=== PATIENT | male | born 1945 | race Caucasian/White ===

== ENCOUNTER 2016-12-16 05:25 | Emergency (ER) | payer MEDICARE, BC ==
[~2016-12-16] VITALS: Ht 170.2 cm; Wt 76.8 kg
[~2016-12-16 05:25] MED LIST: AMIO200T2 PO; BUPR300T33 PO; CARV6.252 PO; FISH1CAP59 PO; FLUO20TA PO; INSU100I14 SQ; INSU100V28 SQ; LEVO100T12 PO; LOVA20TA71 PO; MAGN400T25 PO; MULT1TAB69 PO; NITR0.4T28 SL; OLME40TA13 PO; OMEP20CA10 PO
--- OUTSIDE RECORDS SUMMARY | 2016-12-16 05:30 | XMS REPORT | Continuity of Care Document ---
Author Author [facility] [facility] Organization [facility] Address Unknown Phone Unavailable Support Name Relationship Address Phone MONALISA HARTMAN MD Caregiver [address] [facility] [place] [address] Unavailable JE HAYS MD Caregiver [address] [facility] [place] [place] [phone] Unavailable KEARA CHENG Next Of Kin [address] [place] [address] Insurance Providers Guarantor Zachary Cheng Address [address] [place] [address] Email Payer [facility] Policy Number [id number] Subscriber's Name Zachary Cheng Relationship 18 Self Group Number [id number] Effective Date 11 Payer Medicare Policy Number [id number] Subscriber's Name Zachary Cheng Relationship 18 Self Effective Date 10 Advance Directives Directive Response Recorded Date/Time Advanced Directives Type None 01/01/14 11:13pm Ordered Resuscitation Status Full Code 01/01/14 11:11pm Chief Complaint and Reason for Visit Chief Complaint Chest Pain Reason for Visit Acute kidney injury superimposed on chronic kidney disease Hypotension Problems Active Problems Medical Problem Onset Date Status Anticoagulated on Coumadin Unknown Chronic Chronic kidney disease Unknown Chronic Coronary artery disease Unknown Chronic Dyslipidemia Unknown Chronic Elevated INR Unknown Acute Episodic atrial fibrillation Unknown Resolved Foreign body in esophagus Unknown Acute GERD (gastroesophageal reflux disease) Unknown Chronic HTN (hypertension) Unknown Chronic Headache Unknown Acute Hypothyroidism Unknown Chronic Ischemic cardiomyopathy Unknown Chronic Laceration of lip Unknown Acute Obesity (BMI 30.0-34.9) Unknown Chronic Peripheral vascular disease Unknown Chronic Protein-calorie malnutrition, mild Unknown Chronic Sepsis Unknown Acute Type 2 diabetes mellitus Unknown Chronic UTI (lower urinary tract infection) Unknown Acute UTI (lower urinary tract infection) Unknown Acute Vomiting Unknown Acute Past Problems Medical Problem Onset Date Acute kidney injury superimposed on chronic kidney disease Unknown Closed head injury without loss of consciousness Unknown Contusion of arm, right Unknown Hypotension Unknown Laceration of scalp Unknown Medications Current Home Medications Medication Dose Units Route Directions Days Qty Instructions Start Date Amiodarone Hcl 200 Mg Tablet 200 Mg Oral Daily 10/12/12 Bupropion Hcl (Wellbutrin Xl) 300 Mg Tab.sr.24h 300 Mg Oral Daily 07/14/09 Carvedilol 6.25 Mg Tablet 6.25 Mg Oral Twice A Day 12/09/15 Fish Oil/Dha/Epa (Fish Oil 1,200 Mg Fish Oil) 1 Each Capsule 1 Cap Oral Twice A Day 10/12/12 Fluoxetine Hcl (Prozac) 20 Mg Tablet 40 Mg Oral Daily 10/12/12 Insulin Glargine (Lantus) 100 U/Ml Vial 26 Unit Sub-Q Bedtime 09/30 Insulin Lispro (Humalog) 100 Unit/1 Ml Insuln.pen 4 Unit Sub-Q Three Times A Day 05/28/14 Levothyroxine Sodium 100 Mcg Tablet 1 Tab Oral Before Breakfast Once daily before breakfast 10/01/16 Lovastatin 20 Mg Tablet 20 Mg Oral Bedtime 07/14/09 Magnesium Oxide (Mag-Oxide) 400 Mg Tablet 400 Mg Oral Daily 10/12 Multivitamin (Multivitamins) 1 Each Tablet 1 Tab Oral Daily 12/08 Nitroglycerin (Nitrostat) 0.4 Mg Tab.subl 0.4 Mg Sublingual Every 5 Minutes X 3 05/11/12 Olmesartan Medoxomil (Benicar) 40 Mg Tablet 20 Mg Oral Daily 08/04 Omeprazole 20 Mg Capsule.dr 20 Mg Oral Daily 12/09/15 Past Home Medications Medication Directions Ordered Status Amiodarone Hcl (Pacerone) 100 Mg Tablet, 100 Mg Oral Daily 01/18/12 Discontinued Aspirin 325 Mg Tablet, 650 Mg Oral Daily 07/14/09 Discontinued Carvedilol (Coreg) 6.25 Mg Tablet, 18.5 Mg Oral Twice A Day 01/18/12 Discontinued Cefixime (Suprax) 400 Mg Tablet, 400 Mg [place]hoff Daily 05/18/12 Discontinued Cipro , Twice A Day 05/16/12 Discontinued Ciprofloxacin Hcl (Cipro) 500 Mg Tablet, Twice A Day 05/31/14 Discontinued Ciprofloxacin Hcl (Cipro) 500 Mg Tablet, 500 Mg Oral Twice A Day 05/19/12 Discontinued Esomeprazole Mag Trihydrate (Nexium) 40 Mg Capsule.dr, 40 Mg Oral Daily 07/14 Discontinued Esomeprazole Mag Trihydrate (Nexium) 40 Mg Capsule.dr, 40 Mg Oral Daily 03/28 Discontinued Exenatide (Byetta) 5 Mcg Pen, 5 Mcg Sub-Q Twice A Day 07/14/09 Discontinued Fish Oil/[place]-3 Fatty Acids (Fish Oil 1,000 Mg Capsule) 1 Cap Capsule, 1 Cap Oral Daily 01/18/12 Discontinued Fluoxetine Hcl (Prozac) 40 Mg Capsule, 40 Mg Oral Daily 07/14/09 Discontinued Fluticasone Propionate (Flonase) 16 Gm [place].susp, 16 Gm Nasal Daily Discontinued Glyburide 5 Mg Tablet, 5 Mg Oral Twice A Day 07/14/09 Discontinued Lortab , As Needed 05/16/12 Discontinued Magnesium 200 Mg Tablet, 400 Mg Oral Twice A Day 07/14/09 Discontinued Metformin Hcl 500 Mg Tablet, 500 Mg Oral Twice A Day 07/14/09 Discontinued Nifedipine (Nifediac Cc) 30 Mg Tablet.sa, 30 Mg Oral Daily 07/14/09 Discontinued Phenazopyridine Hcl (Pyridium) 200 Mg Tablet, 200 Mg Oral Three Times A Day 05/16/12 Discontinued Spironolactone (Aldactone) 25 Mg Tablet, 25 Mg Oral Daily 05/11/12 Discontinued Spironolactone 25 Mg Tablet, 25 Mg Oral Daily 01/18/12 Discontinued Warfarin Sodium 2 Mg Tablet, 2 Mg Oral 6 Times A Week 12/09/15 Discontinued Warfarin Sodium 2 Mg Tablet, 2 Tab Oral 1 Week 10/01/16 Discontinued Social History Social History Problem Response Recorded Date/Time Onset Date Status Chewing Tobacco Status No 01/01/2014 9:45pm Not Applicable Not Applicable Hx Substance Use N ALCOHOLIC REHAB 199311/20/2016 4:40am Not Applicable Not Applicable Hx Alcohol Use Y "I STOPPED IN '94" 11/20/2016 4:40am Not Applicable Not Applicable Has the pt used tobacco in the last 12 months No 10/01/2016 2:09pm Not Applicable Not Applicable Tobacco Usage none 12/09/2015 8:40pm Not Applicable Not Applicable Query Response Start Date Stop Date Smoking Status Former smoker Hospital Discharge Instructions No hospital discharge instructions. Plan of Care Discharge Date 11/20/16 8:05am Disposition 02 TO [facility] Condition at Discharge Stable Prescriptions See Medication Section Referrals MONALISA HARTMAN MD Address: [address] [place], [place] [phone] Functional Status No functional status results. Allergies, Adverse Reactions, Alerts Allergen Type Severity Reaction Status Last Updated [place] tar Allergy Mild rash Active 10/01/16 oxypur Allergy Mild rash Active 05/28/14 Immunizations Immunization Event Date Type Not Given Reason Dose Number Lot Number Optometrist Assistant VIS Given Tdap 08/29/16 Administered 1 [id number] GlaxVenmoine 10/29/14 Query Response on File Recorded Date/Time Hx Influenza Vaccination Y fall 201510/01/16 2:09pm Hx Pneumococcal Vaccination No 10/01/16 2:09pm Hx Tetanus, Diptheria, Pertussis Yes 05/30/14 11:30pm Hx Influenza Vaccination Y fall 201510/01/16 2:09pm Hx Tetanus, Diptheria, Pertussis Yes 05/30/14 11:30pm Influenza Vaccine Hx fall 201511/20/16 4:40am Tdap Vaccine Hx 08/29/2016 08/29/16 5:04am Vital Signs Acute Vital Signs Vital Response Date/Time Temperature (Fahrenheit) 97.6 deg F (96.8 - 99.1) 11/20/2016 8:05am Temperature (Calculated Celsius) 36.68611 degrees C (36.0 - 37.3) 11/20/2016 8:05am Pulse Rate (adult) 56 bpm (60 - 100) 11/20/2016 8:05am Respiratory Rate 16 breaths/min (10 - 20) 11/20/2016 8:05am O2 Sat by Pulse Oximetry 98 % (90 - 100) 11/20/2016 8:05am Oxygen Delivery Method Room Air 10/01/2016 4:15pm Oxygen Flow Rate 2.00 L/min 11/20/2016 7:00am Blood Pressure 92/53 mm Hg 11/20/2016 8:05am Blood Pressure Source Automatic Cuff 10/01/2016 2:29pm Height (Feet) 5 feet 11/20/2016 4:00am Height (Inches) 7.00 inches 11/20/2016 4:00am Weight (Kilograms) 98.600 kg 11/20/2016 4:00am Body Mass Index (BMI) 34.0 11/20/2016 4:00am Results Laboratory Results Test Name Result Units Flags Reference Collection Date/Time Result Date/ Time Comments Activated Partial Thromboplast Time 54.4 SEC H 24-36 08/29/2016 3:55am 08/29/2016 4:54am White Blood Count 10.7 T/MM3 4.5-11.0 11/20/2016 4:39am 11/20/2016 4: 53am Red Blood Count 3.96 M/MM3 L 4.50-5.90 11/20/2016 4:39am 11/20/2016 4: 53am Hemoglobin 11.6 GM/DL L 13.5-17.5 11/20/2016 4:39am 11/20/2016 4:53am Hematocrit 34.6 % L 41-53 11/20/2016 4:39am 11/20/2016 4:53am Mean Corpuscular Volume 87.4 UM3 80-100 11/20/2016 4:39am 11/20/2016 4: 53am Mean Corpuscular Hemoglobin 29.3 UUG 26-34 11/20/2016 4:39am 2016 4:53am Mean Corpuscular Hemoglobin Concent 33.5 GM/DL 31-37 11/20/2016 4:39am 11/20/2016 4:53am RDW Standard Deviation 51.2 FL H 36.9-50.2 11/20/2016 4:39am 11/20/2016 4:53am Platelet Count 170 T/MM3 130-400 11/20/2016 4:39am 11/20/2016 4:53am Mean Platelet Volume 10.2 UM3 9.4-12.4 11/20/2016 4:39am 11/20/2016 4: 53am Neutrophils (%) (Auto) 70.7 % H 33-66 11/20/2016 4:39am 11/20/2016 4: 53am Lymphocytes (%) (Auto) 19.7 % L 23-45 11/20/2016 4:39am 11/20/2016 4: 53am Monocytes (%) (Auto) 5.4 % 0-9.0 11/20/2016 4:39am 11/20/2016 4:53am Eosinophils (%) (Auto) 3.5 % 0-4 11/20/2016 4:39am 11/20/2016 4:53am Basophils (%) (Auto) 0.4 % 0-2 11/20/2016 4:39am 11/20/2016 4:53am Immature Granulocyte % (Auto) 0.3 % 0.0-0.5 11/20/2016 4:39am 2016 4:53am Absolute Neutrophils (auto) 7.6 T/MM3 1.8-7.7 11/20/2016 4:39am 2016 4:53am Absolute Lymphocytes (auto) 2.1 T/MM3 1-4.8 11/20/2016 4:39am 2016 4:53am Absolute Monocytes (auto) 0.6 T/MM3 0-0.8 11/20/2016 4:39am 11/20/2016 4:53am Absolute Eosinophils (auto) 0.4 T/MM3 0-0.5 11/20/2016 4:39am 2016 4:53am Absolute Basophils (auto) 0.0 T/MM3 0-0.2 11/20/2016 4:39am 11/20/2016 4:53am Absolute Immature Granulocyte (auto 0.03 T/MM3 0.00-0.03 11/20/2016 4: 39am 11/20/2016 4:53am Prothromb Time International Ratio 2.14 H 0.76-1.04 11/20/2016 4:39am 11/20/2016 4:52am THERAPUTIC RANGE=2.00-3.00 FOR ANTI-THROMBOSIS THERAPUTIC RANGE=2.50-3.50 FOR IMPLANTED VALVE Icterus Index < 2 0-7 11/20/2016 4:39am 11/20/2016 5:02am Chemistry Specimen Hemolysis 28 H 0-25 11/20/2016 4:39am 11/20/2016 5: 02am 26-70: Specimen Exhibited Slight Hemolysis - can falsely elevate K (Potassium) and Urine Protein. Turbidity < 20 0-20 11/20/2016 4:39am 11/20/2016 5:02am Sodium Level 142 MEQ/L 134-144 11/20/2016 4:39am 11/20/2016 5:02am Potassium Level 4.4 MEQ/L 3.6-5 11/20/2016 4:39am 11/20/2016 5:02am Chloride Level 114 MEQ/L H 98-107 11/20/2016 4:39am 11/20/2016 5:02am Carbon Dioxide Level 17 MEQ/L L 22-30 11/20/2016 4:39am 11/20/2016 5: 02am Anion Gap 11 MEQ/L 5-15 11/20/2016 4:39am 11/20/2016 5:02am Blood Urea Nitrogen 52.0 MG/DL *H 9-20 11/20/2016 4:39am 11/20/2016 5: 24am Creatinine 5.2 MG/DL H 0.8-1.5 11/20/2016 4:39am 11/20/2016 5:02am BUN/Creatinine Ratio 10 RATIO 6-26 11/20/2016 4:39am 11/20/2016 5:02am Glomerular Filtration Rate Calc 11 11/20/2016 4:39am 11/20/2016 5: 02am Glucose Level 38 MG/DL *L 75-110 11/20/2016 4:39am 11/20/2016 5:25am Calculated Osmolality 284 MOSM/KG H 261-280 11/20/2016 4:39am 2016 5:02am Calcium Level 8.3 MG/DL L 8.4-10.2 11/20/2016 4:39am 11/20/2016 5:02am Total Bilirubin 1.00 MG/DL 0.20-1.30 11/20/2016 4:39am 11/20/2016 5: 02am Alkaline Phosphatase 177 U/L H 38-126 11/20/2016 4:39am 11/20/2016 5: 02am Total Protein 5.2 G/DL L 6.3-8.2 11/20/2016 4:39am 11/20/2016 5:02am Albumin 2.4 G/DL L 3.5-5.0 11/20/2016 4:39am 11/20/2016 5:02am Globulin 2.8 G/DL 2.4-3.6 11/20/2016 4:39am 11/20/2016 5:02am Albumin/Globulin Ratio 0.9 RATIO L 1.1-2.2 11/20/2016 4:39am 11/20/2016 5:02am Aspartate Amino Transf (AST/SGOT) 125 U/L H 17-59 11/20/2016 4:39am 12/2016 5:02am Alanine Aminotransferase (ALT/SGPT) 93 U/L H 21-72 11/20/2016 4:39am 12/2016 5:02am Troponin I < 0.012 ng/ml 0-0.12 11/20/2016 4:39am 11/20/2016 5:14am Troponin values with a difference of 55% increase from orginal troponin value represent a true biological DELTA value. (%increase Calc=Orginal Troponin value, divided by subsequent Troponin value, multiplied by 100) LY-Jaq-I-Type Natriuretic Peptide 3920 PG/ML H 0-175 11/20/2016 4:39am 11/20/2016 5:14am Rule in cut points: <50 years old=450; 50-75 years old=900; >75 years old=1800; When utilizing ProBNP rule-in cut points, adjustment for impaired renal function is typically not required. Magnesium Level 1.8 MG/DL 1.6-2.3 11/20/2016 4:39am 11/20/2016 5:02am Plasma Lactate 1.8 MMOL/L 0.6-2.2 11/20/2016 7:00am 11/20/2016 7:13am Glucometer 39 mg/dL *L 75-110 11/20/2016 7:17am 11/20/2016 7:19am Procedures Procedure Status Date Provider(s) Routine venipuncture Completed 04/19/16 Prothrombin time Completed 04/19/16 Routine venipuncture Completed 04/19/16 Prothrombin time Completed 04/19/16 Routine venipuncture Completed 04/19/16 Prothrombin time Completed 04/19/16 Routine venipuncture Completed 04/19/16 Prothrombin time Completed 04/19/16 Routine venipuncture Completed 04/19/16 Prothrombin time Completed 04/19/16 Capillary blood draw Completed 04/19/16 Prothrombin time Completed 04/19/16 Routine venipuncture Completed 04/19/16 Prothrombin time Completed 04/19/16 Routine venipuncture Completed 04/19/16 Prothrombin time Completed 04/19/16 Prothrombin time Completed 04/19/16 Capillary blood draw Completed 04/19/16 Prothrombin time Completed 04/19/16 Capillary blood draw Completed 04/19/16 Prothrombin time Completed 04/19/16 Capillary blood draw Completed 04/19/16 Prothrombin time Completed 04/19/16 Rpr s/n/ax/gen/trk7.6-12.5cm Completed 08/29/[address] head/brain w/o dye Completed 08/29/16 Metabolic panel total ca Completed 08/29/16 Complete cbc w/auto diff wbc Completed 08/29/16 Prothrombin time Completed 08/29/16 Thromboplastin time partial Completed 08/29/16 Immunization admin Completed 08/29/16 Tdap vaccine 7 yrs/> im Completed 08/29/16 Emergency dept visit Completed 08/29/16 [id number] ITEM OR SERVICE Completed 08/29/16 Routine venipuncture Completed 10/01/16 Ct head/brain w/o dye Completed 10/01/16 Comprehen metabolic panel Completed 10/01/16 Reagent strip/blood glucose Completed 10/01/16 Complete cbc w/auto diff wbc Completed 10/01/16 Prothrombin time Completed 10/01/16 Electrocardiogram tracing Completed 10/01/16 [id number] ITEM OR SERVICE Completed 10/01/16 [id number]"HOSPITAL OBSERVATION SERVICE, PER HOUR" Completed 10/01/16 [id number]"HOSPITAL OBSERVATION SERVICE, PER HOUR" Completed 10/01/16 Encounters Encounter Location Arrival/Admit Date Discharge/Depart Date Attending Provider Departed Emergency Room [facility] 11/20/16 3:57am 11/20/16 8: 05am JE HAYS MD Registered Recurring [facility] 11/09/16 11:33am FLOR FLORES MD Discharged Inpatient (obs) [facility] 10/01/16 1:40pm 10/01/16 4: 30pm FLOR FLORES MD Departed Emergency Room [facility] 08/29/16 3:26am 08/29/16 5: 25am MEGHAN VERNON MD Discharged Recurring [facility] 04/19/16 11:40am 09/18/16 11: 42pm FLOR FLORES MD Recent Diagnosis
--- OUTSIDE RECORDS SUMMARY | 2016-12-16 05:31 | XMS REPORT | Referral Summary ---
Author Author [facility] Organization [facility] Address Unknown Phone Unavailable Care Team Providers Care Riveter Portable Machine Name Role Phone Holly Singh Primary Care Physician [phone] Encounter VC Date(s): 11/10/16 - 11/10/16 [facility] [address] [place] [id number] Discharge Disposition: 01-Home or Self Care Attending Physician: Feliz Singh MD Admitting Physician: Feliz Singh MD Vital Signs Most recent to 1 oldest [Reference Range]: Blood Pressure 100/50 mmHg [90-140/60-90 mmHg] (11/10/16 10:18 AM) Problem List Condition Effective Dates Status Health Status Informant Left Adrenal adenoma Active - Benign(Confirmed) Recovering Active alcoholic(Confirmed) Allergic Active rhinitis(Confirmed) Arthritis of both Active knees(Confirmed) Atherosclerosis of Active coronary artery(Confirmed) Benign essential Active hypertension (disorder)(Confirmed ) Benign < 06/03/14 Resolved hypertension(Confirm ed) Bladder neck Active contracture(Confirme d) Gross Bladder Resolved trabeculation(Confir med) BPH with Active Prostatism(Confirmed ) Congestive heart Active failure (disorder)(Confirmed ) CKD (chronic kidney Active disease), stage III(Confirmed) Chronic Diffuse Active trigonitis(Confirmed ) Coronary Active arteriosclerosis (disorder)(Confirmed ) Coronary artery 2012 - 06/03/14 Resolved disease(Confirmed) Generalized Active osteoarthritis (disorder)(Confirmed ) Depression(Confirmed Active ) Diabetes(Confirmed) Active Arthritis of Active shoulder Lt(Confirmed) Dysphagia - 01/03/14 Active Progressive(Confirme d)1 Gastroesophageal Active reflux disease (disorder)(Confirmed ) Hyperlipidemia(Confi Active rmed) Hypertension(Confirm < 06/03/14 Resolved ed) Hypothyroidism Active (disorder)(Confirmed ) Intermittent 11/15/12 Active claudication(Confirm ed) Intermittent 11/29/12 Active claudication(Confirm ed) Intermittent 10/16/12 Active claudication(Confirm ed) Mixed Active hyperlipidemia(Confi rmed) Obesity Active (disorder)(Confirmed ) Osteoarthritis, Active generalized(Confirme d) PAD(Confirmed) Active Peripheral vascular Active disease (disorder)(Confirmed ) Persistent Painless Active microscopic hematuria(Confirmed) Polio(Confirmed) Active Psoriasis(Confirmed) Active Pure Active hypercholesterolemia (disorder)(Confirmed ) Arthritis of Active back(Confirmed) 1EGD with Dilation, Ulcer at distal esophagus, stay on ppl Allergies, Adverse Reactions, Alerts Substance Reaction Severity Status BLUE inhibitors1 Active 1ACE inhibitors and ARB's are contraindicated due to history of acute kidney injury (prerenal) per Dr. Ashok Moe. Medications amiodarone 200 mg oral tablet 1 tabs, Oral, Daily, # 30 tabs, 0 Refill(s) Start Date: 05/13/14 Status: Ordered BD INSULIN SYR 1 ML [id number] See Instructions, USE TO INJECT INSULIN FOUR TIMES A DAY, # 100 syringes, eRx: [facility] #[id number], USE TO INJECT INSULIN FOUR TIMES A DAY Start Date: 05/26/16 Status: Ordered BD INSULIN SYR 1 ML [id number] See Instructions, USE TO INJECT INSULIN FOUR TIMES A DAY, # 100 syringes, 1 Refill(s), eRx: [facility] #[id number], USE TO INJECT INSULIN FOUR TIMES A DAY Start Date: 11/27/15 Status: Ordered BD INSULIN SYR 1 ML [id number] See Instructions, USE TO INJECT INSULIN FOUR TIMES A DAY, # 100 syringes, eRx: [facility] #[id number], USE TO INJECT INSULIN FOUR TIMES A DAY Start Date: 08/31/16 Status: Ordered BD INSULIN SYR 1 ML [id number] See Instructions, USE TO INJECT INSULIN FOUR TIMES A DAY, # 100 syringes, eRx: [facility] #[id number], USE TO INJECT INSULIN FOUR TIMES A DAY Start Date: 08/18/15 Status: Ordered BD INSULIN SYR 1 ML [id number] See Instructions, USE TO INJECT INSULIN FOUR TIMES A DAY, # 100 syringes, eRx: [facility] #[id number], USE TO INJECT INSULIN FOUR TIMES A DAY Start Date: 01/28/15 Status: Ordered BD INSULIN SYR 1 ML [id number] See Instructions, USE TO INJECT INSULIN FOUR TIMES A DAY, # 100 syringes, eRx: [facility] #[id number], USE TO INJECT INSULIN FOUR TIMES A DAY Start Date: 05/13/15 Status: Ordered BD INSULIN SYR 1 ML [id number] See Instructions, USE TO INJECT INSULIN FOUR TIMES A DAY, # 100 syringes, 1 Refill(s), eRx: [facility] #[id number], USE TO INJECT INSULIN FOUR TIMES A DAY Start Date: 07/15/14 Status: Ordered BD ULTRA-FINE PEN NDL [id number] See Instructions, USE TO INJECT THREE TIMES A DAY FOR DIABETES, # 100 unknown unit, 2 Refill(s), eRx: [facility] #[id number], USE TO INJECT THREE TIMES A DAY FOR DIABETES Start Date: 01/20/16 Status: Ordered BD ULTRA-FINE PEN NDL [id number] See Instructions, USE WITH INSULIN TO INJECT MEDICATION DIRECTED, # 100 unknown unit, 1 Refill(s), eRx: [facility] #[id number], USE WITH INSULIN TO INJECT MEDICATION DIRECTED Start Date: 02/20/14 Status: Ordered BD ULTRA-FINE PEN NDL [id number] See Instructions, USE WITH INSULIN TO INJECT MEDICATION DIRECTED, # 100 unknown unit, eRx: [facility] #[id number], USE WITH INSULIN TO INJECT MEDICATION DIRECTED Start Date: 07/09/14 Status: Ordered BD ULTRA-FINE PEN NDL [id number] See Instructions, USE WITH INSULIN TO INJECT MEDICATION DIRECTED, # 100 unknown unit, eRx: [facility] #[id number], USE WITH INSULIN TO INJECT MEDICATION DIRECTED Start Date: 11/04/14 Status: Ordered Benicar 20 mg oral tablet mg tabs, Oral, Daily, 0 Refill(s) Start Date: 09/15/16 Status: Ordered buPROPion 300 mg/24 hours (XL) oral tablet, extended release See Instructions, TAKE ONE TABLET BY MOUTH EVERY DAY, # 30 tabs, 4 Refill(s), eRx: [facility] #[id number] Start Date: 09/08/16 Status: Ordered Coreg 6.25 mg oral tablet 1 tabs, Oral, BID, # 60 tabs, 0 Refill(s) Start Date: 05/13/14 Status: Ordered Fish Oil 1200 mg oral capsule 1 caps, Oral, BID, 0 Refill(s) Start Date: 05/13/14 Status: Ordered FLUoxetine 20 mg oral capsule See Instructions, TAKE TWO CAPSULES BY MOUTH DAILY, # 60 caps, eRx: [facility] #[id number] Start Date: 10/14/16 Status: Ordered HumaLOG KwikPen 100 units/mL subcutaneous solution See Instructions, INJECT 12 UNITS WITH MEALS, # 15 unknown unit, eRx: [facility] #[id number], INJECT 12 UNITS WITH MEALS Start Date: 07/20/16 Status: Ordered Insulin Pin [place] (DME) DME Item USE TO INJECT INSULIN 3 TIMES DAILY FOR DIABETES TYPE 2 250.00, See Instructions, # 1 boxes, 3 Refill(s), Pharmacy: [facility] #[id number], USE TO INJECT INSULIN 3 TIMES DAILY FOR DIABETES TYPE 2 250.00, Supply Start Date: 01/07/15 Status: Ordered Lantus 100 units/mL subcutaneous solution See Instructions, INJECT 30 UNITS UNDER THE SKIN EVERY EVENING, # 10 unknown unit, 2 Refill(s), eRx: [facility] #[id number] Start Date: 11/10/16 Status: Ordered levothyroxine 100 mcg (0.1 mg) oral tablet See Instructions, TAKE ONE TABLET BY MOUTH DAILY, # 45 tabs, eRx: [facility] #[id number] Start Date: 09/24/16 Status: Ordered lovastatin 20 mg oral tablet See Instructions, TAKE ONE TABLET BY MOUTH DAILY, # 30 tabs, 2 Refill(s), eRx: [facility] #[id number] Start Date: 09/16/16 Status: Ordered magnesium oxide 400 mg (241.3 mg elemental magnesium) oral tablet 400 mg, Oral, Daily, # 60 tabs, 6 Refill(s), Pharmacy: [facility] #[id number] , 400 mg Oral Daily Start Date: 08/19/16 Status: Ordered Nitrostat 0.4 mg sublingual tablet See Instructions, TAKE ONE TABLET UNDER THE TONGUE EVERY 5 MINUTES NEEDED FOR CHEST PAIN, # 100 tabs, eRx: [facility] #[id number] Start Date: 10/06/16 Status: Ordered omeprazole 20 mg oral delayed release capsule See Instructions, TAKE ONE CAPSULE BY MOUTH DAILY BEFORE A MEAL, # 30 caps, eRx : [facility] #[id number] Start Date: 10/14/16 Status: Ordered OMEPRAZOLE DR 20MG CAPSULE, UU See Instructions, TAKE ONE CAPSULE BY MOUTH ONCE A DAY BEFORE A MEAL, # 30 caps , 4 Refill(s), eRx: [facility] #[id number], TAKE ONE CAPSULE BY MOUTH ONCE A DAY BEFORE A MEAL Start Date: 11/08/14 Status: Ordered One-A-Day Men 50 Plus tabs, Oral, Daily, 0 Refill(s) Start Date: 08/19/16 Status: Ordered warfarin 2 mg oral tablet mg tabs, Oral, Daily, 0 Refill(s) Start Date: 05/09/15 Status: Ordered warfarin 5 mg oral tablet mg tabs, Oral, Daily, 2.5 MWF AND 2 OTHER DAYS, 0 Refill(s) Start Date: 10/08/14 Status: Ordered Results No data available for this section Immunizations Given and Recorded Vaccine Date Status Refusal Reason tetanus/diphth/pertuss (Tdap) adult/adol 06/08/13 Recorded influenza virus vaccine, inactivated 08/19/16 Given influenza virus vaccine, inactivated 08/12/15 Given influenza virus vaccine, inactivated1 06/17/14 Recorded influenza virus vaccine, live 08/14/13 Given influenza virus vaccine, live 08/07/12 Given influenza virus vaccine, live 06/15/11 Given pneumococcal 13-valent conjugate vaccine 08/12/15 Given pneumococcal 23-polyvalent vaccine 03/02/11 Recorded pneumococcal 23-polyvalent vaccine 08/02/02 Recorded tetanus-diphth toxoids (Td) adult/adol 08/16/07 Recorded 1Result Comment: [06/17/2014] SEE SCANNED NOTE Procedures Procedure Date Related Diagnosis Body Site Esophagogastroduodenoscopy, flexible, 12/09/15 transoral; with removal of foreign body(s)1 Colon cancer screening 01/03/14 Colonoscopy, Normal2 01/03/14 Esophagogastroduodenoscopy with Dilatation, 01/03/14 ulcer at distal esophagus3 Left Successful LABORATORY PHLEBOTOMIST/ Stent SFA 11/29/12 Right Leg Bare Metal Stent distal SFA and 11/15/12 Proximal Popliteal Angiogram4 10/16/12 Cardiac catheterization2012 Procedure - CT was Stable 01/13/12 Cardiac catheterization 2010 Esophagogastroduodenoscopy 2010 Cystoscopy, urethral calibration, laser 07/14/09 vaporization Cystoscopy Urethral Calibration and 03/31/09 dilatation Cystoscopy Filiform and AMP Follower 11/25/08 Esophagogastroduodenoscopy 02/2001 Detached retina 09/2000 Cataract - Left 1996 Cardiac catheterization 1993 Chronic prostatitis Dilatation and AMP Hydrodistention Pacemaker Defibrillator Tonsillectomy 1Food removed from esophagus. No evidence of stricture or Schatzki's ring. 2Repeat in 10 years 3stay on PPl 4Left SFA 70 percent, LABORATORY PHLEBOTOMIST and peroneal 100 percent; right SFA 100 Percent distally, Peroneal 100 Percent 5With Stents Social History Social History Type Response Smoking Status Former smoker; Type: Cigarettes; Tobacco use per day: 1 pack or more; Number of years: 31; Date Last Use: 1993 Assessment and Plan Extracted from: Title: Ambulatory Patient Education Author: Richard Amaya RN Date: 11/10/16 Geriatrics Fall Prevention in the Home Falls can cause injuries. They can happen to people of all ages. There are many things you can do to make your home safe and to help prevent falls. WHAT CAN I DO ON THE OUTSIDE OF MY HOME? Regularly fix the edges of walkways and driveways and fix any cracks. Remove anything that might make you trip as you walk through a door, such as a raised step or threshold. Trim any bushes or trees on the path to your home. Use bright outdoor lighting. Clear any walking paths of anything that might make someone trip, such as rocks or tools. Regularly check to see if handrails are loose or broken. Make sure that both sides of any steps have handrails. Any raised decks and porches should have guardrails on the edges. Have any leaves, snow, or ice cleared regularly. Use sand or salt on walking paths during winter. Clean up any spills in your garage right away. This includes oil or grease spills. WHAT CAN I DO IN THE BATHROOM? Use night lights. Install grab bars by the toilet and in the tub and shower. Do not use towel bars as grab bars. Use non-skid mats or decals in the tub or shower. If you need to sit down in the shower, use a plastic, non-slip stool. Keep the floor dry. Clean up any water that spills on the floor as soon as it happens. Remove soap buildup in the tub or shower regularly. Attach bath mats securely with double-sided non-slip rug tape. Do not have throw rugs and other things on the floor that can make you trip. WHAT CAN I DO IN THE BEDROOM? Use night lights. Make sure that you have a light by your bed that is easy to reach. Do not use any sheets or blankets that are too big for your bed. They should not hang down onto the floor. Have a firm chair that has side arms. You can use this for support while you get dressed. Do not have throw rugs and other things on the floor that can make you trip. WHAT CAN I DO IN THE KITCHEN? Clean up any spills right away. Avoid walking on wet floors. Keep items that you use a lot in [id number] places. If you need to reach something above you, use a strong step stool that has a grab bar. Keep electrical cords out of the way. Do not use floor romanian or wax that makes floors slippery. If you must use wax, use non-skid floor wax. Do not have throw rugs and other things on the floor that can make you trip. WHAT CAN I DO WITH MY STAIRS? Do not leave any items on the stairs. Make sure that there are handrails on both sides of the stairs and use them. Fix handrails that are broken or loose. Make sure that handrails are as long as the stairways. Check any carpeting to make sure that it is firmly attached to the stairs. Fix any carpet that is loose or worn. Avoid having throw rugs at the top or bottom of the stairs. If you do have throw rugs, attach them to the floor with carpet tape. Make sure that you have a light switch at the top of the stairs and the bottom of the stairs. If you do not have them, ask someone to add them for you. WHAT ELSE CAN I DO TO HELP PREVENT FALLS? Wear shoes that: Do not have high heels. Have rubber bottoms. Are comfortable and fit you well. Are closed at the toe. Do not wear sandals. If you use a stepladder: Make sure that it is fully opened. Do not climb a closed stepladder. Make sure that both sides of the stepladder are locked into place. Ask someone to hold it for you, if possible. Clearly earnest and make sure that you can see: Any grab bars or handrails. First and last steps. Where the edge of each step is. Use tools that help you move around (mobility aids) if they are needed. These include: Canes. Walkers. Scooters. Crutches. Turn on the lights when you go into a dark area. Replace any light bulbs as soon as they burn out. Set up your furniture so you have a clear path. Avoid moving your furniture around. If any of your floors are uneven, fix them. If there are any pets around you, be aware of where they are. Review your medicines with your doctor. Some medicines can make you feel dizzy. This can increase your chance of falling. Ask your doctor what other things that you can do to help prevent falls. This information is not intended to replace advice given to you by your health care provider. Make sure you discuss any questions you have with your health care provider. Document Released: 07/02/2010 Document Revised: 01/20/2016 Document Reviewed: [employer] Interactive Patient Education 2016 [employer] Health and Wellness Exercising to Stay Healthy Exercising regularly is important. It has many health benefits, such as: Improving your overall fitness, flexibility, and endurance. Increasing your bone density. Helping with weight control. Decreasing your body fat. Increasing your muscle strength. Reducing stress and tension. Improving your overall health. In order to become healthy and stay healthy, it is recommended that you do moderate-intensity and vigorous-intensity exercise. You can tell that you are exercising at a moderate intensity if you have a higher heart rate and faster breathing, but you are still able to hold a conversation. You can tell that you are exercising at a vigorous intensity if you are breathing much harder and faster and cannot hold a conversation while exercising. HOW OFTEN SHOULD I EXERCISE? Choose an activity that you enjoy and set realistic goals. Your health care provider can help you to make an activity plan that works for you. Exercise regularly as directed by your health care provider. This may include: Doing resistance training twice each week, such as: Push-ups. Sit-ups. Lifting weights. Using resistance bands. Doing a given intensity of exercise for a given amount of time. Choose from these options: 150 minutes of moderate-intensity exercise every week. 75 minutes of vigorous-intensity exercise every week. A mix of moderate-intensity and vigorous-intensity exercise every week. Children, women, people who are out of shape, people who are overweight , and older adults may need to consult a health care provider for individual recommendations. If you have any sort of medical condition, be sure to consult your health care provider before starting a new exercise program. WHAT ARE SOME EXERCISE IDEAS? Some moderate-intensity exercise ideas include: Walking at a rate of 1 mile in 15 minutes. Biking. Hiking. Golfing. Dancing. Some vigorous-intensity exercise ideas include: Walking at a rate of at least 4.5 miles per hour. Jogging or running at a rate of 5 miles per hour. Biking at a rate of at least 10 miles per hour. Lap swimming. Roller-skating or in-line skating. Cross-country skiing. Vigorous competitive sports, such as football, basketball, and soccer. Jumping rope. Aerobic dancing. WHAT ARE SOME EVERYDAY ACTIVITIES THAT CAN HELP ME TO GET EXERCISE? Yard work, such as: Pushing a bleach boiler packer. Raking and bagging leaves. Washing and waxing your car. Pushing a stroller. Shoveling snow. Gardening. Washing windows or floors. HOW CAN I BE MORE ACTIVE IN MY DAY-TO-DAY ACTIVITIES? Use the stairs instead of the elevator. Take a walk during your lunch break. If you drive, park your car farther away from work or school. If you take public transportation, get off one stop early and walk the rest of the way. Make all of your phone calls while standing up and walking around. Get up, stretch, and walk around every 30 minutes throughout the day. WHAT GUIDELINES SHOULD I FOLLOW WHILE EXERCISING? Do not exercise so much that you hurt yourself, feel dizzy, or get very short of breath. Consult your health care provider before starting a new exercise program. Wear comfortable clothes and shoes with good support. Drink plenty of water while you exercise to prevent dehydration or heat stroke. Body water is lost during exercise and must be replaced. Work out until you breathe faster and your heart beats faster. This information is not intended to replace advice given to you by your health care provider. Make sure you discuss any questions you have with your health care provider. Document Released: 10/08/2011 Document Revised: 09/26/2015 Document Reviewed: [employer] Interactive Patient Education 2016 [employer] No follow up information was provided.
--- OUTSIDE RECORDS SUMMARY | 2016-12-16 05:33 | XMS REPORT | Continuity of Care Document ---
Author Author [facility] Organization [facility] Address Unknown Phone Unavailable Support Name Relationship Address Phone FLOR FLORES MD Caregiver [facility] [address], [address] [place] [address] MONALISA HARTMAN MD Caregiver [address] [place] [address] KEARA CHENG Next Of Kin [address] [place], [place] [address] Insurance Providers Payer Name Policy Number Subscriber Name Relationship Medicare [id number] Zachary Cheng 18 Self [facility] [id number] Zachary Cheng 18 Self Advance Directives Directive Response Recorded Date/Time Advanced Directives Type None 01/01/14 11:13pm Ordered Resuscitation Status Full Code 01/01/14 11:11pm Problems Medical Problems Problem Onset Date Status Laceration of lip Unknown Active Vomiting Unknown Active UTI (lower urinary tract infection) Unknown Active Sepsis Unknown Active Type 2 diabetes mellitus Unknown Active HTN (hypertension) Unknown Active Hypothyroidism Unknown Active Coronary artery disease Unknown Active Peripheral vascular disease Unknown Active GERD (gastroesophageal reflux disease) Unknown Active Obesity (BMI 30.0-34.9) Unknown Active Anticoagulated on Coumadin Unknown Active Dyslipidemia Unknown Active Chronic kidney disease Unknown Active Episodic atrial fibrillation Unknown Resolved UTI (lower urinary tract infection) Unknown Active Protein-calorie malnutrition, mild Unknown Active Medications Medication Dose Route Sig Days/Qty Instructions Order Date Discontinued Date Status Lovastatin 20 Mg PO BEDTIME 07/14/09 Active Fluoxetine HCl 40 Mg PO DAILY 07/14/09 10/12/12 Discontinued Esomeprazole Mag Trihydrate 40 Mg PO DAILY 07/14/09 01/18/12 Discontinued Lisinopril 2.5 Mg PO DAILY 07/14/09 Active Bupropion Hcl 300 Mg PO DAILY 07/14/09 Active Exenatide 5 Mcg SQ TWICE A DAY 07/14/09 01/18/12 Discontinued Glyburide 5 Mg PO TWICE A DAY 07/14/09 01/18/12 Discontinued Metformin Hcl 500 Mg PO TWICE A DAY 07/14/09 01/18/12 Discontinued Magnesium 400 Mg PO TWICE A DAY 07/14/09 10/12/12 Discontinued Aspirin 650 Mg PO DAILY 07/14/09 05/11/12 Discontinued Nifedipine 30 Mg PO DAILY 07/14/09 01/18/12 Discontinued Esomeprazole Mag Trihydrate 40 Mg PO DAILY 03/28/09 03/28/09 Discontinued Tamsulosin Hcl 0.4 Mg PO BEDTIME 07/14/09 Active Fluticasone Propionate 16 Gm NS DAILY 07/11/09 07/14/09 Discontinued Amiodarone Hcl 100 Mg PO DAILY 01/18/12 10/12/12 Discontinued Carvedilol 18.5 Mg PO TWICE A DAY 01/18/12 10/12/12 Discontinued Insulin Glargine 30 U SQ BEDTIME 01/18/12 Active Spironolactone 25 Mg PO DAILY 01/18/12 05/11/12 Discontinued Fish Oil/[place]-3 Fatty Acids 1 Cap PO DAILY 01/18/12 10/12/12 Discontinued Nitroglycerin 0.4 Mg SL NEEDED 05/11/12 Active Spironolactone 25 Mg PO DAILY 05/11/12 10/12/12 Discontinued [Lortab] NEEDED 05/16/12 10/12/12 Discontinued Phenazopyridine Hcl 200 Mg PO THREE TIMES A DAY 05/16/12 10/12/12 Discontinued [cipro] TWICE A DAY 05/16/12 05/18/12 Discontinued Cefixime 400 Mg DAILY 10 Days 05/18/12 10/12/12 Discontinued Ciprofloxacin Hcl 500 Mg PO TWICE A DAY 05/19/12 10/12/12 Discontinued Amiodarone Hcl 200 Mg PO DAILY 10/12/12 Active Carvedilol 6.5 Tab PO TWICE A DAY 10/12/12 Active Fish Oil/Dha/Epa 1 Each PO TWICE A DAY 10/12/12 Active Fluoxetine HCl 40 Mg PO DAILY 10/12/12 Active Magnesium Oxide 400 Mg PO DAILY 10/12/12 Active Furosemide 40 Mg PO DAILY 10/12/12 Active Levothyroxine Sodium 50 Mcg PO DAILY 11/13/12 Active Warfarin Sodium 5 Mg PO TUE/Tue01/01/14 Active Warfarin Sodium 2.5 Mg PO T/W/T/S/S Take 1 tablet, by mouth, 1 time a day (at 5 pm). 05/28/14 Active Finasteride 1 Tab PO DAILY 05/28/14 Active Insulin Lispro 8 Unit SQ THREE TIMES A DAY 05/28/14 Active Ondansetron 4 Mg PO Q6H/0300,0900,1500,2100 For NAUSEA &/OR VOMITING 10 Qty 05/29/14 Active Ciprofloxacin HCl TWICE A DAY 05/31/14 06/02/14 Discontinued Amoxicillin/Potassium Clav 1 Tab PO EVERY 12 HOURS 14 Qty TAKE WITH MEALS 06/02/14 Active Social History Social History Problem Response Recorded Date/Time Chewing Tobacco Status No 01/01/2014 9:45pm Hx Substance Use N ALCOHOLIC REHAB 1994 05/30/2014 11:30pm Hx Alcohol Use Y "I STOPPED IN '" 05/30/2014 11:30pm Has the pt used tobacco in the last 12 months No 05/31/2014 3:15am Tobacco Usage none 05/31/2014 7:39am Query Response Start Date Stop Date Smoking Status Former smoker Hospital Discharge Instructions No hospital discharge instructions. Plan of Care No plan of care. Functional Status Query Response Date Recorded Physical Hygiene Self June 02, 2014 11:44am Physical Hygiene Self June 02, 2014 11:44am Allergies, Adverse Reactions, Alerts Allergen Type Severity Reaction Status Last Updated [place] tar Allergy Mild rash Active 05/29/14 oxypur Allergy Mild rash Active 05/28/14 Immunizations Name Given Type Hx Influenza Vaccination Y jun 2013 Historical Hx Pneumococcal Vaccination Y 05/20/12 Historical Hx Tetanus, Diptheria, Pertussis Yes Historical Hx Influenza Vaccination Y jun 2013 Historical Hx Tetanus, Diptheria, Pertussis Yes Historical Vital Signs Acute Vital Signs Vital Response Date/Time Height (Feet) 5 feet Height (Inches) 6.00 inches Weight (Kilograms) 91.810 kg Results Test Source Date Result Interp. Ref. Range Comments Activated Partial Thromboplast Time June 14, 2011 4:15pm 25.6 SEC N 24-36 Alanine Aminotransferase (ALT/SGPT) June 01, 2014 4:39am 87 U/L H 21-72 Albumin June 01, 2014 4:39am 3.0 G/DL L 3.5-5.0 Albumin/Globulin Ratio June 01, 2014 4:39am 1.2 RATIO N 1.1-2.2 Alkaline Phosphatase June 01, 2014 4:39am 81 U/L N 38-126 Amylase Level May 19, 2012 3:10pm 81 U/L N 30-110 Anion Gap June 02, 2014 4:30am 11 MEQ/L N 5-15 Aspartate Amino Transf (AST/SGOT) June 01, 2014 4:39am 58 U/L N 17- 59 B-Type Natriuretic Peptide June 14, 2011 4:15pm 286 PG/ML H 15-100 BUN/Creatinine Ratio June 02, 2014 4:30am 15 RATIO N 6-26 Band Neutrophils # May 31, 2014 6:39am 1.4 T/MM3 - Band Neutrophils % May 31, 2014 6:39am 14.0 % H 0-6 Basophils # (Auto) June 02, 2014 4:30am 0.0 T/MM3 N 0-0.2 Basophils # (Manual) May 17, 2012 6:15am 0.1 T/MM3 N 0-0.2 Basophils % (Manual) May 17, 2012 6:15am 1.0 % N 0-2 Basophils (%) (Auto) June 02, 2014 4:30am 0.1 % N 0-2 Blood Urea Nitrogen June 02, 2014 4:30am 15.0 MG/DL N 9-20 Calcium Level June 02, 2014 4:30am 8.4 MG/DL N 8.4-10.2 Calculated Osmolality June 02, 2014 4:30am 268 MOSM/KG N 261-280 Carbon Dioxide Level June 02, 2014 4:30am 29 MEQ/L N 22-30 Chloride Level June 02, 2014 4:30am 99 MEQ/L N 98-107 Conjugated Bilirubin April 04, 2014 10:20am 0.00 MG/DL N 0.00-0.30 Creatinine June 02, 2014 4:30am 1.0 MG/DL N 0.8-1.5 Eosinophils # (Auto) June 02, 2014 4:30am 0.4 T/MM3 N 0-0.5 Eosinophils # (Manual) May 24, 2012 4:45am 0.1 T/MM3 N 0-0.5 Eosinophils % (Manual) May 24, 2012 4:45am 1.0 % N 0-4 Eosinophils (%) (Auto) June 02, 2014 4:30am 5.3 % H 0-4 Free Thyroxine April 04, 2014 10:20am 1.44 NG/DL N 0.78-2.19 Globulin June 01, 2014 4:39am 2.5 G/DL N 2.4-3.6 Glucose Level June 02, 2014 4:30am 86 MG/DL N 75-110 Hematocrit June 02, 2014 4:30am 37.1 % L 41-53 Hemoglobin June 02, 2014 4:30am 11.8 GM/DL L 13.5-17.5 Hemoglobin A1c May 22, 2012 5:10am 6.0 % N 6-7 <6.0 NON-DIABETIC RANGE6.0-7.0 ADA THERAPEUTIC RANGE >7.0 ACTION SUGGESTED Lipase May 29, 2014 9:15pm 47 U/L N 23-300 Lymphocytes # (Auto) June 02, 2014 4:30am 0.7 T/MM3 L 1-4.8 Lymphocytes # (Manual) May 31, 2014 6:39am 0.1 T/MM3 L 1-4.8 Lymphocytes % (Manual) May 31, 2014 6:39am 1.0 % L 23-45 Lymphocytes (%) (Auto) June 02, 2014 4:30am 10.8 % L 23-45 Magnesium Level May 25, 2012 5:15am 1.6 MG/DL N 1.6-2.3 Mean Corpuscular Hemoglobin June 02, 2014 4:30am 28.4 UUG N 26-34 Mean Corpuscular Hemoglobin Concent June 02, 2014 4:30am 31.8 GM/DL N 31-37 Mean Corpuscular Volume June 02, 2014 4:30am 89.4 UM3 N 80-100 Mean Platelet Volume June 02, 2014 4:30am 9.5 UM3 N 9.4-12.4 Monocytes # (Auto) June 02, 2014 4:30am 0.5 T/MM3 N 0-0.8 Monocytes # (Manual) May 31, 2014 6:39am 0.7 T/MM3 N 0-0.8 Monocytes % (Manual) May 31, 2014 6:39am 7.0 % N 0-9.0 Monocytes (%) (Auto) June 02, 2014 4:30am 7.2 % N 0-9.0 Myelocytes # May 19, 2012 3:10pm 0.1 T/MM3 - Myelocytes % May 19, 2012 3:10pm 1.0 % H 0-0 Neutrophils # (Auto) June 02, 2014 4:30am 5.2 T/MM3 N 1.8-7.7 Neutrophils # (Manual) May 31, 2014 6:39am 7.9 T/MM3 H 1.8-7.7 Neutrophils % (Manual) May 31, 2014 6:39am 78.0 % H 33-66 Neutrophils (%) (Auto) June 02, 2014 4:30am 76.0 % H 33-66 Platelet Count June 02, 2014 4:30am 141 T/MM3 N 130-400 Potassium Level June 02, 2014 4:30am 3.7 MEQ/L N 3.6-5 Prealbumin May 31, 2014 8:12am 10.2 MG/DL L 17.6-36.0 COMMENT mele Prothromb Time International Ratio September 09, 2014 3:56pm 3.07 H 0.81- 1.09 THERAPUTIC RANGE=2.00-3.00 FOR ANTI-THROMBOSIS THERAPUTIC RANGE=2.50- 3.50 FOR IMPLANTED VALVE RDW Standard Deviation June 02, 2014 4:30am 48.2 FL N 36.9-50.2 Red Blood Count June 02, 2014 4:30am 4.15 M/MM3 L 4.50-5.90 Sodium Level June 02, 2014 4:30am 139 MEQ/L N 134-144 Thyroid Stimulating Hormone (TSH) May 31, 2014 8:12am 3.37 MIU/L N 0.47-4.68 COMMENT mele Total Bilirubin June 01, 2014 4:39am 0.80 MG/DL N 0.20-1.30 Total Protein June 01, 2014 4:39am 5.5 G/DL L 6.3-8.2 Troponin I May 19, 2012 3:10pm < 0.012 ng/ml 0-0.12 Unconjugated Bilirubin April 04, 2014 10:20am 0.10 MG/DL N 0.00-1.10 Urine Bacteria May 31, 2014 1:37am Trace H - Has specimen been collected/obtained? Y Urine Bilirubin May 31, 2014 1:37am Negative - Has specimen been collected/obtained? Y Urine Blood May 31, 2014 1:37am 3+ H - Has specimen been collected/obtained? Y Urine Collection Type May 31, 2014 1:37am Cleancatch-midstream - Has specimen been collected/obtained? Y Urine Color May 31, 2014 1:37am [place] - Has specimen been collected/obtained? Y Urine Culture Indicated May 19, 2012 4:35pm Cult not indicated - Has specimen been collected/obtained? Y Urine Glucose (UA) May 31, 2014 1:37am Negative - Has specimen been collected/obtained? Y Urine Ketones May 31, 2014 1:37am Negative - Has specimen been collected/obtained? Y Urine Leukocyte Esterase May 31, 2014 1:37am Negative - Has specimen been collected/obtained? Y Urine Mucus May 29, 2014 10:20pm Present - Has specimen been collected/obtained? Y Urine Nitrite May 31, 2014 1:37am Inconcl due to color - Has specimen been collected/obtained? Y Urine Protein May 31, 2014 1:37am Negative - Has specimen been collected/obtained? Y Urine RBC May 31, 2014 1:37am Tntc /HPF - Has specimen been collected/obtained? Y Urine Specific [place] May 31, 2014 1:37am >=1.030 H - Has specimen been collected/obtained? Y Urine Squamous Epithelial Cells May 31, 2014 1:37am 5-10 - Has specimen been collected/obtained? Y Urine Transitional Epithelial Cells May 16, 2012 5:35pm 3-5 /HPF - Has specimen been collected/obtained? Y Urine Turbidity May 31, 2014 1:37am Clear - Has specimen been collected/obtained? Y Urine Urobilinogen May 31, 2014 1:37am 4.0 EU/DL H - Has specimen been collected/obtained? Y Urine WBC May 31, 2014 1:37am None seen /HPF - Has specimen been collected/obtained? Y Urine pH May 31, 2014 1:37am 5.0 - Has specimen been collected/ obtained? Y Vancomycin Level Trough May 25, 2012 9:19am 19.31 UG/ML N 15-20 Vitamin B12 Level May 31, 2014 8:12am 304 PG/ML N 239-931 COMMENT mele White Blood Count June 02, 2014 4:30am 6.8 T/MM3 N 4.5-11.0 Chemistry Specimen Hemolysis June 02, 2014 4:30am < 15 0-25 0-25 : No Hemolysis.26-70: Slight Hemolysis - can falsely elevate K and Urine Protein. 71-285: Moderate Hemolysis - can falsely elevate K, Troponin I, CA 19-9, PTH, CSF GLucose, and Urine Protein, and can falsely decrease Phenytoin. 286-999: Gross Hemolysis - can falsely elevate K, Troponin I, CA 19-9, PTH, CSF Glucose, and Urine Protine, and can falsely decrease Phenytoin. Recommend specimen recollection. Glucometer June 02, 2014 11:08am 144 mg/dL H 75-110 Lab Scanned Report September 09, 2014 9:08pm LAB TEST FORM REQUEST [id number] - Activated Clotting Time November 29, 2012 2:15pm 164 SEC H 84-139 Turbidity June 02, 2014 4:30am < 20 0-20 Glomerular Filtration Rate Calc June 02, 2014 4:30am 74 - Immature Granulocyte # (Auto) June 02, 2014 4:30am 0.04 T/MM3 H 0.00-0.03 Immature Granulocyte % (Auto) June 02, 2014 4:30am 0.6 % H 0.0-0.5 Venous Blood Lactate May 31, 2014 6:39am 1.2 MMOL/L N 0.6-2.2 Procalcitonin May 31, 2014 6:39am 4.21 NG/ML PH - PCT </=0.5 ng/ mL - sepsis not likely;PCT >0.5 and </=2 ng/mL - sepsis possible; PCT >2 ng/mL - sepsis likely; PCT >/=10 ng/mL - systemic inflammatory response - sepsis or septic shock highly indicated. Icterus Index June 02, 2014 4:30am < 2 0-7 TJ-Cpf-N-Type Natriuretic Peptide May 19, 2012 3:10pm 48238 PG/ML H 0 -175 Rule in cut points: <50 years old=450; 50-75 years old=900; >75 years old=1800; When utilizing ProBNP rule-in cut points, adjustment for impaired renal function is typically not required. Blood Culture Blood May 31, 2014 12:53am NO GROWTH AFTER 5 DAYS Urine Culture Urine, [place] Indwelling May 31, 2014 1:37am Procedures Procedure Status Date Provider(s) BREATHING CAPACITY TEST completed 08/19/14 PULM FUNCT TST PLETHYSMOGRAP completed 08/19/14 CO/MEMBANE DIFFUSE CAPACITY completed 08/19/14 Encounters Encounter Location Date/Time Discharged [facility] 09/09/14 3:41pm Registered Clinic [facility] 08/19/14 1:24pm
--- OUTSIDE RECORDS SUMMARY | 2016-12-16 05:33 | XMS REPORT | Continuity of Care Document ---
Author Author [facility] Organization [facility] Address Unknown Phone Unavailable Support Name Relationship Address Phone MONALISA HARTMAN MD Caregiver [address] [place] [address] [address] [place], [place] [phone] PILO ADKINS MD Caregiver [address] [place] [address] [place] [address] [phone] KEARA CHENG Next Of Kin [address] [place], [place] [address] CP Insurance Providers Payer Name Policy Number Subscriber Name Relationship Medicare [id number] Zachary Cheng 18 Self [facility] [id number] Zachary Cheng 18 Self Advance Directives Directive Response Recorded Date/Time Advanced Directives Type None 01/01/14 11:13pm Ordered Resuscitation Status Full Code 01/01/14 11:11pm Problems Medical Problems Problem Onset Date Status Laceration of lip Unknown Active Medications Medication Dose Route Sig [...] Mg PO DAILY 01/18/12 05/11/12 Discontinued Fish Oil/[place]-3 Fatty Acids 1 Cap PO DAILY 01/18/12 [...] 11/13/12 Active Warfarin Sodium 5 Mg PO MON/Tue01/01/14 Active Warfarin Sodium 2.5 Mg PO T/W/T/S/S Take 1 tablet, by mouth, 1 time a day (at 5 pm). 05/28/14 Active Finasteride 1 Tab PO DAILY 05/28/14 Active Insulin Lispro 8 Unit SQ THREE TIMES A DAY 05/28/14 Active Omeprazole 20 Mg PO BEFORE BREAKFAST breakfast). 05/28/14 Active Social History Social History Problem Response Recorded Date/Time Smoking Status Former smoker 01/01/2014 11:16pm When did patient START smoking? AGE 15 05/28/2014 2:56pm When did patient STOP smoking? 199305/28/2014 2:56pm Chewing Tobacco Status No 01/01/2014 9:45pm Hx Substance Use N ALCOHOLIC REHAB 199305/28/2014 2:56pm Hx Alcohol Use Y "I STOPPED IN '94" 05/28/2014 2:56pm Has the pt used tobacco in the last 12 months No 05/28/2014 2:56pm Query Response Start Date Stop Date Smoking Status Former smoker Hospital Discharge Instructions No hospital discharge instructions. Plan of Care No plan of care. Functional Status No functional status results. Allergies, Adverse Reactions, Alerts Allergen Type Severity Reaction Status Last Updated [place] tar Allergy Mild rash Active 06/08/13 oxypur Allergy Mild rash Active 05/28/14 Immunizations Name Given Type Hx Influenza Vaccination Y jun 2013 Historical Hx Pneumococcal Vaccination Y 05/20/12 Historical Hx Tetanus, Diptheria, Pertussis Yes Historical Hx Influenza Vaccination Y jun 2013 Historical Hx Tetanus, Diptheria, Pertussis Yes Historical Vital Signs Acute Vital Signs Vital Response Date/Time Temperature (Fahrenheit) 98.0 deg F (96.8 - 99.1) Temperature (Calculated Celsius) 36.29030 degrees C (36.0 - 37.3) Temperature Source Temporal Pulse Rate (adult) 62 bpm (60 - 100) Respiratory Rate 18 breaths/min (10 - 20) O2 Sat by Pulse Oximetry 97 % (90 - 100) Oxygen Delivery Method Room Air Blood Pressure 118/58 mm Hg Blood Pressure Source Automatic Cuff Height 5 ft 7.5 in Weight 212 lb Body Mass Index 32.0 kg/m^2 Results Test Source Date Result Interp. Ref. Range Comments Activated Clotting Time November 29, 2012 2:15pm 164 SEC H 84-139 Activated Partial Thromboplast Time June 14, 2011 4:15pm 25.6 SEC N 24-36 Alanine Aminotransferase (ALT/SGPT) April 04, 2014 10:20am 63 U/L N 21- 72 Albumin April 04, 2014 10:20am 3.6 G/DL N 3.5-5.0 Albumin/Globulin Ratio April 04, 2014 10:20am 1.3 RATIO N 1.1-2.2 Alkaline Phosphatase April 04, 2014 10:20am 82 U/L N 38-126 Amylase Level May 19, 2012 3:10pm 81 U/L N 30-110 Anion Gap May 29, 2014 8:25am 12 MEQ/L N 5-15 Aspartate Amino Transf (AST/SGOT) April 04, 2014 10:20am 55 U/L N 17-59 B-Type Natriuretic Peptide June 14, 2011 4:15pm 286 PG/ML H 15-100 BUN/Creatinine Ratio May 29, 2014 8:25am 17 RATIO N 6-26 Band Neutrophils # May 24, 2012 4:45am 0.4 T/MM3 - Band Neutrophils % May 24, 2012 4:45am 3.0 % N 0-6 Basophils # (Auto) May 29, 2014 8:25am 0.0 T/MM3 N 0-0.2 COMMENT SCU WILL CALL Basophils # (Manual) May 17, 2012 6:15am 0.1 T/MM3 N 0-0.2 Basophils % (Manual) May 17, 2012 6:15am 1.0 % N 0-2 Basophils (%) (Auto) May 29, 2014 8:25am 0.5 % N 0-2 COMMENT SCU WILL CALL Blood Urea Nitrogen May 29, 2014 8:25am 17.0 MG/DL N 9-20 Calcium Level May 29, 2014 8:25am 8.9 MG/DL N 8.4-10.2 Calculated Osmolality May 29, 2014 8:25am 282 MOSM/KG H 261-280 Carbon Dioxide Level May 29, 2014 8:25am 29 MEQ/L N 22-30 Chemistry Specimen Hemolysis May 29, 2014 8:25am < 15 0-25 0-25 : No Hemolysis.26-70: [...] can falsely decrease Phenytoin. Recommend specimen recollection. Chloride Level May 29, 2014 8:25am 104 MEQ/L N 98-107 Conjugated Bilirubin April 04, 2014 10:20am 0.00 MG/DL N 0.00-0.30 Creatinine May 29, 2014 8:25am 1.0 MG/DL N 0.8-1.5 Eosinophils # (Auto) May 29, 2014 8:25am 0.3 T/MM3 N 0-0.5 COMMENT SCU WILL CALL Eosinophils # (Manual) May 24, 2012 4:45am 0.1 T/MM3 N 0-0.5 Eosinophils % (Manual) May 24, 2012 4:45am 1.0 % N 0-4 Eosinophils (%) (Auto) May 29, 2014 8:25am 4.4 % H 0-4 COMMENT SCU WILL CALL Free Thyroxine April 04, 2014 10:20am 1.44 NG/DL N 0.78-2.19 Globulin April 04, 2014 10:20am 2.7 G/DL N 2.4-3.6 Glomerular Filtration Rate Calc May 29, 2014 8:25am 74 - Glucometer January 03, 2014 3:05pm 94 mg/dL N 75-110 Glucose Level May 29, 2014 8:25am 117 MG/DL H 75-110 Hematocrit May 29, 2014 8:25am 40.2 % L 41-53 COMMENT SCU WILL CALL Hemoglobin May 29, 2014 8:25am 13.0 GM/DL L 13.5-17.5 COMMENT SCU WILL CALL Hemoglobin A1c May 22, 2012 5:10am 6.0 % N 6-7 <6.0 NON-DIABETIC RANGE6.0-7.0 ADA THERAPEUTIC RANGE >7.0 ACTION SUGGESTED Icterus Index May 29, 2014 8:25am < 2 0-7 Immature Granulocyte # (Auto) May 29, 2014 8:25am 0.02 T/MM3 N 0.00-0.03 COMMENT SCU WILL CALL Immature Granulocyte % (Auto) May 29, 2014 8:25am 0.3 % N 0.0-0.5 COMMENT SCU WILL CALL Lab Scanned Report May 06, 2014 10:39am LAB TEST FORM REQUEST [id number] - Lipase May 19, 2012 3:10pm 168 U/L DN 23-300 Lymphocytes # (Auto) May 29, 2014 8:25am 0.9 T/MM3 L 1-4.8 COMMENT SCU WILL CALL Lymphocytes # (Manual) May 24, 2012 4:45am 1.5 T/MM3 N 1-4.8 Lymphocytes % (Manual) May 24, 2012 4:45am 10.0 % L 23-45 Lymphocytes (%) (Auto) May 29, 2014 8:25am 15.7 % L 23-45 COMMENT SCU WILL CALL Magnesium Level May 25, 2012 5:15am 1.6 MG/DL N 1.6-2.3 Mean Corpuscular Hemoglobin May 29, 2014 8:25am 28.4 UUG N 26-34 COMMENT SCU WILL CALL Mean Corpuscular Hemoglobin Concent May 29, 2014 8:25am 32.3 GM/DL N 31-37 COMMENT SCU WILL CALL Mean Corpuscular Volume May 29, 2014 8:25am 87.8 UM3 N 80-100 COMMENT SCU WILL CALL Mean Platelet Volume May 29, 2014 8:25am 9.1 UM3 L 9.4-12.4 COMMENT SCU WILL CALL Monocytes # (Auto) May 29, 2014 8:25am 0.5 T/MM3 N 0-0.8 COMMENT SCU WILL CALL Monocytes # (Manual) May 24, 2012 4:45am 0.3 T/MM3 N 0-0.8 Monocytes % (Manual) May 24, 2012 4:45am 2.0 % N 0-9.0 Monocytes (%) (Auto) May 29, 2014 8:25am 7.8 % N 0-9.0 COMMENT SCU WILL CALL Myelocytes # May 19, 2012 3:10pm 0.1 T/MM3 - Myelocytes % May 19, 2012 3:10pm 1.0 % H 0-0 WO-Qbf-V-Type Natriuretic Peptide May 19, 2012 3:10pm 15466 PG/ML H 0 -175 Rule in cut points: <50 years old=450; 50-75 years old=900; >75 years old=1800; When utilizing ProBNP rule-in cut points, adjustment for impaired renal function is typically not required. Neutrophils # (Auto) May 29, 2014 8:25am 4.1 T/MM3 N 1.8-7.7 COMMENT SCU WILL CALL Neutrophils # (Manual) May 24, 2012 4:45am 12.3 T/MM3 H 1.8-7.7 Neutrophils % (Manual) May 24, 2012 4:45am 84.0 % H 33-66 Neutrophils (%) (Auto) May 29, 2014 8:25am 71.3 % H 33-66 COMMENT SCU WILL CALL Platelet Count May 29, 2014 8:25am 167 T/MM3 N 130-400 COMMENT SCU WILL CALL Potassium Level May 29, 2014 8:25am 3.7 MEQ/L N 3.6-5 Prothromb Time International Ratio May 29, 2014 8:25am 1.17 H 0.81 -1.09 THERAPUTIC RANGE=2.00-3.00 FOR ANTI-THROMBOSIS THERAPUTIC RANGE=2.50- 3.50 FOR IMPLANTED VALVE RDW Standard Deviation May 29, 2014 8:25am 46.1 FL N 36.9-50.2 COMMENT SCU WILL CALL Red Blood Count May 29, 2014 8:25am 4.58 M/MM3 N 4.50-5.90 COMMENT SCU WILL CALL Sodium Level May 29, 2014 8:25am 145 MEQ/L H 134-144 Thyroid Stimulating Hormone (TSH) April 04, 2014 10:20am 2.71 MIU/L N 0.47-4.68 Total Bilirubin April 04, 2014 10:20am 0.30 MG/DL N 0.20-1.30 Total Protein April 04, 2014 10:20am 6.3 G/DL N 6.3-8.2 Troponin I May 19, 2012 3:10pm < 0.012 ng/ml 0-0.12 Turbidity May 29, 2014 8:25am < 20 0-20 Unconjugated Bilirubin April 04, 2014 10:20am 0.10 MG/DL N 0.00-1.10 Urine Bacteria May 19, 2012 4:35pm 2+ H - Has specimen been collected/obtained? Y Urine Bilirubin May 19, 2012 4:35pm 1+ H - Has specimen been collected/obtained? Y Urine Blood May 19, 2012 4:35pm Negative - Has specimen been collected/obtained? Y Urine Collection Type May 19, 2012 4:35pm Voided - Has specimen been collected/obtained? Y Urine Color May 19, 2012 4:35pm Yellow - Has specimen been collected/obtained? Y Urine Culture Indicated May 19, 2012 4:35pm Cult not indicated - Has specimen been collected/obtained? Y Urine Glucose (UA) May 19, 2012 4:35pm Negative - Has specimen been collected/obtained? Y Urine Ketones May 19, 2012 4:35pm Negative - Has specimen been collected/obtained? Y Urine Leukocyte Esterase May 19, 2012 4:35pm Trace H - Has specimen been collected/obtained? Y Urine Mucus May 19, 2012 4:35pm Present - Has specimen been collected/obtained? Y Urine Nitrite May 19, 2012 4:35pm Positive H - Has specimen been collected/obtained? Y Urine Protein May 19, 2012 4:35pm 1+ H - Has specimen been collected /obtained? Y Urine RBC May 19, 2012 4:35pm 1-3 /HPF - Has specimen been collected/obtained? Y Urine Specific [place] May 19, 2012 4:35pm 1.010 L - Has specimen been collected/obtained? Y Urine Squamous Epithelial Cells May 19, 2012 4:35pm Moderate - Has specimen been collected/obtained? Y Urine Transitional Epithelial Cells May 16, 2012 5:35pm 3-5 /HPF - Has specimen been collected/obtained? Y Urine Turbidity May 19, 2012 4:35pm Clear - Has specimen been collected/obtained? Y Urine Urobilinogen May 19, 2012 4:35pm 4 EU/DL H - Has specimen been collected/obtained? Y Urine WBC May 19, 2012 4:35pm 1-3 /HPF - Has specimen been collected/obtained? Y Urine pH May 19, 2012 4:35pm 5.0 - Has specimen been collected/ obtained? Y Vancomycin Level Trough May 25, 2012 9:19am 19.31 UG/ML N 15-20 White Blood Count May 29, 2014 8:25am 5.7 T/MM3 N 4.5-11.0 COMMENT SCU WILL CALL Blood Culture Blood May 16, 2012 4:43pm NO GROWTH AFTER 5 DAYS Urine Culture Urine, [place] May 16, 2012 7:06pm Procedures Procedure Status Date Provider(s) Cystoscopy with urethral dilation completed 05/29/14 PILO ADKINS MD Encounters Encounter Location Date/Time Registered Recurring [facility] 05/06/14 8:41am
--- OUTSIDE RECORDS SUMMARY | 2016-12-16 05:33 | XMS REPORT | Continuity of Care Document ---
Author Author [facility] Organization [facility] Address Unknown Phone Unavailable Support Name Relationship Address Phone KERRI DAVILA MD Caregiver [facility] [address] [place] [address] Unavailable MONALISA HARTMAN MD Caregiver [address] [place] [address] KEARA CHENG Next Of Kin [address] [place] [address] CP Insurance Providers Payer Name Policy Number Subscriber Name Relationship Medicare [id number] Zachary Cheng 18 Self [facility] [[email or web address]] [id number] Zachary Cheng 18 Self Advance Directives Directive Response Recorded Date/Time Advanced Directives Type None 01/01/14 11:13pm Ordered Resuscitation Status Full Code 01/01/14 11:11pm Problems Medical Problems Problem Onset Date Status Laceration of lip Unknown Active Vomiting Unknown Active Medications Medication Dose Route Sig [...] Mg PO DAILY 01/18/12 05/11/12 Discontinued Fish Oil/[place]-3 Fatty Acids 1 Cap PO DAILY 01/18/12 [...] 11/13/12 Active Warfarin Sodium 5 Mg PO MON/FRI 01/01/14 Active Warfarin Sodium 2.5 Mg PO T/W/T/S/S Take 1 tablet, by mouth, 1 time a day (at 5 pm). 05/28/14 Active Finasteride 1 Tab PO DAILY 05/28/14 Active Insulin Lispro 8 Unit SQ THREE TIMES A DAY 05/28/14 Active Omeprazole 20 Mg PO BEFORE BREAKFAST breakfast). 05/28/14 Active Ondansetron 4 Mg PO Q6H/0300,0900,1500,2100 For NAUSEA &/OR VOMITING 10 Qty 05/29/14 Active Social History Social History Problem Response Recorded Date/Time Smoking Status Former smoker 01/01/2014 11:16pm When did patient STOP smoking? APPROX 94 05/29/2014 9:46pm Chewing Tobacco Status No 01/01/2014 9:45pm Hx Substance Use N ALCOHOLIC REHAB 1994 05/29/2014 9:46pm Hx Alcohol Use Y "I STOPPED IN '94" 05/29/2014 9:46pm Has the pt used tobacco in the last 12 months No 05/28/2014 2:56pm Query Response Start Date Stop Date Smoking Status Former smoker Hospital Discharge Instructions No hospital discharge instructions. Plan of Care No plan of care. Functional Status Query Response Date Recorded Physical Hygiene Self May 29, 2014 9:46pm Disabilities None May 29, 2014 9:46pm Devices Used Dentures Glasses May 29, 2014 9:46pm Dressing Self May 29, 2014 9:46pm Ambulation Self May 29, 2014 9:46pm Diet Self May 29, 2014 9:46pm Mental Status Alert May 29, 2014 10:37pm Disabilities None May 29, 2014 9:46pm Devices Used Dentures Glasses May 29, 2014 9:46pm Physical Hygiene Self May 29, 2014 9:46pm Dressing Self May 29, 2014 9:46pm Ambulation Self May 29, 2014 9:46pm Diet Self May 29, 2014 9:46pm Allergies, Adverse Reactions, Alerts Allergen Type Severity Reaction Status Last Updated [place] tar Allergy Mild rash Active 05/29/14 oxypur Allergy Mild rash Active 05/28/14 Immunizations Name Given Type Hx Influenza Vaccination Y jun 2013 Historical Hx Pneumococcal Vaccination Y 05/20/12 Historical Hx Tetanus, Diptheria, Pertussis Yes Historical Hx Influenza Vaccination Y jun 2013 Historical Hx Tetanus, Diptheria, Pertussis Yes Historical Vital Signs Acute Vital Signs Vital Response Date/Time Temperature (Fahrenheit) 98.4 deg F (96.8 - 99.1) Temperature (Calculated Celsius) 36.06524 degrees C (36.0 - 37.3) Pulse Rate (adult) 91 bpm (60 - 100) Respiratory Rate 16 breaths/min (10 - 20) O2 Sat by Pulse Oximetry 91 % (90 - 100) Blood Pressure 99/54 mm Hg Height 5 ft 7.5 in Weight 212 lb Body Mass Index 32.0 kg/m^2 Results Test Source Date Result Interp. Ref. Range Comments Activated Partial Thromboplast Time June 14, 2011 4:15pm 25.6 SEC N 24-36 Alanine Aminotransferase (ALT/SGPT) May 29, 2014 9:15pm 98 U/L H 21-72 Albumin May 29, 2014 9:15pm 3.9 G/DL N 3.5-5.0 Albumin/Globulin Ratio May 29, 2014 9:15pm 1.4 RATIO N 1.1-2.2 Alkaline Phosphatase May 29, 2014 9:15pm 92 U/L N 38-126 Amylase Level May 19, 2012 3:10pm 81 U/L N 30-110 Anion Gap May 29, 2014 9:15pm 15 MEQ/L N 5-15 Aspartate Amino Transf (AST/SGOT) May 29, 2014 9:15pm 111 U/L H 17 -59 B-Type Natriuretic Peptide June 14, 2011 4:15pm 286 PG/ML H 15-100 BUN/Creatinine Ratio May 29, 2014 9:15pm 18 RATIO N 6-26 Band Neutrophils # May 24, 2012 4:45am 0.4 T/MM3 - Band Neutrophils % May 24, 2012 4:45am 3.0 % N 0-6 Basophils # (Auto) May 29, 2014 9:15pm 0.0 T/MM3 N 0-0.2 Basophils # (Manual) May 17, 2012 6:15am 0.1 T/MM3 N 0-0.2 Basophils % (Manual) May 17, 2012 6:15am 1.0 % N 0-2 Basophils (%) (Auto) May 29, 2014 9:15pm 0.1 % N 0-2 Blood Urea Nitrogen May 29, 2014 9:15pm 18.0 MG/DL N 9-20 Calcium Level May 29, 2014 9:15pm 9.3 MG/DL N 8.4-10.2 Calculated Osmolality May 29, 2014 9:15pm 279 MOSM/KG N 261-280 Carbon Dioxide Level May 29, 2014 9:15pm 26 MEQ/L N 22-30 Chloride Level May 29, 2014 9:15pm 102 MEQ/L N 98-107 Conjugated Bilirubin April 04, 2014 10:20am 0.00 MG/DL N 0.00-0.30 Creatinine May 29, 2014 9:15pm 1.0 MG/DL N 0.8-1.5 Eosinophils # (Auto) May 29, 2014 9:15pm 0.1 T/MM3 N 0-0.5 Eosinophils # (Manual) May 24, 2012 4:45am 0.1 T/MM3 N 0-0.5 Eosinophils % (Manual) May 24, 2012 4:45am 1.0 % N 0-4 Eosinophils (%) (Auto) May 29, 2014 9:15pm 0.7 % N 0-4 Free Thyroxine April 04, 2014 10:20am 1.44 NG/DL N 0.78-2.19 Globulin May 29, 2014 9:15pm 2.8 G/DL N 2.4-3.6 Glucose Level May 29, 2014 9:15pm 141 MG/DL H 75-110 Hematocrit May 29, 2014 9:15pm 43.6 % N 41-53 Hemoglobin May 29, 2014 9:15pm 14.4 GM/DL N 13.5-17.5 Hemoglobin A1c May 22, 2012 5:10am 6.0 % N 6-7 <6.0 NON-DIABETIC RANGE6.0-7.0 ADA THERAPEUTIC RANGE >7.0 ACTION SUGGESTED Lipase May 29, 2014 9:15pm 47 U/L N 23-300 Lymphocytes # (Auto) May 29, 2014 9:15pm 0.4 T/MM3 L 1-4.8 Lymphocytes # (Manual) May 24, 2012 4:45am 1.5 T/MM3 N 1-4.8 Lymphocytes % (Manual) May 24, 2012 4:45am 10.0 % L 23-45 Lymphocytes (%) (Auto) May 29, 2014 9:15pm 3.7 % L 23-45 Magnesium Level May 25, 2012 5:15am 1.6 MG/DL N 1.6-2.3 Mean Corpuscular Hemoglobin May 29, 2014 9:15pm 29.1 UUG N 26-34 Mean Corpuscular Hemoglobin Concent May 29, 2014 9:15pm 33.0 GM/DL N 31-37 Mean Corpuscular Volume May 29, 2014 9:15pm 88.1 UM3 N 80-100 Mean Platelet Volume May 29, 2014 9:15pm 9.2 UM3 L 9.4-12.4 Monocytes # (Auto) May 29, 2014 9:15pm 0.2 T/MM3 N 0-0.8 Monocytes # (Manual) May 24, 2012 4:45am 0.3 T/MM3 N 0-0.8 Monocytes % (Manual) May 24, 2012 4:45am 2.0 % N 0-9.0 Monocytes (%) (Auto) May 29, 2014 9:15pm 2.0 % N 0-9.0 Myelocytes # May 19, 2012 3:10pm 0.1 T/MM3 - Myelocytes % May 19, 2012 3:10pm 1.0 % H 0-0 Neutrophils # (Auto) May 29, 2014 9:15pm 9.1 T/MM3 H 1.8-7.7 Neutrophils # (Manual) May 24, 2012 4:45am 12.3 T/MM3 H 1.8-7.7 Neutrophils % (Manual) May 24, 2012 4:45am 84.0 % H 33-66 Neutrophils (%) (Auto) May 29, 2014 9:15pm 93.2 % H 33-66 Platelet Count May 29, 2014 9:15pm 149 T/MM3 N 130-400 Potassium Level May 29, 2014 9:15pm 4.5 MEQ/L DN 3.6-5 Prothromb Time International Ratio May 29, 2014 8:25am 1.17 H 0.81 -1.09 THERAPUTIC RANGE=2.00-3.00 FOR ANTI-THROMBOSIS THERAPUTIC RANGE=2.50- 3.50 FOR IMPLANTED VALVE RDW Standard Deviation May 29, 2014 9:15pm 47.2 FL N 36.9-50.2 Red Blood Count May 29, 2014 9:15pm 4.95 M/MM3 N 4.50-5.90 Sodium Level May 29, 2014 9:15pm 143 MEQ/L N 134-144 Thyroid Stimulating Hormone (TSH) April 04, 2014 10:20am 2.71 MIU/L N 0.47-4.68 Total Bilirubin May 29, 2014 9:15pm 1.10 MG/DL N 0.20-1.30 Total Protein May 29, 2014 9:15pm 6.7 G/DL N 6.3-8.2 Troponin I May 19, 2012 3:10pm < 0.012 ng/ml 0-0.12 Unconjugated Bilirubin April 04, 2014 10:20am 0.10 MG/DL N 0.00-1.10 Urine Bacteria May 29, 2014 10:20pm 1+ H - Has specimen been collected/obtained? Y Urine Bilirubin May 29, 2014 10:20pm Negative - Has specimen been collected/obtained? Y Urine Blood May 29, 2014 10:20pm 3+ H - Has specimen been collected/obtained? Y Urine Collection Type May 29, 2014 10:20pm [place]-midstream - Has specimen been collected/obtained? Y Urine Color May 29, 2014 10:20pm [place] - Has specimen been collected/obtained? Y Urine Culture Indicated May 19, 2012 4:35pm Cult not indicated - Has specimen been collected/obtained? Y Urine Glucose (UA) May 29, 2014 10:20pm Negative - Has specimen been collected/obtained? Y Urine Ketones May 29, 2014 10:20pm Negative - Has specimen been collected/obtained? Y Urine Leukocyte Esterase May 29, 2014 10:20pm Trace H - Has specimen been collected/obtained? Y Urine Mucus May 29, 2014 10:20pm Present - Has specimen been collected/obtained? Y Urine Nitrite May 29, 2014 10:20pm Inconcl due to color - Has specimen been collected/obtained? Y Urine Protein May 29, 2014 10:20pm Negative - Has specimen been collected/obtained? Y Urine RBC May 29, 2014 10:20pm 30-50 /HPF H - Has specimen been collected/obtained? Y Urine Specific [place] May 29, 2014 10:20pm 1.021 - Has specimen been collected/obtained? Y Urine Squamous Epithelial Cells May 29, 2014 10:20pm 0-5 - Has specimen been collected/obtained? Y Urine Transitional Epithelial Cells May 16, 2012 5:35pm 3-5 /HPF - Has specimen been collected/obtained? Y Urine Turbidity May 29, 2014 10:20pm Sl cloudy - Has specimen been collected/obtained? Y Urine Urobilinogen May 29, 2014 10:20pm Inconcl due to color EU/DL - Has specimen been collected/obtained? Y Urine WBC May 29, 2014 10:20pm 3-5 /HPF - Has specimen been collected/obtained? Y Urine pH May 29, 2014 10:20pm 5.0 - Has specimen been collected /obtained? Y Vancomycin Level Trough May 25, 2012 9:19am 19.31 UG/ML N 15-20 White Blood Count May 29, 2014 9:15pm 9.8 T/MM3 DN 4.5-11.0 Chemistry Specimen Hemolysis May 29, 2014 9:15pm 38 H 0-25 0-25: No Hemolysis.26-70: Slight Hemolysis - can falsely elevate K and Urine Protein. 71-285: Moderate Hemolysis - can falsely elevate K, Troponin I, CA 19-9, PTH, CSF GLucose, and Urine Protein, and can falsely decrease Phenytoin. 286-999: Gross Hemolysis - can falsely elevate K, Troponin I, CA 19-9, PTH, CSF Glucose, and Urine Protine, and can falsely decrease Phenytoin. Recommend specimen recollection. Glucometer May 29, 2014 8:50pm 142 mg/dL H 75-110 Lab Scanned Report May 06, 2014 10:39am LAB TEST FORM REQUEST [id number] - Activated Clotting Time November 29, 2012 2:15pm 164 SEC H 84-139 Turbidity May 29, 2014 9:15pm < 20 0-20 Glomerular Filtration Rate Calc May 29, 2014 9:15pm 74 - Immature Granulocyte # (Auto) May 29, 2014 9:15pm 0.03 T/MM3 N 0.00-0.03 Immature Granulocyte % (Auto) May 29, 2014 9:15pm 0.3 % N 0.0-0.5 Icterus Index May 29, 2014 9:15pm < 2 0-7 CC-Gbs-M-Type Natriuretic Peptide May 19, 2012 3:10pm 20981 PG/ML H 0 -175 Rule in cut points: <50 years old=450; 50-75 years old=900; >75 years old=1800; When utilizing ProBNP rule-in cut points, adjustment for impaired renal function is typically not required. Blood Culture Blood May 16, 2012 4:43pm NO GROWTH AFTER 5 DAYS Urine Culture Urine, [place] May 16, 2012 7:06pm Procedures Procedure Status Date Provider(s) Cystoscopy with urethral dilation completed 05/29/14 PILO ADKINS MD Encounters Encounter Location Date/Time Departed Emergency Room [facility] 05/29/14 8:42pm Registered Recurring [facility] 05/06/14 8:41am Recent Diagnosis
--- OUTSIDE RECORDS SUMMARY | 2016-12-16 05:34 | XMS REPORT | Continuity of Care Document ---
Author Author [facility] Organization [facility] Address Unknown Phone Unavailable Support Name Relationship Address Phone TESSY JOHNSON DO Caregiver [address] [place] [address] [address] [place] [address] KERRI DAVILA MD Caregiver [facility] [address] [place] [address] Unavailable MONALISA HARTMAN MD Caregiver [address] [place], [place] [id number] KEARA CHENG Next Of Kin [address] [place], [place] [address] CP Insurance Providers Payer Name Policy Number Subscriber Name Relationship Medicare [id number] Zachary Cheng [address] [facility] [id number] Zachary Cheng 18 Self Advance Directives Directive Response Recorded Date/Time Advanced Directives Type None 01/01/14 11:13pm Ordered Resuscitation Status Full Code 01/01/14 11:11pm Chief Complaint and Reason for Visit Chief Complaint SEPSIS AND UTI Reason for Visit UTI (lower urinary tract infection) Sepsis Type 2 diabetes mellitus HTN (hypertension) Hypothyroidism Coronary artery disease Peripheral vascular disease GERD (gastroesophageal reflux disease) Obesity (BMI 30.0-34.9) Anticoagulated on Coumadin Dyslipidemia Chronic kidney disease Episodic atrial fibrillation UTI (lower urinary tract infection) Protein-calorie malnutrition, mild Problems Medical Problems Problem Onset Date Status [...] Mg PO DAILY 01/18/12 05/11/12 Discontinued Fish Oil/[place]-3 Fatty Acids 1 Cap PO DAILY 01/18/12 [...] 01/01/2014 11:16pm When did patient START smoking? 196105/31/2014 3:15am Chewing Tobacco Status No 01/01/2014 9:45pm Hx Substance Use N ALCOHOLIC REHAB 199305/30/2014 11:30pm Hx Alcohol Use Y "I STOPPED IN '94" 05/30/2014 11:30pm Has the pt used tobacco in the last 12 months No 05/31/2014 3:15am Query Response Start Date Stop Date Smoking Status Former smoker Hospital Discharge Instructions Instructions: Care Instructions: Reason for Hospitalization: UTI, sepsis, urinary retention I was in the hospital because (patient own words): bladder infection, nausea Discharge Diet: as tolerated diabetic Discharge Activity: as tolerated Follow Up Appointments: f/u within 7 days with pcp/ Follow up with in 7 days, patient to make appointment Condition at time of discharge: Good No straining with Bowel movements Drink 8-10 glasses of water daily Notify Physician If: Contact Dr. Roberson if your urine is bloody, you have chills or fever. Condition at time of discharge: Good Plan of Care Discharge Date 06/02/14 1:45pm Disposition 01 DISCHARGED HOME, SELF-CARE Instructions/Education Provided DI for Urinary Tract Infection (UTI) Prescriptions See Medications Section Functional Status Query Response Date Recorded Physical Hygiene Self June 02, 2014 11:44am Disabilities Visual June 02, 2014 11:44am Devices Used Glasses June 02, 2014 11:44am Dressing Self June 02, 2014 11:44am Ambulation Self June 02, 2014 11:44am Diet Self June 02, 2014 11:44am Mental Status Alert Oriented June 02, 2014 11:44am Disabilities Visual June 02, 2014 11:44am Devices Used Glasses June 02, 2014 11:44am Physical Hygiene Self June 02, 2014 11:44am Dressing Self June 02, 2014 11:44am Ambulation Self June 02, 2014 11:44am Diet Self June 02, 2014 11:44am Allergies, Adverse Reactions, Alerts Allergen Type Severity Reaction Status Last Updated Nolan tar Allergy Mild rash Active 05/29/14 oxypur Allergy Mild rash Active 05/28/14 Immunizations Name Given Type Hx Influenza Vaccination Y jun 2013 Historical Hx Pneumococcal Vaccination Y 05/20/12 Historical Hx Tetanus, Diptheria, Pertussis Yes Historical Hx Influenza Vaccination Y jun 2013 Historical Hx Tetanus, Diptheria, Pertussis Yes Historical Vital Signs Acute Vital Signs Vital Response Date/Time Temperature (Fahrenheit) 96.9 deg F (96.8 - 99.1) Temperature (Calculated Celsius) 36.12133 degrees C (36.0 - 37.3) Temperature Source Oral Pulse Rate (adult) 66 bpm (60 - 100) Respiratory Rate 16 breaths/min (10 - 20) O2 Sat by Pulse Oximetry 95 % (90 - 100) Oxygen Delivery Method Room Air Blood Pressure 121/67 mm Hg Blood Pressure Source Automatic Cuff Height 5 ft 7.5 in Weight 222 lb Body Mass Index 34.0 kg/m^2 Results Test Source Date Result Interp. [...] 02, 2014 4:30am 29 MEQ/L N 22-30 Chemistry Specimen Hemolysis June 02, 2014 4:30am [...] decrease Phenytoin. Recommend specimen recollection. Chloride Level June 02, 2014 4:30am 99 [...] 01, 2014 4:39am 2.5 G/DL N 2.4-3.6 Glomerular Filtration Rate Calc June 02, 2014 4:30am 74 - Glucometer June 02, 2014 11:08am 144 mg/dL H 75-110 Glucose Level June 02, 2014 4:30am 86 MG/DL N 75-110 Hematocrit June 02, 2014 4:30am 37.1 % L 41-53 Hemoglobin June 02, 2014 4:30am 11.8 GM/DL L 13.5-17.5 Hemoglobin A1c May 22, 2012 5:10am 6.0 % N 6-7 <6.0 NON-DIABETIC RANGE6.0-7.0 ADA THERAPEUTIC RANGE >7.0 ACTION SUGGESTED Icterus Index June 02, 2014 4:30am < 2 0-7 Immature Granulocyte # (Auto) June 02, 2014 4:30am 0.04 T/MM3 H 0.00-0.03 Immature Granulocyte % (Auto) June 02, 2014 4:30am 0.6 % H 0.0-0.5 Lab Scanned Report May 06, 2014 10:39am LAB TEST FORM REQUEST [id number] - Lipase May 29, 2014 9:15pm 47 U/L [...] 19, 2012 3:10pm 1.0 % H 0-0 IU-Oct-U-Type Natriuretic Peptide May 19, 2012 3:10pm 79371 PG/ML H 0 -175 Rule in cut points: <50 years old=450; 50-75 years old=900; >75 years old=1800; When utilizing ProBNP rule-in cut points, adjustment for impaired renal function is typically not required. Neutrophils # (Auto) June 02, 2014 4:30am [...] 8:12am 10.2 MG/DL L 17.6-36.0 COMMENT mele Procalcitonin May 31, 2014 6:39am 4.21 NG/ML PH - PCT </=0.5 ng/ mL - sepsis not likely;PCT >0.5 and </=2 ng/mL - sepsis possible; PCT >2 ng/mL - sepsis likely; PCT >/=10 ng/mL - systemic inflammatory response - sepsis or septic shock highly indicated. Prothromb Time International Ratio June 02, 2014 4:30am 1.78 H 0.81 -1.09 THERAPUTIC RANGE=2.00-3.00 FOR ANTI-THROMBOSIS [...] 2012 3:10pm < 0.012 ng/ml 0-0.12 Turbidity June 02, 2014 4:30am < 20 0-20 Unconjugated Bilirubin April 04, [...] Has specimen been collected/obtained? Y Urine Specific [place] May 31, 2014 1:37am >=1.030 H - [...] 25, 2012 9:19am 19.31 UG/ML N 15-20 Venous Blood Lactate May 31, 2014 6:39am 1.2 MMOL/L N 0.6-2.2 Vitamin B12 Level May 31, 2014 8:12am 304 PG/ML N [id number] COMMENT mele White Blood Count June 02, 2014 4:30am 6.8 T/MM3 N 4.5-11.0 Blood Culture Blood May 31, 2014 12:53am NO GROWTH AFTER 48 HOURS Urine Culture Urine, Medeiros Indwelling May 31, 2014 1:37am Name: ZACHARY CHENG Unit #: [id number] : 1945 Sex: M DISCHARGE SUMMARY Admit Date: 05/31/14 Report #: [id number] JADEN BUSH 06/02/14 1117: General Date Date DATE: 06/02/14 TIME: 11:17 Attending Physician Tessy Johnson DO Admitting Physician Tessy Johnson DO Consulting Physician Andrey Roberson MD Admitting Diagnosis (1) Sepsis (2) UTI (lower urinary tract infection) (3) Vomiting (4) Coronary artery disease (5) Hypothyroidism (6) Peripheral vascular disease (7) GERD (gastroesophageal reflux disease) (8) HTN (hypertension) (9) Type 2 diabetes mellitus (10) Anticoagulated on Coumadin (11) Dyslipidemia (12) Chronic kidney disease (13) Obesity (BMI 30.0-34.9) (14) Episodic atrial fibrillation (15) Protein-calorie malnutrition, mild Discharge Diagnosis (1) Sepsis-resolved (2) UTI (lower urinary tract infection) (3) Vomiting (4) Coronary artery disease (5) Hypothyroidism (6) Peripheral vascular disease (7) GERD (gastroesophageal reflux disease) (8) HTN (hypertension) (9) Type 2 diabetes mellitus (10) Anticoagulated on Coumadin (11) Dyslipidemia (12) Chronic kidney disease (13) Obesity (BMI 30.0-34.9) (14) Episodic atrial fibrillation (15) Protein-calorie malnutrition, mild Laboratory Laboratory Laboratory Tests Test 06/01/14 06/01/14 06/02/14 06/02/14 17:17 21:06 04:30 06:07 Glucometer 89 mg/dL 108 mg/dL 88 mg/dL White Blood Count 6.8 T/MM3 Red Blood Count 4.15 M/MM3 Hemoglobin 11.8 GM/DL Hematocrit 37.1 % Mean Corpuscular Volume 89.4 UM3 Mean Corpuscular Hemoglobin 28.4 UUG Mean Corpuscular Hemoglobin 31.8 GM/DL Concent RDW Standard Deviation 48.2 FL Platelet Count 141 T/MM3 Mean Platelet Volume 9.5 UM3 Immature Granulocyte % (Auto) 0.6 % Neutrophils (%) (Auto) 76.0 % Lymphocytes (%) (Auto) 10.8 % Monocytes (%) (Auto) 7.2 % Eosinophils (%) (Auto) 5.3 % Basophils (%) (Auto) 0.1 % Immature Granulocyte # (Auto) 0.04 T/MM3 Neutrophils # (Auto) 5.2 T/MM3 Lymphocytes # (Auto) 0.7 T/MM3 Monocytes # (Auto) 0.5 T/MM3 Eosinophils # (Auto) 0.4 T/MM3 Basophils # (Auto) 0.0 T/MM3 Prothromb Time International 1.78 Ratio Turbidity < 20 Sodium Level 139 MEQ/L Potassium Level 3.7 MEQ/L Chloride Level 99 MEQ/L Carbon Dioxide Level 29 MEQ/L Anion Gap 11 MEQ/L Blood Urea Nitrogen 15.0 MG/DL Creatinine 1.0 MG/DL Glomerular Filtration Rate 74 Calc BUN/Creatinine Ratio 15 RATIO Glucose Level 86 MG/DL Calculated Osmolality 268 MOSM/KG Calcium Level 8.4 MG/DL Icterus Index < 2 Chemistry Specimen Hemolysis < 15 Microbiology Microbiology Date/Time Procedure Status Source Growth 05/31/14 00:53 Blood Culture - Preliminary Resulted Blood NO GROWTH AFTER 48 HOURS 05/31/14 00:53 Blood Culture - Preliminary Resulted Blood NO GROWTH AFTER 48 HOURS 05/31/14 01:37 Urine Culture - Preliminary Resulted Urine, Medeiros Indwelling Radiology CXR 05/31/14 negative for acute findings History of Present Illness Mr. Cheng is a 69 year old gentleman who underwent a bladder expansion procedure on Tue. by Dr. Roberson. He developed post op nausea/vomiting and later that evening went to [place] [facility] [place] and saw Dr. Davila with cc: blood sugar felt low. He was seen and treated and sent home that night. After going home from ER that evening, patient reports falling without injuring anything but his pride. He had felt dizzy before falling. Denies any chest pain or soa. This same day patient had two liquid stools and did take a dose of antidiarrheal medicine. No BM on 05/30. Continuing onto 05/30 , he continued to feel nauseated and could only keep down jello. Denies any vomiting yesterday, just horribly nauseated and felt catheter pain which was unusual compared to having same procedure in the past. He states is taking an antibiotic post procedure (doesn't know name ) and also a pill that turns his urine orange. Patient admits that he was given a RX for Zofran post operatively however he DID NOT fill the prescription nor did he take ANY antiemetics at home because he "has too many medications to take anyways." Denies any documented fevers, thermometer didn't have any batteries. Did feel chills. Ultimately returned to the ER on 05/30 late evening for a reevaluation because he was not able to keep anything down and was concerned especially related to his diabetes. In the Er patient had initial vitals of 109/58, HR 104, RR 22, Temp 97.7. Sats 91% on room air. He underwent comprehensive lab testing which showed an elevated WBC of 11.4, platelets 125, hgb 13.1/ hct 40. Procalcitonin elevated at 5.32, AST 98, ALT 106, BUN 21, Creat 1.3, Lactate 1.2. UA showed TNTC RBC and 0 WBC, trace bacteria. He was given IVF, IV Zofran, started on Vancomycin and Invanz and admitted inpatient to the hospitalist service under the care of dr. johnson for acute sepsis. Expected LOS > 2 midnights. Hospital Course Please review completed problem list below for comprehensive plan of care. Patient was admitted for UTI with sepsis. Medeiros catheter was removed the day following admission and patient was able to void without difficulties. Patient was started on Ertapenem from the ER and this was administered daily for urinary coverage. He is being discharged with a 7 day course of Augmentin. Prelim urine culture showing no growth BC at 48 hours showing no growth. Problems: (1) Sepsis Status: Acute Assessment & Plan: Continue ertapenem for urinary antibiotic coverage. Blood cultures negative at 24 hours, 48 hour interpretation should be available after midnight tonight. If blood cultures are negative at 48 hours the patient can likely go home tomorrow. White count 7.6 this am (2) UTI (lower urinary tract infection) Status: Acute Assessment & Plan: As per #1 Urine cx prelim no growth 06/[address] Roberson consultation and taking care of this patient (3) Vomiting Status: Acute Assessment & Plan: No further vomiting When necessary antiemetics are available (4) Coronary artery disease Status: Chronic Assessment & Plan: Continue home meds, Coreg (5) Hypothyroidism Status: Chronic Assessment & Plan: Continuing Synthroid TSH 3.37 on admission (6) Peripheral vascular disease Status: Chronic Assessment & Plan: Patient has a history of 2 stents in his lower legs He is anticoagulated on Coumadin INR 1.78 on 06/02/14, being managed per pharmacy will go home for outpatient f/u on Coumadin (7) GERD (gastroesophageal reflux disease) Status: Chronic Assessment & Plan: Protonix for GI protection (8) HTN (hypertension) Status: Chronic Assessment & Plan: BP much better last two days. running 120s systolic Will resume low dose Lisinopril after discharge (9) Type 2 diabetes mellitus Status: Chronic Assessment & Plan: Blood sugars are much improved. Patient reports blood sugars have improved because he is on a much more manageable diet during hospitalization. At home he eats what he wants. Blood sugars ranging 87-121. Continue Lantus and home dosage of Humalog. (10) Anticoagulated on Coumadin Status: Chronic Assessment & Plan: INR 1.78 on 06/02/14 Resume home Coumadin and f/u pcp (11) Dyslipidemia Status: Chronic Assessment & Plan: Continue home Mevacor (12) Chronic kidney disease Status: Chronic Assessment & Plan: Creat stable at 1.0 (13) Obesity (BMI 30.0-34.9) Status: Chronic Assessment & Plan: ADA diet with 2000 calories daily (14) Episodic atrial fibrillation Status: Resolved Assessment & Plan: Patient does have a history of episodic atrial fibrillation which he had converted He does routinely take amiodarone (15) Protein-calorie malnutrition, mild Status: Chronic Assessment & Plan: Offer Ensure DVT Prophylaxis: SCD'S, Coumadin GI Prophylaxis: Protonix Code Status Full Code Home Meds Active Scripts Amoxicillin/Potassium Clav (Amox Tr-K Clv 500-125 mg Tab)1 Each Tablet1 Tab PO Q12HR #14 TAB Ref 0 TAKE WITH MEALS Prov:JADEN BUSH 06/02/14 Ondansetron (Zofran Odt)4 Mg Tab.rapdis4 Mg PO Q6HR #10 TAB Oral disintegrating tablet Prov:KERRI DAVILA MD 05/29/14 Reported Medications Insulin Lispro (Humalog)100 Unit/1 Ml Insuln.pen8 Unit SQ TID 05/28/14 Finasteride 5 Mg Tablet1 Tab PO DAILY 05/28/14 Warfarin Sodium 5 Mg Tablet2.5 Mg PO T/W/T/S/S Take 1 tablet, by mouth, 1 time a day (at 5 pm). 05/28/14 Warfarin Sodium (Coumadin)5 Mg Tablet5 Mg PO MON/FRI 01/01/14 Levothyroxine Sodium 25 Mcg Tllbki60 Mcg PO DAILY 11/13/12 Furosemide 40 Mg Zgykdw76 Mg PO DAILY 10/12/12 Magnesium Oxide (Mag-Oxide)400 Mg Rkoxso658 Mg PO DAILY 10/12/12 Fluoxetine (Prozac)20 Mg Bbmxkn47 Mg PO DAILY 10/12/12 Fish Oil/Dha/Epa (Fish Oil 1,200 Mg Fish Oil)1 Each Capsule1 Each PO BID 10/12/12 Carvedilol (Coreg)12.5 Mg Tablet6.5 Tab PO BID 10/12/12 Amiodarone Hcl 200 Mg [place]069 Mg PO DAILY 10/12/12 Nitroglycerin (Nitrostat)0.4 Mg Tab.subl0.4 Mg SL PRN 05/11/12 Insulin Glargine (Lantus)100 U/Ml Vial30 U Sq Hs 01/18/12 Tamsulosin Hcl (Flomax)0.4 Mg Cap.sr.24h0.4 Mg PO HS 07/14/09 Bupropion Hcl (Wellbutrin Xl)300 Mg Tab.sr.28b654 Mg PO DAILY 07/14/09 Lisinopril 10 Mg Tablet2.5 Mg PO DAILY 07/14/09 Lovastatin 20 Mg Qqbelu70 Mg PO HS 07/14/09 Discontinued Reported Medications Ciprofloxacin HCl (Cipro)500 Mg Tablet Bid 05/31/14 Discharge Disposition stable Copies To 1: MONALISA HARTMAN MD; ANDREY ROBERSON MD, CARRIE DO 06/02/14 1423: Hospital Course Pt seen and examined, OK for discharge at this time--f/u with Dr Roberson as previously scheduled Problems: Home Meds Active Scripts Amoxicillin/Potassium Clav (Amox Tr-K Clv 500-125 mg Tab)1 Each Tablet1 Tab PO Q12HR #14 TAB Ref 0 TAKE WITH MEALS Prov:JADEN BUSH 06/02/14 Ondansetron (Zofran Odt)4 Mg Tab.rapdis4 Mg PO Q6HR #10 TAB Oral disintegrating tablet Prov:KERRI DAVILA MD 05/29/14 Reported Medications Insulin Lispro (Humalog)100 Unit/1 Ml Insuln.pen8 Unit SQ TID 05/28/14 Finasteride 5 Mg Tablet1 Tab PO DAILY 05/28/14 Warfarin Sodium 5 Mg Tablet2.5 Mg PO T/W/T/S/S Take 1 tablet, by mouth, 1 time a day (at 5 pm). 05/28/14 Warfarin Sodium (Coumadin)5 Mg Tablet5 Mg PO MON/FRI 01/01/14 Levothyroxine Sodium 25 Mcg Eesevq25 Mcg PO DAILY 11/13/12 Furosemide 40 Mg Faxqho63 Mg PO DAILY 10/12/12 Magnesium Oxide (Mag-Oxide)400 Mg Hbsdgz547 Mg PO DAILY 10/12/12 Fluoxetine (Prozac)20 Mg Rqmrrp51 Mg PO DAILY 10/12/12 Fish Oil/Dha/Epa (Fish Oil 1,200 Mg Fish Oil)1 Each Capsule1 Each PO BID 10/12/12 Carvedilol (Coreg)12.5 Mg Tablet6.5 Tab PO BID 10/12/12 Amiodarone Hcl 200 Mg Cutzfk464 Mg PO DAILY 10/12/12 Nitroglycerin (Nitrostat)0.4 Mg Tab.subl0.4 Mg SL PRN 05/11/12 Insulin Glargine (Lantus)100 U/Ml Vial30 U Sq Hs 01/18/12 Tamsulosin Hcl (Flomax)0.4 Mg Cap.sr.24h0.4 Mg PO HS 07/14/09 Bupropion Hcl (Wellbutrin Xl)300 Mg Tab.sr.88t319 Mg PO DAILY 07/14/09 Lisinopril 10 Mg Tablet2.5 Mg PO DAILY 07/14/09 Lovastatin 20 Mg Denqww17 Mg PO HS 07/14/09 Discontinued Reported Medications Ciprofloxacin HCl (Cipro)500 Mg Tablet Bid 05/31/14 Copies To 1: MONALISA HARTMAN MD; ANDREY ROBERSON MD, TAMARA ARNP Jun 02, 2014 11:17 TESSY JOHNSON DO Jun 02, 2014 14:23 Procedures Procedure Status Date Provider(s) CYSTOSCOPY AND TREATMENT completed 05/29/14 ANDREY ROBERSON MD THER/PROPH/DIAG INJ IV PUSH completed 05/29/14 HYDRATE IV INFUSION ADD-ON completed 05/29/14 Encounters Encounter Location Date/Time Discharged Inpatient [facility] 05/31/14 2:15am Departed Emergency Room [facility] 05/29/14 8:42pm Registered Recurring [facility] 05/06/14 8:41am Recent Diagnosis UTI (lower urinary tract infection) Sepsis Type 2 diabetes mellitus HTN (hypertension) Hypothyroidism Coronary artery disease Peripheral vascular disease GERD (gastroesophageal reflux disease) Obesity (BMI 30.0-34.9) Anticoagulated on Coumadin Dyslipidemia Chronic kidney disease Episodic atrial fibrillation UTI (lower urinary tract infection) Protein-calorie malnutrition, mild
--- NOTE | 2016-12-16 05:39 | ERPDOC ---
Departure Disposition Decision Date: Dec 16, 2016 Disposition Decision Time: 06:55 (SHIMON CLARK DO) Disposition: 01 DISCHARGED HOME, SELF-CARE Impression Impression (KERRI DAVILA MD) Impression: Primary Impression: Closed head injury Qualified Codes: S09.90XA - Unspecified injury of head, initial encounter Severity: Mild (SHIMON CLARK DO) Condition: Improved Seen By: Physician only (SHIMON CLARK DO) Referrals: MONALISA HARTMAN MD (Family) 1 Day Patient Instructions: Head Injury (ED) Problems/Meds/Labs Reviewed?: Yes Medications reviewed and manag: Yes (SHIMON CLARK DO) Follow up care ordered?: Yes Mental Status: Alert, Oriented (SHIMON CLARK DO) HPI - Head Injury General Stated Complaint: FALL Time Seen by Provider: 05:25 Source: patient, RN/MD, [facility] records Exam Limitations: no limitations (KERRI DAVILA MD) Time Seen by Provider: 06:05 (SHIMON CLARK DO) HPI - Head Injury Initial Comments Patient had an unwitnessed fall at the [facility], the nurses did hear him fall. They immediately came to his aid, found him unconscious on the floor, with a large hematoma and abrasion to the right occiput. Patient had no loss of consciousness, and states he only has a slight posterior headache, and declines medication. Patient is on Coumadin for atrial fibrillation Occurred At: home Onset: Rapid Duration: 1 hr Severity: mild Location: occipital Method of Injury: fell Loss of Consciousness: no loss of consciousness Hx of Similar Symptoms: Yes (KERRI DAVILA MD) Allergies: Coded Allergies: coal tar (Verified Allergy, Mild, rash, 12/16/16) He used oxypor to which he developed a rash. Oxypor is a coal tar product. BLUE Inhibitors (Verified Allergy, Unknown, 12/16/16) Uncoded Allergies: oxypur (Allergy, Mild, rash, 05/28/14) Past History Past Medical History Metabolic: diabetes, hypercholesterolemia, hypertension, hypothyroidism ENMT: allergies, cataracts, sleep apnea Cardiac: A-fib, CAD, [place] Hx Echocardiogram: No GI: GERD Male: BPH, UTI, prostatitis Musculoskeletal: osteoarthritis Psychological: depression (KERRI DAVILA MD) Surgical History General: EGD, colonoscopy, tonsils Cardiac: cardiac cath, cardiac stent, implantable defib, pacemaker (KERRI DAVILA MD) Family History Family PMH: FOUND: [place] (KERRI DAVILA MD) Vaccines Hx Influenza Vaccination: Yes (FALL 2015) Hx Pneumococcal Vaccination: No Hx Tetanus, Diptheria, Pertuss: Yes (KERRI DAVILA MD) Social History Does patient use chewing tobac: No Substance Use Type: does not use Alcohol Intake: none, former alcohol drinker Household Members: none (KERRI DAVILA MD) Review of Systems Constitutional Constitutional: DENIES: appetite decrease, appetite increase, chills, dizziness , fever, weakness (KERRI DAVILA MD) ENMT Ears: DENIES: pain Hearing: DENIES: hearing loss, tinnitus Balance: DENIES: vertigo Mouth/Throat: DENIES: change in swallowing, change in voice, hoarsness, painful swallowing, sore throat (KERRI DAVILA MD) Cardiovascular Cardiac: DENIES: chest pain, dyspnea on exertion Rhythm/Rate: DENIES: irregular beat, palpitations, tachycardia Vascular: DENIES: pedal edema (KERRI DAVILA MD) Pulmonary Respiratory: DENIES: cough, dyspnea, pleuritic chest pain (KERRI DAVILA MD) GI Upper Abdomen: DENIES: dysphagia, heartburn/indigestion, nausea, pain, vomiting Lower Abdomen: DENIES: blood in stool, constipation, diarrhea, pain (KERRI DAVILA MD) General: DENIES: burning, dysuria, frequency, pain, urgency (KERRI DAVILA MD) Musculoskeletal General: DENIES: cramps, joint pain, joint swelling, pain, weakness (KERRI DAVILA MD) Integumentary Skin: DENIES: rash, sores (KERRI DAVILA MD) Neurological General: DENIES: headache, numbness, tingling, vertigo, weakness (KERRI DAVILA MD) Psychiatric Psychiatric: DENIES: anxiety, depression, nervousness (KERRI DAVILA MD) Physical Exam General General Nourishment: well nourished, well developed, appears stated age, no acute distress General Body Habitus: well groomed (KERRI DAVILA MD) Vitals and Pain First Documented Vital Signs Date Time Temp Pulse Resp B/P Pulse Ox O2 Delivery O2 Flow Rate FiO2 12/16/16 05:25 98.1 83 16 113/59 95 Room Air (SHIMON CLARK DO) Vitals and Pain Weight: Kilograms: Height (feet): 5 Height (inches): 7.00 Triage Pain Scale: (KERRI DAVILA MD) RN VS reviewed by Provider: Yes (KERRI DAVILA MD) Normal Exams: Neck: Full range of motion, without adenopathy, JVD, bruits or thyromegaly Chest/Resp: Clear all wallace, with good airflow, and symmetry bilaterally CV: Regular rate and rhythm, without murmur or gallop, Pulses 2+ all extremities, capillary refill, <2 seconds all ext., no pedal edema noted Abdomen: Bowel sounds positive, soft, non-tender, non-distended, no hepatosplenomegaly, masses or bruits noted Lymphatic: No lymphadenopathy, or lymphedema noted Musculoskeletal: No tenderness, or deformity noted, good range of motion, all extremities Integumentary: No rashes, hives, or bruising noted, hair and nails, without abnormality Neurologic: Patient is alert, and oriented, cranial nerves, motor/sensory/ cerebellar, exams w/o gross deficits, to observation Psychiatric: Patient exhibits, appropriate attention, emotion and affect (KERRI DAVILA MD) Eyes (brief) Eyes Brief: found: EOMI, PERRL, not found: scleral icterus (KERRI DAVILA MD) ENMT (brief) ENMT Brief: FOUND: TM clear, TM good light reflex, ear canals clear, mucosa moist, normal dentition, NOT FOUND: nasal erythema, nasal exudate, nasal swelling, pharnyx erythema, tonsillar deviation Comments 2-3 cm right occipital hematoma with abrasion, mild tenderness, no bony abnormality. Patient has no neck pain or tenderness (KERRI DAVILA MD) Progress Results/Orders Orders Procedure Category Date Status Time Ct Head W/O Contrast CT 12/16/[address] Cervical Spine W/O CT 12/16/16 Logged Contrast 06:05 (SHIMON CLARK DO) Progress Progress CT head - (KERRI DAVILA MD) Progress Imaging is unremarkable. Patient declines offered analgesic pain medication stating he has no pain or discomfort at this time. Patient declines recommended INR check stating his INR was just recently checked and normal. CT scan of the head was unremarkable. CT scan of the cervical spine shows no acute fracture or dislocation but does show old fracture at T2/T3. Patient has no pain with palpation or deformity in the midline of the cervical/thoracic/ lumbar spine. He was offered admission to the hospital in observation status due to anticoagulation with closed head injury which he declines. Patient is alert and oriented 4. He is capable of medical decision making at this time. Patient is given strict return precautions. Patient verbalizes agreement and understanding. Patient is to follow up as instructed. He is to return to the emergency Department if his condition worsens or changes in any manner. Tetanus status is current. (SHIMON CLARK DO) CT CT : CT: Head no contrast Interpretation: Normal (no acute intracranial process. Mild scalp swelling. ET cervical spine: No fracture. The findings at T2 and T3 are old as the patient is without pain with palpation to the midline or deformity.), Faxed Report (SHIMON CLARK DO) KERRI DAVILA MD Dec 16, 2016 05:39 SHIMON CLARK DO Dec 16, 2016 06:55 SHIMON CLARK DO Dec 16, 2016 06:55
--- NOTE | 2016-12-16 06:20 | NUR ---
RETURNED FROM CT
[2016-12-16] MEDS ORDERED: WARF1TAB6 PO (06:21)
[2016-12-16] MEDS ORDERED: BUPR300T59 PO (06:21)
[2016-12-16] MEDS ORDERED: MIDO5TAB PO (06:21)
[2016-12-16] MEDS ORDERED: INSU100V12 SQ (06:21)
[2016-12-16] MEDS ORDERED: FOLI1TAB15 PO (06:21)
[2016-12-16] MEDS ORDERED: BUME1TAB17 PO (06:21)
--- OUTSIDE RECORDS SUMMARY | 2016-12-16 06:29 | XMS REPORT | Continuity of Care Document ---
Author Author [facility] Organization [facility] Address Unknown Phone Unavailable Support Name Relationship Address Phone KERRI DAVILA MD Caregiver [facility] [address] [place] [address] Unavailable MONALISA HARTMAN MD Caregiver [address] [place] [address] KEARA CHENG Next Of Kin [address] [place] [address] CP Insurance Providers Payer Name Policy Number Subscriber Name Relationship Medicare [id number] Zachary Cheng 18 Self [facility] [id number] Zachary Cheng 18 Self Advance Directives Directive [...] Mg PO DAILY 01/18/12 05/11/12 Discontinued Fish Oil/Ernul-3 Fatty Acids 1 Cap PO DAILY 01/18/12 [...] Allergen Type Severity Reaction Status Last Updated [place] tar Allergy Mild rash Active 05/29/14 oxypur [...] F (96.8 - 99.1) Temperature (Calculated Celsius) 36.03471 degrees C (36.0 - 37.3) Pulse Rate [...] Y Urine Color May 29, 2014 10:20pm [place] - Has specimen been collected/obtained? Y Urine [...] Has specimen been collected/obtained? Y Urine Specific [place] May 29, 2014 10:20pm 1.021 - Has [...] 06, 2014 10:39am LAB TEST FORM REQUEST [id number] - Activated Clotting Time November 29, 2012 2:15pm 164 SEC H 84-139 Turbidity May 29, 2014 9:15pm < 20 0-20 Glomerular Filtration Rate Calc May 29, 2014 9:15pm 74 - Immature Granulocyte # (Auto) May 29, 2014 9:15pm 0.03 T/MM3 N 0.00-0.03 Immature Granulocyte % (Auto) May 29, 2014 9:15pm 0.3 % N 0.0-0.5 Icterus Index May 29, 2014 9:15pm < 2 0-7 RM-Lcm-X-Type Natriuretic Peptide May 19, 2012 3:10pm 90615 PG/ML H 0 -175 Rule in cut [...] Encounters Encounter Location Date/Time Departed Emergency Room [facility] 05/29/14 8:42pm Registered Recurring [facility] 05/06/14 8:41am Recent Diagnosis
--- OUTSIDE RECORDS SUMMARY | 2016-12-16 06:30 | XMS REPORT | Continuity of Care Document ---
Author Author [facility] Organization [facility] Address Unknown Phone Unavailable Support Name Relationship Address Phone MONALISA HARTMAN MD Caregiver [address] [place] [address] [address] [place] [phone] PILO ADKINS MD Caregiver [address] [place] [address] [place] [phone] KEARA CHENG Next Of Kin [address] [place], [place] [phone] CP Insurance Providers Payer Name Policy Number Subscriber Name Relationship Medicare [id number] Zachary Cheng 18 Self [facility] [id number] Zachary Cheng 18 Self Advance Directives Directive [...] PO DAILY 01/18/12 05/11/12 Discontinued Fish Oil/[place]-3 Fatty Acids 1 Cap PO DAILY 01/18/12 [...] Allergen Type Severity Reaction Status Last Updated [place] tar Allergy Mild rash Active 06/08/13 oxypur [...] F (96.8 - 99.1) Temperature (Calculated Celsius) 36.82444 degrees C (36.0 - 37.3) Temperature Source [...] 06, 2014 10:39am LAB TEST FORM REQUEST [id number] - Lipase May 19, 2012 3:10pm 168 [...] 19, 2012 3:10pm 1.0 % H 0-0 FN-Qwi-K-Type Natriuretic Peptide May 19, 2012 3:10pm 59768 PG/ML H 0 -175 Rule in cut [...] Has specimen been collected/obtained? Y Urine Specific [place] May 19, 2012 4:35pm 1.010 L - [...] MD Encounters Encounter Location Date/Time Registered Recurring [facility] 05/06/14 8:41am
--- OUTSIDE RECORDS SUMMARY | 2016-12-16 06:30 | XMS REPORT | Continuity of Care Document ---
Author Author [facility] Organization [facility] Address Unknown Phone Unavailable Support Name Relationship Address Phone FLOR FLORES MD Caregiver [facility] [address] [place] [address] MONALISA HARTMAN MD Caregiver [address] [place] [address] KEARA CHENG Next Of Kin [address] [place], [place] [phone] Insurance Providers Payer Name Policy Number Subscriber Name Relationship Medicare [id number] Zachary Cheng 18 Self [facility] [id number] Zachary Cheng 18 Self Advance Directives Directive [...] Mg PO DAILY 01/18/12 05/11/12 Discontinued Fish Oil/[place]-3 Fatty Acids 1 Cap PO DAILY 01/18/12 [...] Allergen Type Severity Reaction Status Last Updated [place] tar Allergy Mild rash Active 05/29/14 oxypur [...] Has specimen been collected/obtained? Y Urine Specific [place] May 31, 2014 1:37am >=1.030 H - [...] 09, 2014 9:08pm LAB TEST FORM REQUEST [id number] - Activated Clotting Time November 29, 2012 [...] June 02, 2014 4:30am < 2 0-7 LC-Qhh-S-Type Natriuretic Peptide May 19, 2012 3:10pm 97425 PG/ML H 0 -175 Rule in cut [...] 08/19/14 Encounters Encounter Location Date/Time Discharged [facility] 09/09/14 3:41pm Registered Clinic [facility] 08/19/14 1:24pm
--- OUTSIDE RECORDS SUMMARY | 2016-12-16 06:30 | XMS REPORT | Continuity of Care Document ---
Author Author [facility] Organization [facility] Address Unknown Phone Unavailable Support Name Relationship Address Phone TESSY JOHNSON DO Caregiver [address] [place] [address] [address] [place] [address] KERRI DAVILA MD Caregiver [facility] [address] [place] [address] Unavailable MONALISA HARTMAN MD Caregiver [address] [place], [place] [phone] KEARA CHENG Next Of Kin [address] [place], [place] [address] CP Insurance Providers Payer Name Policy Number Subscriber Name Relationship Medicare [id number] Zachary Cheng 18 Self [facility] [id number] Zachary Cheng 18 Self Advance Directives Directive [...] Mg PO DAILY 01/18/12 05/11/12 Discontinued Fish Oil/[place]-3 Fatty Acids 1 Cap PO DAILY 01/18/12 [...] Allergen Type Severity Reaction Status Last Updated [place] tar Allergy Mild rash Active 05/29/14 oxypur [...] F (96.8 - 99.1) Temperature (Calculated Celsius) 36.79194 degrees C (36.0 - 37.3) Temperature Source [...] 06, 2014 10:39am LAB TEST FORM REQUEST [id number] - Lipase May 29, 2014 9:15pm 47 [...] 19, 2012 3:10pm 1.0 % H 0-0 BB-Ryd-Y-Type Natriuretic Peptide May 19, 2012 3:10pm 19935 PG/ML H 0 -175 Rule in cut [...] Has specimen been collected/obtained? Y Urine Specific [place] May 31, 2014 1:37am >=1.030 H - [...] 2014 1:37am Name: ZACHARY CHENG Unit #: [id number] : 1945 Sex: M DISCHARGE SUMMARY Admit Date: 05/31/14 Report #: [id number] JADEN BUSH 06/02/14 1117: General Date Date DATE: 06/02/14 TIME: 11:17 Attending Physician Tessy Johnson DO Admitting Physician Tessy Johnson DO Consulting Physician Andrey Roebrson MD Admitting Diagnosis (1) Sepsis (2) UTI [...] and later that evening went [place] [facility] and saw Dr. Davila with cc: [...] PO MON/FRI 01/01/14 Levothyroxine Sodium 25 Mcg Mquixg73 Mcg PO DAILY 11/13/12 Furosemide 40 Mg Vpcbhy14 Mg PO DAILY 10/12/12 Magnesium Oxide (Mag-Oxide)400 Mg Fiikqe755 Mg PO DAILY 10/12/12 Fluoxetine (Prozac)20 Mg Zlpzvr54 Mg PO DAILY 10/12/12 Fish Oil/Dha/Epa (Fish Oil 1,200 Mg Fish Oil)1 Each Capsule1 Each PO BID 10/12/12 Carvedilol (Coreg)12.5 Mg Tablet6.5 Tab PO BID 10/12/12 Amiodarone Hcl 200 Mg Lusfpt287 Mg PO DAILY 10/12/12 Nitroglycerin (Nitrostat)0.4 Mg Tab.subl0.4 Mg SL PRN 05/11/12 Insulin Glargine (Lantus)100 U/Ml Vial30 U Sq Hs 01/18/12 Tamsulosin Hcl (Flomax)0.4 Mg Cap.sr.24h0.4 Mg PO HS 07/14/09 Bupropion Hcl (Wellbutrin Xl)300 Mg Tab.sr.85y566 Mg PO DAILY 07/14/09 Lisinopril 10 Mg Tablet2.5 Mg PO DAILY 07/14/09 Lovastatin 20 Mg Umbisd51 Mg PO HS 07/14/09 Discontinued Reported Medications [...] PO MON/FRI 01/01/14 Levothyroxine Sodium 25 Mcg Tvubdr66 Mcg PO DAILY 11/13/12 Furosemide 40 Mg Frzfpy78 Mg PO DAILY 10/12/12 Magnesium Oxide (Mag-Oxide)400 Mg Dzxuzq892 Mg PO DAILY 10/12/12 Fluoxetine (Prozac)20 Mg Iemnro72 Mg PO DAILY 10/12/12 Fish Oil/Dha/Epa (Fish Oil 1,200 Mg Fish Oil)1 Each Capsule1 Each PO BID 10/12/12 Carvedilol (Coreg)12.5 Mg Tablet6.5 Tab PO BID 10/12/12 Amiodarone Hcl 200 Mg Emeeal418 Mg PO DAILY 10/12/12 Nitroglycerin (Nitrostat)0.4 Mg Tab.subl0.4 Mg SL PRN 05/11/12 Insulin Glargine (Lantus)100 U/Ml Vial30 U Sq Hs 01/18/12 Tamsulosin Hcl (Flomax)0.4 Mg Cap.sr.24h0.4 Mg PO HS 07/14/09 Bupropion Hcl (Wellbutrin Xl)300 Mg Tab.sr.61x713 Mg PO DAILY 07/14/09 Lisinopril 10 Mg Tablet2.5 Mg PO DAILY 07/14/09 Lovastatin 20 Mg Wssasq51 Mg PO HS 07/14/09 Discontinued Reported Medications Ciprofloxacin HCl (Cipro)500 Mg Tablet Bid 05/31/14 Copies To 1: MONALISA HARTMAN MD; ANDREY ROBERSON MD, TAMARA ARNP Jun 02, 2014 11:17 TESSY JOHNSON DO Jun 02, 2014 14:23 Procedures Procedure Status Date Provider(s) CYSTOSCOPY AND TREATMENT completed 05/29/14 ANDREY ROBERSNO MD THER/PROPH/DIAG INJ IV PUSH completed 05/29/14 HYDRATE IV INFUSION ADD-ON completed 05/29/14 Encounters Encounter Location Date/Time Discharged Inpatient [facility] 05/31/14 2:15am Departed Emergency Room [facility] 05/29/14 8:42pm Registered Recurring [facility] 05/06/14 8:41am Recent Diagnosis UTI (lower urinary tract infection) Sepsis Type 2 diabetes mellitus HTN (hypertension) Hypothyroidism Coronary artery disease Peripheral vascular disease GERD (gastroesophageal reflux disease) Obesity (BMI 30.0-34.9) Anticoagulated on Coumadin Dyslipidemia Chronic kidney disease Episodic atrial fibrillation UTI (lower urinary tract infection) Protein-calorie malnutrition, mild
--- NOTE | 2016-12-16 07:00 | NUR ---
COMMUNICATION CONTACTED NURSING STAFF AT [facility] AND NOTIFIED THEM OF DISCHARGE REPORT GIVEN REGARDING PATIENT STATUS. THEY WILL SEND SOMEONE TO COME GET HIM.
[2016-12-16 07:30] VITALS: BP 121/56; PULSE 88; RESP 16; TEMP 98.1; O2SAT 94
--- NOTE | 2016-12-16 07:30 | NUR ---
DISMISS INSTRUCTIONS REVIEWED AND GIVEN PATIENT ASSISTED INTO WHEELCHAIR AND TAKEN TO EXIT BY ALF STAFF
--- NOTE | 2016-12-16 07:54 | DI ---
Indication: ITS.REASON: fall, neck pain PROCEDURE: CT CERVICAL SPINE W/O CONTRAST: Encounter: Initial Comparison: None Technique: Axial CT images through the cervical spine were performed without contrast. Coronal and sagittal reformatted images were also obtained. Automated Exposure Control and Iterative Reconstruction dose reducing techniques were utilized. FINDINGS: The alignment of the cervical spine is normal. Multilevel degenerative changes are present. There is no evidence of acute fracture or subluxation of the cervical spine. Mild superior plate deformity seen at T2 and T3 of uncertain age. The atlantoaxial articulation, dens, and upper cervical spine demonstrate no subluxation. Sinus disease. 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 IMPRESSION: No acute traumatic abnormality of the cervical spine. Age-indeterminate T2 and T3 compression deformities. There is a preliminary report by [facility]. .
--- NOTE | 2016-12-16 07:56 | DI ---
Indication: ITS.REASON: FALL, HEAD INJURY, ON COUMADIN PROCEDURE: CT HEAD W/O CONTRAST: Encounter: Initial Comparison: October 01, 2016 Technique: Axial CT images through the head were performed without contrast. Iterative Reconstruction dose reducing technique was utilized. 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 Mild generalized atrophy. The ventricles are of normal size, shape, and configuration for the patient's age. There is no evidence of acute intracranial hemorrhage, midline displacement, or mass effect. There are scattered areas of low attenuation in the white matter which most likely represent changes of chronic microvascular ischemia. The CT attenuation of the brain parenchyma is otherwise normal within the cerebellum, brain stem, and cerebral hemispheres. The tympanic cavities and mastoid air cells are free of appreciable disease. There are no definite fractures of the skull base, calvarium, or visualized portion of the midface. Right parietal scalp hematoma. IMPRESSION: No CT evidence of acute traumatic intracranial injury. There is a preliminary report by [facility]. .
== END 2016-12-16 07:30 | disposition home or self-care (01) ==
LOC: ED 05:25
DX: S00.03XA Contusion of scalp, initial encounter (principal); Z79.01 Long term (current) use of anticoagulants; W19.XXXA Unspecified fall, initial encounter; Y93.9 Activity, unspecified; Y92.122 Bedroom in nursing home as the place of occurrence of the external cause; Y99.8 Other external cause status

== ENCOUNTER 2016-12-21 11:32 | Inpatient (IN) | payer MEDICARE, BC ==
[~2016-12-21] VITALS: Ht 170.2 cm; Wt 80.9 kg
[~2016-12-21 11:32] MED LIST changes: -AMIO200T2 PO; +BUME1TAB17 PO; -BUPR300T33 PO; +BUPR300T59 PO; -CARV6.252 PO; -FISH1CAP59 PO; +FOLI1TAB15 PO; +INSU100V12 SQ; -INSU100V28 SQ; +MIDO5TAB PO; -MULT1TAB69 PO; -OLME40TA13 PO; -OMEP20CA10 PO; +WARF1TAB6 PO
--- OUTSIDE RECORDS SUMMARY | 2016-12-21 11:41 | XMS REPORT | Continuity of Care Document ---
Author Author [facility] Organization [facility] Address Unknown Phone Unavailable Support Name Relationship Address Phone KERRI DAVILA MD Caregiver [address] [place] [address] Unavailable MONALISA HARTMAN MD Caregiver [address] [place] [address] Unavailable KEARA CHENG Next Of Kin [address] [place] [address] Insurance Providers Guarantor Zachary Cheng Address [address] [place] [address] Email [facility] Policy Number [id number] Subscriber's Name Zachary Cheng Relationship 18 Self Group Number [id number] Effective Date 11 Payer Medicare Policy Number [id number] Subscriber's Name Zachary Cheng Relationship 18 Self Effective Date 10 Advance Directives Directive Response Recorded Date/Time Advanced Directives Type None 01/01/14 11:13pm Ordered Resuscitation Status Full Code 01/01/14 11:11pm Chief Complaint and Reason for Visit Chief Complaint Fall Reason for Visit Closed head injury Problems Active Problems Medical Problem Onset Date [...] chronic kidney disease Unknown Closed head injury Unknown Closed head injury without loss of consciousness Unknown Contusion of arm, right Unknown Hypotension Unknown Laceration of scalp Unknown Medications Current Home Medications Medication Dose Units Route Directions Days Qty Instructions Start Date Bumetanide 1 Mg Tablet 1 Tab Oral Twice A Day 12/16/16 Bupropion Hcl (Bupropion Xl) 300 Mg Tab.er.24h 1 Tab Oral Daily 12/16/16 Fluoxetine Hcl (Prozac) 20 Mg Tablet 40 Mg Oral Daily 10/12/12 Folic Acid 1 Mg Tablet 1 Tab Oral Daily 12/16/16 Insulin Detemir (Levemir) 100 Unit/Ml Inj 10 Unit Sub-Q Bedtime 12/16/16 Insulin Lispro (Humalog) 100 Unit/1 Ml Insuln.pen 3 Unit Sub-Q Three Times A Day 05/28/14 Levothyroxine Sodium 100 Mcg Tablet 1 Tab Oral Before Breakfast Once daily before breakfast 10/01/16 Lovastatin 20 Mg Tablet 20 Mg Oral Bedtime 07/14/09 Magnesium Oxide (Mag-Oxide) 400 Mg Tablet 400 Mg Oral Daily 10/12 Midodrine Hcl 5 Mg Tablet 1.5 Tab Oral Three Times A Day 12/16/16 Nitroglycerin (Nitrostat) 0.4 Mg Tab.subl 0.4 Mg Sublingual Every 5 Minutes X 3 05/11/12 Warfarin Sodium 1 Mg Tablet 1 Tab Oral Daily 90 Tablet 12/16/16 Past Home Medications Medication Directions Ordered Status Amiodarone Hcl 200 Mg Tablet, 200 Mg Oral Daily 10/12/12 Discontinued Amiodarone Hcl (Pacerone) 100 Mg Tablet, 100 Mg Oral Daily 01/18/12 Discontinued Aspirin 325 Mg Tablet, 650 Mg Oral Daily 07/14/09 Discontinued Bupropion Hcl (Wellbutrin Xl) 300 Mg Tab.sr.24h, 300 Mg Oral Daily 07/14/09 Discontinued Carvedilol 6.25 Mg Tablet, 6.25 Mg Oral Twice A Day 12/09/15 Discontinued Carvedilol (Coreg) 6.25 Mg Tablet, 18.5 [...] Sub-Q Twice A Day 07/14/09 Discontinued Fish Oil/Dha/Epa (Fish Oil 1,200 Mg Fish Oil) 1 Each Capsule, 1 Cap Oral Twice A Day 10/12/12 Discontinued Fish Oil/[place]-3 Fatty Acids (Fish Oil 1,000 Mg Capsule) 1 Cap Capsule, 1 Cap Oral Daily 01/18/12 Discontinued Fluoxetine Hcl (Prozac) 40 Mg Capsule, 40 Mg Oral Daily 07/14/09 Discontinued Fluticasone Propionate (Flonase) 16 Gm [place].susp, 16 Gm Nasal Daily Discontinued Glyburide 5 Mg Tablet, 5 Mg Oral Twice A Day 07/14/09 Discontinued Insulin Glargine (Lantus) 100 U/Ml Vial, 26 Unit Sub-Q Bedtime 01/18/12 Discontinued Lortab , As Needed 05/16/12 Discontinued Magnesium 200 Mg Tablet, 400 Mg Oral Twice A Day 07/14/09 Discontinued Metformin Hcl 500 Mg Tablet, 500 Mg Oral Twice A Day 07/14/09 Discontinued Multivitamin (Multivitamins) 1 Each Tablet, 1 Tab Oral Daily 12/09/15 Discontinued Nifedipine (Nifediac Cc) 30 Mg Tablet.sa, 30 Mg Oral Daily 07/14/09 Discontinued Olmesartan Medoxomil (Benicar) 40 Mg Tablet, 20 Mg Oral Daily 08/29/16 Discontinued Omeprazole 20 Mg Capsule.dr, 20 Mg Oral Daily 12/09/15 Discontinued Phenazopyridine Hcl (Pyridium) 200 Mg Tablet, [...] Applicable Hx Substance Use N ALCOHOLIC REHAB 1994 12/16/2016 5:44am Not Applicable Not Applicable Hx Alcohol Use Y "I STOPPED IN '94" 12/16/2016 5:44am Not Applicable Not Applicable Has the pt used tobacco in the last 12 months No 10/01/2016 2:09pm Not Applicable Not Applicable Tobacco Usage none 12/09/2015 8:40pm Not Applicable Not Applicable Query Response Start Date Stop Date Smoking Status Former smoker Hospital Discharge Instructions No hospital discharge instructions. Plan of Care Discharge Date 12/16/16 7:30am Disposition 01 DISCHARGED HOME, SELF-CARE Condition at Discharge Improved Instructions/Education Provided Head Injury (ED) Prescriptions See Medication Section Referrals MONALISA HARTMAN MD Order Date: 1 Day Address: [address] [place] [address] [phone] Note: Care Plan and Goals Physician Care Plan Problem: CHI Goal: Follow up with primary care provider Instructions: Take medications and follow care plan as discussed/written Functional Status No functional status results. Allergies, Adverse Reactions, Alerts Allergen Type Severity Reaction Status Last Updated Angiotensin-converting enzyme inhibitor Allergy Unknown Active 12/16/16 [place] tar Allergy Mild rash Active 12/16/16 oxypur Allergy Mild rash Active 05/28/14 Immunizations Query Response on File Recorded Date/Time Hx Influenza Vaccination Y fall 201510/01/16 2:09pm Hx Pneumococcal Vaccination No 10/01/16 2:09pm Hx Tetanus, Diptheria, Pertussis Yes 05/30/14 11:30pm Hx Influenza Vaccination Y fall 201510/01/16 2:09pm Hx Tetanus, Diptheria, Pertussis Yes 05/30/14 11:30pm Influenza Vaccine Hx fall 201512/16/16 5:44am Tdap Vaccine Hx 08/29/2016 08/29/16 5:04am Vital Signs Acute Vital Signs Vital Response Date/Time Temperature (Fahrenheit) 98.1 deg F (96.8 - 99.1) 12/16/2016 7:30am Temperature (Calculated Celsius) 36.07999 degrees C (36.0 - 37.3) 12/16/2016 7:30am Pulse Rate (adult) 88 bpm (60 - 100) 12/16/2016 7:30am Respiratory Rate 16 breaths/min (10 - 20) 12/16/2016 7:30am O2 Sat by Pulse Oximetry 94 % (90 - 100) 12/16/2016 7:30am Oxygen Delivery Method Room Air 10/01/2016 4:15pm Oxygen Flow Rate 2.00 L/min 11/20/2016 7:00am Blood Pressure 121/56 mm Hg 12/16/2016 7:30am Blood Pressure Source Automatic Cuff 10/01/2016 2:29pm Height (Feet) 5 feet 12/16/2016 5:25am Height (Inches) 7.00 inches 12/16/2016 5:25am Weight (Kilograms) 76.800 kg 12/16/2016 5:25am Body Mass Index (BMI) 34.0 11/20/2016 4:00am Results Laboratory Results Test Name Result Units Flags Reference Collection Date/Time Result Date/ Time Comments Troponin I < 0.012 ng/ml 0-0.12 11/20/2016 4:39am 11/20/2016 5:14am Troponin values with a difference of 55% increase from orginal troponin value represent a true biological DELTA value. (%increase Calc=Orginal Troponin value, divided by subsequent Troponin value, multiplied by 100) TA-Tbw-T-Type Natriuretic Peptide 3920 PG/ML H 0-175 11/20/2016 [...] mg/dL *L 75-110 11/20/2016 7:17am 11/20/2016 7:19am White Blood Count 10.7 T/MM3 4.5-11.0 12/01/2016 6:28am 12/01/2016 7: 10am Red Blood Count 4.04 M/MM3 L 4.50-5.90 12/01/2016 6:28am 12/01/2016 7: 10am Hemoglobin 11.7 GM/DL L 13.5-17.5 12/01/2016 6:28am 12/01/2016 7:10am Hematocrit 36.3 % L 41-53 12/01/2016 6:12/01/2016 7:10am Mean Corpuscular Volume 89.9 UM3 80-100 12/01/2016 6:12/01/2016 7: 10am Mean Corpuscular Hemoglobin 29.0 UUG 26-34 12/01/2016 6:2016 7:10am Mean Corpuscular Hemoglobin Concent 32.2 GM/DL 31-37 12/01/2016 6:12/01/2016 7:10am RDW Standard Deviation 52.1 FL H 36.9-50.2 12/01/2016 6:12/01/2016 7:10am Platelet Count 122 T/MM3 L 130-400 12/01/2016 6:12/01/2016 7:10am Mean Platelet Volume 10.7 UM3 9.4-12.4 12/01/2016 6:12/01/2016 7: 10am Neutrophils (%) (Auto) 72.5 % H 33-66 12/01/2016 6:12/01/2016 7: 10am Lymphocytes (%) (Auto) 17.1 % L 23-45 12/01/2016 6:12/01/2016 7: 10am Monocytes (%) (Auto) 6.7 % 0-9.0 12/01/2016 6:12/01/2016 7:10am Eosinophils (%) (Auto) 3.1 % 0-4 12/01/2016 6:12/01/2016 7:10am Basophils (%) (Auto) 0.2 % 0-2 12/01/2016 6:12/01/2016 7:10am Immature Granulocyte % (Auto) 0.4 % 0.0-0.5 12/01/2016 6:2016 7:10am Absolute Neutrophils (auto) 7.7 T/MM3 1.8-7.7 12/01/2016 6:2016 7:10am Absolute Lymphocytes (auto) 1.8 T/MM3 1-4.8 12/01/2016 6:2016 7:10am Absolute Monocytes (auto) 0.7 T/MM3 0-0.8 12/01/2016 6:28am 12/01/2016 7:10am Absolute Eosinophils (auto) 0.3 T/MM3 0-0.5 12/01/2016 6:2016 7:10am Absolute Basophils (auto) 0.0 T/MM3 0-0.2 12/01/2016 6:12/01/2016 7:10am Absolute Immature Granulocyte (auto 0.04 T/MM3 H 0.00-0.03 12/01/2016 6: 12/01/2016 7:10am Prothromb Time International Ratio 2.09 H 0.76-1.04 12/01/2016 6:12/01/2016 7:22am THERAPUTIC RANGE=2.00-3.00 FOR ANTI-THROMBOSIS THERAPUTIC RANGE=2.50-3.50 FOR IMPLANTED VALVE Thyroid Stimulating Hormone (TSH) 7.70 MIU/L H 0.47-4.68 12/01/2016 6: am 12/01/2016 7:49am Hemoglobin A1c 5.7 % L 6.1-7.9 12/01/2016 6:am 12/01/2016 7:23am < 6.0 NON-DIABETIC RANGE 6.1-7.9 [facility] TARGET RANGE >8.0 ACTION SUGGESTED Icterus Index < 2 0-7 12/15/2016 6:0512/15/2016 8:36am Chemistry Specimen Hemolysis < 15 0-25 12/15/2016 6:0512/15/2016 8 :36am 0-25: Specimen Exhibited No Hemolysis. Turbidity < 20 0-20 12/15/2016 6:05am 12/15/2016 8:36am Sodium Level 141 MEQ/L 134-144 12/15/2016 6:05am 12/15/2016 8:36am Potassium Level 3.6 MEQ/L 3.6-5 12/15/2016 6:05am 12/15/2016 8:36am Chloride Level 97 MEQ/L L 98-107 12/15/2016 6:05am 12/15/2016 8:36am Carbon Dioxide Level 32 MEQ/L H 22-30 12/15/2016 6:05am 12/15/2016 8: 36am Anion Gap 12 MEQ/L 5-15 12/15/2016 6:0512/15/2016 8:36am Blood Urea Nitrogen 33.0 MG/DL H 9-20 12/15/2016 6:0512/15/2016 8: 36am Creatinine 1.7 MG/DL H 0.8-1.5 12/15/2016 6:0512/15/2016 8:36am BUN/Creatinine Ratio 19 RATIO 6-26 12/15/2016 6:0512/15/2016 8:36am Glomerular Filtration Rate Calc 40 12/15/2016 6:0512/15/2016 8: 36am Glucose Level 64 MG/DL L 75-110 12/15/2016 6:0512/15/2016 8:36am Calculated Osmolality 276 MOSM/KG 261-280 12/15/2016 6:0512/15/2016 8:36am Calcium Level 8.8 MG/DL 8.4-10.2 12/15/2016 6:0512/15/2016 8:36am Total Bilirubin 2.40 MG/DL H 0.20-1.30 12/15/2016 6:0512/15/2016 8: 36am Alkaline Phosphatase 156 U/L H 38-126 12/15/2016 6:0512/15/2016 8: 36am Total Protein 5.9 G/DL L 6.3-8.2 12/15/2016 6:0512/15/2016 8:36am Albumin 2.9 G/DL L 3.5-5.0 12/15/2016 6:0512/15/2016 8:36am Globulin 3.0 G/DL 2.4-3.6 12/15/2016 6:0512/15/2016 8:36am Albumin/Globulin Ratio 1.0 RATIO L 1.1-2.2 12/15/2016 6:0512/15/2016 8:36am Aspartate Amino Transf (AST/SGOT) 144 U/L H 17-59 12/15/2016 6:05 8:36am Alanine Aminotransferase (ALT/SGPT) 73 U/L H 21-72 12/15/2016 6:05 8:36am Procedures Procedure Status Date Provider(s) Routine venipuncture [...] Prothrombin time Completed 04/19/16 Routine venipuncture Completed 10/01/16 Ct head/brain w/o dye Completed 10/01/16 Comprehen metabolic panel Completed 10/01/16 Reagent strip/blood glucose Completed 10/01/16 Complete cbc w/auto diff wbc Completed 10/01/16 Prothrombin time Completed 10/01/16 Electrocardiogram tracing Completed 10/01/16 [id number] ITEM OR SERVICE Completed 10/01/16 [id number]"HOSPITAL OBSERVATION SERVICE, PER HOUR" Completed 10/01/16 [id number]"HOSPITAL OBSERVATION SERVICE, PER HOUR" Completed 10/01/16 Routine venipuncture Completed 11/20/16 Routine venipuncture Completed 11/20/16 Chest x-ray 1 view frontal Completed 11/20/16 Ct abd & pelvis w/o contrast Completed 11/20/16 Comprehen metabolic panel Completed 11/20/16 Reagent strip/blood glucose Completed 11/20/16 Reagent strip/blood glucose Completed 11/20/16 Assay of lactic acid Completed 11/20/16 Assay of magnesium Completed 11/20/16 Assay of natriuretic peptide Completed 11/20/16 Assay of troponin quant Completed 11/20/16 Complete cbc w/auto diff wbc Completed 11/20/16 Prothrombin time Completed 11/20/16 Rbc antibody screen Completed 11/20/16 Blood typing serologic abo Completed 11/20/16 Blood typing serologic rh(d) Completed 11/20/16 Electrocardiogram tracing Completed 11/20/16 Hydration iv infusion init Completed 11/20/16 Hydrate iv infusion add-on Completed 11/20/16 Hydrate iv infusion add-on Completed 11/20/16 Ther/proph/diag inj iv push Completed 11/20/16 Tx/pro/dx inj same drug pharmacy consultant Completed 11/20/16 Emergency dept visit Completed 11/20/16 [id number]"INFUSION, NORMAL SALINE SOLUTION , 1000 CC" Completed 11/20/16 460255"INFUSION, NORMAL SALINE SOLUTION , 1000 CC" Completed 11/20/16 [id number]"INFUSION, NORMAL SALINE SOLUTION , 1000 CC" Completed 11/20/16 Encounters Encounter Location Arrival/Admit Date Discharge/Depart Date Attending Provider Departed Emergency Room [facility] 12/16/16 5:25am 12/16/16 7: 30am KERRI DAVILA MD Registered Referred [facility] 12/15/16 12:55am MONALISA HARTMAN MD Registered Referred [facility] 12/08/16 12:36am MONALISA HARTMAN MD Registered Referred [facility] 12/01/16 2:31am MONALISA HARTMAN MD Departed Emergency Room [facility] 11/20/16 3:57am 11/20/16 8: 05am JE HAYS MD Registered Recurring [facility] 11/09/16 11:33am FLOR FLORES MD Discharged Inpatient (obs) [facility] 10/01/16 1:40pm 10/01/16 4: 30pm FLOR FLORES MD Discharged Recurring [facility] 04/19/16 11:40am 09/18/16 11: 42pm FLOR FLORES MD Recent Diagnosis
--- OUTSIDE RECORDS SUMMARY | 2016-12-21 11:44 | XMS REPORT | Continuity of Care Document ---
Author Author [facility] Organization [facility] Address Unknown Phone Unavailable Support Name Relationship Address Phone FLOR FLORES MD Caregiver [facility] [address] [place] [address] MONALISA HARTMAN MD Caregiver [address] [place] [address] KEARA CHENG Next Of Kin [address] [place], [place] [address] Insurance Providers Payer Name Policy Number Subscriber Name Relationship Medicare [id number] Zachary Cheng 18 Self [facility] [id number] Zachary Cheng 18 Self Advance Directives Directive [...] Mg PO DAILY 01/18/12 05/11/12 Discontinued Fish Oil/[place]-3 Fatty Acids 1 Cap PO DAILY 01/18/12 [...] Allergen Type Severity Reaction Status Last Updated [place] tar Allergy Mild rash Active 05/29/14 oxypur [...] Has specimen been collected/obtained? Y Urine Specific [place] May 31, 2014 1:37am >=1.030 H - [...] 09, 2014 9:08pm LAB TEST FORM REQUEST [id number] - Activated Clotting Time November 29, 2012 [...] June 02, 2014 4:30am < 2 0-7 GQ-Qbu-K-Type Natriuretic Peptide May 19, 2012 3:10pm 34748 PG/ML H 0 -175 Rule in cut [...] completed 08/19/14 Encounters Encounter Location Date/Time Discharged [facility] 09/09/14 3:41pm Registered Clinic [facility] 08/19/14 1:24pm
--- OUTSIDE RECORDS SUMMARY | 2016-12-21 11:44 | XMS REPORT | Continuity of Care Document ---
Author Author [facility] Organization [facility] Address Unknown Phone Unavailable Support Name Relationship Address Phone MONALISA HARTMAN MD Caregiver [address] [place] [address] [address] [place], [place] [phone] PILO ADKINS MD Caregiver [address] [place] [address] [place] [address] [phone] KEARA CHENG Next Of Kin [address] [place], [place] [address] CP Insurance Providers Payer Name Policy Number Subscriber Name Relationship Medicare [id number] Zachary Cheng 18 Self [facility] [id number] Zachary Cheng 18 Self Advance Directives Directive [...] Mg PO DAILY 01/18/12 05/11/12 Discontinued Fish Oil/[place]-3 Fatty Acids 1 Cap PO DAILY 01/18/12 [...] Allergen Type Severity Reaction Status Last Updated [place] tar Allergy Mild rash Active 06/08/13 oxypur [...] F (96.8 - 99.1) Temperature (Calculated Celsius) 36.37716 degrees C (36.0 - 37.3) Temperature Source [...] 06, 2014 10:39am LAB TEST FORM REQUEST [id number] - Lipase May 19, 2012 3:10pm 168 [...] 19, 2012 3:10pm 1.0 % H 0-0 PJ-Vbw-I-Type Natriuretic Peptide May 19, 2012 3:10pm 57405 PG/ML H 0 -175 Rule in cut [...] Has specimen been collected/obtained? Y Urine Specific [place] May 19, 2012 4:35pm 1.010 L - [...] MD Encounters Encounter Location Date/Time Registered Recurring [facility] 05/06/14 8:41am
--- OUTSIDE RECORDS SUMMARY | 2016-12-21 11:44 | XMS REPORT | Continuity of Care Document ---
Author Author [facility] Organization [facility] Address Unknown Phone Unavailable Support Name Relationship Address Phone KERRI DAVILA MD Caregiver [facility] [address] [place] [address] Unavailable MONALISA HARTMAN MD Caregiver [address] [place] [address] KEARA CHENG Next Of Kin [address] [place] [address] CP Insurance Providers Payer Name Policy Number Subscriber Name Relationship Medicare [id number] Zachary Cheng 18 Self [facility] [id number] Zachary Cheng 18 Self Advance Directives Directive [...] Mg PO DAILY 01/18/12 05/11/12 Discontinued Fish Oil/[place]-3 Fatty Acids 1 Cap PO DAILY 01/18/12 [...] Allergen Type Severity Reaction Status Last Updated [place] tar Allergy Mild rash Active 05/29/14 oxypur [...] F (96.8 - 99.1) Temperature (Calculated Celsius) 36.34294 degrees C (36.0 - 37.3) Pulse Rate [...] Y Urine Color May 29, 2014 10:20pm [place] - Has specimen been collected/obtained? Y Urine [...] Has specimen been collected/obtained? Y Urine Specific [place] May 29, 2014 10:20pm 1.021 - Has [...] 06, 2014 10:39am LAB TEST FORM REQUEST [id number] - Activated Clotting Time November 29, 2012 2:15pm 164 SEC H 84-139 Turbidity May 29, 2014 9:15pm < 20 0-20 Glomerular Filtration Rate Calc May 29, 2014 9:15pm 74 - Immature Granulocyte # (Auto) May 29, 2014 9:15pm 0.03 T/MM3 N 0.00-0.03 Immature Granulocyte % (Auto) May 29, 2014 9:15pm 0.3 % N 0.0-0.5 Icterus Index May 29, 2014 9:15pm < 2 0-7 EZ-Zsn-T-Type Natriuretic Peptide May 19, 2012 3:10pm 58569 PG/ML H 0 -175 Rule in cut [...] Encounters Encounter Location Date/Time Departed Emergency Room [facility] 05/29/14 8:42pm Registered Recurring [facility] 05/06/14 8:41am Recent Diagnosis
--- NOTE | 2016-12-21 11:45 | NUR ---
ADMISSION Pt is a 71 year old male direct admit that arrived on unit at 11:45 today for Leukocytosis and Altered mental status. Pt is alert but only oriented to person. Pt cooperative with assessment and has no complaints of pain or discomfort. Pt is currently in bed sleeping sith side rails up x2 and bed alarm activated.
--- OUTSIDE RECORDS SUMMARY | 2016-12-21 11:45 | XMS REPORT | Continuity of Care Document ---
Author Author [facility] Organization [facility] Address Unknown Phone Unavailable Support Name Relationship Address Phone TESSY JOHNSON DO Caregiver [address] [place] [address] [address] [place] [address] KERRI DAVILA MD Caregiver [facility] [address] [place] [address] Unavailable MONALISA HARTMAN MD Caregiver [address] [place], [place] [phone] KEAAR CHENG Next Of Kin [address] [place], [place] [address] CP Insurance Providers Payer Name Policy Number Subscriber Name Relationship Medicare [id number] Zachary Cheng 18 Self [facility] [id number] Zachary Cheng 18 Self Advance Directives Directive [...] Mg PO DAILY 01/18/12 05/11/12 Discontinued Fish Oil/[place]-3 Fatty Acids 1 Cap PO DAILY 01/18/12 [...] Allergen Type Severity Reaction Status Last Updated [place] tar Allergy Mild rash Active 05/29/14 oxypur [...] F (96.8 - 99.1) Temperature (Calculated Celsius) 36.07584 degrees C (36.0 - 37.3) Temperature Source [...] 06, 2014 10:39am LAB TEST FORM REQUEST [id number] - Lipase May 29, 2014 9:15pm 47 [...] 19, 2012 3:10pm 1.0 % H 0-0 MP-Rlo-B-Type Natriuretic Peptide May 19, 2012 3:10pm 59705 PG/ML H 0 -175 Rule in cut [...] Has specimen been collected/obtained? Y Urine Specific [place] May 31, 2014 1:37am >=1.030 H - [...] 2014 1:37am Name: ZACHARY CHENG Unit #: [id number] : 1945 Sex: M DISCHARGE SUMMARY Admit Date: 05/31/14 Report #: [id number] JADEN BUSH 06/02/14 1117: General Date Date [...] and later that evening went to the [facility] and saw Dr. Davila with cc: [...] PO MON/FRI 01/01/14 Levothyroxine Sodium 25 Mcg Rbmhbf25 Mcg PO DAILY 11/13/12 Furosemide 40 Mg Nusorw87 Mg PO DAILY 10/12/12 Magnesium Oxide (Mag-Oxide)400 Mg Cltoqt414 Mg PO DAILY 10/12/12 Fluoxetine (Prozac)20 Mg Rtashz90 Mg PO DAILY 10/12/12 Fish Oil/Dha/Epa (Fish Oil 1,200 Mg Fish Oil)1 Each Capsule1 Each PO BID 10/12/12 Carvedilol (Coreg)12.5 Mg Tablet6.5 Tab PO BID 10/12/12 Amiodarone Hcl 200 Mg Vhzahj610 Mg PO DAILY 10/12/12 Nitroglycerin (Nitrostat)0.4 Mg Tab.subl0.4 Mg SL PRN 05/11/12 Insulin Glargine (Lantus)100 U/Ml Vial30 U Sq Hs 01/18/12 Tamsulosin Hcl (Flomax)0.4 Mg Cap.sr.24h0.4 Mg PO HS 07/14/09 Bupropion Hcl (Wellbutrin Xl)300 Mg Tab.sr.05u442 Mg PO DAILY 07/14/09 Lisinopril 10 Mg Tablet2.5 Mg PO DAILY 07/14/09 Lovastatin 20 Mg Jgmawl51 Mg PO HS 07/14/09 Discontinued Reported Medications [...] PO MON/FRI 01/01/14 Levothyroxine Sodium 25 Mcg Vflmxx72 Mcg PO DAILY 11/13/12 Furosemide 40 Mg Tfsgkp65 Mg PO DAILY 10/12/12 Magnesium Oxide (Mag-Oxide)400 Mg Zbcomy071 Mg PO DAILY 10/12/12 Fluoxetine (Prozac)20 Mg Gqdjyu11 Mg PO DAILY 10/12/12 Fish Oil/Dha/Epa (Fish Oil 1,200 Mg Fish Oil)1 Each Capsule1 Each PO BID 10/12/12 Carvedilol (Coreg)12.5 Mg Tablet6.5 Tab PO BID 10/12/12 Amiodarone Hcl 200 Mg Lvzalu134 Mg PO DAILY 10/12/12 Nitroglycerin (Nitrostat)0.4 Mg Tab.subl0.4 Mg SL PRN 05/11/12 Insulin Glargine (Lantus)100 U/Ml Vial30 U Sq Hs 01/18/12 Tamsulosin Hcl (Flomax)0.4 Mg Cap.sr.24h0.4 Mg PO HS 07/14/09 Bupropion Hcl (Wellbutrin Xl)300 Mg Tab.sr.81m918 Mg PO DAILY 07/14/09 Lisinopril 10 Mg Tablet2.5 Mg PO DAILY 07/14/09 Lovastatin 20 Mg Djoglo07 Mg PO HS 07/14/09 Discontinued Reported Medications [...] 05/29/14 Encounters Encounter Location Date/Time Discharged Inpatient [facility] 05/31/14 2:15am Departed Emergency Room [facility] 05/29/14 8:42pm Registered Recurring [facility] 05/06/14 8:41am Recent Diagnosis UTI (lower urinary tract infection) Sepsis Type 2 diabetes mellitus HTN (hypertension) Hypothyroidism Coronary artery disease Peripheral vascular disease GERD (gastroesophageal reflux disease) Obesity (BMI 30.0-34.9) Anticoagulated on Coumadin Dyslipidemia Chronic kidney disease Episodic atrial fibrillation UTI (lower urinary tract infection) Protein-calorie malnutrition, mild
[2016-12-21 11:48] VITALS: Ht 170.2 cm; Wt 80.9 kg
[2016-12-21 11:52] VITALS: BP 126/70; PULSE 91; RESP 16; TEMP 96.4; O2SAT 98
[2016-12-21 12:30] VITALS: RESP 16
[2016-12-21 12:41] LABS: HCT - HEMATOCRIT 45.4 % (41-53); HGB - HEMOGLOBIN 15.4 GM/DL (13.5-17.5); MEAN CORPUSCULAR HGB 29.5 UUG (26-34); MEAN CORPUSCULAR HGB CONC(MCHC 33.9 GM/DL (31-37); MEAN PLATELET VOLUME 10.3 UM3 (9.4-12.4); RED BLOOD COUNT 5.22 M/MM3 (4.50-5.90); WBC - WHITE BLOOD COUNT 19.6 T/MM3 (4.5-11.0)
[2016-12-21 12:41] LABS: INR 3.55 (0.76-1.04); PROTHROMBIN TIME 38.7 SEC (9.31-12.49)
[2016-12-21 12:51] LABS: ALBUMIN 3.2 G/DL (3.5-5.0); ALKALINE PHOSPHATASE 209 U/L (38-126); ALT (SGPT) 96 U/L (21-72); AMMONIA 33 UMOL/L (9-33); ANION GAP 14 MEQ/L (5-15); AST (SGOT) 180 U/L (17-59); BUN/CREATININE RATIO 21 RATIO (6-26); CALCIUM 9.1 MG/DL (8.4-10.2); CHLORIDE 96 MEQ/L (98-107); CO2 - CARBON DIOXIDE 30 MEQ/L (22-30); CREATININE 1.9 MG/DL (0.8-1.5); GLOMERULAR FILTRATION RATE 35; GLUCOSE 73 MG/DL (75-110); POTASSIUM 3.6 MEQ/L (3.6-5); SODIUM 140 MEQ/L (134-144); TOTAL PROTEIN 6.5 G/DL (6.3-8.2)
[2016-12-21 12:51] LABS: ANISOCYTOSIS 1+; EOSINOPHILS # (MANUAL) 0.4 T/MM3 (0-0.5); LYMPHOCYTES # (MANUAL) 2.5 T/MM3 (1-4.8); MONOCYTES # (MANUAL) 0.4 T/MM3 (0-0.8); NEUTROPHILS #(MANUAL)-ABSOLUTE 15.3 T/MM3 (1.8-7.7); POIKILOCYTOSIS 1+; TOTAL CELLS COUNTED 100 %
[2016-12-21 12:58] LABS: PREALBUMIN 8.3 MG/DL (17.6-36.0)
[2016-12-21] MEDS ORDERED: LACT10SO PO (13:29)
[2016-12-21] MEDS ORDERED: OMEP20CA10 PO (13:29)
[2016-12-21] MEDS ORDERED: SPIR25TA PO (13:29)
[2016-12-21] MEDS ORDERED: ACET-2321 PO (13:29)
[2016-12-21 13:30] LABS: LACTATE - LACTIC ACID 4.1 MMOL/L (0.6-2.2)
[2016-12-21] MEDS ORDERED: NORMAL SALINE 1,000 ML IV ONE (13:30)
[2016-12-21] MEDS ORDERED: BISACODYL 10 MG SUPPOSITORY RECTALLY PRN (13:30)
[2016-12-21] MEDS ORDERED: ONDANSETRON 4mg/2ml INJECTION IV PRN (13:30)
--- NOTE | 2016-12-21 13:30 | NUR ---
Medication Reconciliation Medication list reconciled against list provided from physicians office from visit today. Patient reports he did not take any medications today. halfway contacted twice to provide med list with last dose administered and it has not been received.
--- NOTE | 2016-12-21 13:33 | NUR ---
Critical lab Plasma Lactate 4.1. Yolette ALONZO Notified
[2016-12-21] MEDS: 1/2 NS 1,000 ML IV SCH (13:45)
--- NOTE | 2016-12-21 14:02 | HPPDOC ---
CHUCK STANLEY APRN 12/21/16 1232: HPI - Adult Date DATE: 12/21/16 TIME: 12:23 General Chief Complaint: Abdominal pain History of Present Illness Abran Ch is 71 y/o male who was seen by Dr. Singh on 12/21/16 for routine follow up after a 6-day hospitalization at [facility] for DAKOTA and poss hepatorenal syndrome. He was discharged to SNF on 11/26/16. Labs were abnormal - WBC was 20.9 (21.8 on 12/20), platelets 122, BUN 33, Cr1.79, K 3.4, ALT 74, AST 128, AP 176, bili 2.5, ammonia 78. TSH 3.91. Arrangements were made with Dr. Forrester for direct admission. The patient was sleeping on the medical floor. He awakened fairly easily, and stated that he went to the ED today b/c of abdominal pain. He had difficulty staying awake during conversation, and frequently stopped talking mid-sentence. He denies any SOA, chest pain, fever/chills, URI, dizziness. He states he's having regular bowel movements. I asked about his recent stay at [facility], and the patient informed me that they fixed everything up but wasn't able to provide any details. Much of his history was obtained from medical records since he was not a reliable historian. Past Medical History Past Medical History Patient's Medical History: (1) Ischemic cardiomyopathy (2) Systolic CHF (3) HTN (hypertension) (4) Atrial fibrillation (5) CAD (coronary artery disease) (6) Dyslipidemia (7) PAD (peripheral artery disease) (8) Intermittent claudication (9) CKD (chronic kidney disease) stage 3, GFR 30-59 ml/min (10) Type 2 diabetes mellitus (11) Adenoma of left adrenal gland Permanent Comment: benign Last Edited By: Chuck Stanley on Dec 21, 2016 12:30 (12) Cirrhosis (13) Dysphagia Permanent Comment: Progressive Last Edited By: Chuck Stanley on Dec 21, 2016 12:30 (14) BPH (benign prostatic hypertrophy) (15) Bladder neck contracture (16) Chronic trigonitis (17) Microscopic hematuria (18) Depression (19) Generalized osteoarthrosis, involving multiple sites (20) Polio (21) Allergic rhinitis (22) Psoriasis (23) Recovering alcoholic (24) Hypothyroidism (25) Overweight (BMI 25.0-29.9) (26) GERD (gastroesophageal reflux disease) Surgical History Patient's Surgical History: US GB 12/21/16 1. Cholelithiasis with mild thickening of the gallbladder wall consistent with chronic cholecystitis. There is no evidence of bile duct obstruction at this time. 2. Finding consistent with cirrhotic changes of the liver with moderate ascites. 3. Finding consistent with chronic renal disease. Paracentesis on 11/22/16, removing 4800 mL of fluid Echocardiogram 11/21/2016: -Decreased ejection fraction around 38%-40% with inferior wall and lateral wall hypokinesis more profound in the inferior wall, which suggests ischemic disease. -Decreased ejection fraction of 38%. -Mild pulmonary hypertension. -Sclerosis of the aortic valve. -Mildly enlarged left atrium. -Mild tricuspid regurgitation, trace pulmonic insufficiency, and trace mitral regurgitation. Quick Hang AICD EGD with removal of foreign body, 12/09/15 Dr. Stewart He also had EGDs and 2000, 2010, and 2013 Colonoscopy 01/03/14 PLANT ETIOLOGIST 11/29/12 Stent 11/15/12 Angiogram October 16, 2012. Cardiac catheterization and 2010, 2011, and 2012 Cystoscopies 3 in 2008 Surgery for detached retina in 2000. Cataract extraction, 1995 Current Medications Home Meds Reported Medications Omeprazole (Omeprazole) 20 Mg Capsule.dr, 20 MG PO ACB, CAP Take 1 capsule, by mouth, one time a day (before breakfast). 12/21/16 Lactulose (Lactulose) 10 Gm/15 Ml Solution, 30 ML PO TID, #2700 ML 10 Refills 12/21/16 Spironolactone (Aldactone) 25 Mg Tablet, 25 MG PO BID, TAB Take 1 tablet, by mouth, 2 times a day. 12/21/16 Acetaminophen (Tylenol) 325 Mg Tablet, 2 TAB PO BID Y for PAIN, TAB 12/21/16 Folic Acid (Folic Acid) 1 Mg Tablet, 1 TAB PO DAILY, TAB 12/16/16 Warfarin Sodium (Warfarin Sodium) 1 Mg Tablet, 1 TAB PO DAILY, #90 TAB 12/16/16 Midodrine HCl (Midodrine HCl) 5 Mg Tablet, 1.5 TAB PO TID 12/16/16 Insulin Detemir (Levemir) 100 Unit/Ml Inj, 10 UNIT SQ HS, VIAL 12/16/16 Bupropion HCl (Bupropion Xl) 300 Mg Tab.er.24h, 1 TAB PO DAILY 12/16/16 Bumetanide (Bumetanide) 1 Mg Tablet, 1 TAB PO BID, TAB 12/16/16 Levothyroxine Sodium (Levothyroxine Sodium) 100 Mcg Tablet, 1 TAB PO ACB, TAB Once daily before breakfast 10/01/16 Insulin Lispro (Humalog) 100 Unit/1 Ml Insuln.pen, 3 UNIT SQ TID 05/28/14 Magnesium Oxide (Mag-Oxide) 400 Mg Tablet, 400 MG PO BID 10/12/12 Fluoxetine (Prozac) 20 Mg Tablet, 40 MG PO DAILY 10/12/12 Nitroglycerin (Nitrostat) 0.4 Mg Tab.subl, 0.4 MG SL Q5MIN 05/11/12 Discontinued Reported Medications Olmesartan Medoxomil (Benicar) 40 Mg Tablet, 20 MG PO DAILY, TAB 08/29/16 Multivitamin (Multivitamins) 1 Each Tablet, 1 TAB PO DAILY 12/09/15 Omeprazole (Omeprazole) 20 Mg Capsule.dr, 20 MG PO DAILY 12/09/15 Carvedilol (Carvedilol) 6.25 Mg Tablet, 6.25 MG PO BID 12/09/15 Fish Oil/Dha/Epa (Fish Oil 1,200 Mg Fish Oil) 1 Each Capsule, 1 CAP PO BID 10/12/12 Amiodarone Hcl (Amiodarone Hcl) 200 Mg Tablet, 200 MG PO DAILY 10/12/12 Insulin Glargine (Lantus) 100 U/Ml Vial, 26 UNIT SQ HS 01/18/12 Bupropion Hcl (Wellbutrin Xl) 300 Mg Tab.sr.24h, 300 MG PO DAILY 07/14/09 Allergies: Coded Allergies: coal tar (Verified Allergy, Mild, rash, 12/16/16) He used oxypor to which he developed a rash. Oxypor is a coal tar product. BLUE Inhibitors (Verified Allergy, Unknown, 12/16/16) Uncoded Allergies: oxypur (Allergy, Mild, rash, 05/28/14) Family History Family History: hx for [place] Social History Does patient use chewing tobac: No Substance Use Type: does not use Alcohol Intake: none, former alcohol drinker Household Members: none Advance Directives: No DPOA for Healthcare Only Review of Systems Unable to Obtain ROS Due to: physical impairment Constitutional: DENIES: appetite decrease, chills, fever, weakness ENMT Sinuses: NOT FOUND: congestion, rhinorrhea Mouth/Throat: DENIES: sore throat Cardiovascular DENIES: chest pain, dyspnea on exertion Vascular: DENIES: pedal edema Pulmonary Respiratory: DENIES: cough, dyspnea GI Upper Abdomen: DENIES: nausea, vomiting Lower Abdomen: DENIES: constipation, diarrhea General: DENIES: dysuria, frequency Musculoskeletal General: DENIES: weakness Integumentary Skin: DENIES: rash Neurological General: DENIES: headache, seizures, weakness Psychiatric Psychiatric: depression Hematologic/Lymphatic easy bruising Allergic/Immunological DENIES: frequent infections All Other Systems All Other Systems: Reviewed (remainder of 10-point ROS Neg.) Physical Exam General General Nourishment: well nourished, well developed Vital Signs Vital Signs Date Time Temp Pulse Resp B/P Pulse Ox O2 Delivery O2 Flow Rate FiO2 12/21/16 11:52 96.4 91 16 126/70 98 Room Air Height (Feet): 5 Height (Inches): 7.00 Eyes Brief: FOUND: PERRL, NOT FOUND: scleral icterus ENMT Brief: NOT FOUND: mucosa moist (dry), pharnyx erythema Neck Brief: NOT FOUND: JVD, adenopathy, nuchal rigidity Respiratory Auscultation: FOUND: normal, NOT FOUND: rales, rhonchi, wheezes Cardiovascular Auscultation: FOUND: S1, S2, regular Peripheral Pulses: 2+: Dorasalis Pedis (L), Dorsalis Pedis (R), Posterior Tibial (L), Posterior Tibial (R), Radial (L), Radial (R) Edema: 0: Anasarca, Arm (L), Arm (R), Face, Leg (L), Leg (R) Abdomen Inspection: NOT FOUND: distention Palpation: FOUND: hepatomegaly, soft, NOT FOUND: involuntary guarding, rebound , tender, voluntary guarding Auscultation: FOUND: normo active Lymphatic (brief) Lymphatic Brief: NOT FOUND: adenopathy Musculoskeletal (brief) Musculoskeletal Brief: NOT FOUND: tenderness Integumentary (brief) Integumentary Brief: FOUND: dry, pink, warm Integumentary General: FOUND: dry, warm Color: FOUND: pink Neurologic (brief) Neurological Brief: FOUND: cranial 2-12 intact (difficult to fully assess given clinical presentation) Neurologic RN Documented GCS Eye Opening: Verbal: Motor: Total: Psychiatric (brief) FOUND: alert, attentive, normal affect, oriented Assessment & Plan Problems: (1) Septic shock Status: Acute Assessment & Plan: R/O - poss SBP Lactate 4.1, T bili 2.8 (higher than baseline) SIRS - leukocytosis, HR 91 (2) Hepatic encephalopathy Status: Acute (3) Thrombocytopenia Status: Acute (4) Cirrhosis Status: Chronic (5) History of recent hospitalization Assessment & Plan: 11/20/16-11/26/16 [place] He was admitted for acute kidney injury on top of chronic kidney disease, hypotension, and fluid overload, and ascites. PICC line was inserted. Blood pressure was supported with a Levophed drip. Nephrology was consulted, and they were concerned that his acute kidney injury was prerenal or possible hepatorenal pathophysiology. He received IV albumin, midodrine, and octreotide for possible hepatorenal syndrome. He underwent a paracentesis on 11/22/16, and 4800 mL's of fluid was removed. Later he was diuresed with IV Bumex. By day of discharge, he was able to void without the Medeiros catheter in place and was sent to [facility]. renal ultrasound on 11/20/16 IMPRESSION: 1. No hydronephrosis. 2. Bilateral cortical thinning likely relating to chronic medical renal disease. 3. Nonvisualization of the bladder. 4. At least moderate volume ascites. Diet: 1500 mL fl restriction and reduced sodium (6) Systolic CHF Status: Chronic Assessment & Plan: Echocardiogram 11/21/16 Decreased ejection fraction around 38%-40% with inferior wall and lateral wall hypokinesis more profound in the inferior wall, which suggests ischemic disease. Decreased ejection fraction of 38%. Mild pulmonary hypertension. Sclerosis of the aortic valve. Mildly enlarged left atrium. Mild tricuspid regurgitation, trace pulmonic insufficiency, and trace mitral regurgitation. (7) CKD (chronic kidney disease) stage 3, GFR 30-59 ml/min Assessment & Plan: Baseline cr 1.4-1.5 (8) Type 2 diabetes mellitus Status: Chronic Qualifiers: Diabetes mellitus complication status: with kidney complications Diabetes mellitus complication detail: with chronic kidney disease Diabetes mellitus exterminator helper termite insulin use: with exterminator helper termite use Chronic kidney disease stage: stage 3 (moderate) Qualified Codes: E11.22 - Type 2 diabetes mellitus with diabetic chronic kidney disease; N18.3 - Chronic kidney disease, stage 3 ( moderate); Z79.4 - truck terminal manager (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 Later changed to inpatient once the labs were resulted. LOS expected to exceed 2 overnights for correction of septic shock, encephalopathy, and management of significant cardiac disease. PCP - [place] 1. Possible septic shock with lactate of 4.1 - hx of abdominal pain and known cirrhosis, recent hospitalization and paracentesis - concerning for spont. bacterial peritonitis - peritoneal cx (resulted on 11/26/16) was neg - Zosyn 3.375 g QID - trend lactate - 30 ml/kg bolus (2250 mL NS) - GB u/s done today showed cholelithiasis and moderate GB wall thickening - Consult Dr. Stewart - Hep A, B, C negative at [facility] - Diet - clear liquids 2. Hepatic encephalopathy (possible, though ammonia was only 33 - encephalopathy could also be r/t sepsis) - lactulose - repeat NH3 in am - LFTs and T bili elevated above baseline (on 11/25/16, ALT was 76, AST 100, AP 96, and T bili 2.0) 3. Recent DAKOTA superimposed on CKD stage 3 - cr still above baseline at 1.9 (baseline 1.4-1.5) - ivf - hold spironolactone and bumex 4. Hx progressive dysphagia - consult speech therapy 5. CAD, A-fib, ischemic cardiomyopathy, on warfarin - tele - consult pharmacy for dosing - sees Dr. Riley 6. Anemia -w/u done at [facility] - iron 100, TIBC 109, sat 92, transferrin 73, ferritin 160 , b12 638 7. DM2 - hold Humalog but continue Levemir - A1c on 11/20/16 was 6.0% A/P discussed with Dr. Forrester. DVT Prophylaxis: Coumadin Code Status Full Code Hospital Course Summary Disclaimer The hospital course summary below is not to be considered part of the above Progress Note. Hospital Course Summary Admit, observation under the hospitalist service. Later changed to inpatient once the labs were resulted. LOS expected to exceed 2 overnights for correction of septic shock, encephalopathy, and management of significant cardiac disease. PCP - [place] 1. Possible septic shock with lactate of 4.1 - hx of abdominal pain and known cirrhosis, recent hospitalization and paracentesis - concerning for spont. bacterial peritonitis - peritoneal cx (resulted on 11/26/16) was neg - Zosyn 3.375 g QID - trend lactate - 30 ml/kg bolus (2250 mL NS) - GB u/s done today showed cholelithiasis and moderate GB wall thickening - Consult Dr. Stewart - Hep A, B, C negative at [facility] - Diet - clear liquids 2. Hepatic encephalopathy (possible, though ammonia was only 33 - encephalopathy could also be r/t sepsis) - lactulose - repeat NH3 in am - LFTs and T bili elevated above baseline (on 11/25/16, ALT was 76, AST 100, AP 96, and T bili 2.0) 3. Recent DAKOTA superimposed on CKD stage 3 - cr still above baseline at 1.9 (baseline 1.4-1.5) - ivf - hold spironolactone and bumex 4. Hx progressive dysphagia - consult speech therapy 5. CAD, A-fib, ischemic cardiomyopathy, on warfarin - tele - consult pharmacy for dosing - sees Dr. Riley 6. Anemia -w/u done at [facility] - iron 100, TIBC 109, sat 92, transferrin 73, ferritin 160 , b12 638 7. DM2 - hold Humalog but continue Levemir - A1c on 11/20/16 was 6.0% CUAUHTEMOC FORRESTER MD 12/21/16 1531: Past Medical History Current Medications Home Meds Reported Medications Omeprazole (Omeprazole) 20 Mg Capsule., 20 MG PO ACB, CAP Take 1 capsule, by mouth, one time a day (before breakfast). 12/21/16 Lactulose (Lactulose) 10 Gm/15 Ml Solution, 30 ML PO TID, #2700 ML 10 Refills 12/21/16 Spironolactone (Aldactone) 25 Mg Tablet, 25 MG PO BID, TAB Take 1 tablet, by mouth, 2 times a day. 12/21/16 Acetaminophen (Tylenol) 325 Mg Tablet, 2 TAB PO BID Y for PAIN, TAB 12/21/16 Folic Acid (Folic Acid) 1 Mg Tablet, 1 TAB PO DAILY, TAB 12/16/16 Warfarin Sodium (Warfarin Sodium) 1 Mg Tablet, 1 TAB PO DAILY, #90 TAB 12/16/16 Midodrine HCl (Midodrine HCl) 5 Mg Tablet, 1.5 TAB PO TID 12/16/16 Insulin Detemir (Levemir) 100 Unit/Ml Inj, 10 UNIT SQ HS, VIAL 12/16/16 Bupropion HCl (Bupropion Xl) 300 Mg Tab.er.24h, 1 TAB PO DAILY 12/16/16 Bumetanide (Bumetanide) 1 Mg Tablet, 1 TAB PO BID, TAB 12/16/16 Levothyroxine Sodium (Levothyroxine Sodium) 100 Mcg Tablet, 1 TAB PO ACB, TAB Once daily before breakfast 10/01/16 Insulin Lispro (Humalog) 100 Unit/1 Ml Insuln.pen, 3 UNIT SQ TID 05/28/14 Magnesium Oxide (Mag-Oxide) 400 Mg Tablet, 400 MG PO BID 10/12/12 Fluoxetine (Prozac) 20 Mg Tablet, 40 MG PO DAILY 10/12/12 Nitroglycerin (Nitrostat) 0.4 Mg Tab.subl, 0.4 MG SL Q5MIN 05/11/12 Discontinued Reported Medications Olmesartan Medoxomil (Benicar) 40 Mg Tablet, 20 MG PO DAILY, TAB 08/29/16 Multivitamin (Multivitamins) 1 Each Tablet, 1 TAB PO DAILY 12/09/15 Omeprazole (Omeprazole) 20 Mg Capsule.dr, 20 MG PO DAILY 12/09/15 Carvedilol (Carvedilol) 6.25 Mg Tablet, 6.25 MG PO BID 12/09/15 Fish Oil/Dha/Epa (Fish Oil 1,200 Mg Fish Oil) 1 Each Capsule, 1 CAP PO BID 10/12/12 Amiodarone Hcl (Amiodarone Hcl) 200 Mg Tablet, 200 MG PO DAILY 10/12/12 Insulin Glargine (Lantus) 100 U/Ml Vial, 26 UNIT SQ HS 01/18/12 Bupropion Hcl (Wellbutrin Xl) 300 Mg Tab.sr.24h, 300 MG PO DAILY 07/14/09 Allergies: Coded Allergies: coal tar (Verified Allergy, Mild, rash, 12/16/16) He used oxypor to which he developed a rash. Oxypor is a coal tar product. BLUE Inhibitors (Verified Allergy, Unknown, 12/16/16) Uncoded Allergies: oxypur (Allergy, Mild, rash, 05/28/14) Assessment & Plan Problems: (1) Septic shock Status: Acute Assessment & Plan: R/O - poss SBP Lactate 4.1, T bili 2.8 (higher than baseline) SIRS - leukocytosis, HR 91 (2) Hepatic encephalopathy Status: Acute (3) Thrombocytopenia Status: Acute (4) Cirrhosis Status: Chronic (5) History of recent hospitalization Assessment & Plan: 11/20/16-11/26/16 [place] He was admitted for acute kidney injury on top of chronic kidney disease, hypotension, and fluid overload, and ascites. PICC line was inserted. Blood pressure was supported with a Levophed drip. Nephrology was consulted, and they were concerned that his acute kidney injury was prerenal or possible hepatorenal pathophysiology. He received IV albumin, midodrine, and octreotide for possible hepatorenal syndrome. He underwent a paracentesis on 11/22/16, and 4800 mL's of fluid was removed. Later he was diuresed with IV Bumex. By day of discharge, he was able to void without the Medeiros catheter in place and was sent to [facility]. renal ultrasound on 11/20/16 IMPRESSION: 1. No hydronephrosis. 2. Bilateral cortical thinning likely relating to chronic medical renal disease. 3. Nonvisualization of the bladder. 4. At least moderate volume ascites. Diet: 1500 mL fl restriction and reduced sodium (6) Systolic CHF Status: Chronic Assessment & Plan: Echocardiogram 11/21/16 Decreased ejection fraction around 38%-40% with inferior wall and lateral wall hypokinesis more profound in the inferior wall, which suggests ischemic disease. Decreased ejection fraction of 38%. Mild pulmonary hypertension. Sclerosis of the aortic valve. Mildly enlarged left atrium. Mild tricuspid regurgitation, trace pulmonic insufficiency, and trace mitral regurgitation. (7) CKD (chronic kidney disease) stage 3, GFR 30-59 ml/min Assessment & Plan: Baseline cr 1.4-1.5 (8) Type 2 diabetes mellitus Status: Chronic Qualifiers: Diabetes mellitus complication status: with kidney complications Diabetes mellitus complication detail: with chronic kidney disease Diabetes mellitus exterminator helper termite insulin use: with exterminator helper termite use Chronic kidney disease stage: stage 3 (moderate) Qualified Codes: E11.22 - Type 2 diabetes mellitus with diabetic chronic kidney disease; N18.3 - Chronic kidney disease, stage 3 ( moderate); Z79.4 - MCFP (current) use of insulin (9) CAD (coronary artery disease) (10) Atrial fibrillation Status: Chronic (11) Anticoagulated on Coumadin Status: Chronic (12) Ischemic cardiomyopathy Status: Chronic (13) PAD (peripheral artery disease) Status: Chronic (14) Coronary artery disease Status: Chronic (15) HTN (hypertension) Status: Chronic (16) Hypothyroidism Status: Chronic (17) Dysphagia Status: Chronic Assessment & Plan: hx progressive dysphagia (18) Dyslipidemia Status: Chronic Plan/Intensity of Service Have independently interviewed and examined pt. Chart reviewed. Case discussed with Dr Singh and my HIDE GRADER. Care plan developed with my supervision; agree with above. Recently hospitalized in [place]-seen in ED with DAKOTA (creatinine 5.x) Transfer to [facility] for treatment. Renal status did improve. Needed paracentesis secondary to increased ascites due to IVF use. Discharged to Skilled care. Post discharge was still having ab pain and nausea. Symptoms would wax and wane, but does think not as severe. Notes nausea last night. Denies ab pain at this time. Passing stool and flatus. Having urinary frequency-hard to tell from patient if urine amount increasing or decreasing. Denies SOA, cough or congestion. Not feeling chest pressure, pain, heaviness or palpitations. Denies increasing LE edema. WBC found to be elevated, and still with elevation on recheck. SONO GB showing no obstruction, but possible acute on chronic cholecystitis. Arrangements made for hospitalization. Lungs: decreased, no wheezed or distress CV: irregular AB: soft obese with slight distention, Nontender. Guerrero's sign negative. No rebound/guarding. BS decreased, but present MSE: awake alert Skin: warm and dry, no mottling. Plan; Inpatient admission. IVF bolus due to elevated lactate. IV Zosyn for antimicrobial coverage of GI pathogens. Sx consult for possible GB disease. Monitor lab. Zofran prn nausea. SCD to help decrease edema and provide DVT prevention. Monitor Tele due to afib. Monitor respiratory status and volume status due to underlying cirrhosis and HF. CHUCK STANLEY HIDE GRADER Dec 21, 2016 12:32 CUAUHTEMOC FORRESTER MD Dec 21, 2016 15:31
--- NOTE | 2016-12-21 14:07 | DI ---
INDICATION: ITS.REASON: Leukocytosis PROCEDURE: CHEST 2-VIEWS UPRIGHT (PA \T\ LAT) Encounter: Initial COMPARISON: November 20, 2016 FINDINGS: Improving aeration of the right lower lobe with resolution of the prior airspace disease. No pneumothorax or pleural effusion currently. Left lung appears stable and grossly clear. Heart size and mediastinal contours are unchanged. Left cardiac pacemaker defibrillator. Pulmonary vascularity is normal. Impression: No acute cardiopulmonary disease. .
[2016-12-21] MEDS: PIPERACILLIN/TAZOBACTAM 3.375 G in NORMAL SALINE 100 ML IV SCH ×2 (14:30→21:16)
--- NOTE | 2016-12-21 14:48 | NUR ---
WARFARIN CONSULT S: 71 y/o M on warfarin for afib. Home dose is 1 mg daily. Goal INR 2-3. O: Date INR Warfarin Dose 12/21 3.5 HOLD A/P: INR supratherapeutic. No significant drug-drug interactions. Will hold warfarin today. Will continue to monitor & make adjustments accordingly. Thank you for the consult. Lisandra Jimenez, PharmD, BCPS
[2016-12-21 15:24] LABS: PROBNP 5460 PG/ML (0-175)
[2016-12-21] MEDS: NORMAL SALINE 1,000 ML IV SCH ×2 (15:39→16:20)
[2016-12-21 15:46] LABS: THYROID STIM HORMONE-TSH 4.58 MIU/L (0.47-4.68)
[2016-12-21] MEDS: LACTULOSE 20 GM/30 ML UD PO SCH ×2 (15:47→21:16)
[2016-12-21] MEDS: MIDODRINE 5 MG TABLET PO SCH ×2 (15:47→21:16)
[2016-12-21 16:35] VITALS: BP 98/56; PULSE 87; RESP 16; TEMP 98.2; O2SAT 98
--- NOTE | 2016-12-21 17:59 | NUR ---
OUTPUT 450ML YELLOW/SCOTTIE/PINK OUTPUT WITH INSERTION OF 16FR. DICKERSON CATH. INSERTED USING STERILE TECHNIQUE, SECURED TO RIGHT LEG. PT TOLERATED WELL. Addendum: 12/21/16 at 1800 by SEAMUS JAIMES RN Amended: Links added.
[2016-12-21 18:26] LABS: BLOOD, URINE NEGATIVE (NEGATIVE); COLOR,URINE YELLOW (YELLOW); LEUKOCYTE ESTERASE ,URINE NEGATIVE (NEGATIVE); NITRITE,URINE NEGATIVE (NEGATIVE)
--- NOTE | 2016-12-21 18:29 | CONSPD ---
Consultation Info Date DATE: 12/21/16 TIME: 18:19 Date of Consultation: Dec 21, 2016 HPI - Adult Date DATE: 12/21/16 TIME: 18:19 General Chief Complaint: Abdominal pain History of Present Illness Per Dr. Stewart Past Medical History Past Medical History Patient's Medical History: (1) Ischemic cardiomyopathy (2) Systolic CHF (3) HTN (hypertension) (4) Atrial fibrillation (5) CAD (coronary artery disease) Permanent Comment: [place] 1993; Code Blue 06-14-2011 Last Edited By: Carolin Krishnamurthy on Dec 21, 2016 18:20 (6) Dyslipidemia (7) PAD (peripheral artery disease) (8) Intermittent claudication (9) CKD (chronic kidney disease) stage 3, GFR 30-59 ml/min (10) Type 2 diabetes mellitus (11) Adenoma of left adrenal gland Permanent Comment: benign Last Edited By: Yolette Early on Dec 21, 2016 12:30 (12) Cirrhosis (13) Dysphagia Permanent Comment: Progressive Last Edited By: Yolette Early on Dec 21, 2016 12:30 (14) BPH (benign prostatic hypertrophy) (15) Bladder neck contracture (16) Chronic trigonitis (17) Microscopic hematuria (18) Depression (19) Generalized osteoarthrosis, involving multiple sites (20) Polio (21) Allergic rhinitis (22) Psoriasis (23) Recovering alcoholic (24) Hypothyroidism (25) Overweight (BMI 25.0-29.9) (26) GERD (gastroesophageal reflux disease) -[employer] AICD -Echocardiogram 11/21/2016: -Decreased ejection fraction around 38%-40% with inferior wall and lateral wall hypokinesis more profound in the inferior wall, which suggests ischemic disease. -Decreased ejection fraction of 38%. -Mild pulmonary hypertension. -Sclerosis of the aortic valve. -Mildly enlarged left atrium. -Mild tricuspid regurgitation, trace pulmonic insufficiency, and trace mitral regurgitation. Surgical History Patient's Surgical History: -Paracentesis on 11/22/16, removing 4800 mL of fluid -Heart CAth with stent 2010, 2011, and 2012 -colonoscopy 2013 -EGD with removal FB 12-09-3015 -EGD with dilatation to 54 Fr. and removal FB 01-03-14 -Multiple cystos since 2007, urethral dilataion, circumcision EGD with removal of foreign body, 12/09/15 Dr. 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 Cardiac catheterization and 2010, 2011, and 2012 Cystoscopies 3 in 2008 Surgery for detached retina in 2000. Cataract extraction, 1995 Current Medications Home Meds Reported Medications Omeprazole (Omeprazole) 20 Mg Capsule.dr, 20 MG PO ACB, CAP Take 1 capsule, by mouth, one time a day (before breakfast). 12/21/16 Lactulose (Lactulose) 10 Gm/15 Ml Solution, 30 ML PO TID, #2700 ML 10 Refills 12/21/16 Spironolactone (Aldactone) 25 Mg Tablet, 25 MG PO BID, TAB Take 1 tablet, by mouth, 2 times a day. 12/21/16 Acetaminophen (Tylenol) 325 Mg Tablet, 2 TAB PO BID Y for PAIN, TAB 12/21/16 Folic Acid (Folic Acid) 1 Mg Tablet, 1 TAB PO DAILY, TAB 12/16/16 Warfarin Sodium (Warfarin Sodium) 1 Mg Tablet, 1 TAB PO DAILY, #90 TAB 12/16/16 Midodrine HCl (Midodrine HCl) 5 Mg Tablet, 1.5 TAB PO TID 12/16/16 Insulin Detemir (Levemir) 100 Unit/Ml Inj, 10 UNIT SQ HS, VIAL 12/16/16 Bupropion HCl (Bupropion Xl) 300 Mg Tab.er.24h, 1 TAB PO DAILY 12/16/16 Bumetanide (Bumetanide) 1 Mg Tablet, 1 TAB PO BID, TAB 12/16/16 Levothyroxine Sodium (Levothyroxine Sodium) 100 Mcg Tablet, 1 TAB PO ACB, TAB Once daily before breakfast 10/01/16 Insulin Lispro (Humalog) 100 Unit/1 Ml Insuln.pen, 3 UNIT SQ TID 05/28/14 Magnesium Oxide (Mag-Oxide) 400 Mg Tablet, 400 MG PO BID 10/12/12 Fluoxetine (Prozac) 20 Mg Tablet, 40 MG PO DAILY 10/12/12 Nitroglycerin (Nitrostat) 0.4 Mg Tab.subl, 0.4 MG SL Q5MIN 05/11/12 Discontinued Reported Medications Olmesartan Medoxomil (Benicar) 40 Mg Tablet, 20 MG PO DAILY, TAB 08/29/16 Multivitamin (Multivitamins) 1 Each Tablet, 1 TAB PO DAILY 12/09/15 Omeprazole (Omeprazole) 20 Mg Capsule.dr, 20 MG PO DAILY 12/09/15 Carvedilol (Carvedilol) 6.25 Mg Tablet, 6.25 MG PO BID 12/09/15 Fish Oil/Dha/Epa (Fish Oil 1,200 Mg Fish Oil) 1 Each Capsule, 1 CAP PO BID 10/12/12 Amiodarone Hcl (Amiodarone Hcl) 200 Mg Tablet, 200 MG PO DAILY 10/12/12 Insulin Glargine (Lantus) 100 U/Ml Vial, 26 UNIT SQ HS 01/18/12 Bupropion Hcl (Wellbutrin Xl) 300 Mg Tab.sr.24h, 300 MG PO DAILY 07/14/09 Allergies: Coded Allergies: coal tar (Verified Allergy, Mild, rash, 12/16/16) He used oxypor to which he developed a rash. Oxypor is a coal tar product. BLUE Inhibitors (Verified Allergy, Unknown, 12/16/16) Uncoded Allergies: oxypur (Allergy, Mild, rash, 05/28/14) Family History Family History: hx for [place] Social History Does patient use chewing tobac: No Substance Use Type: does not use Alcohol Intake: none, former alcohol drinker Household Members: none Advance Directives: No DPOA for Healthcare Only GS Review of Systems 10-point Review of Systems unobtainable (due to physical and mental impairment) GS Physical Exam Vital Signs Date Time Temp Pulse Resp B/P Pulse Ox O2 Delivery O2 Flow Rate FiO2 12/21/16 16:35 98.2 87 16 98/56 98 Room Air Height (Feet): 5 Height (Inches): 7.00 Weight (Kilograms): 75.000 BMI 25.9 Laboratory Laboratory Tests 12/21/16 12:10 Laboratory Tests 12/21/16 12:11 CAROLIN KRISHNAMURTHY APRN, CWS Dec 21, 2016 18:22
--- NOTE | 2016-12-21 18:31 | NUR ---
Summary Pt admitted @ 1120 this morning and has been cooperative with cares and medications. Pt had a critical lab, Lactate 4.1 and Fluid bolus of 2L NS followed with 1/2NS @ 75ml hr. Pt has pressure ulcer on left buttock and does have some complaints of pain and discomfort in his back but did not request anything for pain. Pt is able to take medications whole with nectar thick liquids. Pt has been sleeping off and on since he came on to the unit. He has had periods where he appears to be speaking to someone in the room and no one is there. Pt has a Medeiros catheter to monitor I&O accurately. Pt is currently in bed sleeping with side rails up x2 and bed alarm activated.
--- NOTE | 2016-12-21 20:30 | CONSF ---
DATE OF CONSULTATION 12/21/2016 FINDINGS Mr. Ch is a 71-year-old gentleman who I was asked to see this evening as a result of his marked leukocytosis of uncertain etiology. Mr. Ch is a very poor historian and unfortunately I really was not able to get any information from the patient this evening. Upon questioning the patient, he informed me he did not know where he was at this evening. He was awake and alert. He did answer appropriately when questioned. Upon questioning the patient, he denied any element of abdominal pain this evening. Apparently he was quite somnolent this evening, but he was more alert this evening and conversant but confused. Apparently the patient does have multiple medical comorbidities including cirrhosis of the liver. He was recently hospitalized at [facility]. Apparently he did present to the emergency room today as a result of abdominal pain. Patient does not remember presenting to the emergency room, and, in fact, he did not know where he was present at this evening as stated above. Past Medical History, Past Surgical History, Medications, Social History, Family History, Review of Systems will be performed by my nurse practitioner, Richard Krishnamurthy. PHYSICAL EXAMINATION GENERAL: Mr. Ch is a 71-year-old gentleman who this evening did not appear to be in acute distress. VITAL SIGNS: Temperature 98.2, pulse 87, respirations 16, blood pressure 98/56, SaO2 98% on room air. HEENT: Normocephalic. Pupils equal, round, reactive to light and accommodation. NECK: Supple without lymphadenopathy. CHEST: Clear to auscultation bilaterally. HEART: Regular rate and rhythm. Normal S1 and S2 without gallops, murmurs or clicks. ABDOMEN: Visualization of the abdomen did not reveal any abnormalities upon the anterior abdominal wall. Palpation of the abdomen reveals it to be soft and completely nontender throughout. Patient did not have any element of guarding upon palpation. One could appreciate a component of some hepatomegaly upon palpation. No other abnormal masses were appreciated. EXTREMITIES: Without clubbing, cyanosis, or edema. NEURO: Cranial nerves II-XII grossly intact. Patient is without focal motor or sensory deficits. LABORATORY/RADIOGRAPH EVALUATION Patient did have a CBC upon admission. His white count was significantly elevated at 19.6. He did have a left shift with 78% neutrophils. CMP was obtained, and his AST, ALT, total bilirubin, and alkaline phosphatase were all elevated. Patient apparently does have known cirrhosis of the liver. His plasma lactate level was elevated at 4.1. Repeat plasma lactate level to obtain this evening was still elevated but on a downward trend at 2.9. Procalcitonin level was obtained and found to be normal at 0.97. From a radiographic standpoint, I did review his electronic medical record and found that he did undergo a CT scan on 11/20/2016. The patient was found to have evidence for cirrhosis at that time with associated portal hypertension and large volume ascites. Apparently the patient did undergo paracentesis during a recent admission to [facility]. There is a report in the admission History and Physical that the patient did undergo a gallbladder ultrasound apparently through [facility] as well. This report may be upon the patient's chart, and I will try to locate the report and review. Apparently the patient was found to have a component of some cholelithiasis with some thickening of the gallbladder wall suggestive of possible chronic cholecystitis. There was no evidence for biliary duct obstruction. The date of this ultrasound was today, 12/21/2016. ASSESSMENT A 71-year-old gentleman with significant associated medical comorbidities including cirrhosis of the liver with associated portal hypertension who presents with marked leukocytosis of uncertain etiology. Patient appears to have an altered mental status as well. PLAN Patient does not have an acute surgical abdomen at this time from a physical examination standpoint. He did not have any element of tenderness upon palpation. It is my clinical intubation that his marked leukocytosis is not secondary to an intraabdominal process. Will continue to follow the patient closely with serial abdominal examinations. Will review additional records as well. Patient is not a good operative candidate. I agree with current management of this patient by empiric treatment with broad-spectrum antibiotics. Patient currently is on Zosyn at 3.375 gram IV q.6h. Will continue to follow along in the patient's care. CAT
[2016-12-21] MEDS ORDERED: SPIRONOLACTONE 25 MG TABLET PO SCH (21:00)
[2016-12-21] MEDS: MAGNESIUM OXIDE 400 MG TABLET PO SCH (21:16)
[2016-12-21] MEDS: INSULIN DETEMIR 100 UNIT/ML SQ SCH (21:24)
[2016-12-22] VITALS (11 sets, daily range): BP systolic 80–117; BP diastolic 47–64; PULSE 77–88; RESP 16–22; TEMP 96.8–98; O2SAT 86–99
[2016-12-22] MEDS: PIPERACILLIN/TAZOBACTAM 3.375 G in NORMAL SALINE 100 ML IV SCH ×2 (04:39→08:57)
[2016-12-22] MEDS: ALBUTEROL INH.SOLN. 2.5mg/3ml (0.083%) Neb. AEROSOL PRN ×2 (05:36→22:24)
[2016-12-22] MEDS: OMEPRAZOLE 20 MG CAPSULE PO SCH (05:48)
[2016-12-22] MEDS: LEVOTHYROXINE 100 MCG TABLET PO SCH (05:49)
[2016-12-22 05:59] LABS: INR 3.79 (0.76-1.04); PROTHROMBIN TIME 41.3 SEC (9.31-12.49)
--- NOTE | 2016-12-22 06:46 | NUR ---
SUMMARY PT IN BED AWAKE. ALERT TO PERSON AND PLACE. PT IS ABLE TO VOICE NEEDS TO THE STAFF. DENIED ANY PAIN. PT IS ON 2L/NC. O2 LEVELS DROPPED THIS MORNING TO 85% ON ROOM AIR. PT WAS ALSO GIVEN PRN BREATHING TREATMENT PER THE TELE HOSPITALIST FOR INCREASED DRY COUGH. DICKERSON PATENT AND DRAINING WELL. PT IS ON IV FLUIDS THAT SHE TOLERATES WELL. ASSIST X 2 WITH REPOSITIONING.
[2016-12-22 08:38] LABS: HCT - HEMATOCRIT 41.1 % (41-53); HGB - HEMOGLOBIN 13.7 GM/DL (13.5-17.5); MEAN CORPUSCULAR HGB 29.7 UUG (26-34); MEAN CORPUSCULAR HGB CONC(MCHC 33.3 GM/DL (31-37); MEAN CORPUSCULAR VOLUME 89.2 UM3 (80-100); RED BLOOD COUNT 4.61 M/MM3 (4.50-5.90); WBC - WHITE BLOOD COUNT 16.9 T/MM3 (4.5-11.0)
[2016-12-22 08:53] LABS: BAND NEUTROPHILS # 0.7 T/MM3; EOSINOPHILS # (MANUAL) 0.2 T/MM3 (0-0.5); LYMPHOCYTES # (MANUAL) 2.4 T/MM3 (1-4.8); MONOCYTES # (MANUAL) 0.2 T/MM3 (0-0.8); NEUTROPHILS #(MANUAL)-ABSOLUTE 13.5 T/MM3 (1.8-7.7); TOTAL CELLS COUNTED 100 %
[2016-12-22 08:55] LABS: ANISOCYTOSIS 1+; POIKILOCYTOSIS 1+
[2016-12-22] MEDS: LACTULOSE 20 GM/30 ML UD PO SCH ×3 (08:56→21:48)
[2016-12-22] MEDS: BuPROPion XL (24 HR) 300 MG TABLET PO SCH (08:57)
[2016-12-22] MEDS: MAGNESIUM OXIDE 400 MG TABLET PO SCH ×2 (08:57→21:47)
[2016-12-22] MEDS: FOLIC ACID 1 MG TABLET PO SCH (08:57)
[2016-12-22] MEDS: MIDODRINE 5 MG TABLET PO SCH ×3 (08:57→21:47)
[2016-12-22] MEDS: FLUOXETINE 20 MG CAPSULE PO SCH (08:57)
[2016-12-22] MEDS ORDERED: WARFARIN 1 MG TABLET PO SCH (09:00)
[2016-12-22] MEDS: 1/2 NS 1,000 ML IV SCH ×2 (09:04→11:45)
--- NOTE | 2016-12-22 09:43 | NUR ---
RENAL DOSING: Zosyn Today's SCr = 1.9 mg/dl. Calculated CrCl = 35 ml/min. Zosyn adjusted to 2.25 G IV Q6H based on renal function. Pharmacy will monitor and adjust as needed. Thank you, [facility]
--- NOTE | 2016-12-22 10:09 | NUR ---
WARFARIN CONSULT S: 71 y/o M on warfarin for afib. Home dose is 1 mg daily. Goal INR 2-3. O: Date INR Warfarin Dose 12/21 3.5 Held 12/22 3.79 HOLD A/P: INR supratherapeutic. No significant drug-drug interactions. Will hold warfarin today. Will continue to monitor & make adjustments accordingly. Thank you for the consult, Erick Chi, Pharmacist.
--- NOTE | 2016-12-22 10:32 | NUR ---
CM IN TO VISIT PT. PT IS SLEEPING, ANSWERS QUESTIONS THEN GOES BACK TO SLEEP. CM EXPLAINED ROLE AND CONTACT INFORMATION WAS PROVIDED.
--- NOTE | 2016-12-22 12:00 | NUR ---
BP NOTIFIED DR. KAPADIA OF DECREASED BP NO NEW ORDERS RECEIVED.
[2016-12-22 12:05] LABS: ALBUMIN 2.4 G/DL (3.5-5.0); ALBUMIN/GLOBULIN RATIO 0.8 RATIO (1.1-2.2); ALKALINE PHOSPHATASE 154 U/L (38-126); ALT (SGPT) 82 U/L (21-72); ANION GAP 12 MEQ/L (5-15); AST (SGOT) 147 U/L (17-59); BUN/CREATININE RATIO 22 RATIO (6-26); CALCIUM 8.2 MG/DL (8.4-10.2); CHLORIDE 102 MEQ/L (98-107); CO2 - CARBON DIOXIDE 26 MEQ/L (22-30); CREATININE 1.5 MG/DL (0.8-1.5); GLOMERULAR FILTRATION RATE 46; GLUCOSE 84 MG/DL (75-110); POTASSIUM 3.8 MEQ/L (3.6-5); SODIUM 140 MEQ/L (134-144); TOTAL PROTEIN 5.5 G/DL (6.3-8.2)
--- NOTE | 2016-12-22 12:42 | PNF ---
DATE 12/22/2016 FINDINGS Mr. Ch this morning was sitting upright in the chair, awake, alert and conversant. He still was unable to inform me where he was located at. He informs me that he thought he was in [place]. Upon questioning the patient, he denies any element of abdominal pain. He states that he has been "coughing this morning." VITALS: Afebrile. Normotensive. Current vitals include temperature 97.7, pulse 88, respirations 18, blood pressure 106/62, SaO2 94% on room air. HEENT: Normocephalic. Pupils are equal, round and reactive to light and accommodation. CHEST: Clear to auscultation bilaterally. HEART: Regular rate and rhythm. Normal S1 and S2 without gallops, murmurs or clicks. ABDOMEN: Visualization of the abdomen does reveal it to be slightly protuberant in its overall appearance. Palpation of the abdomen this morning revealed it to be soft and completely nontender. There was no evidence for guarding or rebound. LABORATORY/RADIOGRAPH EVALUATION The patient has had multiple labs ordered this morning and all of these results are still pending. ASSESSMENT 71-year-old gentleman with multiple significant medical comorbidities including end-stage liver disease/cirrhosis. The patient was admitted with marked leukocytosis and an increased serum lactate level. The patient remains to be without physical findings to suggest acute surgical abdomen. PLAN Will await the patient's laboratory results. Will continue to follow the patient with serial abdominal examinations. As stated above, I do not feel the patient's leukocytosis and mental changes are results of an intraabdominal process. Will continue to follow closely. CAT
--- NOTE | 2016-12-22 13:16 | PNPDOC ---
Subjective Date DATE: 12/22/16 TIME: 13:03 Subjective F/U: Septic shock, Hepatic encephalopathy. Upset stomach and nausea this afternoon. Not feeling like eating. Minimal pain to abdomen. Breathing well-not with SOA, cough, congestion, or pain with breathing. No chest pain. Not feeling dizzy or unsteady when up. Objective Vital Signs Vital signs Vital Signs Date Time Temp Pulse Resp B/P Pulse Ox O2 Delivery O2 Flow Rate FiO2 12/22/16 11:59 86 80/47 12/22/16 09:45 18 12/22/16 07:22 94 Room Air 12/22/16 07:10 1.00 12/22/16 07:05 97.7 Height (Feet): 5 Height (Inches): 7.00 Weight (Kilograms): 74.200 General General Appearance: Alert, Overweight, Well Developed, Cooperative, Mild Distress, Other (Looks more energetic today than yesterday. ), Looks Stated Age Eyes (Brief) Eyes: FOUND: EOMI, PERRL, NOT FOUND: scleral icterus ENMT (Brief) ENMT: FOUND: hearing intact, mucosa moist Neck (Brief) Neck: FOUND: midline, NOT FOUND: nuchal rigidity, spasm Respiratory (Brief) Respiratory: FOUND: clear all wallace (Decreased breath sounds. ), equal bilaterally, other (No distress on RA ), NOT FOUND: rales, wheezes Cardiovascular (Brief) Cardiac: FOUND: pedal edema (+1 ), regular rate, regular rhythm Abdomen (Brief) Abdominal: FOUND: other (No rebound tenderness or guarding. ), soft, NOT FOUND : BS normo active x4 (Decreased ), distended, tender (Brief) Male: FOUND: other (Medeiros in place ) Extremities (Brief) Extremity : Side: Bilateral Extremity: leg Extremity Finding: FOUND: edema (+1) Musculoskeletal (Brief) Musculoskeletal: FOUND: extremities move equally, NOT FOUND: deformity, spasm Integumentary (Brief) Integumentary: FOUND: dry, warm Neurologic (Brief) Neurological: FOUND: cranial 2-12 intact, motor (Intact ) Psychiatric (Brief) Psychiatric: FOUND: alert, attentive, normal affect Laboratory Laboratory Laboratory Tests 12/21/16 12:10 12/22/16 05:01 Laboratory Tests 12/21/16 12:11 12/22/16 05:01 Microbiology Microbiology Microbiology Date/Time Source Procedure Growth Status 12/21/16 12:08 Cath/Port/Line/Picc Blood Culture - Preliminary NO GROWTH AFTER 24 HOURS Resulted 12/21/16 11:58 Cath/Port/Line/Picc Blood Culture - Preliminary NO GROWTH AFTER 24 HOURS Resulted Assessment & Plan Problems: (1) Septic shock Status: Resolved Assessment & Plan: R/O - poss SBP Lactate 4.1, T bili 2.8 (higher than baseline) SIRS - leukocytosis, HR 91 (2) Hepatic encephalopathy Status: Acute (3) Thrombocytopenia Status: Acute (4) Cirrhosis Status: Chronic (5) History of recent hospitalization Assessment & Plan: 11/20/16-11/26/16 [facility] He was admitted for acute kidney injury on top of chronic kidney disease, hypotension, and fluid overload, and ascites. PICC line was inserted. Blood pressure was supported with a Levophed drip. Nephrology was consulted, and they were concerned that his acute kidney injury was prerenal or possible hepatorenal pathophysiology. He received IV albumin, midodrine, and octreotide for possible hepatorenal syndrome. He underwent a paracentesis on 11/22/16, and 4800 mL's of fluid was removed. Later he was diuresed with IV Bumex. By day of discharge, he was able to void without the Medeiros catheter in place and was sent to [place]. renal ultrasound on 11/20/16 IMPRESSION: 1. No hydronephrosis. 2. Bilateral cortical thinning likely relating to chronic medical renal disease. 3. Nonvisualization of the bladder. 4. At least moderate volume ascites. Diet: 1500 mL fl restriction and reduced sodium (6) Systolic CHF Status: Chronic Assessment & Plan: Echocardiogram 11/21/16 Decreased ejection fraction around 38%-40% with inferior wall and lateral wall hypokinesis more profound in the inferior wall, which suggests ischemic disease. Decreased ejection fraction of 38%. Mild pulmonary hypertension. Sclerosis of the aortic valve. Mildly enlarged left atrium. Mild tricuspid regurgitation, trace pulmonic insufficiency, and trace mitral regurgitation. 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 Decreased 1/2NS to 50cc/hr for hydration - with cirrhosis and heart failure volume status is very difficult to control. Will continue to hold Bumex for now - likely need to reinstitute in near future. Zofran to help nausea. Blood sugars stable on home dose of Levemir - continue Levemir and monitor sugars. Consult with PT/OT tomorrow to start increasing functional status. Recheck CBC in am due to leukocytosis and thrombocytopenia Recheck CMP in am due to elevated liver enzymes and resolving DAKOTA. Case discussed with nursing and CM. Time spent with pt care 35 minutes. DVT Prophylaxis: SCD'S, Coumadin Code Status Full Code Hospital Course Summary Disclaimer The hospital course summary below is not to be considered part of the above Progress Note. Hospital Course Summary 12/21 Admit, observation under the hospitalist service. Later changed to inpatient once the labs were resulted. LOS expected to exceed 2 overnights for correction of septic shock, encephalopathy, and management of significant cardiac disease. PCP - [place] 1. Possible septic shock with lactate of 4.1 - hx of abdominal pain and known cirrhosis, recent hospitalization and paracentesis - concerning for spont. bacterial peritonitis - peritoneal cx (resulted on 11/26/16) was neg - Zosyn 3.375 g QID - trend lactate - 30 ml/kg bolus (2250 mL NS) - GB u/s done today showed cholelithiasis and moderate GB wall thickening - Consult Dr. Pat - Hep A, B, C negative at [facility] - Diet - clear liquids 2. Hepatic encephalopathy (possible, though ammonia was only 33 - encephalopathy could also be r/t sepsis) - lactulose - repeat NH3 in am - LFTs and T bili elevated above baseline (on 11/25/16, ALT was 76, AST 100, AP 96, and T bili 2.0) 3. Recent DAKOTA superimposed on CKD stage 3 - cr still above baseline at 1.9 (baseline 1.4-1.5) - ivf - hold spironolactone and bumex 4. Hx progressive dysphagia - consult speech therapy 5. CAD, A-fib, ischemic cardiomyopathy, on warfarin - tele - consult pharmacy for dosing - sees Dr. Riley 6. Anemia -w/u done at [facility] - iron 100, TIBC 109, sat 92, transferrin 73, ferritin 160 , b12 638 7. DM2 - hold Humalog but continue Levemir - A1c on 11/20/16 was 6.0% 4/5 Upset stomach and nausea this afternoon. Not feeling like eating. Minimal pain to abdomen. Breathing well-not with SOA, cough, congestion, or pain with breathing. No chest pain. Not feeling dizzy or unsteady when up. WBC treading down. Creatinine decreased to 1.5. LFT decreasing. Continue Zosyn for antimicrobial coverage - with his cirrhosis do worry about GI pathogens. Decreased 1/2NS to 50cc/hr for hydration - with cirrhosis and heart failure volume status is very difficult to control. Will continue to hold Bumex for now - likely need to reinstitute in near future. Zofran to help nausea. Blood sugars stable on home dose of Levemir - continue Levemir and monitor sugars. Consult with PT/OT tomorrow to start increasing functional status. Recheck CBC in am due to leukocytosis and thrombocytopenia Recheck CMP in am due to elevated liver enzymes and resolving DAKOTA. CUAUHTEMOC KAPADIA MD Dec 22, 2016 13:07
--- NOTE | 2016-12-22 13:41 | NUR ---
NAUSEA PT HAD A SMALL AMOUNT OF EMESIS, PRN ZOFRAN GIVEN.
[2016-12-22] MEDS: PIPERACILLIN/TAZOBACTAM 2.25 G in NORMAL SALINE 100 ML IV SCH ×2 (14:06→21:42)
--- NOTE | 2016-12-22 16:11 | STEVAL ---
Eval Subjective and History Date/Time of Eval DATE: 12/21/16 TIME: 15:10 Medical Diagnosis Leukocytosis, AMS Treatment Order: Assessment, Dev./Imp. tx plan Orientations: x 3, Alert Primary Complaint: Abdominal Pain, Dysphagia Date of Onset of Primary Com: Dysphagia Evaluation 12/21/2016 Patient's Goals: Patient expressed that he wants to be able to drink liquids again Significant Past Medical Hx: Ischemic cardiomyopathy, Systolic CHF, HTN (hypertension), Atrial fibrillation, CAD (coronary artery disease), Dyslipidemia, PAD (peripheral artery disease), CKD (chronic kidney disease), Type 2 diabetes mellitus, Depression, Polio, Allergic rhinitis, Psoriasis, Recovering alcoholic, Hypothyroidism, Overweight, GERD (gastroesophageal reflux disease) Medical History Form Reviewed: Yes Residence Type: [facility] ([place]) Lives With: Education Subject: Diet, Swallowing Strategies Person(s) Educated: Patient Instruction Understanding Demo: Pt. verbalizes understand Education Comment ERCO MACHINE OPERATOR educated patient on reasoning for evaluation. Patient was agreeable to evaluation. Subjective and History Comment: Upon arrival, Patient was laying down in bed. Patient was repositioned upright in bed. Reported back was hurting, but mentioned he would be okay in the upright position for the assessment. Following assessment, patient was repositioned laying down. Pain went away. Patient agreed to having student admissions clerk, Hector, complete assessment while being supervised by ERCO MACHINE OPERATOR Bobbi. Dysphagia Evaluation Evaluation Location: Bed Evaluation Angle: 90 Oral Peripheral Exam-facial: Facial Symmetry: No Impairment (WFL) Tongue Elevation: No Impairment (WFL) Tongue Lateralization: No Impairment (WFL) Tongue Protrusion: No Impairment (WFL) Tongue Retraction: No Impairment (WFL) Tongue Extension Midline: No Impairment (WFL) Labial Approximation: No Impairment (WFL) Intraoral Air Pressure: No Impairment (WFL) Volitional Cough: No Impairment (WFL) Palatal Elevation: No Impairment (WFL) Larynx Elevation During Swallo: Minimal Impairment (reduced) Saliva Control: No Impairment (WFL) Dentition: Dentures, Upper, Lower Oral Peripheral Exam Comment: Lip Seal: Adequate-liquid, Adequate-pudding, Adequate-solid Lingual Manipulation: Adequate-liquid, Adequate-pudding, Adequate-solid Chewing: Adequate-liquid, Adequate-pudding, Adequate-solid Oral cavity clear post swallow: Adequate-liquid, Inadequate-pudding (required secondary swallow), Inadequate-solid (required secondary swallow and trial of liquid) Swallow initiated w/o delay: Adequate-liquid, Adequate-pudding, Adequate-solid Multiple swallows not needed: Inadequate-pudding, Inadequate-solid Voice clear&dry post swallow: Inadequate-liquid (Patient produced a strong, dry cough after trials of thin liquids), Adequate-pudding, Adequate-solid No cough/throat clear: Inadequate-liquid, Adequate-pudding, Adequate-solid Comments Assessment/Plan of Care Speech Therapy Impressions: Oral mechanism exam was completed first. Patient's mouth was swabbed with water to remove oral residue and moisten oral cavity. Patient demonstrated adequate labial closure and lingual manipulation during assessment. Instructed to produce "ah", patient demonstrated palatal elevation within functional limits. Patient presented with both upper and lower dentures. A dysphagia assessment was completed next. Patient was given trials of thin water via spoon and cup, pudding via spoon, carmen cracker, and clear soda via cup. Pt. demonstrated adequate labial closure and lingual manipulation with all consistencies. Patient required a secondary swallow with pudding and cracker trials. When given trials of thin water and clear soda, patient produced multiple strong, dry coughs. No other clinical s/s of aspiration were observed. Recommendations for diet are listed below. Cartographic Aide Goal: Pt will maintain nutrition and hydration of the least restrictive diet while demonstrating no s/s of aspiration for 3 consecutive trials. Short Term Goal: Pt will consume a soft/chopped meat consistency with nectar thick liquids without outward signs of aspiration at bedside in 3 out of 3 of trials. Pt will demonstrate 3 out of 4 components necessary for a safe swallow as listed from the following: sitting upright during meal, remaining upright for 20 -30 minutes following meal, taking small sips/bites, alternating between solids/ liquids. ST Treatment Plan: Swallow Precautions, Modified Diet ST Treatment Plan Frequency: three times per week Treatment Plan Duration: one week Plan of Care Comment Implement Plan of Care: Speech therapy for 3X for 1 week Recommended Diet: 1. Soft Diet with chopped meats, nectar thick liquids 2. No straws 3. Follow Swallow Precautions Date of Visit 12/21/16 Time Visit Began: 14:45 Time Visit Ended: 15:10 ST Assess/Plan of Care: ST Treatment Charge: Swallow Eval Minutes of Individual Therapy: 25 HECTOR BISWAS Dec 21, 2016 15:13
--- NOTE | 2016-12-22 16:11 | STDAILYN ---
ST Daily Note Date/Time DATE: 12/22/16 TIME: 08:46 Subjective Comment Patient was laying down in chair upon arrival in a pleasant mood. Patient was positioned upright in chair for session. No c/o of pain or fatigue was reported by patient. Dentures were correctly placed in oral cavity. Patient agreed to having graduate clinician, Hector, provide therapy while being supervised by CRYSTALLOGRAPHER Bobbi. Orientations: Person, Cooperative Chief Complaint: Abdominal Pain, Dysphagia Pain: No Was Patient Education Provided: Yes Person(s) Educated: Patient Education Subject: Treatment Plan Instruction Understanding Demo: Pt. verbalizes understand Education Comment Patient was educated on treatment plan. Patient verbalized understanding. *Speech Therapy Impressions [facility] Goal: Pt will maintain nutrition and hydration of the least restrictive diet while demonstrating no s/s of aspiration for 3 consecutive trials. Short Term Goal: Pt will consume a soft/chopped meat consistency with nectar thick liquids without outward signs of aspiration at bedside in 3 out of 3 of trials. Pt will demonstrate 3 out of 4 components necessary for a safe swallow as listed from the following: sitting upright during meal, remaining upright for 20 -30 minutes following meal, taking small sips/bites, alternating between solids/ liquids. First, patient's oral cavity was swabbed with water prior to starting therapy. Patient was given trials of thin water, nectar thick apple juice, and sugar free vanilla pudding. Patient demonstrated adequate labial closure and lingual manipulation. Reduced laryngeal elevation was observed during all consistencies. Patient produced a dry cough following trials of thin water, no other clinical s/s of aspiration were noted during session. Recommended to keep patient on soft/chopped meat consistency and nectar thick liquids. Trials of thin water with supervision is okay. No straws. ST Treatment Plan: Swallow Precautions, Modified Diet ST Treatment Plan Frequency: three times per week Treatment Plan Duration: one week Plan of Care Comment: Continue Plan of Care Start Treatment 1: 08:10 Stop Treatment 1: 08:40 Treatment Duration : Minutes of Individual Therapy: 30 HECTOR BISWAS Dec 22, 2016 08:49
--- NOTE | 2016-12-22 16:14 | PDWOUND ---
Wound Documentation Wound Management Wound : Location Modifier: Right, Posterior Wound Location: Buttocks Wound Type: Pressure Ulcer Wound Dressing Frequency: two times per week Wound Duration: three weeks Wound Dressing Status: FOUND: Dry & Intact Wound Drainage Amount: Moderate Wound Drainage Description: Serous Wound Drainage Odor: None/Absent Wound General Appearance: FOUND Unapproximated Wound Bed: slough Periwound Description: Indurated Wound Length (cm): 1 Wound Width (cm): 1 Wound Depth (cm): 0.2 Exposed: partial Wound Cleanser: NS Wound Primary Dressing Type: Mepilex Comments Pt was sitting up in chair and with assitance stood for assessment. Pt states he has had this wound for at least 3 wks. Pt's bottom is red and at this time and discussed off loading. Nurse informed to keep pt off loaded, aquacell Ag placed to wound and covered with mepilex. Asked or to placed calmosceptine to bottom. STEFFANIE LAIRD RN Dec 22, 2016 16:13
--- NOTE | 2016-12-22 18:36 | NUR ---
STATUS PT IS A&O TO SELF. PT HAS DENIED PAIN. PT HAD A FORMED AND LIQUID BM TODAY. PT WAS UP TO THE CHAIR FOR BREAKFAST AND LUNCH. IS SITTING UP IN THE BED NOW FOR SUPPER, DID NOT WANT TO GET UP TO THE CHAIR FOR SUPPER. PT CONTINUES TO HAVE A DRY COUGH. CALLS FOR NEEDS. PT IS UNSTEADY, USES X2 ASSIST AND GAIT BELT FOR TRANSFERS, BSC USED. REPORTS HE USES A WALKER AT HOME. PT WAS ON 2L/NC UPON SHIFT CHANGE THIS AM, WAS ABLE TO WEAN TO RA TODAY, DENIES SOA EXCEPT OCCASIONALLY WITH EXERTION. PT DISLIKES THICKENED LIQUIDS. [place] TO DEPENDENT DRAINAGE WITH LITTLE UOP THAT WAS REPORTED TO DR. KAPADIA TODAY. LAST BP IMPROVED. PT KEPT OFF BOTTOM WHILE IN BED EXCEPT FOR WITH HIS MEAL, ADJUSTED SIDE TO SIDE WHILE IN THE RECLINER TODAY TO OFFLOAD WELL. BED ALARM ON.
[2016-12-22] MEDS: INSULIN DETEMIR 100 UNIT/ML SQ SCH (21:55)
[2016-12-23] MEDS: 1/2 NS 1,000 ML IV SCH ×3 (01:43→21:55)
[2016-12-23] MEDS: PIPERACILLIN/TAZOBACTAM 2.25 G in NORMAL SALINE 100 ML IV SCH (03:25)
[2016-12-23 04:46] LABS: BASOPHILS % (AUTO) 0.3 % (0-2); EOSINOPHILS # (AUTO) 0.4 T/MM3 (0-0.5); EOSINOPHILS % (AUTO) 2.5 % (0-4); HCT - HEMATOCRIT 39.7 % (41-53); IMMATURE GRANULOCYTE # (AUTO) 0.09 T/MM3 (0.00-0.03); IMMATURE GRANULOCYTE % (AUTO) 0.6 % (0.0-0.5); LYMPHOCYTES # (AUTO) 1.5 T/MM3 (1-4.8); LYMPHOCYTES % (AUTO) 10.2 % (23-45); MEAN CORPUSCULAR HGB 29.4 UUG (26-34); MEAN CORPUSCULAR HGB CONC(MCHC 32.7 GM/DL (31-37); MEAN CORPUSCULAR VOLUME 89.8 UM3 (80-100); MEAN PLATELET VOLUME 10.8 UM3 (9.4-12.4); MONOCYTES # (AUTO) 0.8 T/MM3 (0-0.8); MONOCYTES % (AUTO) 5.2 % (0-9.0); NEUTROPHILS #(AUTO)-ABSOLUTE 11.9 T/MM3 (1.8-7.7); NEUTROPHILS % (AUTO) 81.2 % (33-66); RED BLOOD COUNT 4.42 M/MM3 (4.50-5.90); WBC - WHITE BLOOD COUNT 14.7 T/MM3 (4.5-11.0)
[2016-12-23 04:54] LABS: INR 4.1 (0.76-1.04); PROTHROMBIN TIME 44.7 SEC (9.31-12.49)
--- NOTE | 2016-12-23 04:55 | NUR ---
Pt has had a restful night. Is coughing less. Pt was A&O x 3 during the evening.
[2016-12-23 05:56] LABS: ALBUMIN 2.5 G/DL (3.5-5.0); ALBUMIN/GLOBULIN RATIO 0.8 RATIO (1.1-2.2); ALKALINE PHOSPHATASE 142 U/L (38-126); ALT (SGPT) 85 U/L (21-72); ANION GAP 9 MEQ/L (5-15); AST (SGOT) 139 U/L (17-59); BUN/CREATININE RATIO 21 RATIO (6-26); CALCIUM 8.4 MG/DL (8.4-10.2); CHLORIDE 103 MEQ/L (98-107); CO2 - CARBON DIOXIDE 29 MEQ/L (22-30); CREATININE 1.5 MG/DL (0.8-1.5); GLOMERULAR FILTRATION RATE 46; GLUCOSE 113 MG/DL (75-110); POTASSIUM 4.1 MEQ/L (3.6-5); SODIUM 141 MEQ/L (134-144); TOTAL PROTEIN 5.5 G/DL (6.3-8.2)
[2016-12-23] MEDS: OMEPRAZOLE 20 MG CAPSULE PO SCH (06:12)
[2016-12-23] MEDS: LEVOTHYROXINE 100 MCG TABLET PO SCH (06:12)
--- NOTE | 2016-12-23 08:01 | NUR ---
RENAL DOSING: ZOSYN Renal fx has improved. Today's SCr = 1.5 mg/dl, down from 1.9 yesterday. Calculated CrCl = 44 ml/min. Will adjust Piperacillin/Tazobactam regimen to 3.375gm IV q6hr. Thank you.
[2016-12-23 08:29] VITALS: BP 103/65; PULSE 81; RESP 16; TEMP 97.2; O2SAT 95
--- NOTE | 2016-12-23 08:30 | NUR ---
WEIGHT WEIGHT CHARTED IS CORRECT, BED WAS REZEROED AND WEIGHT RECHECKED.
[2016-12-23 08:49] VITALS: PULSE 81; RESP 16
[2016-12-23] MEDS: PIPERACILLIN/TAZOBACTAM 3.375 G in NORMAL SALINE 100 ML IV SCH ×3 (09:02→20:32)
[2016-12-23] MEDS: FLUOXETINE 20 MG CAPSULE PO SCH (09:02)
[2016-12-23] MEDS: LACTULOSE 20 GM/30 ML UD PO SCH ×3 (09:02→20:30)
[2016-12-23] MEDS: MIDODRINE 5 MG TABLET PO SCH ×3 (09:04→20:31)
[2016-12-23] MEDS: FOLIC ACID 1 MG TABLET PO SCH (09:04)
[2016-12-23] MEDS: MAGNESIUM OXIDE 400 MG TABLET PO SCH ×2 (09:04→20:30)
[2016-12-23] MEDS: BuPROPion XL (24 HR) 300 MG TABLET PO SCH (09:04)
--- NOTE | 2016-12-23 09:49 | NUR ---
WARFARIN CONSULT S: 71 y/o M on warfarin for afib. Home dose is 1 mg daily. Goal INR 2-3. O: Date INR Warfarin Dose 12/21 3.5 Held 12/22 3.79 Held 12/23 4.1 plan: Hold A/P: INR supra-therapeutic and continues to be trending upward. Drug-drug interaction exists between Zosyn and Warfarin with potential to increase INR and bleeding risk. Nursing reports no signs of active bleeding at this time. Will hold warfarin today. Will continue to monitor & make adjustments accordingly. Thank you for the consult, Ya Joe RPh
--- NOTE | 2016-12-23 10:27 | NUR ---
CM IN ROOM INTRODUCED SELF EXPLAINED ROLE. PT PLANS TO GO BACK TO [facility] FOR SKILLED CARE AND THEN RETURN TO HIS OWN HOME.
--- NOTE | 2016-12-23 10:53 | NUR ---
CM CALL TO AURELIA AT [facility] TALKED ABOUT CONTINUED CARE. PT HAS BEEN ACCEPTED TO [facility].
--- NOTE | 2016-12-23 11:32 | PNPDOC ---
Subjective Date DATE: 12/23/16 TIME: 11:21 Subjective F/U: Elevated lactate, Leukocytosis, Hepatic encephalopathy. Notes congestion - needs to cough to clear throat. Not short of air or having pain with breathing. No f/c. Appetite waxes and wanes. Nausea waxes and wanes. No ab pain, bloating, or discomfort. Bowel moving. Not feeling chest pressure or palpitations. Objective Vital Signs Vital signs Vital Signs Date Time Temp Pulse Resp B/P Pulse Ox O2 Delivery O2 Flow Rate FiO2 12/23/16 08:49 81 16 12/23/16 08:29 97.2 103/65 95 Room Air 12/22/16 07:10 1.00 Height (Feet): 5 Height (Inches): 7.00 Weight (Kilograms): 77.700 General General Appearance: Alert, Overweight, Well Nourished, Well Developed, Cooperative, Looks Stated Age Eyes (Brief) Eyes: FOUND: EOMI, PERRL, NOT FOUND: scleral icterus ENMT (Brief) ENMT: FOUND: hearing intact, mucosa moist (No thrush ) Neck (Brief) Neck: FOUND: midline, NOT FOUND: nuchal rigidity, spasm Respiratory (Brief) Respiratory: FOUND: clear all wallace, equal bilaterally, other (No distress on RA ), NOT FOUND: rales, wheezes Cardiovascular (Brief) Cardiac: FOUND: pedal edema (Trace ), regular rate, regular rhythm Abdomen (Brief) Abdominal: FOUND: distended (Slight ), other (Guerrero's sign negative. No rebound tenderness or guarding. ), soft, NOT FOUND: BS normo active x4 ( Decreased. ), tender (Brief) Male: FOUND: other (Medeiros ) Extremities (Brief) Extremity : Side: Bilateral Extremity: leg Extremity Finding: FOUND: edema (trace ), other (SCD present ) Musculoskeletal (Brief) Musculoskeletal: FOUND: extremities move equally, NOT FOUND: deformity, spasm Integumentary (Brief) Integumentary: FOUND: dry, warm Neurologic (Brief) Neurological: FOUND: cranial 2-12 intact, motor (Intact ) Psychiatric (Brief) Psychiatric: FOUND: alert, attentive, normal affect, oriented Laboratory Laboratory Laboratory Tests 12/21/16 12:10 12/22/16 05:01 12/23/16 04:07 Laboratory Tests 12/21/16 12:11 12/22/16 05:01 12/23/16 04:07 Microbiology Microbiology Microbiology Date/Time Source Procedure Growth Status 12/21/16 12:08 Cath/Port/Line/Picc Blood Culture - Preliminary NO GROWTH AFTER 24 HOURS Resulted 12/21/16 11:58 Cath/Port/Line/Picc Blood Culture - Preliminary NO GROWTH AFTER 24 HOURS Resulted Assessment & Plan Problems: (1) Septic shock Status: Resolved Assessment & Plan: R/O - poss SBP Lactate 4.1, T bili 2.8 (higher than baseline) SIRS - leukocytosis, HR 91 (2) Hepatic encephalopathy Status: Resolved (3) Thrombocytopenia Status: Acute (4) Cirrhosis Status: Chronic (5) History of recent hospitalization Assessment & Plan: 11/20/16-11/26/16 [facility] He was admitted for acute kidney injury on top of chronic kidney disease, hypotension, and fluid overload, and ascites. PICC line was inserted. Blood pressure was supported with a Levophed drip. Nephrology was consulted, and they were concerned that his acute kidney injury was prerenal or possible hepatorenal pathophysiology. He received IV albumin, midodrine, and octreotide for possible hepatorenal syndrome. He underwent a paracentesis on 11/22/16, and 4800 mL's of fluid was removed. Later he was diuresed with IV Bumex. By day of discharge, he was able to void without the Medeiros catheter in place and was sent to [facility]. renal ultrasound on 11/20/16 IMPRESSION: 1. No hydronephrosis. 2. Bilateral cortical thinning likely relating to chronic medical renal disease. 3. Nonvisualization of the bladder. 4. At least moderate volume ascites. Diet: 1500 mL fl restriction and reduced sodium (6) Systolic CHF Status: Chronic Assessment & Plan: Echocardiogram 11/21/16 Decreased ejection fraction around 38%-40% with inferior wall and lateral wall hypokinesis more profound in the inferior wall, which suggests ischemic disease. Decreased ejection fraction of 38%. Mild pulmonary hypertension. Sclerosis of the aortic valve. Mildly enlarged left atrium. Mild tricuspid regurgitation, trace pulmonic insufficiency, and trace mitral regurgitation. (7) CKD (chronic kidney disease) stage 3, GFR 30-59 ml/min Status: Chronic Assessment & Plan: Baseline cr 1.4-1.5 (8) Type 2 diabetes mellitus Status: Chronic Qualifiers: Diabetes mellitus complication status: with kidney complications Diabetes mellitus complication detail: with chronic kidney disease Diabetes mellitus manpower development specialist insulin use: with long-term use Chronic kidney disease stage: stage 3 (moderate) Qualified Codes: E11.22 - Type 2 diabetes mellitus with diabetic chronic kidney disease; N18.3 - Chronic kidney disease, stage 3 ( moderate); Z79.4 - cosmetic manager (current) use of insulin (9) CAD (coronary artery disease) (10) Atrial fibrillation Status: Chronic (11) Anticoagulated on Coumadin Status: Chronic (12) Ischemic cardiomyopathy Status: Chronic (13) Coronary artery disease Status: Chronic (14) PAD (peripheral artery disease) Status: Chronic (15) HTN (hypertension) Status: Chronic (16) Hypothyroidism Status: Chronic (17) Dysphagia Status: Chronic Assessment & Plan: hx progressive dysphagia (18) Dyslipidemia Status: Chronic Plan/Intensity of Service Continue Zosyn for antimicrobial coverage - Leukocytosis trending down. Decreased 1/2NS to 40cc/hr for hydration. Start Bumex 1 mg po daily - home dose BID. Check CXR PA/Lat due to cough PT/OT consulted to help improve functional status. Bladder retraining - renal status stable. Blood sugars stable on home dose of Levemir - continue Levemir and monitor sugars. Meal time insulin had not been restarted - sugars stable currently. INR with elevation - likely interaction with Zosyn. Coumadin has been on hold during hospitalization. Continue to monitor. Repeat CBC in am due to leukocytosis and thrombocytopenia Obtain CMP and magnesium in am due to elevated liver enzymes and resolving DAKOTA. Check NH4 in am due to cirrhosis. Case discussed with CM. Time spent with pt care 35 minutes. DVT Prophylaxis: SCD'S, Coumadin Code Status Full Code Hospital Course Summary Disclaimer The hospital course summary below is not to be considered part of the above Progress Note. Hospital Course Summary / Admit, observation under the hospitalist service. Later changed to inpatient once the labs were resulted. LOS expected to exceed 2 overnights for correction of septic shock, encephalopathy, and management of significant cardiac disease. PCP - [facility] 1. Possible septic shock with lactate of 4.1 - hx of abdominal pain and known cirrhosis, recent hospitalization and paracentesis - concerning for spont. bacterial peritonitis - peritoneal cx (resulted on 11/26/16) was neg - Zosyn 3.375 g QID - trend lactate - 30 ml/kg bolus (2250 mL NS) - GB u/s done today showed cholelithiasis and moderate GB wall thickening - Consult Dr. Stewart - Hep A, B, C negative at [facility] - Diet - clear liquids 2. Hepatic encephalopathy (possible, though ammonia was only 33 - encephalopathy could also be r/t sepsis) - lactulose - repeat NH3 in am - LFTs and T bili elevated above baseline (on 11/25/16, ALT was 76, AST 100, AP 96, and T bili 2.0) 3. Recent DAKOTA superimposed on CKD stage 3 - cr still above baseline at 1.9 (baseline 1.4-1.5) - ivf - hold spironolactone and bumex 4. Hx progressive dysphagia - consult speech therapy 5. CAD, A-fib, ischemic cardiomyopathy, on warfarin - tele - consult pharmacy for dosing - sees Dr. Riley 6. Anemia -w/u done at [facility] - iron 100, TIBC 109, sat 92, transferrin 73, ferritin 160 , b12 638 7. DM2 - hold Humalog but continue Levemir - A1c on 11/20/16 was 6.0% 4/5 Upset stomach and nausea this afternoon. Not feeling like eating. Minimal pain to abdomen. Breathing well-not with SOA, cough, congestion, or pain with breathing. No chest pain. Not feeling dizzy or unsteady when up. WBC treading down. Creatinine decreased to 1.5. LFT decreasing. Continue Zosyn for antimicrobial coverage - with his cirrhosis do worry about GI pathogens. Decreased 1/2NS to 50cc/hr for hydration - with cirrhosis and heart failure volume status is very difficult to control. Will continue to hold Bumex for now - likely need to reinstitute in near future. Zofran to help nausea. Blood sugars stable on home dose of Levemir - continue Levemir and monitor sugars. Consult with PT/OT tomorrow to start increasing functional status. Recheck CBC in am due to leukocytosis and thrombocytopenia Recheck CMP in am due to elevated liver enzymes and resolving DAKOTA. 4/6 Notes congestion - needs to cough to clear throat. Not short of air or having pain with breathing. No f/c. Appetite waxes and wanes. Nausea waxes and wanes. No ab pain, bloating, or discomfort. Bowel moving. Not feeling chest pressure or palpitations. Continue Zosyn for antimicrobial coverage - Leukocytosis trending down. Decreased 1/2NS to 40cc/hr for hydration. Start Bumex 1 mg po daily - home dose BID. Check CXR PA/Lat due to cough PT/OT consulted to help improve functional status. Bladder retraining - renal status stable. Blood sugars stable on home dose of Levemir - continue Levemir and monitor sugars. Meal time insulin had not been restarted - sugars stable currently. INR with elevation - likely interaction with Zosyn. Coumadin has been on hold during hospitalization. Continue to monitor. Repeat CBC in am due to leukocytosis and thrombocytopenia Obtain CMP and magnesium in am due to elevated liver enzymes and resolving DAKOTA. Check NH4 in am due to cirrhosis. CUAUHTEMOC KAPADIA MD Dec 23, 2016 11:24
--- NOTE | 2016-12-23 11:48 | STDAILYN ---
ST Daily Note Date/Time DATE: 12/23/16 TIME: 11:13 Subjective Comment Patient was sitting upright in his chair upon arrival. He was in a pleasant mood and reported that he had a headache while he was walking earlier in the day. Currently, patient had no c/o pain or fatigue. He agreed to having graduate clinician, Hector, provide therapy while being supervised by CROP NUTRITION SCIENTIST Bobbi. Orientations: x 3 Chief Complaint: Abdominal Pain, Dysphagia Pain: No (Pt. reported no pain ) Was Patient Education Provided: Yes Person(s) Educated: Patient Education Subject: Treatment Plan Instruction Understanding Demo: Pt. verbalizes understand Education Comment Patient was educated on treatment plan and potential upgrade of nectar thick liquids to thin liquids. Patient verbalized understanding. *Speech Therapy Impressions Mold Stamper Goal: Pt will maintain nutrition and hydration of the least restrictive diet while demonstrating no s/s of aspiration for 3 consecutive trials. Short Term Goal: Pt will consume a soft/chopped meat consistency with nectar thick liquids without outward signs of aspiration at bedside in 3 out of 3 of trials. Pt will demonstrate 3 out of 4 components necessary for a safe swallow as listed from the following: sitting upright during meal, remaining upright for 20 -30 minutes following meal, taking small sips/bites, alternating between solids/ liquids. Patient was given trials of thin water via up for potential upgrade. Patient demonstrated reduced laryngeal elevation during trials. Following swallows, patient produced multiple wet coughs. Patient was educated on continuing nectar thick liquids with only taking sips of water via cup with supervision. Recommended to keep current diet and add thin water with supervision. ST Treatment Plan: Swallow Precautions, Modified Diet ST Treatment Plan Frequency: three times per week Treatment Plan Duration: one week Plan of Care Comment: Continue Plan of Care; sips of thin water with supervision Start Treatment 1: 10:40 Stop Treatment 1: 10:55 Treatment Duration : ST Treatment Charge: Swallow Treatment Minutes of Individual Therapy: 15 HECTOR BISWAS Dec 23, 2016 11:19
[2016-12-23] MEDS: BUMETANIDE 1 MG TABLET PO SCH (13:07)
--- NOTE | 2016-12-23 14:05 | NUR ---
CM CM VISITED PT DISCUSSED RIGHT ON TRACK PROGRAM, PROVIDED FLIER, PT AGREED TO RIGHT ON TRACK PROGRAM.
--- NOTE | 2016-12-23 14:51 | DI ---
INDICATION: ITS.REASON: Cough PROCEDURE: CHEST 2-VIEWS UPRIGHT (PA \T\ LAT) Encounter: Initial COMPARISON: December 21, 2016 FINDINGS: The lungs are clear without evidence of focal abnormal airspace opacity. There is no pleural effusion or pneumothorax. Left cardiac pacemaker defibrillator. The heart size, mediastinal contours and pulmonary vascularity are unchanged. IMPRESSION: No acute cardiopulmonary disease. .
[2016-12-23 15:16] VITALS: BP 98/60; PULSE 91; RESP 16; TEMP 97.4; O2SAT 97
[2016-12-23] MEDS: CALMOSEPTINE OINTMENT 3.5 G PACKET TOP PRN (15:17)
--- NOTE | 2016-12-23 19:25 | NUR ---
SUMMARY SHIFT PT IS IN BED AND AWAKE AT THIS TIME. PT IS ALERT TO PERSON, DENIED PAIN, AND ON RA. PT HAS BEEN COOPERATIVE WITH TREATMENTS. PT IS ON IV FLUIDS.
[2016-12-23] MEDS: INSULIN DETEMIR 100 UNIT/ML SQ SCH (21:53)
[2016-12-23] MEDS: MENTHOL COUGH DROPS (RICOLA) MM PRN (22:59)
--- NOTE | 2016-12-23 23:00 | NUR ---
PRN PT IS HAVING A DRY COUGH THIS SHIFT. NEW ORDER FOR COUGH MEDICATION RECEIVED FROM TELE HOSPITALIST. PT WAS GIVEN RICOLA WHICH HE SAID WAS HELPING HIM. PT IS ALERT WITH INTERMITTENT CONFUSION. WILL CONTINUE TO MONITOR.
[2016-12-23 23:26] VITALS: BP 104/62; PULSE 86; RESP 20; TEMP 97.4; O2SAT 98
[2016-12-24] MEDS: PIPERACILLIN/TAZOBACTAM 3.375 G in NORMAL SALINE 100 ML IV SCH ×4 (02:53→21:06)
[2016-12-24 05:33] LABS: HCT - HEMATOCRIT 39.5 % (41-53); MEAN CORPUSCULAR HGB 29.9 UUG (26-34); MEAN CORPUSCULAR HGB CONC(MCHC 32.9 GM/DL (31-37); MEAN CORPUSCULAR VOLUME 90.8 UM3 (80-100); MEAN PLATELET VOLUME 10.7 UM3 (9.4-12.4); RED BLOOD COUNT 4.35 M/MM3 (4.50-5.90); WBC - WHITE BLOOD COUNT 16.2 T/MM3 (4.5-11.0)
[2016-12-24] MEDS: OMEPRAZOLE 20 MG CAPSULE PO SCH (05:38)
[2016-12-24] MEDS: LEVOTHYROXINE 100 MCG TABLET PO SCH (05:38)
[2016-12-24 05:39] LABS: INR 3.9 (0.76-1.04); PROTHROMBIN TIME 42.5 SEC (9.31-12.49)
[2016-12-24 05:44] LABS: ALBUMIN 2.3 G/DL (3.5-5.0); ALBUMIN/GLOBULIN RATIO 0.7 RATIO (1.1-2.2); ALKALINE PHOSPHATASE 175 U/L (38-126); ALT (SGPT) 83 U/L (21-72); ANION GAP 11 MEQ/L (5-15); AST (SGOT) 137 U/L (17-59); BUN/CREATININE RATIO 18 RATIO (6-26); CALCIUM 8.3 MG/DL (8.4-10.2); CHLORIDE 103 MEQ/L (98-107); CO2 - CARBON DIOXIDE 27 MEQ/L (22-30); CREATININE 1.6 MG/DL (0.8-1.5); GLOMERULAR FILTRATION RATE 43; GLUCOSE 159 MG/DL (75-110); MAGNESIUM 2.1 MG/DL (1.6-2.3); POTASSIUM 3.5 MEQ/L (3.6-5); SODIUM 141 MEQ/L (134-144); TOTAL PROTEIN 5.5 G/DL (6.3-8.2)
[2016-12-24 06:18] LABS: BAND NEUTROPHILS # 0.3 T/MM3; EOSINOPHILS # (MANUAL) 0.5 T/MM3 (0-0.5); LYMPHOCYTES # (MANUAL) 2.1 T/MM3 (1-4.8); MONOCYTES # (MANUAL) 0.5 T/MM3 (0-0.8); NEUTROPHILS #(MANUAL)-ABSOLUTE 12.8 T/MM3 (1.8-7.7); TOTAL CELLS COUNTED 100 %
[2016-12-24 06:19] LABS: ANISOCYTOSIS 1+; POIKILOCYTOSIS 1+
--- NOTE | 2016-12-24 06:44 | NUR ---
SUMMARY PT SLEPT ON AND OFF THIS SHIFT. PT IS ALERT WITH CONFUSION. HAD COUGHING AND DIARRHEA EPISODES. PRN COUGH MEDICATION WAS GIVEN. ONE PERSON ASSIST TO THE BATHROOM OR COMMODE WITH A WALKER. DENIED ANY PAIN.IV FLUIDS PER THE ORDER. PT WAS EDUCATED SPUDDER LIGHT USE AND PT SAFETY. PT ON THICK LIQUIDS.
[2016-12-24 07:38] VITALS: BP 113/65; PULSE 86; RESP 20; TEMP 97.3; O2SAT 97
[2016-12-24 08:00] VITALS: PULSE 86; RESP 20
[2016-12-24] MEDS: LACTULOSE 20 GM/30 ML UD PO SCH ×3 (09:00→21:00)
[2016-12-24] MEDS: BUMETANIDE 1 MG TABLET PO SCH (09:25)
[2016-12-24] MEDS: FLUOXETINE 20 MG CAPSULE PO SCH (09:26)
[2016-12-24] MEDS: MAGNESIUM OXIDE 400 MG TABLET PO SCH ×2 (09:26→21:06)
[2016-12-24] MEDS: MIDODRINE 5 MG TABLET PO SCH ×3 (09:26→21:06)
[2016-12-24] MEDS: BuPROPion XL (24 HR) 300 MG TABLET PO SCH (09:26)
[2016-12-24] MEDS: FOLIC ACID 1 MG TABLET PO SCH (09:26)
--- NOTE | 2016-12-24 09:44 | NUR ---
WARFARIN CONSULT S: 71 y/o M on warfarin for afib. Home dose is 1 mg daily. Goal INR 2-3. O: Date INR Warfarin Dose 12/21 3.55 HELD 12/22 3.79 HELD 12/23 4.10 HELD 12/24 3.90 HELD A/P: INR supratherapeutic. No significant drug-drug interactions. Will hold warfarin today. Will continue to monitor & make adjustments accordingly. Thank you for the consult. Lisandra Jimenez, PharmD, BCPS
--- NOTE | 2016-12-24 09:53 | STDAILYN ---
ST Daily Note Date/Time DATE: 12/24/16 TIME: 09:36 Subjective Comment Pt received speech therapy during the breakfast meal. The pt was positioned upright in the chair. He was alert and pleasant throughout therapy. He denied having difficulty swallowing difficulties but did c/o symptoms of reflux. He stated that he feels like he has indigestion. Orientations: Alert, Cooperative Chief Complaint: Abdominal pain, Dysphagia Pain: Yes (off/on abdnominal pain) Was Patient Education Provided: Yes Person(s) Educated: Patient Education Subject: Safety, Diet, Swallowing Strategies Instruction Understanding Demo: Pt. demos understanding, Pt. verbalizes understand Education Comment ST reviewed diet recommendations and precautions with the pt. We reviewed swallow strategies and the pt demonstrated understanding. *Speech Therapy Impressions The pt was pleasant during therapy with mild confusion at times. Pt is currently on a dysphagia diet with ground meat/gravy and nectar thick liquids with thin water w/ supervision. He ate 100% of chopped pancakes with syrup, applesauce, and thin water. The pt presents with mildly decreased hyolaryngeal elevation with all consistencies. No s/s of aspiration post swallow. The pt did have several episodes of coughing however, does not appear to be correlated with swallowing. The pts voice was clear and dry throughout the meal. Adequate mastication of soft solids was noted with no residue noted in the oral cavity. Plan to upgrade pt to a dysphagia diet with chopped meat. All speech therapy goals have been met at this time. ST Treatment Plan: Swallow Precautions, Modified Diet ST Treatment Plan Frequency: N/A Treatment Plan Duration: discontinue therapy Plan of Care Comment: Pt will be upgraded to a dysphagia diet with chopped meat; nectar thick liquids / supervision with thin water. All therapy goals have been met at this time; plan to d/c further ST treatment. Start Treatment 1: 08:25 Stop Treatment 1: 08:45 Treatment Duration : ST Treatment Charge: Swallow Treatment Minutes of Individual Therapy: 35 SHARMILA RAMIREZ MA Dec 24, 2016 09:41
--- NOTE | 2016-12-24 09:56 | STDAILYN ---
Discharge Note Date/Time DATE: 12/24/16 TIME: 09:53 Discharge From: Inpatient ST Reason for Discharge: All Goals Met Discharge Summary: The pt has demonstrated toleration of the safest oral diet. He is currently on a dysphagia diet with chopped meat, nectar thick liquids with supervision with thin water. The pt continues to present with a occasional coughing however, does not appear to be correlated with swallowing. The pt was able to recall swallow strategies and precautions. Recommended Follow-up: Return to Physician SHARMILA RAMIREZ MA Dec 24, 2016 09:56
--- NOTE | 2016-12-24 10:28 | NUR ---
JEIMY MUNSON VISITED PT. CM EXPLAINED ROLE AND PROVIDED CONTACT INFORMATION. PT PLANS TO RETURN TO [facility] AT TIME OF D/C WITH PENITENTIARY GOAL OF GOING HOME. PT IS AWARE TO CONTACT CM IF NEEDS [facility].
[2016-12-24] MEDS: MENTHOL COUGH DROPS (RICOLA) MM PRN (15:32)
--- NOTE | 2016-12-24 15:56 | NUR ---
CM PT D/C PLAN IS TO RETURN TO [facility]. IF PT IS D/C OVER THE WEEKEND PLEASE CALL RICARDA AT [phone].
[2016-12-24 16:00] VITALS: BP 108/64; PULSE 80; RESP 18; TEMP 96.5; O2SAT 96
--- NOTE | 2016-12-24 16:05 | PNPDOC ---
Subjective Date DATE: 12/24/16 TIME: 15:49 Subjective The patient was seen today in his room accompanied by his brother. Patient states he's feeling better. He continues to have a cough which she has had a long time and it sounds nonproductive. His cough does not sound very effective. He had abdominal pain when he came in but that is resolved. He denies any nausea or vomiting. He is having bowel movements. He denies any shortness of breath. He is on a dysphagia diet. He has a chronic indwelling Medeiros. He thinks his abdomen may be getting a little bigger. He has been up walking with physical therapy. He states he has some low back pain since a fall but it only hurts when he moves and is going from lying down to sitting up. It does not hurt at rest or when he is up walking. Objective Vital Signs Vital signs Vital Signs Date Time Temp Pulse Resp B/P Pulse Ox O2 Delivery O2 Flow Rate FiO2 12/24/16 08:00 86 20 12/24/16 07:38 97.3 113/65 97 Room Air 12/23/16 23:26 1.00 Weight is 80.5 kg which is up from 75 kg on admission. Urine output yesterday was 775 ML's. So far today 450 ML's GEN-alert, oriented to [facility], no acute distress, frequent throat clearing HEENT-sclera anicteric, oropharynx is moist NECK-supple CV-irregularly irregular CHEST-clear to auscultation anteriorly ABD-soft, nontender, mild distention, no significant tympany, normal bowel sounds -Medeiros catheter with normal colored urine EXT-no edema, SCDs are on NEURO-moves all 4 extremities without difficulties SKIN-and dry and without rashes Height (Feet): 5 Height (Inches): 7.00 Weight (Kilograms): 80.500 Laboratory Laboratory Laboratory Tests 12/23/16 04:07 12/24/16 04:48 Laboratory Tests 12/23/16 04:07 12/24/16 04:48 Microbiology Microbiology Cultures negative on admission 12/21/2016 Radiology Chest x-rays essentially normal on 12/21/2016 and 12/23/2016 with pacemaker/ defibrillator Assessment & Plan Problems: (1) Septic shock Status: Resolved Assessment & Plan: R/O - poss SBP Lactate 4.1, T bili 2.8 (higher than baseline) SIRS - leukocytosis, HR 91 (2) Hepatic encephalopathy Status: Resolved (3) Thrombocytopenia Status: Resolved (4) Cirrhosis Status: Chronic (5) History of recent hospitalization Assessment & Plan: 11/20/16-11/26/16 [facility] He was admitted for acute kidney injury on top of chronic kidney disease, hypotension, and fluid overload, and ascites. PICC line was inserted. Blood pressure was supported with a Levophed drip. Nephrology was consulted, and they were concerned that his acute kidney injury was prerenal or possible hepatorenal pathophysiology. He received IV albumin, midodrine, and octreotide for possible hepatorenal syndrome. He underwent a paracentesis on 11/22/16, and 4800 mL's of fluid was removed. Later he was diuresed with IV Bumex. By day of discharge, he was able to void without the Medeiros catheter in place and was sent to [place]. renal ultrasound on 11/20/16 IMPRESSION: 1. No hydronephrosis. 2. Bilateral cortical thinning likely relating to chronic medical renal disease. 3. Nonvisualization of the bladder. 4. At least moderate volume ascites. Diet: 1500 mL fl restriction and reduced sodium (6) Systolic CHF Status: Chronic Assessment & Plan: Echocardiogram 11/21/16 Decreased ejection fraction around 38%-40% with inferior wall and lateral wall hypokinesis more profound in the inferior wall, which suggests ischemic disease. Decreased ejection fraction of 38%. Mild pulmonary hypertension. Sclerosis of the aortic valve. Mildly enlarged left atrium. Mild tricuspid regurgitation, trace pulmonic insufficiency, and trace mitral regurgitation. (7) CKD (chronic kidney disease) stage 3, GFR 30-59 ml/min Status: Chronic Assessment & Plan: Baseline cr 1.4-1.5 (8) Type 2 diabetes mellitus Status: Chronic Qualifiers: Diabetes mellitus complication status: with kidney complications Diabetes mellitus complication detail: with chronic kidney disease Diabetes mellitus terminal operator insulin use: with senior care use Chronic kidney disease stage: stage 3 (moderate) Qualified Codes: E11.22 - Type 2 diabetes mellitus with diabetic chronic kidney disease; N18.3 - Chronic kidney disease, stage 3 ( moderate); Z79.4 - [facility] (current) use of insulin (9) CAD (coronary artery disease) (10) Atrial fibrillation Status: Chronic (11) Anticoagulated on Coumadin Status: Chronic (12) Ischemic cardiomyopathy Status: Chronic (13) Coronary artery disease Status: Chronic (14) PAD (peripheral artery disease) Status: Chronic (15) HTN (hypertension) Status: Chronic (16) Hypothyroidism Status: Chronic (17) Dysphagia Status: Chronic Assessment & Plan: hx progressive dysphagia (18) Dyslipidemia Status: Chronic Assessment 12/24/2016-Dr. Rodriges Septic shock-resolved, white count still elevated, but down from admission. Cause of probable infection not known, but could be SBP. Doing okay on Zosyn but white count is mildly up today. Abdominal pain has resolved. Hepatic encephalopathy has improved with lactulose and treatment of infection. Cirrhosis Ascites Probable portal hypertension Acute kidney injury has improved and creatinine today is 1.6. Baseline is 1.3- 1.7. Weight is up 5 kg. DC IV fluids. Consider increase Bumex 2 twice a day tomorrow. Recheck basic metabolic profile tomorrow. Dysphagia-continue with speech therapy and on dysphagia diet Chronic throat clearing/cough-uncertain etiology, chest x-ray negative 2. Consider repeat chest x-ray tomorrow if not improving. Atrial fibrillation Chronic systolic heart failure secondary to ischemic cardiomyopathy Chronic anticoagulation with Coumadin-Coumadin is on hold because of elevated INR Diabetes mellitus-continue Levemir Greater than 35 minutes of time spent seeing and evaluating the patient, reviewing the chart, and determining care plan. Zosyn for now. DC IV fluids. Consider increase Bumex tomorrow. Recheck lab work tomorrow. Continue PT OT. Consider switch to oral antibiotics tomorrow. Code Status Full Code Hospital Course Summary Disclaimer The hospital course summary below is not to be considered part of the above Progress Note. Hospital Course Summary / Admit, observation under the hospitalist service. Later changed to inpatient once the labs were resulted. LOS expected to exceed 2 overnights for correction of septic shock, encephalopathy, and management of significant cardiac disease. PCP - [place] 1. Possible septic shock with lactate of 4.1 - hx of abdominal pain and known cirrhosis, recent hospitalization and paracentesis - concerning for spont. bacterial peritonitis - peritoneal cx (resulted on 11/26/16) was neg - Zosyn 3.375 g QID - trend lactate - 30 ml/kg bolus (2250 mL NS) - GB u/s done today showed cholelithiasis and moderate GB wall thickening - Consult Dr. Stewart - Hep A, B, C negative at [facility] - Diet - clear liquids 2. Hepatic encephalopathy (possible, though ammonia was only 33 - encephalopathy could also be r/t sepsis) - lactulose - repeat NH3 in am - LFTs and T bili elevated above baseline (on 11/25/16, ALT was 76, AST 100, AP 96, and T bili 2.0) 3. Recent DAKOTA superimposed on CKD stage 3 - cr still above baseline at 1.9 (baseline 1.4-1.5) - ivf - hold spironolactone and bumex 4. Hx progressive dysphagia - consult speech therapy 5. CAD, A-fib, ischemic cardiomyopathy, on warfarin - tele - consult pharmacy for dosing - sees Dr. Riley 6. Anemia -w/u done at [facility] - iron 100, TIBC 109, sat 92, transferrin 73, ferritin 160 , b12 638 7. DM2 - hold Humalog but continue Levemir - A1c on 11/20/16 was 6.0% 4/5 Upset stomach and nausea this afternoon. Not feeling like eating. Minimal pain to abdomen. Breathing well-not with SOA, cough, congestion, or pain with breathing. No chest pain. Not feeling dizzy or unsteady when up. WBC treading down. Creatinine decreased to 1.5. LFT decreasing. Continue Zosyn for antimicrobial coverage - with his cirrhosis do worry about GI pathogens. Decreased 1/2NS to 50cc/hr for hydration - with cirrhosis and heart failure volume status is very difficult to control. Will continue to hold Bumex for now - likely need to reinstitute in near future. Zofran to help nausea. Blood sugars stable on home dose of Levemir - continue Levemir and monitor sugars. Consult with PT/OT tomorrow to start increasing functional status. Recheck CBC in am due to leukocytosis and thrombocytopenia Recheck CMP in am due to elevated liver enzymes and resolving DAKOTA. 4/6 Notes congestion - needs to cough to clear throat. Not short of air or having pain with breathing. No f/c. Appetite waxes and wanes. Nausea waxes and wanes. No ab pain, bloating, or discomfort. Bowel moving. Not feeling chest pressure or palpitations. Continue Zosyn for antimicrobial coverage - Leukocytosis trending down. Decreased 1/2NS to 40cc/hr for hydration. Start Bumex 1 mg po daily - home dose BID. Check CXR PA/Lat due to cough PT/OT consulted to help improve functional status. Bladder retraining - renal status stable. Blood sugars stable on home dose of Levemir - continue Levemir and monitor sugars. Meal time insulin had not been restarted - sugars stable currently. INR with elevation - likely interaction with Zosyn. Coumadin has been on hold during hospitalization. Continue to monitor. Repeat CBC in am due to leukocytosis and thrombocytopenia Obtain CMP and magnesium in am due to elevated liver enzymes and resolving DAKOTA. Check NH4 in am due to cirrhosis. FRANCISCO RODRIGES MD Dec 24, 2016 15:52
--- NOTE | 2016-12-24 17:47 | NUR ---
SHIFT PT HAS BEEN PLEASANT AND SLIGHTLY CONFUSED AT TIMES. PT IS ALERT BUT ORIENTED TO SELF AND PLACE ONLY. PT HAS BEEN UP TO RECLINER FOR MEALS AND EATS 100%. PT DENIES PAIN, N/V AND SOA. PT IS ON ROOM AIR. DRESSING TO BUTTOCK CHANGED THIS SHIFT DUE TO SOILING. PT AMBULATED IN ROOM, PT IS UP WITH ONE ASSIST, GAIT BELT AND WALKER. NO OTHER CHANGES SINCE PREVIOUS SHIFT. ALARMS IN USE AND CALL LIGHT WITH IN REACH. DICKERSON TO DD, DRAINING DARK SCOTTIE LOW AMOUNTS OF URINE.
[2016-12-24] MEDS: BENZONATATE 100 MG CAPSULE PO PRN (18:52)
[2016-12-24] MEDS: INSULIN DETEMIR 100 UNIT/ML SQ SCH (21:05)
[2016-12-24 21:18] VITALS: RESP 20
[2016-12-25 00:01] VITALS: BP 110/64; PULSE 78; RESP 16; TEMP 96.3; O2SAT 92
[2016-12-25] MEDS: BENZONATATE 100 MG CAPSULE PO PRN ×3 (02:08→20:47)
[2016-12-25] MEDS: PIPERACILLIN/TAZOBACTAM 3.375 G in NORMAL SALINE 100 ML IV SCH ×4 (03:40→20:46)
[2016-12-25] MEDS: NS 500 ML IV PRN (03:40)
--- NOTE | 2016-12-25 05:02 | NUR ---
Status Pt was in chair at beginning of shift for a while, and then moved into the bed. VS were stable on RA. Pt oriented x3 in evening. Pleasantly confused at times. Used GB to transfer patient. Bladder retraining in process during shift. Pt unable to feel bladder fullness. Pt expressed that he was tired in the evening. Pt stated that he was able to sleep well this morning. Gave PRN benzonatate. It seemed to suppress cough. Turned q2hr to offload buttock wound. Bed alarm on. Will continue to monitor.
[2016-12-25] MEDS: LEVOTHYROXINE 100 MCG TABLET PO SCH (05:48)
[2016-12-25] MEDS: OMEPRAZOLE 20 MG CAPSULE PO SCH (05:49)
[2016-12-25 05:51] LABS: HCT - HEMATOCRIT 38.1 % (41-53); HGB - HEMOGLOBIN 12.6 GM/DL (13.5-17.5); MEAN CORPUSCULAR HGB 29.8 UUG (26-34); MEAN CORPUSCULAR HGB CONC(MCHC 33.1 GM/DL (31-37); MEAN CORPUSCULAR VOLUME 90.1 UM3 (80-100); MEAN PLATELET VOLUME 10.3 UM3 (9.4-12.4); RED BLOOD COUNT 4.23 M/MM3 (4.50-5.90); WBC - WHITE BLOOD COUNT 14.2 T/MM3 (4.5-11.0)
[2016-12-25 05:58] LABS: INR 3.25 (0.76-1.04); PROTHROMBIN TIME 35.4 SEC (9.31-12.49)
[2016-12-25 06:02] LABS: ALBUMIN 2.3 G/DL (3.5-5.0); ANION GAP 11 MEQ/L (5-15); BUN/CREATININE RATIO 19 RATIO (6-26); CALCIUM 8.2 MG/DL (8.4-10.2); CHLORIDE 103 MEQ/L (98-107); CO2 - CARBON DIOXIDE 26 MEQ/L (22-30); CREATININE 1.5 MG/DL (0.8-1.5); GLOMERULAR FILTRATION RATE 46; GLUCOSE 80 MG/DL (75-110); POTASSIUM 3.1 MEQ/L (3.6-5); SODIUM 140 MEQ/L (134-144)
[2016-12-25 06:18] LABS: BAND NEUTROPHILS # 0.1 T/MM3; EOSINOPHILS # (MANUAL) 0.6 T/MM3 (0-0.5); LYMPHOCYTES # (MANUAL) 0.7 T/MM3 (1-4.8); MONOCYTES # (MANUAL) 0.3 T/MM3 (0-0.8); NEUTROPHILS #(MANUAL)-ABSOLUTE 12.5 T/MM3 (1.8-7.7); TOTAL CELLS COUNTED 100 %
[2016-12-25 07:30] VITALS: BP 89/55; PULSE 83; RESP 20; TEMP 97.3; O2SAT 96
--- NOTE | 2016-12-25 07:47 | NUR ---
COUMADIN CONSULT (Recurring): Today's INR = 3.25. Will give NO Warfarin today. Will continue to monitor & make adjustments accordingly. Thank you.
[2016-12-25 07:51] VITALS: PULSE 83; RESP 20
[2016-12-25 07:55] VITALS: BP 95/58; PULSE 87
[2016-12-25] MEDS ORDERED: POTASSIUM CHLORIDE 10 MEQ TABLET PO SCH (08:00)
[2016-12-25] MEDS: LACTULOSE 20 GM/30 ML UD PO SCH ×3 (08:47→20:46)
[2016-12-25] MEDS: MIDODRINE 5 MG TABLET PO SCH ×3 (08:47→20:45)
[2016-12-25] MEDS: MAGNESIUM OXIDE 400 MG TABLET PO SCH ×2 (08:48→20:46)
[2016-12-25] MEDS: FLUOXETINE 20 MG CAPSULE PO SCH (08:48)
[2016-12-25] MEDS: BuPROPion XL (24 HR) 300 MG TABLET PO SCH (08:48)
[2016-12-25] MEDS: BUMETANIDE 1 MG TABLET PO SCH ×2 (08:48→17:12)
[2016-12-25] MEDS: FOLIC ACID 1 MG TABLET PO SCH (08:49)
[2016-12-25] MEDS ORDERED: FEXOFENADINE PO SCH (10:00)
--- NOTE | 2016-12-25 10:08 | PNPDOC ---
Subjective Date DATE: 12/25/16 TIME: 09:51 Subjective The patient continues to have frequent cough. He does have runny nose and postnasal drainage. He has a mild frontal headache. He continues to be on a dysphagia diet with thickened liquids. He has upper abdominal pain when he coughs. He denies any chest pain. He denies nausea or vomiting. He has a chronic indwelling Londono. He has loose stools, likely secondary to lactulose. He occasionally feels lightheaded when he sits up, but is sitting in a chair now denies lightheadedness. Objective Vital Signs Vital signs Vital Signs Date Time Temp Pulse Resp B/P Pulse Ox O2 Delivery O2 Flow Rate FiO2 12/25/16 07:55 87 95/58 12/25/16 07:51 20 12/25/16 07:30 97.3 96 Room Air 12/23/16 23:26 1.00 Weight is up 0.5 kg today. Overall up 6 kg since admission GEN-alert, oriented, no acute distress HEENT-were anicteric, oropharynx is moist NECK-supple no JVD CV-regular rate and rhythm CHEST-clear to auscultation bilaterally ABD-soft, moderate distention, nontender, normal bowel sounds -londono in place with good urine output EXT-no edema, SCDs on NEURO-no focal deficits SKIN-warm and dry and without rashes Height (Feet): 5 Height (Inches): 7.00 Weight (Kilograms): 81.000 Laboratory Laboratory Laboratory Tests 12/24/16 04:48 12/25/16 05:34 Laboratory Tests 12/24/16 04:48 12/25/16 05:34 Assessment & Plan Problems: (1) Septic shock Status: Resolved Assessment & Plan: R/O - poss SBP Lactate 4.1, T bili 2.8 (higher than baseline) SIRS - leukocytosis, HR 91 (2) Hepatic encephalopathy Status: Resolved (3) Thrombocytopenia Status: Resolved (4) Cirrhosis Status: Chronic (5) History of recent hospitalization Assessment & Plan: 11/20/16-11/26/16 [place] He was admitted for acute kidney injury on top of chronic kidney disease, hypotension, and fluid overload, and ascites. PICC line was inserted. Blood pressure was supported with a Levophed drip. Nephrology was consulted, and they were concerned that his acute kidney injury was prerenal or possible hepatorenal pathophysiology. He received IV albumin, midodrine, and octreotide for possible hepatorenal syndrome. He underwent a paracentesis on 11/22/16, and 4800 mL's of fluid was removed. Later he was diuresed with IV Bumex. By day of discharge, he was able to void without the Londono catheter in place and was sent to [place]. renal ultrasound on 11/20/16 IMPRESSION: 1. No hydronephrosis. 2. Bilateral cortical thinning likely relating to chronic medical renal disease. 3. Nonvisualization of the bladder. 4. At least moderate volume ascites. Diet: 1500 mL fl restriction and reduced sodium (6) Systolic CHF Status: Chronic Assessment & Plan: Echocardiogram 11/21/16 Decreased ejection fraction around 38%-40% with inferior wall and lateral wall hypokinesis more profound in the inferior wall, which suggests ischemic disease. Decreased ejection fraction of 38%. Mild pulmonary hypertension. Sclerosis of the aortic valve. Mildly enlarged left atrium. Mild tricuspid regurgitation, trace pulmonic insufficiency, and trace mitral regurgitation. 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 Rodriges Septic shock-resolved, white count still elevated, but down from admission. Cause of probable infection not known, but could be SBP. No paracentesis performed on admission. Abdominal pain resolved except for discomfort with cough. Currently on day 5 of Zosyn. May need ID consult. Hepatic encephalopathy has improved with lactulose and treatment of infection. Cirrhosis Ascites-weight is up. Increase Bumex to twice a day and restart spironolactone. Probable portal hypertension-in the future, will need to consider whether anticoagulation should be continued Acute kidney injury -resolved Chronic kidney disease-baseline creatinine 1.3-1.7 Dysphagia-continue with speech therapy and on dysphagia diet throat clearing/cough-present for 5 days per patient -uncertain etiology, chest x-ray negative 2. Add Nasacort for postnasal drainage Paroxysmal Atrial fibrillation Chronic systolic heart failure secondary to ischemic cardiomyopathy Chronic anticoagulation with Coumadin-Coumadin is on hold because of elevated INR Diabetes mellitus-continue Levemir and monitor Accu-Cheks Hypokalemia-oral potassium given this morning. Restart spironolactone. Recheck lab tomorrow. Recheck lab work tomorrow. Continue on Zosyn for now. Currently on day 5. May need ID consult on Tuesday. Greater than 35 minutes of time spent seeing and evaluating the patient today in determining care plan. DVT Prophylaxis: Coumadin Code Status Full Code Hospital Course Summary Disclaimer The hospital course summary below is not to be considered part of the above Progress Note. Hospital Course Summary 12/21 Admit, observation under the hospitalist service. Later changed to inpatient once the labs were resulted. LOS expected to exceed 2 overnights for correction of septic shock, encephalopathy, and management of significant cardiac disease. PCP - [place] 1. Possible septic shock with lactate of 4.1 - hx of abdominal pain and known cirrhosis, recent hospitalization and paracentesis - concerning for spont. bacterial peritonitis - peritoneal cx (resulted on 11/26/16) was neg - Zosyn 3.375 g QID - trend lactate - 30 ml/kg bolus (2250 mL NS) - GB u/s done today showed cholelithiasis and moderate GB wall thickening - Consult Dr. Stewart - Hep A, B, C negative at [facility] - Diet - clear liquids 2. Hepatic encephalopathy (possible, though ammonia was only 33 - encephalopathy could also be r/t sepsis) - lactulose - repeat NH3 in am - LFTs and T bili elevated above baseline (on 11/25/16, ALT was 76, AST 100, AP 96, and T bili 2.0) 3. Recent DAKOTA superimposed on CKD stage 3 - cr still above baseline at 1.9 (baseline 1.4-1.5) - ivf - hold spironolactone and bumex 4. Hx progressive dysphagia - consult speech therapy 5. CAD, A-fib, ischemic cardiomyopathy, on warfarin - tele - consult pharmacy for dosing - sees Dr. Riley 6. Anemia -w/u done at [facility] - iron 100, TIBC 109, sat 92, transferrin 73, ferritin 160 , b12 638 7. DM2 - hold Humalog but continue Levemir - A1c on 11/20/16 was 6.0% 4/5 Upset stomach and nausea this afternoon. Not feeling like eating. Minimal pain to abdomen. Breathing well-not with SOA, cough, congestion, or pain with breathing. No chest pain. Not feeling dizzy or unsteady when up. WBC treading down. Creatinine decreased to 1.5. LFT decreasing. Continue Zosyn for antimicrobial coverage - with his cirrhosis do worry about GI pathogens. Decreased 1/2NS to 50cc/hr for hydration - with cirrhosis and heart failure volume status is very difficult to control. Will continue to hold Bumex for now - likely need to reinstitute in near future. Zofran to help nausea. Blood sugars stable on home dose of Levemir - continue Levemir and monitor sugars. Consult with PT/OT tomorrow to start increasing functional status. Recheck CBC in am due to leukocytosis and thrombocytopenia Recheck CMP in am due to elevated liver enzymes and resolving DAKOTA. 4/6 Notes congestion - needs to cough to clear throat. Not short of air or having pain with breathing. No f/c. Appetite waxes and wanes. Nausea waxes and wanes. No ab pain, bloating, or discomfort. Bowel moving. Not feeling chest pressure or palpitations. Continue Zosyn for antimicrobial coverage - Leukocytosis trending down. Decreased 1/2NS to 40cc/hr for hydration. Start Bumex 1 mg po daily - home dose BID. Check CXR PA/Lat due to cough PT/OT consulted to help improve functional status. Bladder retraining - renal status stable. Blood sugars stable on home dose of Levemir - continue Levemir and monitor sugars. Meal time insulin had not been restarted - sugars stable currently. INR with elevation - likely interaction with Zosyn. Coumadin has been on hold during hospitalization. Continue to monitor. Repeat CBC in am due to leukocytosis and thrombocytopenia Obtain CMP and magnesium in am due to elevated liver enzymes and resolving DAKOTA. Check NH4 in am due to cirrhosis. 12/24/2016-Dr. Rodriges Septic shock-resolved, white count still elevated, but down from admission. Cause of probable infection not known, but could be SBP. Doing okay on Zosyn but white count is mildly up today. Abdominal pain has resolved. Hepatic encephalopathy has improved with lactulose and treatment of infection. Cirrhosis Ascites Probable portal hypertension Acute kidney injury has improved and creatinine today is 1.6. Baseline is 1.3- 1.7. Weight is up 5 kg. DC IV fluids. Consider increase Bumex 2 twice a day tomorrow. Recheck basic metabolic profile tomorrow. Dysphagia-continue with speech therapy and on dysphagia diet Chronic throat clearing/cough-uncertain etiology, chest x-ray negative 2. Consider repeat chest x-ray tomorrow if not improving. Atrial fibrillation Chronic systolic heart failure secondary to ischemic cardiomyopathy Chronic anticoagulation with Coumadin-Coumadin is on hold because of elevated INR Diabetes mellitus-continue Levemir Greater than 35 minutes of time spent seeing and evaluating the patient, reviewing the chart, and determining care plan. Zosyn for now. DC IV fluids. Consider increase Bumex tomorrow. Recheck lab work tomorrow. Continue PT OT. Consider switch to oral antibiotics tomorrow. FRANCISCO RODRIGES MD Dec 25, 2016 09:55
[2016-12-25] MEDS: FLUTICASONE NASAL SPRAY 50 MCG EA NOSTRIL SCH (10:28)
[2016-12-25] MEDS: SPIRONOLACTONE 25 MG TABLET PO SCH ×2 (10:29→17:12)
[2016-12-25 15:22] VITALS: BP 116/62; PULSE 85; RESP 14; TEMP 97.3; O2SAT 97
--- NOTE | 2016-12-25 18:15 | NUR ---
STATUS PATIENT STABLE ON ROOM AIR THIS SHIFT. UP WITH 1 ASSIST, WALKER AND GAIT BELT. PATIENT DENIED PAIN BUT STATED HE FELT "WORN OUT" TODAY AND "STUFFED UP IN THE HEAD". PATIENT SLEPT FOR ALL OF THE AFTERNOON DESPITE RN ENCOURAGING ACTIVITY. PATIENT UP TO CHAIR FOR BREAKFAST AND SUPPER. PATIENT AMBULATED TO THE RESTROOM SEVERAL TIMES THIS SHIFT WITH SMALL-MODERATE LOOSE YELLOW/BROWN STOOLS. PATIENT WAS ENCOURAGED TO ORDER PROTEIN FOR SUPPER SINCE HE HAD ORDERED SHERBET FOR BREAKFAST AND LUNCH. PATIENT CONTINUES TO HAVE NONPRODUCTIVE COUGH BUT IS ON ROOM AIR. DRESSING TO LEFT BUTTOCK CHANGED TWICE TODAY DUE TO SOILING. PATIENT TOLERATED WELL. MOISTURE BARRIER CREAM APPLIED LIBERALLY TO BUTTOCKS AND COCCYX. PATIENT UP TO RECLINER EATING CHICKEN SALAD SANDWICH AT THIS TIME. VSS THIS SHIFT. WILL CONTINUE TO MONITOR.
[2016-12-25 20:00] VITALS: PULSE 85; RESP 14
[2016-12-25] MEDS: FEXOFENADINE 60 MG TABLET PO SCH (20:46)
[2016-12-25] MEDS: INSULIN DETEMIR 100 UNIT/ML SQ SCH (22:30)
[2016-12-26] VITALS (8 sets, daily range): BP systolic 97–112; BP diastolic 60–67; PULSE 82–91; RESP 18–20; TEMP 96.5–97.6; O2SAT 95–98
[2016-12-26] MEDS: PIPERACILLIN/TAZOBACTAM 3.375 G in NORMAL SALINE 100 ML IV SCH ×4 (03:00→21:06)
--- NOTE | 2016-12-26 04:44 | NUR ---
STATUS PT ALERT AND ORIENTED X 2-3. UP TO THE BR WITH ONE ASSIST, FWW AND GAIT BELT. GAIT IS STEADY MOST OF THE TIME. PT DID STATE HE FEELS SO WEAK. CONTINUE TO HAVE LOOSE STOOLS THAT ARE YELLOW/BROWN. PT WAS INCONTINENT X 3. HE DID CALL FOR ASSIST WHEN HE HAD TO GO. CONTINUE TO DO BLADDER TRAINING THROUGH THE NIGHT. CALL LIGHT WITHIN REACH. BED ALARM ON.
[2016-12-26] MEDS: LEVOTHYROXINE 100 MCG TABLET PO SCH (06:10)
[2016-12-26] MEDS: OMEPRAZOLE 20 MG CAPSULE PO SCH (06:10)
[2016-12-26 06:45] LABS: HCT - HEMATOCRIT 39.7 % (41-53); HGB - HEMOGLOBIN 13.2 GM/DL (13.5-17.5); MEAN CORPUSCULAR HGB 29.9 UUG (26-34); MEAN CORPUSCULAR HGB CONC(MCHC 33.2 GM/DL (31-37); MEAN CORPUSCULAR VOLUME 89.8 UM3 (80-100); MEAN PLATELET VOLUME 10.5 UM3 (9.4-12.4); RED BLOOD COUNT 4.42 M/MM3 (4.50-5.90); WBC - WHITE BLOOD COUNT 16.1 T/MM3 (4.5-11.0)
[2016-12-26 06:51] LABS: ANION GAP 12 MEQ/L (5-15); BUN/CREATININE RATIO 19 RATIO (6-26); CALCIUM 8.5 MG/DL (8.4-10.2); CHLORIDE 104 MEQ/L (98-107); CO2 - CARBON DIOXIDE 26 MEQ/L (22-30); CREATININE 1.6 MG/DL (0.8-1.5); GLOMERULAR FILTRATION RATE 43; GLUCOSE 118 MG/DL (75-110); POTASSIUM 3.3 MEQ/L (3.6-5); SODIUM 142 MEQ/L (134-144)
[2016-12-26 07:05] LABS: TOTAL CELLS COUNTED 100 %
[2016-12-26 07:06] LABS: BASOPHILS # (MANUAL) 0.2 T/MM3 (0-0.2); EOSINOPHILS # (MANUAL) 0.3 T/MM3 (0-0.5); LYMPHOCYTES # (MANUAL) 1.3 T/MM3 (1-4.8); MONOCYTES # (MANUAL) 0.3 T/MM3 (0-0.8)
[2016-12-26 07:13] LABS: INR 2.81 (0.76-1.04); PROTHROMBIN TIME 30.6 SEC (9.31-12.49)
--- NOTE | 2016-12-26 08:11 | NUR ---
WARFARIN CONSULT 71 y/o M on warfarin for afib. Home dose is 1 mg daily. Goal INR 2-3. Date INR Warfarin Dose 12/21 3.5 HOLD DOSE 12/22 3.79 HOLD DOSE 12/23 4.1 HOLD DOSE 12/24 3.9 HOLD DOSE 12/25 3.25 HOLD DOSE 12/26 2.81 Will give warfarin 0.5mg dose today Pt was admitted with elevated LFT (AST, ALT), low albumin levels, comorbidity of CHF, and was placed on Omeprazole po. All this can elevate INR. Will be conservative in warfarin dose secondary to above. Will continue to monitor & make adjustments accordingly. Thank you for the consult.
[2016-12-26] MEDS: NS 500 ML IV PRN (09:13)
[2016-12-26] MEDS: FLUOXETINE 20 MG CAPSULE PO SCH (09:14)
[2016-12-26] MEDS: SPIRONOLACTONE 25 MG TABLET PO SCH ×2 (09:14→17:10)
[2016-12-26] MEDS: LACTULOSE 20 GM/30 ML UD PO SCH ×3 (09:14→21:07)
[2016-12-26] MEDS: MAGNESIUM OXIDE 400 MG TABLET PO SCH ×2 (09:15→21:06)
[2016-12-26] MEDS: BUMETANIDE 1 MG TABLET PO SCH ×2 (09:15→17:10)
[2016-12-26] MEDS: FOLIC ACID 1 MG TABLET PO SCH (09:15)
[2016-12-26] MEDS: BuPROPion XL (24 HR) 300 MG TABLET PO SCH (09:15)
[2016-12-26] MEDS: MIDODRINE 5 MG TABLET PO SCH ×3 (09:15→21:13)
[2016-12-26] MEDS: FEXOFENADINE 60 MG TABLET PO SCH ×2 (09:15→21:06)
[2016-12-26] MEDS: FLUTICASONE NASAL SPRAY 50 MCG EA NOSTRIL SCH (09:16)
--- NOTE | 2016-12-26 10:42 | PNPDOC ---
CHUCK STANLEY DESK PENS ASSEMBLER 12/26/16 1034: Subjective Date DATE: 12/26/16 TIME: 10:31 Subjective Abran was resting in bed, but easily awakened when greeted by name. He smiled and was appropriately conversational. His speech was easier to understand and he was more alert compared to the last day I saw him (day of admission). He complains of feeling very tired and not having any energy. He's been sleeping well at night, and also sleeping more during the day. He complains of diarrhea. He notes "severe" back pain which he rates at 3-4/10 - he attributes his back pain to lying in bed and not being active. He also states that he's having abdominal pain, which he rates at 2/10. He continues to have a nonproductive cough but denies SOA. He doesn't care for thickened liquids. Objective Vital Signs Vital signs Vital Signs Date Time Temp Pulse Resp B/P Pulse Ox O2 Delivery O2 Flow Rate FiO2 12/26/16 08:00 91 18 12/26/16 07:35 97.6 112/67 95 Room Air 12/23/16 23:26 1.00 Height (Feet): 5 Height (Inches): 7.00 Weight (Kilograms): 82.200 General General Appearance: Alert, Orientated x 3, Well Nourished, Well Developed, No Acute Distress Eyes (Brief) Eyes: FOUND: PERRL, NOT FOUND: scleral icterus ENMT (Brief) ENMT: FOUND: lesions (thrush), mucosa moist, NOT FOUND: pharnyx erythema Respiratory (Brief) Respiratory: FOUND: clear all wallace, equal bilaterally Cardiovascular (Brief) Cardiac: FOUND: regular rate, regular rhythm Abdomen (Brief) Abdominal: FOUND: BS normo active x4, distended, NOT FOUND: tender Extremities (Brief) Extremity : Side: Bilateral Extremity: leg, foot Extremity Finding: NOT FOUND: edema Musculoskeletal (Brief) Musculoskeletal: NOT FOUND: tenderness Integumentary (Brief) Integumentary: FOUND: dry, other (minimal jaundice), warm Psychiatric (Brief) Psychiatric: FOUND: alert, attentive, normal affect, oriented Laboratory Laboratory Laboratory Tests 12/25/16 05:34 12/26/16 05:31 Laboratory Tests 12/25/16 05:34 12/26/16 05:31 Assessment & Plan Problems: (1) Septic shock Status: Resolved Assessment & Plan: R/O - poss SBP Lactate 4.1, T bili 2.8 (higher than baseline) SIRS - leukocytosis, HR 91 (2) Hypokalemia Status: Acute (3) Hepatic encephalopathy Status: Resolved (4) Thrombocytopenia Status: Resolved (5) Cirrhosis Status: Chronic (6) History of recent hospitalization Assessment & Plan: 11/20/16-11/26/16 [place] He was admitted for acute kidney injury on top of chronic kidney disease, hypotension, and fluid overload, and ascites. PICC line was inserted. Blood pressure was supported with a Levophed drip. Nephrology was consulted, and they were concerned that his acute kidney injury was prerenal or possible hepatorenal pathophysiology. He received IV albumin, midodrine, and octreotide for possible hepatorenal syndrome. He underwent a paracentesis on 11/22/16, and 4800 mL's of fluid was removed. Later he was diuresed with IV Bumex. By day of discharge, he was able to void without the Medeiros catheter in place and was sent to [place]. renal ultrasound on 11/20/16 IMPRESSION: 1. No hydronephrosis. 2. Bilateral cortical thinning likely relating to chronic medical renal disease. 3. Nonvisualization of the bladder. 4. At least moderate volume ascites. Diet: 1500 mL fl restriction and reduced sodium (7) Systolic CHF Status: Chronic Assessment & Plan: Echocardiogram 11/21/16 Decreased ejection fraction around 38%-40% with inferior wall and lateral wall hypokinesis more profound in the inferior wall, which suggests ischemic disease. Decreased ejection fraction of 38%. Mild pulmonary hypertension. Sclerosis of the aortic valve. Mildly enlarged left atrium. Mild tricuspid regurgitation, trace pulmonic insufficiency, and trace mitral regurgitation. 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 Continue Zosyn; consider ID consult. Hypokalemia - oral replacement ordered. Thrush - nystatin initiated. Renal function stable with BUN 30 and creatinine of 1.6. Weight is trending up and he's had a positive fluid status since admission. Continue Bumex and Aldactone INR therapeutic. DVT Prophylaxis: Coumadin Code Status Full Code Hospital Course Summary Disclaimer The hospital course summary below is not to be considered part of the above Progress Note. Hospital Course Summary 12/21 Admit, observation under the hospitalist service. Later changed to inpatient once the labs were resulted. LOS expected to exceed 2 overnights for correction of septic shock, encephalopathy, and management of significant cardiac disease. PCP - [place] 1. Possible septic shock with lactate of 4.1 - hx of abdominal pain and known cirrhosis, recent hospitalization and paracentesis - concerning for spont. bacterial peritonitis - peritoneal cx (resulted on 11/26/16) was neg - Zosyn 3.375 g QID - trend lactate - 30 ml/kg bolus (2250 mL NS) - GB u/s done today showed cholelithiasis and moderate GB wall thickening - Consult Dr. Stewart - Hep A, B, C negative at [facility] - Diet - clear liquids 2. Hepatic encephalopathy (possible, though ammonia was only 33 - encephalopathy could also be r/t sepsis) - lactulose - repeat NH3 in am - LFTs and T bili elevated above baseline (on 11/25/16, ALT was 76, AST 100, AP 96, and T bili 2.0) 3. Recent DAKOTA superimposed on CKD stage 3 - cr still above baseline at 1.9 (baseline 1.4-1.5) - ivf - hold spironolactone and bumex 4. Hx progressive dysphagia - consult speech therapy 5. CAD, A-fib, ischemic cardiomyopathy, on warfarin - tele - consult pharmacy for dosing - sees Dr. Riley 6. Anemia -w/u done at [facility] - iron 100, TIBC 109, sat 92, transferrin 73, ferritin 160 , b12 638 7. DM2 - hold Humalog but continue Levemir - A1c on 11/20/16 was 6.0% 4/5 Upset stomach and nausea this afternoon. Not feeling like eating. Minimal pain to abdomen. Breathing well-not with SOA, cough, congestion, or pain with breathing. No chest pain. Not feeling dizzy or unsteady when up. WBC treading down. Creatinine decreased to 1.5. LFT decreasing. Continue Zosyn for antimicrobial coverage - with his cirrhosis do worry about GI pathogens. Decreased 1/2NS to 50cc/hr for hydration - with cirrhosis and heart failure volume status is very difficult to control. Will continue to hold Bumex for now - likely need to reinstitute in near future. Zofran to help nausea. Blood sugars stable on home dose of Levemir - continue Levemir and monitor sugars. Consult with PT/OT tomorrow to start increasing functional status. Recheck CBC in am due to leukocytosis and thrombocytopenia Recheck CMP in am due to elevated liver enzymes and resolving DAK[place]. 4/6 Notes congestion - needs to cough to clear throat. Not short of air or having pain with breathing. No f/c. Appetite waxes and wanes. Nausea waxes and wanes. No ab pain, bloating, or discomfort. Bowel moving. Not feeling chest pressure or palpitations. Continue Zosyn for antimicrobial coverage - Leukocytosis trending down. Decreased 1/2NS to 40cc/hr for hydration. Start Bumex 1 mg po daily - home dose BID. Check CXR PA/Lat due to cough PT/OT consulted to help improve functional status. Bladder retraining - renal status stable. Blood sugars stable on home dose of Levemir - continue Levemir and monitor sugars. Meal time insulin had not been restarted - sugars stable currently. INR with elevation - likely interaction with Zosyn. Coumadin has been on hold during hospitalization. Continue to monitor. 12/24/2016-Dr. Rodriges Septic shock-resolved, white count still elevated, but down from admission. Cause of probable infection not known, but could be SBP. Doing okay on Zosyn but white count is mildly up today. Abdominal pain has resolved. Hepatic encephalopathy has improved with lactulose and treatment of infection. Cirrhosis Ascites Probable portal hypertension Acute kidney injury has improved and creatinine today is 1.6. Baseline is 1.3- 1.7. Weight is up 5 kg. DC IV fluids. Consider increase Bumex 2 twice a day tomorrow. Recheck basic metabolic profile tomorrow. Dysphagia-continue with speech therapy and on dysphagia diet Chronic throat clearing/cough-uncertain etiology, chest x-ray negative 2. Consider repeat chest x-ray tomorrow if not improving. Atrial fibrillation Chronic systolic heart failure secondary to ischemic cardiomyopathy Chronic anticoagulation with Coumadin-Coumadin is on hold because of elevated INR Diabetes mellitus-continue Levemir Greater than 35 minutes of time spent seeing and evaluating the patient, reviewing the chart, and determining care plan. Zosyn for now. DC IV fluids. Consider increase Bumex tomorrow. Recheck lab work tomorrow. Continue PT OT. Consider switch to oral antibiotics tomorrow. 12/26/16 Leukocytosis - WBC increased to 16.1. Continue Zosyn; consider ID consult. Hypokalemia - oral replacement ordered. Thrush - nystatin initiated. Renal function stable with BUN 30 and creatinine of 1.6. Weight is trending up and he's had a positive fluid status since admission. Continue Bumex and Aldactone INR therapeutic. FRANCISCO RODRIGES MD 12/26/16 1634: Assessment & Plan Assessment 12/26/2016-I reviewed this chart, the patient history, and the DESK PENS ASSEMBLER's/PA's documented findings as above. We discussed and formulated the assessment and plan as above with the additions below.-Dr. Rodriges The patient continues to have a cough. He also has frequent loose stools which is likely secondary to lactulose. The patient denies any pain at this time. He states he does have low back pain when he gets up to walk. He denies any shortness of breath but continues to have a cough. He continues on a dysphagia diet. On exam he is alert and in no acute distress. Sclera are anicteric. Chest is wheezing bilaterally. Cardiovascular reveals a regular rate and rhythm. Abdomen is soft, mildly distended, nontender, with normal bowel sounds. Extremities reveal no edema. SCDs are on. Since he continues to have elevated white count and is on antibiotics, we'll go ahead and check a stool for C. difficile. We'll check a UA with DIRECTOR OF CASINO MARKETING. With continued cough we'll check a chest x-ray tomorrow. Continue Zosyn for now. Continue Bumex and Aldactone. Weight is up since admission. Will change breathing treatments to scheduled and see if this helps with his cough. Regarding possible SBP, continue Zosyn for now and I will discuss with ID tomorrow. CHUCK STANLEY DESK PENS ASSEMBLER Dec 26, 2016 10:34 FRANCISCO RODRIGES MD Dec 26, 2016 16:34
[2016-12-26] MEDS ORDERED: WARFARIN 1 MG TABLET PO SCH (12:00)
[2016-12-26] MEDS ORDERED: POTASSIUM CHLORIDE 20 MEQ TABLET PO ONE (12:00)
[2016-12-26] MEDS: NYSTATIN 500,000 units/5ml Susp UD PO SCH ×3 (13:00→21:07)
[2016-12-26] MEDS: BENZONATATE 100 MG CAPSULE PO PRN (14:25)
[2016-12-26] MEDS: ALBUTEROL INH.SOLN. 2.5mg/3ml (0.083%) Neb. AEROSOL SCH ×2 (17:01→20:45)
[2016-12-26] MEDS: INSULIN ASPART 100 UNIT/ML SQ PRN ×2 (17:24→22:16)
[2016-12-26 18:35] LABS: BLOOD, URINE 3+ (NEGATIVE); COLOR,URINE YELLOW (YELLOW); LEUKOCYTE ESTERASE ,URINE NEGATIVE (NEGATIVE); NITRITE,URINE NEGATIVE (NEGATIVE); UROBILINOGEN,URINE 0.2 EU/DL (NORMAL)
[2016-12-26 19:20] LABS: BACTERIA,URINE TRACE (NEGATIVE)
--- NOTE | 2016-12-26 19:37 | NUR ---
SUMMARY PT IS A&OX2-3 AND UP TO BR WITH 1 ASSIST, GB AND WALKER. DICKERSON IS DD WITH MINIMAL OUTPUT. PT IS INCONTINENT OF STOOL WITH MULTIPLE LOOSE STOOLS THIS SHIFT. VS STABLE ON RA. PT DENIES CHEST PAIN AND SOA. LFA IV SITE IS PATENT AND LOCKED.
[2016-12-26] MEDS: INSULIN DETEMIR 100 UNIT/ML SQ SCH (21:08)
[2016-12-26 22:00] LABS: C. DIFFICILE TOXIN B NEGATIVE (NEGATIVE)
[2016-12-27] VITALS (17 sets, daily range): BP systolic 92–127; BP diastolic 54–69; PULSE 80–102; RESP 16–23; TEMP 96.3–96.9; O2SAT 96–100
[2016-12-27] MEDS: PIPERACILLIN/TAZOBACTAM 3.375 G in NORMAL SALINE 100 ML IV SCH ×4 (02:44→20:57)
[2016-12-27 05:17] LABS: HCT - HEMATOCRIT 39.5 % (41-53); HGB - HEMOGLOBIN 13.2 GM/DL (13.5-17.5); MEAN CORPUSCULAR HGB 29.9 UUG (26-34); MEAN CORPUSCULAR HGB CONC(MCHC 33.4 GM/DL (31-37); MEAN CORPUSCULAR VOLUME 89.6 UM3 (80-100); MEAN PLATELET VOLUME 10.6 UM3 (9.4-12.4); RED BLOOD COUNT 4.41 M/MM3 (4.50-5.90); WBC - WHITE BLOOD COUNT 15.7 T/MM3 (4.5-11.0)
[2016-12-27 05:22] LABS: INR 2.73 (0.76-1.04); PROTHROMBIN TIME 29.8 SEC (9.31-12.49)
[2016-12-27 05:36] LABS: ALBUMIN 2.4 G/DL (3.5-5.0); ALBUMIN/GLOBULIN RATIO 0.7 RATIO (1.1-2.2); ALKALINE PHOSPHATASE 168 U/L (38-126); ALT (SGPT) 72 U/L (21-72); ANION GAP 12 MEQ/L (5-15); AST (SGOT) 108 U/L (17-59); BUN/CREATININE RATIO 17 RATIO (6-26); CALCIUM 8.6 MG/DL (8.4-10.2); CHLORIDE 106 MEQ/L (98-107); CO2 - CARBON DIOXIDE 26 MEQ/L (22-30); CREATININE 1.7 MG/DL (0.8-1.5); GLOMERULAR FILTRATION RATE 40; GLUCOSE 98 MG/DL (75-110); POTASSIUM 3.1 MEQ/L (3.6-5); SODIUM 144 MEQ/L (134-144); TOTAL PROTEIN 5.7 G/DL (6.3-8.2)
[2016-12-27] MEDS: OMEPRAZOLE 20 MG CAPSULE PO SCH (06:14)
[2016-12-27] MEDS: LEVOTHYROXINE 100 MCG TABLET PO SCH (06:15)
[2016-12-27 06:52] LABS: BASOPHILS # (MANUAL) 0.2 T/MM3 (0-0.2); EOSINOPHILS # (MANUAL) 0.3 T/MM3 (0-0.5); LYMPHOCYTES # (MANUAL) 1.9 T/MM3 (1-4.8); MONOCYTES # (MANUAL) 0.6 T/MM3 (0-0.8); NEUTROPHILS #(MANUAL)-ABSOLUTE 12.7 T/MM3 (1.8-7.7); TOTAL CELLS COUNTED 100 %
--- NOTE | 2016-12-27 07:53 | NUR ---
SHIFT SUMMARY: PT IS A&OX2-3, FRIENDLY AND COOPERATIVE, DENIES CHEST PAIN OR SOA. PT IS UP TO BATHROOM WITH GATE BELT AND WALKER WITH MULTIPLE WATERY STOOLS, WHICH TESTED NEGATIVE FOR C-DIFF. PASSED WORD ON TO DAY SHIFT RN TO HOLD THE LACTELOSE (ORDERS STATE TO HOLD IF PT HAS MORE THAN 3 LOOSE LOOSE STOOLS). PT HAS A STAGE 2 PRESSURE ULCER TO HIS LEFT BUTTOCKS. DICKERSON IS PATENT AND DRAINING WITH SMALL URINE OUTPUT. CALL LIGHT WITHIN REACH, BED ALARM ON.
[2016-12-27] MEDS: ALBUTEROL INH.SOLN. 2.5mg/3ml (0.083%) Neb. AEROSOL SCH ×4 (07:56→19:51)
[2016-12-27] MEDS: BUMETANIDE 1 MG TABLET PO SCH (08:10)
[2016-12-27] MEDS: NS 500 ML IV PRN (08:10)
[2016-12-27] MEDS: SPIRONOLACTONE 25 MG TABLET PO SCH (08:10)
[2016-12-27] MEDS: FLUOXETINE 20 MG CAPSULE PO SCH (08:10)
[2016-12-27] MEDS: FLUTICASONE NASAL SPRAY 50 MCG EA NOSTRIL SCH (08:10)
[2016-12-27] MEDS: BENZONATATE 100 MG CAPSULE PO PRN (08:10)
[2016-12-27] MEDS: LACTULOSE 20 GM/30 ML UD PO SCH ×3 (08:10→21:00)
[2016-12-27] MEDS: FEXOFENADINE 60 MG TABLET PO SCH ×2 (08:10→20:59)
[2016-12-27] MEDS: NYSTATIN 500,000 units/5ml Susp UD PO SCH ×4 (08:10→21:00)
[2016-12-27] MEDS: MIDODRINE 5 MG TABLET PO SCH ×3 (08:11→20:59)
[2016-12-27] MEDS: BuPROPion XL (24 HR) 300 MG TABLET PO SCH (08:11)
[2016-12-27] MEDS: FOLIC ACID 1 MG TABLET PO SCH (08:11)
[2016-12-27] MEDS: MAGNESIUM OXIDE 400 MG TABLET PO SCH ×2 (08:11→20:59)
--- NOTE | 2016-12-27 09:19 | DI ---
INDICATION: ITS.REASON: cough PROCEDURE: CHEST 2-VIEWS UPRIGHT (PA \T\ LAT) Encounter: Initial COMPARISON: December 23, 2016 Findings: The lungs are stable in appearance without new focal airspace consolidation. There is no pleural effusion or pneumothorax. The heart size, pulmonary vascularity and mediastinal contours are unchanged. Left cardiac pacemaker defibrillator. IMPRESSION: Stable appearance of the chest without acute cardiopulmonary disease. .
--- NOTE | 2016-12-27 10:07 | NUR ---
WARFARIN CONSULT: S: 71 y/o M on warfarin for afib. Home dose is 1 mg daily. Goal INR 2-3. O: Date INR dose 12/21 3.5 held 12/22 3.79 held 12/23 4.1 held 12/24 3.9 held 12/25 3.25 held 12/26 2.81 0.5 mg 12/27 2.73 plan: 0.5 mg A/P: Will give Warfarin 0.5 mg po today. Will continue to monitor & make adjustments accordingly. Thank you for the consult, Ya Joe RPh
[2016-12-27] MEDS ORDERED: WARFARIN 1 MG TABLET PO SCH (12:00)
[2016-12-27] MEDS ORDERED: ALBUMIN HUMAN 25% 12.5gm 50ml IV ONE (13:00)
--- NOTE | 2016-12-27 13:42 | NUR ---
PARACENTESIS DISCUSSED MEDS/LUNCH WITH DR. ALEJO, SHE WOULD LIKE EVERYTHING PO HELD UNTIL AFTER PARACENTESIS.
--- NOTE | 2016-12-27 14:23 | NUR ---
CONSENT CONSENT FOR PARACENTESIS SIGNED AT THIS TIME.
--- NOTE | 2016-12-27 14:43 | NUR ---
PROCEDURE PT SENT WITH IMAGING STAFF FOR PARACENTESIS AT THIS TIME.
--- NOTE | 2016-12-27 14:52 | NUR ---
CM CM IN TO VISIT PT. PT IS OUT AT PROCEDURE. WHITEBOARD UPDATED WITH CM CONTACT INFORMATION.
--- NOTE | 2016-12-27 15:11 | NUR ---
Procedure: paracentesis is started in the sono room per Junaid Booker. The patient is monitored by this RN.
[2016-12-27] MEDS ORDERED: POTASSIUM CHLORIDE 20 MEQ TABLET PO ONE (15:30)
--- NOTE | 2016-12-27 15:32 | NUR ---
Procedure: is complete. The patient tolerated the procedure well without incident.
--- NOTE | 2016-12-27 15:32 | PNPDOC ---
CHUCK STANLEY EMPLOYMENT PROGRAMS ANALYST 12/27/16 1442: Subjective Date DATE: 12/27/16 TIME: 14:41 Subjective Abran was seen just before he was taken to radiology for paracentesis. He stated that he feels weak in general, but otherwise is doing well. He denies feeling dizzy. No abdominal pain or nausea. He denies feeling short of breath or having chest pain. He continues to have liquid stools but C. diff was neg. Objective Vital Signs Vital signs Vital Signs Date Time Temp Pulse Resp B/P Pulse Ox O2 Delivery O2 Flow Rate FiO2 12/27/16 12:11 102 92/60 12/27/16 11:47 15 12/27/16 07:56 100 12/27/16 07:09 96.5 Room Air 12/23/16 23:26 1.00 Height (Feet): 5 Height (Inches): 7.00 Weight (Kilograms): 82.500 General General Appearance: Alert, Orientated x 3, Well Nourished, Well Developed, No Acute Distress Eyes (Brief) Eyes: FOUND: PERRL, NOT FOUND: scleral icterus ENMT (Brief) ENMT: FOUND: mucosa moist, NOT FOUND: pharnyx erythema Respiratory (Brief) Respiratory: FOUND: clear all wallace, equal bilaterally Comments occasional cough Cardiovascular (Brief) Cardiac: FOUND: regular rate, regular rhythm Abdomen (Brief) Abdominal: FOUND: BS normo active x4, distended, soft, NOT FOUND: tender Extremities (Brief) Extremity : Side: Bilateral Extremity Finding: NOT FOUND: edema Musculoskeletal (Brief) Musculoskeletal: NOT FOUND: tenderness Integumentary (Brief) Integumentary: FOUND: dry, pink, warm Psychiatric (Brief) Psychiatric: FOUND: alert, attentive, normal affect, oriented Laboratory Laboratory Laboratory Tests 12/26/16 05:31 12/27/16 04:29 Laboratory Tests 12/26/16 05:31 12/27/16 04:29 Assessment & Plan Problems: (1) Septic shock Status: Resolved Assessment & Plan: R/O - poss SBP Lactate 4.1, T bili 2.8 (higher than baseline) SIRS - leukocytosis, HR 91 (2) Hypokalemia Status: Acute (3) Hepatic encephalopathy Status: Resolved (4) Thrombocytopenia Status: Resolved (5) Cirrhosis Status: Chronic (6) History of recent hospitalization Assessment & Plan: 11/20/16-11/26/16 [facility] He was admitted for acute kidney injury on top of chronic kidney disease, hypotension, and fluid overload, and ascites. PICC line was inserted. Blood pressure was supported with a Levophed drip. Nephrology was consulted, and they were concerned that his acute kidney injury was prerenal or possible hepatorenal pathophysiology. He received IV albumin, midodrine, and octreotide for possible hepatorenal syndrome. He underwent a paracentesis on 11/22/16, and 4800 mL's of fluid was removed. Later he was diuresed with IV Bumex. By day of discharge, he was able to void without the Medeiros catheter in place and was sent to [facility] renal ultrasound on 11/20/16 IMPRESSION: 1. No hydronephrosis. 2. Bilateral cortical thinning likely relating to chronic medical renal disease. 3. Nonvisualization of the bladder. 4. At least moderate volume ascites. Diet: 1500 mL fl restriction and reduced sodium (7) Systolic CHF Status: Chronic Assessment & Plan: Echocardiogram 11/21/16 Decreased ejection fraction around 38%-40% with inferior wall and lateral wall hypokinesis more profound in the inferior wall, which suggests ischemic disease. Decreased ejection fraction of 38%. Mild pulmonary hypertension. Sclerosis of the aortic valve. Mildly enlarged left atrium. Mild tricuspid regurgitation, trace pulmonic insufficiency, and trace mitral regurgitation. 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 Continue Zosyn. Paracentesis pending. C. diff, UA & CXR neg. [facility] - Paracentesis on 11/20/16 showed cloudy peritoneal fluid - RBC 341, nuc cell 77, neut 37, lymph 33, mesothelial 1, mononuclear 29; albumin <1, LDH 53, glu 86, protein <1. Hypokalemia - oral replacement ordered. Slightly increased creatinine of 1.7. Weight is trending up and he's had a positive fluid status since admission. Continue Bumex and Aldactone, will discuss in more detail with Dr. Rodriges. Code Status Full Code Hospital Course Summary Disclaimer The hospital course summary below is not to be considered part of the above Progress Note. Hospital Course Summary 12/21 Admit, observation under the hospitalist service. Later changed to inpatient once the labs were resulted. LOS expected to exceed 2 overnights for correction of septic shock, encephalopathy, and management of significant cardiac disease. PCP - [place] 1. Possible septic shock with lactate of 4.1 - hx of abdominal pain and known cirrhosis, recent hospitalization and paracentesis - concerning for spont. bacterial peritonitis - peritoneal cx (resulted on 11/26/16) was neg - Zosyn 3.375 g QID - trend lactate - 30 ml/kg bolus (2250 mL NS) - GB u/s done today showed cholelithiasis and moderate GB wall thickening - Consult Dr. Stewart - Hep A, B, C negative at [facility] - Diet - clear liquids 2. Hepatic encephalopathy (possible, though ammonia was only 33 - encephalopathy could also be r/t sepsis) - lactulose - repeat NH3 in am - LFTs and T bili elevated above baseline (on 11/25/16, ALT was 76, AST 100, AP 96, and T bili 2.0) 3. Recent DAKOTA superimposed on CKD stage 3 - cr still above baseline at 1.9 (baseline 1.4-1.5) - ivf - hold spironolactone and bumex 4. Hx progressive dysphagia - consult speech therapy 5. CAD, A-fib, ischemic cardiomyopathy, on warfarin - tele - consult pharmacy for dosing - sees Dr. Riley 6. Anemia -w/u done at [facility] - iron 100, TIBC 109, sat 92, transferrin 73, ferritin 160 , b12 638 7. DM2 - hold Humalog but continue Levemir - A1c on 11/20/16 was 6.0% 4/5 Upset stomach and nausea this afternoon. Not feeling like eating. Minimal pain to abdomen. Breathing well-not with SOA, cough, congestion, or pain with breathing. No chest pain. Not feeling dizzy or unsteady when up. WBC treading down. Creatinine decreased to 1.5. LFT decreasing. Continue Zosyn for antimicrobial coverage - with his cirrhosis do worry about GI pathogens. Decreased 1/2NS to 50cc/hr for hydration - with cirrhosis and heart failure volume status is very difficult to control. Will continue to hold Bumex for now - likely need to reinstitute in near future. Zofran to help nausea. Blood sugars stable on home dose of Levemir - continue Levemir and monitor sugars. Consult with PT/OT tomorrow to start increasing functional status. Recheck CBC in am due to leukocytosis and thrombocytopenia Recheck CMP in am due to elevated liver enzymes and resolving DAKOTA. 4/6 Notes congestion - needs to cough to clear throat. Not short of air or having pain with breathing. No f/c. Appetite waxes and wanes. Nausea waxes and wanes. No ab pain, bloating, or discomfort. Bowel moving. Not feeling chest pressure or palpitations. Continue Zosyn for antimicrobial coverage - Leukocytosis trending down. Decreased 1/2NS to 40cc/hr for hydration. Start Bumex 1 mg po daily - home dose BID. Check CXR PA/Lat due to cough PT/OT consulted to help improve functional status. Bladder retraining - renal status stable. Blood sugars stable on home dose of Levemir - continue Levemir and monitor sugars. Meal time insulin had not been restarted - sugars stable currently. INR with elevation - likely interaction with Zosyn. Coumadin has been on hold during hospitalization. Continue to monitor. 12/24/2016-Dr. Rodriges Septic shock-resolved, white count still elevated, but down from admission. Cause of probable infection not known, but could be SBP. Doing okay on Zosyn but white count is mildly up today. Abdominal pain has resolved. Hepatic encephalopathy has improved with lactulose and treatment of infection. Cirrhosis Ascites Probable portal hypertension Acute kidney injury has improved and creatinine today is 1.6. Baseline is 1.3- 1.7. Weight is up 5 kg. DC IV fluids. Consider increase Bumex 2 twice a day tomorrow. Recheck basic metabolic profile tomorrow. Dysphagia-continue with speech therapy and on dysphagia diet Chronic throat clearing/cough-uncertain etiology, chest x-ray negative 2. Consider repeat chest x-ray tomorrow if not improving. Atrial fibrillation Chronic systolic heart failure secondary to ischemic cardiomyopathy Chronic anticoagulation with Coumadin-Coumadin is on hold because of elevated INR Diabetes mellitus-continue Levemir Greater than 35 minutes of time spent seeing and evaluating the patient, reviewing the chart, and determining care plan. Zosyn for now. DC IV fluids. Consider increase Bumex tomorrow. Recheck lab work tomorrow. Continue PT OT. Consider switch to oral antibiotics tomorrow. 12/26/16 Leukocytosis - WBC increased to 16.1. Continue Zosyn; consider ID consult. Hypokalemia - oral replacement ordered. Thrush - nystatin initiated. Renal function stable with BUN 30 and creatinine of 1.6. Weight is trending up and he's had a positive fluid status since admission. Continue Bumex and Aldactone INR therapeutic. 12/27/16 Leukocytosis - WBC decreased slightly to 15.7. Continue Zosyn. Paracentesis pending. C. diff, UA & CXR neg. Records obtained from [facility] - Paracentesis on 11/20/16 showed cloudy peritoneal fluid - RBC 341, nuc cell 77, neut 37, lymph 33, mesothelial 1, mononuclear 29; albumin <1, LDH 53, glu 86, protein <1. Hypokalemia - oral replacement ordered. Slightly increased creatinine of 1.7. Weight is trending up and he's had a positive fluid status since admission. Continue Bumex and Aldactone, will discuss in more detail with Dr. Rodriges. FRANCISCO RODRIGES MD 12/27/161945: Assessment & Plan Assessment 12/27/2016-I reviewed this chart, the patient history, and the EMPLOYMENT PROGRAMS ANALYST's/PA's documented findings as above. We discussed and formulated the assessment and plan as above with the additions below.-Dr. Rodriges The patient was seen prior to paracentesis today. He stated he was feeling okay. He stated his cough was getting better. He denied any abdominal pain. He denied any chest pain or shortness of breath. He was eating and drinking okay but doesn't like the thickened liquids. On exam he is alert and in no acute distress. Oral exam reveals an mouth to be dry. Chest is clear to auscultation. Cardiovascular reveals a regular rate and rhythm. Abdomen is soft, moderately distended, nontender, with normal bowel sounds. Extremities are free of edema. Paracentesis was done this afternoon and a little more than 4 L was removed. I gave 25 g of albumin afterwards. I held his Bumex and spironolactone this afternoon but it will likely be restarted tomorrow. The patient was discussed with Dr. Pizano who saw the patient this morning. If cultures are negative will discontinue Zosyn. Will consider SBP prophylaxis. The patient is anticoagulated with Coumadin which could be difficult to manage if he is on antibiotics for prophylaxis. CHUCK STANLEY APRN Dec 27, 2016 14:42 FRANCISCO RODRIGES MD Dec 27, 2016 19:46
[2016-12-27] MEDS: INSULIN ASPART 100 UNIT/ML SQ PRN ×2 (16:16→21:00)
--- NOTE | 2016-12-27 16:31 | DI ---
Indication:ITS.REASON: large volume ascites and evaluate for SBP Procedure:US GUIDE PARACENTESIS, INITIAL PARACENTESIS: The procedure including the benefits, risks, and alternatives were explained in detail to the patient. All of his questions were answered. He stated that they understood and wished to proceed. Informed consent was obtained. A preprocedural timeout was performed to confirm the correct patient and procedure. Using sterile technique, local xylocaine anesthesia, and sonographic guidance throughout, a paracentesis is done from a right lateral approach. 4400 ml of straw colored fluid was taken off without complication and sent to lab. Following this, the patient was taken back to his room on the medical floor. Impression: Successful diagnostic and therapeutic paracentesis performed with 4400 mL of fluid removed and sent to lab for the requested studies. Junaid Booker RPA/WALI performed this under my personal supervision. .
--- NOTE | 2016-12-27 16:32 | CONSF ---
DATE OF CONSULTATION December 27, 2016 CHIEF COMPLAINT Infectious Disease consultation was requested by Dr. Rodriges for antibiotic recommendations for sepsis. HISTORY OF PRESENT ILLNESS Mr. Ch is a 71-year-old man with a history of multiple medical problems including ischemic cardiomyopathy, diabetes, cirrhosis and ascites as well as atrial fibrillation on Coumadin. He was recently hospitalized at [facility] for six days in early November for acute kidney injury and possible hepatorenal syndrome. He reports to me that he had approximately 4 liters of ascitic fluid drained from his abdomen during that admission. He was discharged to [place] on November 26. He was seen by his PCP, Dr. Singh, on December 21 for routine followup and he was noted to have abnormal labs and so arrangements were made for direct admission. He had leukocytosis with a white count of about 21,000. Creatinine was 1.79. His AST was 128, ALT 74, alkaline phosphatase 176, total bili was 2.5. On admission he was hypotensive. He also was very sleepy and not able to provide a good history. Also on admission, however, he complained of abdominal pain and nausea and vomiting. He had an ultrasound of the gallbladder done December 21 which showed cholelithiasis with mild thickening in the gallbladder wall consistent with chronic cholecystitis. On admission he had blood cultures drawn which are no-growth. Urinalysis was negative. Chest x-ray was negative for acute cardiopulmonary disease. He was initially started on Zosyn and he remains on that. Dr. Stewart saw him for the possibility of cholecystitis but he did not feel that he had any evidence of acute cholecystitis and he did not recommend any surgical intervention. Also of note, on admission his lactate was 4.1 which has improved. His procalcitonin was 0.97 and it was repeated the next day on December 22 and it was 0.67. He has remained afebrile throughout this hospital stay. He has continued to have leukocytosis ranging from about 14,000 to 16,000 and his creatinine has been around 1.5 to 1.6. His liver function tests have improved although he continues to have elevated total bilirubin at 2.2. He had some diarrhea and a stool for C. diff was checked on December 26 which was negative. He has had additional chest x-rays which have not shown any acute cardiopulmonary disease. PAST MEDICAL HISTORY He has ischemic cardiomyopathy. Systolic congestive heart failure with an ejection fraction around 38%-40%. Hypertension. Atrial fibrillation on Coumadin anticoagulation Coronary artery disease. Dyslipidemia. Stage III chronic kidney disease. Type 2 diabetes mellitus, insulin-requiring. Dysphagia. Cirrhosis. Benign prostatic hypertrophy. Depression. Hypothyroidism. Psoriasis. Gastroesophageal reflux disease. PAST SURGICAL HISTORY Status post AICD placement. He has had EGD with removal of foreign body December 09, 2015. He has had stent placement November 15, 2012. Cystoscopies x 3 - 2008. Surgery for detached retina - 2000. Cataract extraction - 1995. FAMILY HISTORY Significant for myocardial infarction. SOCIAL HISTORY He is a former alcoholic but denies any recent alcohol use. Denies any tobacco or drug use. ALLERGIES BLUE inhibitors, coal tar and Oxipor. CURRENT MEDICATIONS Reviewed in electronic medical record. He is still on Zosyn 3.375 g IV q.6h. REVIEW OF SYSTEMS He denies any recent fevers, chills or sweats. He states he has been intolerant to the cold for several months but denies any shaking chills recently. He reports that he had nausea and vomiting prior to admission and he could not keep any solids down and states that this has improved. He had abdominal pain on admission which was constant and now is intermittent. He does report some back pain but thinks it is related to his hospital bed. He denies any other aches or pains. He denies any chest pain. He denies any cough or shortness of breath. He denies any urinary symptoms. He asks when he can stop drinking the thickened liquids. The rest of the review of systems is negative other than that mentioned above. PHYSICAL EXAMINATION VITAL SIGNS: Temperature 96.5, blood pressure is 104/65. Pulse 89, respirations 16. Oxygen saturation 96% on room air. Height is 67 inches. Weight is 82.5 kg. GENERAL: He appears comfortable and is in no acute distress. HEENT: Pupils equal, round, reactive to light. Extraocular movements intact. Oropharynx is clear. He has an upper plate of dentures in place. No thrush noted. Mucous membranes are moist. NECK: Supple. HEART: Regular rate and rhythm. No murmurs noted. LUNGS: Clear to auscultation bilaterally. ABDOMEN: Soft, nontender. No guarding or rebound. His abdomen does appear to be mildly distended. He has bowel sounds present. GENITOURINARY: He has a Medeiros catheter in place. EXTREMITIES: No joint effusions are noted. He does have some pitting edema, 1+ noted around his knees bilaterally but I do not appreciate any edema around his ankles or feet bilaterally. NEUROLOGIC: Exam is grossly nonfocal. He is alert and appropriate. Speech is normal. He is moving all four extremities non focally. PSYCHIATRIC: His mood and affect are appropriate. IMPRESSION 1. Septic shock, improving. 2. Leukocytosis. 3. Hepatic encephalopathy, improving. 4. Thrombocytopenia. 5. Cirrhosis. 6. History of alcoholism. 7. Chronic kidney disease stage III. 8. Recent hospital admission for possible hepatorenal syndrome. 9. Chronic systolic congestive heart failure with an ejection fraction of 38%-40%. 10. Diabetes mellitus type 2, insulin requiring. 11. Atrial fibrillation on chronic anticoagulation. 12. Hypothyroidism. 13. Dysphagia, chronic. 14. Abdominal pain. 15. History of nausea and vomiting. RECOMMENDATIONS There is no obvious source of his sepsis although it is possible that he has bacterial peritonitis. I called [facility] and his paracentesis fluid was sent for Gram stain and culture on November 22. The Gram stain had moderate white cells but no organisms seen and the culture was negative. There was also a viral culture sent on this fluid which was negative. It did not appear that there was a cell count done on that fluid. I would recommend trying to obtain ascites fluid for analysis including cell count and differential protein analysis and culture. If the culture is negative, then I would recommend discontinuing the Zosyn. He has had almost one week of Zosyn empirically. He might need SBP prophylaxis which could be accomplished with Bactrim one double-strength tablet daily or ciprofloxacin. However, both of those would interact with the Coumadin that he is on. My recommendations were discussed with Dr. Argelai Rodriges. Thank you for allowing me to participate in the care of this patient. CAT
[2016-12-27 16:33] LABS: BODY FLUID TYPE PERITONEAL FLUID
[2016-12-27] MEDS: ALBUMIN HUMAN 25% 50 ML IV SCH ×2 (16:36→17:38)
[2016-12-27 17:02] LABS: BASOPHILS,BODY FLUID 0 %; EOSINOPHILS,BODY FLUID 0 %; LYMPHOCYTES,BODY FLUID 37 %; MONOCYTES,BODY FLUID 31 %; NEUTROPHILS,BODY FLUID 32 %
--- NOTE | 2016-12-27 18:47 | NUR ---
STATUS PT IS A&OX3. PT CONTINUES TO HAVE DIARRHEA. CALLS FOR NEEDS. ATE MEALS WELL. WAS UP TO THE CHAIR FOR BREAKFAST TODAY. DENIES SOA OR PAIN. PT IS ON RA. SS INSULIN GIVEN PRIOR TO SUPPER. BED ALARM ON.
[2016-12-27] MEDS: INSULIN DETEMIR 100 UNIT/ML SQ SCH (22:03)
[2016-12-28] VITALS (9 sets, daily range): BP systolic 102–155; BP diastolic 57–61; PULSE 61–88; RESP 16–22; TEMP 95.5–96.5; O2SAT 94–99
[2016-12-28] MEDS: PIPERACILLIN/TAZOBACTAM 3.375 G in NORMAL SALINE 100 ML IV SCH ×4 (03:41→20:49)
--- NOTE | 2016-12-28 05:18 | NUR ---
Status Pt had far fewer coughing episodes than tuesday. No PRNs given. VS's stable. Incontinent of BM in evening. Bladder retraining in process. Turned Q2H. Ox3 and compliant with cares. Heel protector boots and SCD's on during night. Bed alarm on.
[2016-12-28] MEDS: LEVOTHYROXINE 100 MCG TABLET PO SCH (05:31)
[2016-12-28] MEDS: OMEPRAZOLE 20 MG CAPSULE PO SCH (05:32)
[2016-12-28 05:40] LABS: INR 2.86 (0.76-1.04); PROTHROMBIN TIME 31.2 SEC (9.31-12.49)
[2016-12-28] MEDS: ALBUTEROL INH.SOLN. 2.5mg/3ml (0.083%) Neb. AEROSOL SCH ×4 (06:55→19:19)
--- NOTE | 2016-12-28 08:00 | NUR ---
REPORT REPORT PATIENT IS ALERT AND ORIENTED. DENIES PAIN OR ANY CONCERNS THIS MORNING. CONTINUES INDWELLING DICKERSON CATHETER TRAINING. PATIENT IS ON RA. VSS. NO CONCERNS NOTED AT THIS TIME.
[2016-12-28 08:17] LABS: HCT - HEMATOCRIT 38.5 % (41-53); HGB - HEMOGLOBIN 12.8 GM/DL (13.5-17.5); MEAN CORPUSCULAR HGB 29.8 UUG (26-34); MEAN CORPUSCULAR HGB CONC(MCHC 33.2 GM/DL (31-37); MEAN CORPUSCULAR VOLUME 89.7 UM3 (80-100); RED BLOOD COUNT 4.29 M/MM3 (4.50-5.90); WBC - WHITE BLOOD COUNT 13.8 T/MM3 (4.5-11.0)
[2016-12-28 08:24] LABS: ALBUMIN 2.5 G/DL (3.5-5.0); ALBUMIN/GLOBULIN RATIO 0.7 RATIO (1.1-2.2); ALKALINE PHOSPHATASE 144 U/L (38-126); ALT (SGPT) 60 U/L (21-72); ANION GAP 13 MEQ/L (5-15); AST (SGOT) 93 U/L (17-59); BUN/CREATININE RATIO 18 RATIO (6-26); CALCIUM 8.7 MG/DL (8.4-10.2); CHLORIDE 108 MEQ/L (98-107); CO2 - CARBON DIOXIDE 25 MEQ/L (22-30); CREATININE 1.6 MG/DL (0.8-1.5); GLOMERULAR FILTRATION RATE 43; GLUCOSE 90 MG/DL (75-110); POTASSIUM 3.7 MEQ/L (3.6-5); SODIUM 146 MEQ/L (134-144); TOTAL PROTEIN 5.9 G/DL (6.3-8.2)
[2016-12-28] MEDS: LACTULOSE 20 GM/30 ML UD PO SCH ×3 (08:34→21:00)
[2016-12-28] MEDS: POTASSIUM CHLORIDE 20 MEQ TABLET PO SCH (08:34)
[2016-12-28] MEDS: FEXOFENADINE 60 MG TABLET PO SCH ×2 (08:35→20:48)
[2016-12-28] MEDS: CALMOSEPTINE OINTMENT 3.5 G PACKET TOP PRN ×3 (08:35→23:48)
[2016-12-28] MEDS: MAGNESIUM OXIDE 400 MG TABLET PO SCH ×2 (08:36→20:48)
[2016-12-28] MEDS: NYSTATIN 500,000 units/5ml Susp UD PO SCH ×4 (08:36→20:48)
[2016-12-28 08:38] LABS: BAND NEUTROPHILS # 0.6 T/MM3; EOSINOPHILS # (MANUAL) 0.4 T/MM3 (0-0.5); MONOCYTES # (MANUAL) 0.3 T/MM3 (0-0.8); NEUTROPHILS #(MANUAL)-ABSOLUTE 11.2 T/MM3 (1.8-7.7); REACTIVE LYMPHOCYTES # 0.4 T/MM3 (0-0); TOTAL CELLS COUNTED 100 %
[2016-12-28] MEDS: FOLIC ACID 1 MG TABLET PO SCH (08:38)
[2016-12-28] MEDS: FLUOXETINE 20 MG CAPSULE PO SCH (08:40)
[2016-12-28] MEDS: MIDODRINE 5 MG TABLET PO SCH ×3 (08:40→20:48)
[2016-12-28] MEDS: BuPROPion XL (24 HR) 300 MG TABLET PO SCH (08:49)
[2016-12-28] MEDS: FLUTICASONE NASAL SPRAY 50 MCG EA NOSTRIL SCH (08:49)
[2016-12-28] MEDS: SPIRONOLACTONE 25 MG TABLET PO SCH ×2 (09:34→17:29)
[2016-12-28] MEDS: BUMETANIDE 1 MG TABLET PO SCH ×2 (09:35→17:29)
--- NOTE | 2016-12-28 10:38 | NUR ---
COUMADIN CONSULT (Recurring): Today's INR = 2.86. Will give Warfarin 0.5mg today. Will continue to monitor & make adjustments accordingly. Thank you.
--- NOTE | 2016-12-28 11:23 | NUR ---
JEIMY MUNSON SPOKE WITH . SHE ANTICIPATES DISCHARGE NEXT 1-2 DAYS. JEIMY PLACED CALL AND LEFT MESSAGE FOR AURELIA VAUGHAN AT [phone] REGARDING POTENTIAL DISCHARGE.
[2016-12-28] MEDS ORDERED: WARFARIN 1 MG TABLET PO SCH (12:00)
--- NOTE | 2016-12-28 15:04 | NUR ---
PT NOTE: Pt not seen d/t refusal of skilled PT services x2 in PM. Pt reports he has a stomach ache and is concerned he may vomit. Will follow up per POC. Call [phone] with questions.
[2016-12-28] MEDS: INSULIN ASPART 100 UNIT/ML SQ PRN ×2 (17:48→20:57)
--- NOTE | 2016-12-28 18:32 | NUR ---
EOS PATIENT HAS FOLLOWED DIRECTIONS ALL DAY. CALLS WHEN NEEDS TO GO TO THE BATHROOM. PATIENT HAS HAD SEVERAL LOOSE STOOLS TODAY. LACTULOSE ADMINISTERED ONCE AND HELD ONCE. PATIENT GOT UP TO CHAIR FOR ALL THREE MEALS. PATIENT WAS UNABLE TO CONTROL HIS BOWELS. HE WAS INCONTINENT EVERY TIME HE REQUESTED TO USE THE BATHROOM. RECTAL AREA IS RED. CALMOSEPTINE APPLIED TO REDDENED AREA. DRESSING WAS APPLIED TWICE TO LEFT CHEEK OPEN AREA.
[2016-12-28] MEDS: INSULIN DETEMIR 100 UNIT/ML SQ SCH (20:48)
--- NOTE | 2016-12-28 20:51 | PNPDOC ---
Subjective Date DATE: 12/28/16 TIME: 20:42 Subjective Mr. Ch states he has some mild abdominal pain today, but does not want any medication. He denies any nausea or vomiting. He wants to drink thin liquids. He denies any shortness of breath. He continues to have his cough but it is not as bad. He still has a Medeiros catheter in place. He continues to have frequent bowel movements with his lactulose. Objective Vital Signs Vital signs Vital Signs Date Time Temp Pulse Resp B/P Pulse Ox O2 Delivery O2 Flow Rate FiO2 12/28/16 19:28 82 12/28/16 19:19 18 12/28/16 16:00 116/61 98 Room Air 12/28/16 08:06 96.5 Weight is 79.6 kg down from 82.5 kg A little over 4 L of ascitic fluid was removed with paracentesis yesterday GEN-alert, no acute distress HEENT-sclera anicteric, oropharynx is moist NECK-supple CV-regular rate and rhythm CHEST-clear to auscultation bilaterally ABD-soft, less distended, nontender, positive bowel sounds -Medeiros in place with normal colored urine EXT-no edema NEURO-no focal deficits SKIN-warm and dry and without rashes Height (Feet): 5 Height (Inches): 7.00 Weight (Kilograms): 79.600 Laboratory Laboratory Item Value Date Time Total Bilirubin 2.10 MG/DL H 12/28/16 0513 Aspartate Amino Transf (AST/SGOT) 93 U/L H 12/28/16 0513 Alkaline Phosphatase 144 U/L H 12/28/16 0513 Total Protein 5.9 G/DL L 12/28/16 0513 Albumin 2.5 G/DL L 12/28/16 0513 Globulin 3.4 G/DL 12/28/16 0513 Albumin/Globulin Ratio 0.7 RATIO L 12/28/16 0513 Laboratory Tests 12/27/16 04:29 12/28/16 05:13 Laboratory Tests 12/27/16 04:29 12/28/16 05:13 Microbiology Microbiology Microbiology Date/Time Source Procedure Growth Status 12/27/16 15:30 Peritoneal Fluid Gram Stain - Final Resulted 12/27/16 15:30 Peritoneal Fluid Body Fluid Culture - Preliminary NO GROWTH AFTER 24 HOURS Resulted GRAM STAIN W BF Final 12/27/16-1658 RESULT FEW WHITE BLOOD CELLS NO ORGANISMS SEEN BODY FLUID CULTURE Preliminary 12/28/16-1539 NO GROWTH AFTER 24 HOURS Assessment & Plan Problems: (1) Septic shock Status: Resolved Assessment & Plan: R/O - poss SBP Lactate 4.1, T bili 2.8 (higher than baseline) SIRS - leukocytosis, HR 91 (2) Hypokalemia Status: Acute (3) Hepatic encephalopathy Status: Resolved (4) Thrombocytopenia Status: Resolved (5) Cirrhosis Status: Chronic (6) History of recent hospitalization Assessment & Plan: 11/20/16-11/26/16 [place] He was admitted for acute kidney injury on top of chronic kidney disease, hypotension, and fluid overload, and ascites. PICC line was inserted. Blood pressure was supported with a Levophed drip. Nephrology was consulted, and they were concerned that his acute kidney injury was prerenal or possible hepatorenal pathophysiology. He received IV albumin, midodrine, and octreotide for possible hepatorenal syndrome. He underwent a paracentesis on 11/22/16, and 4800 mL's of fluid was removed. Later he was diuresed with IV Bumex. By day of discharge, he was able to void without the Medeiros catheter in place and was sent to [place]. renal ultrasound on 11/20/16 IMPRESSION: 1. No hydronephrosis. 2. Bilateral cortical thinning likely relating to chronic medical renal disease. 3. Nonvisualization of the bladder. 4. At least moderate volume ascites. Diet: 1500 mL fl restriction and reduced sodium (7) Systolic CHF Status: Chronic Assessment & Plan: Echocardiogram 11/21/16 Decreased ejection fraction around 38%-40% with inferior wall and lateral wall hypokinesis more profound in the inferior wall, which suggests ischemic disease. Decreased ejection fraction of 38%. Mild pulmonary hypertension. Sclerosis of the aortic valve. Mildly enlarged left atrium. Mild tricuspid regurgitation, trace pulmonic insufficiency, and trace mitral regurgitation. (8) CKD (chronic kidney disease) stage 3, GFR 30-59 ml/min Status: Chronic Assessment & Plan: Baseline cr 1.4-1.5 (9) Type 2 diabetes mellitus Status: Chronic Qualifiers: Diabetes mellitus complication status: with kidney complications Diabetes mellitus complication detail: with chronic kidney disease Diabetes mellitus buttermaker insulin use: with buttermaker use Chronic kidney disease stage: stage 3 (moderate) Qualified Codes: E11.22 - Type 2 diabetes mellitus with diabetic chronic kidney disease; N18.3 - Chronic kidney disease, stage 3 ( moderate); Z79.4 - jail (current) use of insulin (10) CAD (coronary artery disease) (11) Atrial fibrillation Status: Chronic (12) Anticoagulated on Coumadin Status: Chronic (13) Ischemic cardiomyopathy Status: Chronic (14) Coronary artery disease Status: Chronic (15) PAD (peripheral artery disease) Status: Chronic (16) HTN (hypertension) Status: Chronic (17) Hypothyroidism Status: Chronic (18) Dysphagia Status: Chronic Assessment & Plan: hx progressive dysphagia (19) Dyslipidemia Status: Chronic (20) Thrush Status: Acute Assessment & Plan: Nystatin started on 12/26 Assessment 12/28/2016 -Dr. Rodriges Septic shock-resolved, white count trending down. Still on Zosyn. Paracentesis done yesterday as workup for SBP. Dr. Pizano' consult appreciated. Hepatic encephalopathy has improved with lactulose and treatment of infection. Cirrhosis Ascites Probable portal hypertension Acute kidney injury resolved. Creatinine is at baseline of 1.3-1.7. Weight is down post paracentesis with over 4 L removed. Continue Bumex and spironolactone and monitor weight closely. Low-sodium diet is to continue. The patient is not drinking a large amount of fluids because he is not allowed much thin water. Dysphagia-continue with speech therapy and on dysphagia diet Chronic throat clearing/cough-uncertain etiology, chest x-ray negative 3. Most likely secondary to dysphagia. Atrial fibrillation Chronic systolic heart failure secondary to ischemic cardiomyopathy Chronic anticoagulation with Coumadin-pharmacy is managing. Diabetes mellitus-continue Levemir-blood sugars are fairly well controlled. Possibly home in the next 1-2 days if ascitic fluid shows no infection. Plan/Intensity of Service Leukocytosis - WBC decreased slightly to 15.7. Continue Zosyn. Paracentesis pending. C. diff, UA & CXR neg. Records obtained from [facility] - Paracentesis on 11/20/16 showed cloudy peritoneal fluid - RBC 341, nuc cell 77, neut 37, lymph 33, mesothelial 1, mononuclear 29; albumin <1, LDH 53, glu 86, protein <1. Hypokalemia - oral replacement ordered. Slightly increased creatinine of 1.7. Weight is trending up and he's had a positive fluid status since admission. Continue Bumex and Aldactone, will discuss in more detail with Dr. Rodriges. DVT Prophylaxis: Coumadin Code Status Full Code Hospital Course Summary Disclaimer The hospital course summary below is not to be considered part of the above Progress Note. Hospital Course Summary 12/21 Admit, observation under the hospitalist service. Later changed to inpatient once the labs were resulted. LOS expected to exceed 2 overnights for correction of septic shock, encephalopathy, and management of significant cardiac disease. PCP - [place] 1. Possible septic shock with lactate of 4.1 - hx of abdominal pain and known cirrhosis, recent hospitalization and paracentesis - concerning for spont. bacterial peritonitis - peritoneal cx (resulted on 11/26/16) was neg - Zosyn 3.375 g QID - trend lactate - 30 ml/kg bolus (2250 mL NS) - GB u/s done today showed cholelithiasis and moderate GB wall thickening - Consult Dr. Stewart - Hep A, B, C negative at [facility] - Diet - clear liquids 2. Hepatic encephalopathy (possible, though ammonia was only 33 - encephalopathy could also be r/t sepsis) - lactulose - repeat NH3 in am - LFTs and T bili elevated above baseline (on 11/25/16, ALT was 76, AST 100, AP 96, and T bili 2.0) 3. Recent [place] superimposed on CKD stage 3 - cr still above baseline at 1.9 (baseline 1.4-1.5) - ivf - hold spironolactone and bumex 4. Hx progressive dysphagia - consult speech therapy 5. CAD, A-fib, ischemic cardiomyopathy, on warfarin - tele - consult pharmacy for dosing - sees Dr. Riley 6. Anemia -w/u done at [facility] - iron 100, TIBC 109, sat 92, transferrin 73, ferritin 160 , b12 638 7. DM2 - hold Humalog but continue Levemir - A1c on 11/20/16 was 6.0% 4/5 Upset stomach and nausea this afternoon. Not feeling like eating. Minimal pain to abdomen. Breathing well-not with SOA, cough, congestion, or pain with breathing. No chest pain. Not feeling dizzy or unsteady when up. WBC treading down. Creatinine decreased to 1.5. LFT decreasing. Continue Zosyn for antimicrobial coverage - with his cirrhosis do worry about GI pathogens. Decreased 1/2NS to 50cc/hr for hydration - with cirrhosis and heart failure volume status is very difficult to control. Will continue to hold Bumex for now - likely need to reinstitute in near future. Zofran to help nausea. Blood sugars stable on home dose of Levemir - continue Levemir and monitor sugars. Consult with PT/OT tomorrow to start increasing functional status. Recheck CBC in am due to leukocytosis and thrombocytopenia Recheck CMP in am due to elevated liver enzymes and resolving DAKOTA. 12/23 Notes congestion - needs to cough to clear throat. Not short of air or having pain with breathing. No f/c. Appetite waxes and wanes. Nausea waxes and wanes. No ab pain, bloating, or discomfort. Bowel moving. Not feeling chest pressure or palpitations. Continue Zosyn for antimicrobial coverage - Leukocytosis trending down. Decreased 1/2NS to 40cc/hr for hydration. Start Bumex 1 mg po daily - home dose BID. Check CXR PA/Lat due to cough PT/OT consulted to help improve functional status. Bladder retraining - renal status stable. Blood sugars stable on home dose of Levemir - continue Levemir and monitor sugars. Meal time insulin had not been restarted - sugars stable currently. INR with elevation - likely interaction with Zosyn. Coumadin has been on hold during hospitalization. Continue to monitor. 12/24/2016-Dr. Rodriges Septic shock-resolved, white count still elevated, but down from admission. Cause of probable infection not known, but could be SBP. Doing okay on Zosyn but white count is mildly up today. Abdominal pain has resolved. Hepatic encephalopathy has improved with lactulose and treatment of infection. Cirrhosis Ascites Probable portal hypertension Acute kidney injury has improved and creatinine today is 1.6. Baseline is 1.3- 1.7. Weight is up 5 kg. DC IV fluids. Consider increase Bumex 2 twice a day tomorrow. Recheck basic metabolic profile tomorrow. Dysphagia-continue with speech therapy and on dysphagia diet Chronic throat clearing/cough-uncertain etiology, chest x-ray negative 2. Consider repeat chest x-ray tomorrow if not improving. Atrial fibrillation Chronic systolic heart failure secondary to ischemic cardiomyopathy Chronic anticoagulation with Coumadin-Coumadin is on hold because of elevated INR Diabetes mellitus-continue Levemir Greater than 35 minutes of time spent seeing and evaluating the patient, reviewing the chart, and determining care plan. Zosyn for now. DC IV fluids. Consider increase Bumex tomorrow. Recheck lab work tomorrow. Continue PT OT. Consider switch to oral antibiotics tomorrow. 12/26/16 Leukocytosis - WBC increased to 16.1. Continue Zosyn; consider ID consult. Hypokalemia - oral replacement ordered. Thrush - nystatin initiated. Renal function stable with BUN 30 and creatinine of 1.6. Weight is trending up and he's had a positive fluid status since admission. Continue Bumex and Aldactone INR therapeutic. 12/27/16 Leukocytosis - WBC decreased slightly to 15.7. Continue Zosyn. Paracentesis pending. C. diff, UA & CXR neg. Records obtained from [facility] - Paracentesis on 11/20/16 showed cloudy peritoneal fluid - RBC 341, nuc cell 77, neut 37, lymph 33, mesothelial 1, mononuclear 29; albumin <1, LDH 53, glu 86, protein <1. Hypokalemia - oral replacement ordered. Slightly increased creatinine of 1.7. Weight is trending up and he's had a positive fluid status since admission. Continue Bumex and Aldactone, will discuss in more detail with Dr. Rodriges. 12/27/2016-I reviewed this chart, the patient history, and the RN ORTHOPAEDIC's/PA's documented findings as above. We discussed and formulated the assessment and plan as above with the additions below.-Dr. Rodriges The patient was seen prior to paracentesis today. He stated he was feeling okay. He stated his cough was getting better. He denied any abdominal pain. He denied any chest pain or shortness of breath. He was eating and drinking okay but doesn't like the thickened liquids. On exam he is alert and in no acute distress. Oral exam reveals an mouth to be dry. Chest is clear to auscultation. Cardiovascular reveals a regular rate and rhythm. Abdomen is soft, moderately distended, nontender, with normal bowel sounds. Extremities are free of edema. Paracentesis was done this afternoon and a little more than 4 L was removed. I gave 25 g of albumin afterwards. I held his Bumex and spironolactone this afternoon but it will likely be restarted tomorrow. The patient was discussed with Dr. Pizano who saw the patient this morning. If cultures are negative will discontinue Zosyn. Will consider SBP prophylaxis. The patient is anticoagulated with Coumadin which could be difficult to manage if he is on antibiotics for prophylaxis. FRANCISCO RODRIGES MD Dec 28, 2016 20:45
--- NOTE | 2016-12-29 01:59 | NUR ---
Heart Rhythm At 0136, Pt heart in fast rhythm with occasional pacer spikes that looked like v-tach on lunchroom monitor for 5.5 minutes. HR during that time irregular per auscultation and between 110 and 95 BPM. Pt denied chest pressure, palpitations, or any odd feelings. Stated he felt normal. VS's stable. Moved back to previous baseline rhythm in the 80's spontaneously. Isiah Collier notified. No new orders at this time. Will continue to monitor.
[2016-12-29] MEDS: PIPERACILLIN/TAZOBACTAM 3.375 G in NORMAL SALINE 100 ML IV SCH ×4 (03:09→21:09)
[2016-12-29] MEDS: NS 500 ML IV PRN (03:16)
[2016-12-29 05:13] LABS: INR 3.14 (0.76-1.04); PROTHROMBIN TIME 34.2 SEC (9.31-12.49)
--- NOTE | 2016-12-29 05:36 | NUR ---
Status Pt A/Ox3 during shift. Pt did not get much rest because of frequent interruptions from bladder retraining and middle of the night antibiotics. Had cough occasionally. Bladder retraining in process. Denied pain except for sore back. Turned q2h to offload sore on L buttock. Dressing CDI. Abdomen somewhat distended. Very little urine output in [place]. Bed alarm on and call light within reach. Uses call light appropriately. Will continue to monitor.
[2016-12-29] MEDS: LEVOTHYROXINE 100 MCG TABLET PO SCH (06:21)
[2016-12-29] MEDS: OMEPRAZOLE 20 MG CAPSULE PO SCH (06:22)
[2016-12-29] MEDS: POTASSIUM CHLORIDE 20 MEQ TABLET PO SCH ×2 (07:24→08:07)
[2016-12-29 07:26] VITALS: O2SAT 97
[2016-12-29 07:53] VITALS: BP 104/64; PULSE 89; RESP 18; TEMP 97.1; O2SAT 97
[2016-12-29] MEDS: LACTULOSE 20 GM/30 ML UD PO SCH ×3 (08:04→20:36)
[2016-12-29] MEDS: NYSTATIN 500,000 units/5ml Susp UD PO SCH ×4 (08:04→20:36)
[2016-12-29] MEDS: BENZONATATE 100 MG CAPSULE PO PRN (08:05)
[2016-12-29] MEDS: FLUOXETINE 20 MG CAPSULE PO SCH (08:05)
[2016-12-29] MEDS: BUMETANIDE 1 MG TABLET PO SCH ×2 (08:05→16:08)
[2016-12-29] MEDS: FEXOFENADINE 60 MG TABLET PO SCH ×2 (08:07→20:36)
[2016-12-29] MEDS: BuPROPion XL (24 HR) 300 MG TABLET PO SCH (08:07)
[2016-12-29] MEDS: MIDODRINE 5 MG TABLET PO SCH ×3 (08:07→20:36)
[2016-12-29] MEDS: FOLIC ACID 1 MG TABLET PO SCH (08:07)
[2016-12-29] MEDS: MAGNESIUM OXIDE 400 MG TABLET PO SCH ×2 (08:07→20:36)
[2016-12-29] MEDS: SPIRONOLACTONE 25 MG TABLET PO SCH ×2 (08:08→16:07)
[2016-12-29] MEDS: FLUTICASONE NASAL SPRAY 50 MCG EA NOSTRIL SCH (08:09)
--- NOTE | 2016-12-29 09:50 | NUR ---
COUMADIN CONSULT (Recurring): Today's INR = 3.14. Will give NO Warfarin today. Will continue to monitor & make adjustments accordingly. Thank you.
[2016-12-29] MEDS: ALBUTEROL INH.SOLN. 2.5mg/3ml (0.083%) Neb. AEROSOL SCH ×4 (11:02→21:00)
[2016-12-29 11:03] VITALS: O2SAT 98
[2016-12-29 14:47] VITALS: O2SAT 99
[2016-12-29 15:29] VITALS: BP 98/62; PULSE 91; RESP 17; TEMP 95.5; O2SAT 97
[2016-12-29] MEDS: CALMOSEPTINE OINTMENT 3.5 G PACKET TOP SCH ×2 (16:06→21:09)
[2016-12-29] MEDS: INSULIN ASPART 100 UNIT/ML SQ PRN ×2 (17:20→23:08)
[2016-12-29 18:59] VITALS: O2SAT 99
--- NOTE | 2016-12-29 19:11 | NUR ---
STATUS PT IS A&OX3. PT UP X1 ASSIST, GAIT BELT AND WALKER. PT HAD A BM TODAY. CALLS FOR NEEDS UP TO THE CHAIR FOR BREAKFAST AND LUNCH. NOTIFIED DR. ALEJO ON PT'S INCREASED NEEDS FOR DRESSING CHANGES AND TALKED WITH ABHINAV HOLBROOK FROM [facility]. ORDERS RECEIVED TO STOP DRESSING CHANGES AT THIS TIME AND START CALMOSEPTINE ORDERED. ALARMS IN USE.
--- NOTE | 2016-12-29 20:00 | NUR ---
resp crackles bases. Pt. denies cough or dyspnea
--- NOTE | 2016-12-29 21:03 | PNPDOC ---
Subjective Date DATE: 12/29/16 TIME: 21:02 Subjective The patient states he is feeling well today. He denies any pain. He is eating and drinking okay. He is having some bowel movements. He still has a Medeiros in place. He is breathing without difficulties. His cough is much better. Objective Vital Signs Vital signs Vital Signs Date Time Temp Pulse Resp B/P Pulse Ox O2 Delivery O2 Flow Rate FiO2 12/29/16 19:07 97 12/29/16 18:59 16 99 12/29/16 15:29 95.5 98/62 Room Air GEN-alert, oriented, no acute distress HEENT-sclera anicteric, oropharynx is moist NECK-supple CV-regular rate and rhythm CHEST-clear to auscultation bilaterally ABD-soft, mildly distended, nontender with positive bowel sounds -Medeiros in place with normal colored urine EXT-no edema NEURO-no focal deficits SKIN-warm and dry and without rashes Height (Feet): 5 Height (Inches): 7.00 Weight (Kilograms): 79.300 Laboratory Laboratory Laboratory Tests 12/28/16 05:13 Laboratory Tests 12/28/16 05:13 Microbiology Microbiology Microbiology Date/Time Source Procedure Growth Status 12/27/16 15:30 Peritoneal Fluid Gram Stain - Final Resulted 12/27/16 15:30 Peritoneal Fluid Body Fluid Culture - Preliminary NO GROWTH AFTER 48 HOURS Resulted Assessment & Plan Problems: (1) Septic shock Status: Resolved Assessment & Plan: R/O - poss SBP Lactate 4.1, T bili 2.8 (higher than baseline) SIRS - leukocytosis, HR 91 (2) Hypokalemia Status: Acute (3) Hepatic encephalopathy Status: Resolved (4) Thrombocytopenia Status: Resolved (5) Cirrhosis Status: Chronic (6) History of recent hospitalization Assessment & Plan: 11/20/16-11/26/16 [place] He was admitted for acute kidney injury on top of chronic kidney disease, hypotension, and fluid overload, and ascites. PICC line was inserted. Blood pressure was supported with a Levophed drip. Nephrology was consulted, and they were concerned that his acute kidney injury was prerenal or possible hepatorenal pathophysiology. He received IV albumin, midodrine, and octreotide for possible hepatorenal syndrome. He underwent a paracentesis on 11/22/16, and 4800 mL's of fluid was removed. Later he was diuresed with IV Bumex. By day of discharge, he was able to void without the Medeiros catheter in place and was sent to [facility] renal ultrasound on 11/20/16 IMPRESSION: 1. No hydronephrosis. 2. Bilateral cortical thinning likely relating to chronic medical renal disease. 3. Nonvisualization of the bladder. 4. At least moderate volume ascites. Diet: 1500 mL fl restriction and reduced sodium (7) Systolic CHF Status: Chronic Assessment & Plan: Echocardiogram 11/21/16 Decreased ejection fraction around 38%-40% with inferior wall and lateral wall hypokinesis more profound in the inferior wall, which suggests ischemic disease. Decreased ejection fraction of 38%. Mild pulmonary hypertension. Sclerosis of the aortic valve. Mildly enlarged left atrium. Mild tricuspid regurgitation, trace pulmonic insufficiency, and trace mitral regurgitation. (8) CKD (chronic kidney disease) stage 3, GFR 30-59 ml/min Status: Chronic Assessment & Plan: Baseline cr 1.4-1.5 (9) Type 2 diabetes mellitus Status: Chronic Qualifiers: Diabetes mellitus complication status: with kidney complications Diabetes mellitus complication detail: with chronic kidney disease Diabetes mellitus assistant terminal manager insulin use: with usp use Chronic kidney disease stage: stage 3 (moderate) Qualified Codes: E11.22 - Type 2 diabetes mellitus with diabetic chronic kidney disease; N18.3 - Chronic kidney disease, stage 3 ( moderate); Z79.4 - assistant terminal manager (current) use of insulin (10) CAD (coronary artery disease) (11) Atrial fibrillation Status: Chronic (12) Anticoagulated on Coumadin Status: Chronic (13) Ischemic cardiomyopathy Status: Chronic (14) Coronary artery disease Status: Chronic (15) PAD (peripheral artery disease) Status: Chronic (16) HTN (hypertension) Status: Chronic (17) Hypothyroidism Status: Chronic (18) Dysphagia Status: Chronic Assessment & Plan: hx progressive dysphagia (19) Dyslipidemia Status: Chronic (20) Thrush Status: Acute Assessment & Plan: Nystatin started on 12/26 Assessment 12/29/2016 -Dr. Rodriges Septic shock-resolved, white count trending down. Still on Zosyn. Paracentesis done 12/27/2016 as workup for SBP. Dr. Pizano' consult appreciated. Hepatic encephalopathy has improved with lactulose and treatment of infection. Cirrhosis Ascites Probable portal hypertension Acute kidney injury resolved. Creatinine is at baseline of 1.3-1.7. Weight is down post paracentesis with over 4 L removed. Continue Bumex and spironolactone and monitor weight closely. Low-sodium diet is to continue. The patient is not drinking a large amount of fluids because he is not allowed much thin water. Dysphagia-continue with speech therapy and on dysphagia diet Chronic throat clearing/cough-uncertain etiology, chest x-ray negative 3. Most likely secondary to dysphagia. Atrial fibrillation Chronic systolic heart failure secondary to ischemic cardiomyopathy Chronic anticoagulation with Coumadin-pharmacy is managing. Diabetes mellitus-continue Levemir-blood sugars are fairly well controlled. Possibly home tomorrow if no bacterial growth from peritoneal fluid. His primary care physician may want to decide whether or not to initiate SBP prophylaxis in light of his current use of Coumadin. He can also determine whether or not the patient is a good candidate to continue on Coumadin. Plan/Intensity of Service Leukocytosis - WBC decreased slightly to 15.7. Continue Zosyn. Paracentesis pending. C. diff, UA & CXR neg. Records obtained from [facility] - Paracentesis on 11/20/16 showed cloudy peritoneal fluid - RBC 341, nuc cell 77, neut 37, lymph 33, mesothelial 1, mononuclear 29; albumin <1, LDH 53, glu 86, protein <1. Hypokalemia - oral replacement ordered. Slightly increased creatinine of 1.7. Weight is trending up and he's had a positive fluid status since admission. Continue Bumex and Aldactone, will discuss in more detail with Dr. Rodriges. Code Status Full Code Hospital Course Summary Disclaimer The hospital course summary below is not to be considered part of the above Progress Note. Hospital Course Summary 12/21 Admit, observation under the hospitalist service. Later changed to inpatient once the labs were resulted. LOS expected to exceed 2 overnights for correction of septic shock, encephalopathy, and management of significant cardiac disease. PCP - [place] 1. Possible septic shock with lactate of 4.1 - hx of abdominal pain and known cirrhosis, recent hospitalization and paracentesis - concerning for spont. bacterial peritonitis - peritoneal cx (resulted on 11/26/16) was neg - Zosyn 3.375 g QID - trend lactate - 30 ml/kg bolus (2250 mL NS) - GB u/s done today showed cholelithiasis and moderate GB wall thickening - Consult Dr. Stewart - Hep A, B, C negative at [facility] - Diet - clear liquids 2. Hepatic encephalopathy (possible, though ammonia was only 33 - encephalopathy could also be r/t sepsis) - lactulose - repeat NH3 in am - LFTs and T bili elevated above baseline (on 11/25/16, ALT was 76, AST 100, AP 96, and T bili 2.0) 3. Recent DAK[place] superimposed on CKD stage 3 - cr still above baseline at 1.9 (baseline 1.4-1.5) - ivf - hold spironolactone and bumex 4. Hx progressive dysphagia - consult speech therapy 5. CAD, A-fib, ischemic cardiomyopathy, on warfarin - tele - consult pharmacy for dosing - sees Dr. Riley 6. Anemia -w/u done at [facility] - iron 100, TIBC 109, sat 92, transferrin 73, ferritin 160 , b12 638 7. DM2 - hold Humalog but continue Levemir - A1c on 11/20/16 was 6.0% 4/5 Upset stomach and nausea this afternoon. Not feeling like eating. Minimal pain to abdomen. Breathing well-not with SOA, cough, congestion, or pain with breathing. No chest pain. Not feeling dizzy or unsteady when up. WBC treading down. Creatinine decreased to 1.5. LFT decreasing. Continue Zosyn for antimicrobial coverage - with his cirrhosis do worry about GI pathogens. Decreased 1/2NS to 50cc/hr for hydration - with cirrhosis and heart failure volume status is very difficult to control. Will continue to hold Bumex for now - likely need to reinstitute in near future. Zofran to help nausea. Blood sugars stable on home dose of Levemir - continue Levemir and monitor sugars. Consult with PT/OT tomorrow to start increasing functional status. Recheck CBC in am due to leukocytosis and thrombocytopenia Recheck CMP in am due to elevated liver enzymes and resolving DAKOTA. 4/6 Notes congestion - needs to cough to clear throat. Not short of air or having pain with breathing. No f/c. Appetite waxes and wanes. Nausea waxes and wanes. No ab pain, bloating, or discomfort. Bowel moving. Not feeling chest pressure or palpitations. Continue Zosyn for antimicrobial coverage - Leukocytosis trending down. Decreased 1/2NS to 40cc/hr for hydration. Start Bumex 1 mg po daily - home dose BID. Check CXR PA/Lat due to cough PT/OT consulted to help improve functional status. Bladder retraining - renal status stable. Blood sugars stable on home dose of Levemir - continue Levemir and monitor sugars. Meal time insulin had not been restarted - sugars stable currently. INR with elevation - likely interaction with Zosyn. Coumadin has been on hold during hospitalization. Continue to monitor. 12/24/2016-Dr. Rodriges Septic shock-resolved, white count still elevated, but down from admission. Cause of probable infection not known, but could be SBP. Doing okay on Zosyn but white count is mildly up today. Abdominal pain has resolved. Hepatic encephalopathy has improved with lactulose and treatment of infection. Cirrhosis Ascites Probable portal hypertension Acute kidney injury has improved and creatinine today is 1.6. Baseline is 1.3- 1.7. Weight is up 5 kg. DC IV fluids. Consider increase Bumex 2 twice a day tomorrow. Recheck basic metabolic profile tomorrow. Dysphagia-continue with speech therapy and on dysphagia diet Chronic throat clearing/cough-uncertain etiology, chest x-ray negative 2. Consider repeat chest x-ray tomorrow if not improving. Atrial fibrillation Chronic systolic heart failure secondary to ischemic cardiomyopathy Chronic anticoagulation with Coumadin-Coumadin is on hold because of elevated INR Diabetes mellitus-continue Levemir Greater than 35 minutes of time spent seeing and evaluating the patient, reviewing the chart, and determining care plan. Zosyn for now. DC IV fluids. Consider increase Bumex tomorrow. Recheck lab work tomorrow. Continue PT OT. Consider switch to oral antibiotics tomorrow. 12/26/16 Leukocytosis - WBC increased to 16.1. Continue Zosyn; consider ID consult. Hypokalemia - oral replacement ordered. Thrush - nystatin initiated. Renal function stable with BUN 30 and creatinine of 1.6. Weight is trending up and he's had a positive fluid status since admission. Continue Bumex and Aldactone INR therapeutic. 12/27/16 Leukocytosis - WBC decreased slightly to 15.7. Continue Zosyn. Paracentesis pending. C. diff, UA & CXR neg. Records obtained from [facility] - Paracentesis on 11/20/16 showed cloudy peritoneal fluid - RBC 341, nuc cell 77, neut 37, lymph 33, mesothelial 1, mononuclear 29; albumin <1, LDH 53, glu 86, protein <1. Hypokalemia - oral replacement ordered. Slightly increased creatinine of 1.7. Weight is trending up and he's had a positive fluid status since admission. Continue Bumex and Aldactone, will discuss in more detail with Dr. Rodriges. 12/27/2016-I reviewed this chart, the patient history, and the [employer]'s/PA's documented findings as above. We discussed and formulated the assessment and plan as above with the additions below.-Dr. Rodriges The patient was seen prior to paracentesis today. He stated he was feeling okay. He stated his cough was getting better. He denied any abdominal pain. He denied any chest pain or shortness of breath. He was eating and drinking okay but doesn't like the thickened liquids. On exam he is alert and in no acute distress. Oral exam reveals an mouth to be dry. Chest is clear to auscultation. Cardiovascular reveals a regular rate and rhythm. Abdomen is soft, moderately distended, nontender, with normal bowel sounds. Extremities are free of edema. Paracentesis was done this afternoon and a little more than 4 L was removed. I gave 25 g of albumin afterwards. I held his Bumex and spironolactone this afternoon but it will likely be restarted tomorrow. The patient was discussed with Dr. Pizano who saw the patient this morning. If cultures are negative will discontinue Zosyn. Will consider SBP prophylaxis. The patient is anticoagulated with Coumadin which could be difficult to manage if he is on antibiotics for prophylaxis. 12/28/2016 -Dr. Rodriges Septic shock-resolved, white count trending down. Still on Zosyn. Paracentesis done yesterday as workup for SBP. Dr. Pizano' consult appreciated. Hepatic encephalopathy has improved with lactulose and treatment of infection. Cirrhosis Ascites Probable portal hypertension Acute kidney injury resolved. Creatinine is at baseline of 1.3-1.7. Weight is down post paracentesis with over 4 L removed. Continue Bumex and spironolactone and monitor weight closely. Low-sodium diet is to continue. The patient is not drinking a large amount of fluids because he is not allowed much thin water. Dysphagia-continue with speech therapy and on dysphagia diet Chronic throat clearing/cough-uncertain etiology, chest x-ray negative 3. Most likely secondary to dysphagia. Atrial fibrillation Chronic systolic heart failure secondary to ischemic cardiomyopathy Chronic anticoagulation with Coumadin-pharmacy is managing. Diabetes mellitus-continue Levemir-blood sugars are fairly well controlled. Possibly home in the next 1-2 days if ascitic fluid shows no infection. FRANCISCO RODRIGES MD Dec 29, 2016 21:03
[2016-12-29] MEDS: INSULIN DETEMIR 100 UNIT/ML SQ SCH (23:09)
[2016-12-30] VITALS: BP 107/64; PULSE 92; RESP 16; TEMP 95.6; O2SAT 98
--- NOTE | 2016-12-30 02:30 | NUR ---
elim continues with frequent loose brown stools. Chapis care provided, Calmoseptine placed to wound on buttock
[2016-12-30] MEDS: PIPERACILLIN/TAZOBACTAM 3.375 G in NORMAL SALINE 100 ML IV SCH ×3 (03:11→15:26)
--- NOTE | 2016-12-30 05:03 | NUR ---
rest sleeps off and on, resp. unlabored at rest. Up to BR several times during noc. Continues with loose stools
[2016-12-30 05:21] LABS: HCT - HEMATOCRIT 39.1 % (41-53); HGB - HEMOGLOBIN 13.1 GM/DL (13.5-17.5); INR 3.2 (0.76-1.04); MEAN CORPUSCULAR HGB 29.8 UUG (26-34); MEAN CORPUSCULAR HGB CONC(MCHC 33.5 GM/DL (31-37); MEAN CORPUSCULAR VOLUME 88.9 UM3 (80-100); MEAN PLATELET VOLUME 10.3 UM3 (9.4-12.4); PROTHROMBIN TIME 34.9 SEC (9.31-12.49); WBC - WHITE BLOOD COUNT 13.8 T/MM3 (4.5-11.0)
[2016-12-30 05:25] LABS: ALBUMIN 2.4 G/DL (3.5-5.0); ALBUMIN/GLOBULIN RATIO 0.7 RATIO (1.1-2.2); ALKALINE PHOSPHATASE 154 U/L (38-126); ALT (SGPT) 58 U/L (21-72); ANION GAP 12 MEQ/L (5-15); AST (SGOT) 86 U/L (17-59); BUN/CREATININE RATIO 14 RATIO (6-26); CALCIUM 8.8 MG/DL (8.4-10.2); CHLORIDE 105 MEQ/L (98-107); CO2 - CARBON DIOXIDE 24 MEQ/L (22-30); CREATININE 1.9 MG/DL (0.8-1.5); GLOMERULAR FILTRATION RATE 35; GLUCOSE 111 MG/DL (75-110); POTASSIUM 3.8 MEQ/L (3.6-5); SODIUM 141 MEQ/L (134-144); TOTAL PROTEIN 5.7 G/DL (6.3-8.2)
[2016-12-30] MEDS: OMEPRAZOLE 20 MG CAPSULE PO SCH (06:11)
[2016-12-30] MEDS: LEVOTHYROXINE 100 MCG TABLET PO SCH (06:11)
[2016-12-30 06:28] LABS: EOSINOPHILS # (MANUAL) 0.6 T/MM3 (0-0.5); MONOCYTES # (MANUAL) 1.1 T/MM3 (0-0.8); NEUTROPHILS #(MANUAL)-ABSOLUTE 11.2 T/MM3 (1.8-7.7); TOTAL CELLS COUNTED 100 %
[2016-12-30] MEDS: ALBUTEROL INH.SOLN. 2.5mg/3ml (0.083%) Neb. AEROSOL SCH ×3 (07:08→14:49)
[2016-12-30 07:09] VITALS: O2SAT 98
[2016-12-30 07:32] VITALS: BP 105/65; PULSE 96; RESP 16; TEMP 97.1; O2SAT 98
[2016-12-30] MEDS: CALMOSEPTINE OINTMENT 3.5 G PACKET TOP SCH ×2 (09:05→15:26)
[2016-12-30] MEDS: FLUTICASONE NASAL SPRAY 50 MCG EA NOSTRIL SCH (09:05)
[2016-12-30] MEDS: LACTULOSE 20 GM/30 ML UD PO SCH ×2 (09:05→15:00)
[2016-12-30] MEDS: FOLIC ACID 1 MG TABLET PO SCH (09:06)
[2016-12-30] MEDS: NYSTATIN 500,000 units/5ml Susp UD PO SCH ×2 (09:06→12:37)
[2016-12-30] MEDS: MAGNESIUM OXIDE 400 MG TABLET PO SCH (09:06)
[2016-12-30] MEDS: BUMETANIDE 1 MG TABLET PO SCH (09:06)
[2016-12-30] MEDS: FEXOFENADINE 60 MG TABLET PO SCH (09:06)
[2016-12-30] MEDS: FLUOXETINE 20 MG CAPSULE PO SCH (09:06)
[2016-12-30] MEDS: SPIRONOLACTONE 25 MG TABLET PO SCH (09:07)
[2016-12-30] MEDS: BuPROPion XL (24 HR) 300 MG TABLET PO SCH (09:07)
[2016-12-30] MEDS: MIDODRINE 5 MG TABLET PO SCH ×2 (09:07→15:26)
--- NOTE | 2016-12-30 10:05 | NUR ---
WARFARIN CONSULT S: 71 y/o M on warfarin for afib. Home dose is 1 mg daily. Goal INR 2-3. O: Date INR Warfarin Dose 12/21 3.55 HELD 12/22 3.79 HELD 12/23 4.10 HELD 12/24 3.90 HELD 12/25 3.25 HELD 12/26 2.81 0.5 mg 12/27 2.73 0.5 mg 12/28 2.86 0.5 mg 12/29 3.14 HELD 12/30 3.20 PLAN: HOLD A/P: INR supratherapeutic. No significant drug-drug interactions. Will hold warfarin today. Will continue to monitor & make adjustments accordingly. Thank you for the consult. Lisandra Jimenez, PharmD, BCPS
[2016-12-30 11:13] VITALS: O2SAT 96
[2016-12-30] MEDS: POTASSIUM CHLORIDE 20 MEQ TABLET PO SCH (12:37)
[2016-12-30] MEDS: INSULIN ASPART 100 UNIT/ML SQ PRN (12:37)
--- NOTE | 2016-12-30 13:15 | NUR ---
PT/OT note: OT attempted therapy this morning, but pt refused. PT attempted therapy this afternoon, but pt refused to walk, and even declined bed level exercises. Will cont per POC. Call [phone] with questions.
[2016-12-30 14:51] VITALS: O2SAT 98
--- NOTE | 2016-12-30 15:00 | NUR ---
shift status Up in chair for breakfast uses walker to br is having liquid stools due to enulose. ,dose held bladder retraining done eats fair. abd is soft and sl distended. dc instructions written ivl and tel dc;d dc to [facility] per joe.
[2016-12-30 15:19] VITALS: BP 90/52; PULSE 99; RESP 16; TEMP 95.1; O2SAT 96
--- NOTE | 2016-12-30 15:39 | NUR ---
CM CM IN TO VISIT WITH PT. PT IS TO DC TO [facility] TODAY. FACILITY WILL TRANSPORT AND ARE PICKING UP PT AT 4PM. PT IS AWARE TO CONTACT CM SHOULD NEEDS [facility].
[2016-12-30] MEDS ORDERED: CIPR-212 PO (16:01)
--- NOTE | 2016-12-30 16:03 | PDOCECFAO ---
Admission Orders Admission Orders Admit to: Retirement Allergies: Coded Allergies: coal tar (Verified Allergy, Mild, rash, 12/16/16) He used oxypor to which he developed a rash. Oxypor is a coal tar product. BLUE Inhibitors (Verified Allergy, Unknown, 12/16/16) Uncoded Allergies: oxypur (Allergy, Mild, rash, 05/28/14) Admitting Diagnosis Septic Shock, Encephalopathy Admitting Physician Argelia Rodriges MD Attending Physician Dr Smith Code Status Full Code Anticipated LOS: 30 days or less Rehab Potential: Good Rehab Prognosis: Good Diet: Regular May use Facility Protocol /SO: Yes May Have Flu Vaccine: Yes Evaluations/Treat: PT, OT Retirement Certification I certify that SNF services are required to be given on an Inpatient basis because of the patients need for detention care on a continuing basis for the condition(s) for which he/she received inpatient hospital services prior to his/her transfer to the SNF. SNF inpatient care is necessary for the following reasons Not Applicable (Pt/OT) SOLIS CRANE APRN Dec 30, 2016 16:03
--- NOTE | 2016-12-30 16:14 | DSPDOC ---
General Date Date DATE: 12/30/16 TIME: 16:07 Attending Physician Argelia Rodriges MD Admitting Physician Argelia Rodriges MD Consulting Physician Maria Eugenia Conroy Admitting Diagnosis Leukocytosis, altered mental status. Discharge Diagnosis Leukocytosis, altered mental status, Dysuria, septic shock, cirrhosis,CHF,CKD, Type II DM, AFib Laboratory Laboratory Tests Test 12/29/16 06:00 12/29/16 11:04 12/29/16 17:13 12/29/16 20:42 Glucometer 121mg/dL (75-110) 139mg/dL (75-110) 192mg/dL (75-110) 159mg/dL (75-110) Test 12/30/16 04:18 12/30/16 12:00 White Blood Count 13.8T/MM3 (4.5-11.0) Red Blood Count 4.40M/MM3 (4.50-5.90) Hemoglobin 13.1GM/DL (13.5-17.5) Hematocrit 39.1% (41-53) Mean Corpuscular Volume 88.9UM3 (80-100) Mean Corpuscular Hemoglobin 29.8UUG (26-34) Mean Corpuscular Hemoglobin Concent 33.5GM/DL (31-37) RDW Standard Deviation 59.0FL (36.9-50.2) Platelet Count 168T/MM3 (130-400) Mean Platelet Volume 10.3UM3 (9.4-12.4) Neutrophils % (Manual) 81.0% (33-66) Lymphocytes % (Manual) 7.0% (23-45) Monocytes % (Manual) 8.0% (0-9.0) Eosinophils % (Manual) 4.0% (0-4) Absolute Neutrophils (Manual) 11.2T/MM3 (1.8-7.7) Lymphocytes # (Manual) 1.0T/MM3 (1-4.8) Monocytes # (Manual) 1.1T/MM3 (0-0.8) Eosinophils # (Manual) 0.6T/MM3 (0-0.5) Red Cell Morphology Comment Normal Prothromb Time International Ratio 3.20 (0.76-1.04) Turbidity < 20 (0-20) Sodium Level 141MEQ/L (134-144) Potassium Level 3.8MEQ/L (3.6-5) Chloride Level 105MEQ/L (98-107) Carbon Dioxide Level 24MEQ/L (22-30) Anion Gap 12MEQ/L (5-15) Blood Urea Nitrogen 27.0MG/DL (9-20) Creatinine 1.9MG/DL (0.8-1.5) Glomerular Filtration Rate Calc 35 BUN/Creatinine Ratio 14RATIO (6-26) Glucose Level 111MG/DL (75-110) Calculated Osmolality 277MOSM/KG (261-280) Calcium Level 8.8MG/DL (8.4-10.2) Total Bilirubin 2.40MG/DL (0.20-1.30) Icterus Index < 2 (0-7) Aspartate Amino Transf (AST/SGOT) 86U/L (17-59) Alanine Aminotransferase (ALT/SGPT) 58U/L (21-72) Alkaline Phosphatase 154U/L (38-126) Total Protein 5.7G/DL (6.3-8.2) Albumin 2.4G/DL (3.5-5.0) Globulin 3.3G/DL (2.4-3.6) Albumin/Globulin Ratio 0.7RATIO (1.1-2.2) Chemistry Specimen Hemolysis < 15 (0-25) Glucometer 157mg/dL (75-110) History of Present Illness Abran Ch is 71 y/o male who was seen by Dr. Singh on 12/21/16 for routine follow up after a 6-day hospitalization at [facility] for DAKOTA and poss hepatorenal syndrome. He was discharged to [facility] on 11/26/16. Labs were abnormal - WBC was 20.9 (21.8 on 12/20), platelets 122, BUN 33, Cr1.79, K 3.4, ALT 74, AST 128, AP 176, bili 2.5, ammonia 78. TSH 3.91. Arrangements were made with Dr. Forrester for direct admission. The patient was sleeping on the medical floor. He awakened fairly easily, and stated that he went to the ED today b/c of abdominal pain. He had difficulty staying awake during conversation, and frequently stopped talking mid-sentence. He denies any SOA, chest pain, fever/chills, URI, dizziness. He states he's having regular bowel movements. I asked about his recent stay at [facility], and the patient informed me that they fixed everything up but wasn't able to provide any details. Much of his history was obtained from medical records since he was not a reliable historian. Hospital Course 12/21 Admit, observation under the hospitalist service. Later changed to inpatient once the labs were resulted. LOS expected to exceed 2 overnights for correction of septic shock, encephalopathy, and management of significant cardiac disease. PCP - [place] 1. Possible septic shock with lactate of 4.1 - hx of abdominal pain and known cirrhosis, recent hospitalization and paracentesis - concerning for spont. bacterial peritonitis - peritoneal cx (resulted on 11/26/16) was neg - Zosyn 3.375 g QID - trend lactate - 30 ml/kg bolus (2250 mL NS) - GB u/s done today showed cholelithiasis and moderate GB wall thickening - Consult Dr. Stewart - Hep A, B, C negative at [facility] - Diet - clear liquids 2. Hepatic encephalopathy (possible, though ammonia was only 33 - encephalopathy could also be r/t sepsis) - lactulose - repeat NH3 in am - LFTs and T bili elevated above baseline (on 11/25/16, ALT was 76, AST 100, AP 96, and T bili 2.0) 3. Recent DAKOTA superimposed on CKD stage 3 - cr still above baseline at 1.9 (baseline 1.4-1.5) - ivf - hold spironolactone and bumex 4. Hx progressive dysphagia - consult speech therapy 5. CAD, A-fib, ischemic cardiomyopathy, on warfarin - tele - consult pharmacy for dosing - sees Dr. Riley 6. Anemia -w/u done at [facility] - iron 100, TIBC 109, sat 92, transferrin 73, ferritin 160 , b12 638 7. DM2 - hold Humalog but continue Levemir - A1c on 11/20/16 was 6.0% 4/5 Upset stomach and nausea this afternoon. Not feeling like eating. Minimal pain to abdomen. Breathing well-not with SOA, cough, congestion, or pain with breathing. No chest pain. Not feeling dizzy or unsteady when up. WBC treading down. Creatinine decreased to 1.5. LFT decreasing. Continue Zosyn for antimicrobial coverage - with his cirrhosis do worry about GI pathogens. Decreased 1/2NS to 50cc/hr for hydration - with cirrhosis and heart failure volume status is very difficult to control. Will continue to hold Bumex for now - likely need to reinstitute in near future. Zofran to help nausea. Blood sugars stable on home dose of Levemir - continue Levemir and monitor sugars. Consult with PT/OT tomorrow to start increasing functional status. Recheck CBC in am due to leukocytosis and thrombocytopenia Recheck CMP in am due to elevated liver enzymes and resolving DAKOTA. 12/23 Notes congestion - needs to cough to clear throat. Not short of air or having pain with breathing. No f/c. Appetite waxes and wanes. Nausea waxes and wanes. No ab pain, bloating, or discomfort. Bowel moving. Not feeling chest pressure or palpitations. Continue Zosyn for antimicrobial coverage - Leukocytosis trending down. Decreased 1/2NS to 40cc/hr for hydration. Start Bumex 1 mg po daily - home dose BID. Check CXR PA/Lat due to cough PT/OT consulted to help improve functional status. Bladder retraining - renal status stable. Blood sugars stable on home dose of Levemir - continue Levemir and monitor sugars. Meal time insulin had not been restarted - sugars stable currently. INR with elevation - likely interaction with Zosyn. Coumadin has been on hold during hospitalization. Continue to monitor. 12/24/2016-Dr. Rodriges Septic shock-resolved, white count still elevated, but down from admission. Cause of probable infection not known, but could be SBP. Doing okay on Zosyn but white count is mildly up today. Abdominal pain has resolved. Hepatic encephalopathy has improved with lactulose and treatment of infection. Cirrhosis Ascites Probable portal hypertension Acute kidney injury has improved and creatinine today is 1.6. Baseline is 1.3- 1.7. Weight is up 5 kg. DC IV fluids. Consider increase Bumex 2 twice a day tomorrow. Recheck basic metabolic profile tomorrow. Dysphagia-continue with speech therapy and on dysphagia diet Chronic throat clearing/cough-uncertain etiology, chest x-ray negative 2. Consider repeat chest x-ray tomorrow if not improving. Atrial fibrillation Chronic systolic heart failure secondary to ischemic cardiomyopathy Chronic anticoagulation with Coumadin-Coumadin is on hold because of elevated INR Diabetes mellitus-continue Levemir Greater than 35 minutes of time spent seeing and evaluating the patient, reviewing the chart, and determining care plan. Zosyn for now. DC IV fluids. Consider increase Bumex tomorrow. Recheck lab work tomorrow. Continue PT OT. Consider switch to oral antibiotics tomorrow. 12/26/16 Leukocytosis - WBC increased to 16.1. Continue Zosyn; consider ID consult. Hypokalemia - oral replacement ordered. Thrush - nystatin initiated. Renal function stable with BUN 30 and creatinine of 1.6. Weight is trending up and he's had a positive fluid status since admission. Continue Bumex and Aldactone INR therapeutic. 12/27/16 Leukocytosis - WBC decreased slightly to 15.7. Continue Zosyn. Paracentesis pending. C. diff, UA & CXR neg. Records obtained from [facility] - Paracentesis on 11/20/16 showed cloudy peritoneal fluid - RBC 341, nuc cell 77, neut 37, lymph 33, mesothelial 1, mononuclear 29; albumin <1, LDH 53, glu 86, protein <1. Hypokalemia - oral replacement ordered. Slightly increased creatinine of 1.7. Weight is trending up and he's had a positive fluid status since admission. Continue Bumex and Aldactone, will discuss in more detail with Dr. Rodriges. 12/27/2016-I reviewed this chart, the patient history, and the LACING OPERATOR's/PA's documented findings as above. We discussed and formulated the assessment and plan as above with the additions below.-Dr. Rodriges The patient was seen prior to paracentesis today. He stated he was feeling okay. He stated his cough was getting better. He denied any abdominal pain. He denied any chest pain or shortness of breath. He was eating and drinking okay but doesn't like the thickened liquids. On exam he is alert and in no acute distress. Oral exam reveals an mouth to be dry. Chest is clear to auscultation. Cardiovascular reveals a regular rate and rhythm. Abdomen is soft, moderately distended, nontender, with normal bowel sounds. Extremities are free of edema. Paracentesis was done this afternoon and a little more than 4 L was removed. I gave 25 g of albumin afterwards. I held his Bumex and spironolactone this afternoon but it will likely be restarted tomorrow. The patient was discussed with Dr. Pizano who saw the patient this morning. If cultures are negative will discontinue Zosyn. Will consider SBP prophylaxis. The patient is anticoagulated with Coumadin which could be difficult to manage if he is on antibiotics for prophylaxis. 12/28/2016 -Dr. Rodriges Septic shock-resolved, white count trending down. Still on Zosyn. Paracentesis done yesterday as workup for SBP. Dr. Pizano' consult appreciated. Hepatic encephalopathy has improved with lactulose and treatment of infection. Cirrhosis Ascites Probable portal hypertension Acute kidney injury resolved. Creatinine is at baseline of 1.3-1.7. Weight is down post paracentesis with over 4 L removed. Continue Bumex and spironolactone and monitor weight closely. Low-sodium diet is to continue. The patient is not drinking a large amount of fluids because he is not allowed much thin water. Dysphagia-continue with speech therapy and on dysphagia diet Chronic throat clearing/cough-uncertain etiology, chest x-ray negative 3. Most likely secondary to dysphagia. Atrial fibrillation Chronic systolic heart failure secondary to ischemic cardiomyopathy Chronic anticoagulation with Coumadin-pharmacy is managing. Diabetes mellitus-continue Levemir-blood sugars are fairly well controlled. Possibly home in the next 1-2 days if ascitic fluid shows no infection. 12/30/16 Pt seen and evaluated today. He feels he is much stronger, would like to be discharged. He did have multiple stools this morning. Patient be discharged with Coumadin to manage anticoagulation for atrial fibrillation, INR has been very responsive to dose, therefore patient will be discharged on 0.5 mg of Coumadin every other day with pharmacy management. Plan to recheck INR 01/03/2017. Lactulose will be discontinued as patient has had multiple stools. Medeiros catheter was withdrawn. Did discuss with patient need to return if he does not urinated within 6 hours. Bumex and spironolactone her continued. Patient will be discharged on Cipro for SBP prophylaxis. This is planned to be a permanent medication for him. Dr. Pizano recommended this to infectious disease. Patient is to follow-up with Dr. Singh on the . Dr. Singh was not available today and message was left. Slade Smith M.D. Problems: (1) Septic shock Status: Resolved Assessment & Plan: R/O - poss SBP Lactate 4.1, T bili 2.8 (higher than baseline) SIRS - leukocytosis, HR 91 (2) Hypokalemia Status: Acute (3) Hepatic encephalopathy Status: Resolved (4) Thrombocytopenia Status: Resolved (5) Cirrhosis Status: Chronic (6) History of recent hospitalization Assessment & Plan: 11/20/16-11/26/16 [facility] He was admitted for acute kidney injury on top of chronic kidney disease, hypotension, and fluid overload, and ascites. PICC line was inserted. Blood pressure was supported with a Levophed drip. Nephrology was consulted, and they were concerned that his acute kidney injury was prerenal or possible hepatorenal pathophysiology. He received IV albumin, midodrine, and octreotide for possible hepatorenal syndrome. He underwent a paracentesis on 11/22/16, and 4800 mL's of fluid was removed. Later he was diuresed with IV Bumex. By day of discharge, he was able to void without the Medeiros catheter in place and was sent to [facility]. renal ultrasound on 11/20/16 IMPRESSION: 1. No hydronephrosis. 2. Bilateral cortical thinning likely relating to chronic medical renal disease. 3. Nonvisualization of the bladder. 4. At least moderate volume ascites. Diet: 1500 mL fl restriction and reduced sodium (7) Systolic CHF Status: Chronic Assessment & Plan: Echocardiogram 11/21/16 Decreased ejection fraction around 38%-40% with inferior wall and lateral wall hypokinesis more profound in the inferior wall, which suggests ischemic disease. Decreased ejection fraction of 38%. Mild pulmonary hypertension. Sclerosis of the aortic valve. Mildly enlarged left atrium. Mild tricuspid regurgitation, trace pulmonic insufficiency, and trace mitral regurgitation. (8) CKD (chronic kidney disease) stage 3, GFR 30-59 ml/min Status: Chronic Assessment & Plan: Baseline cr 1.4-1.5 (9) Type 2 diabetes mellitus Status: Chronic (10) CAD (coronary artery disease) (11) Atrial fibrillation Status: Chronic (12) Anticoagulated on Coumadin Status: Chronic (13) Ischemic cardiomyopathy Status: Chronic (14) Coronary artery disease Status: Chronic (15) PAD (peripheral artery disease) Status: Chronic (16) HTN (hypertension) Status: Chronic (17) Hypothyroidism Status: Chronic (18) Dysphagia Status: Chronic Assessment & Plan: hx progressive dysphagia (19) Dyslipidemia Status: Chronic (20) Thrush Status: Acute Assessment & Plan: Nystatin started on 12/26 DVT Prophylaxis: SCD'S Code Status Full Code Home Meds Active Scripts Ciprofloxacin HCl (Cipro) 500 Mg Tablet, 500 MG PO DAILY for 30 Days, #30 TAB Prov:SOLIS CRANE V LACING OPERATOR 12/30/16 Reported Medications Omeprazole (Omeprazole) 20 Mg Capsule.dr, 20 MG PO ACB, CAP Take 1 capsule, by mouth, one time a day (before breakfast). 12/21/16 Spironolactone (Aldactone) 25 Mg Tablet, 25 MG PO BID, TAB Take 1 tablet, by mouth, 2 times a day. 12/21/16 Acetaminophen (Tylenol) 325 Mg Tablet, 2 TAB PO BID Y for PAIN, TAB 12/21/16 Folic Acid (Folic Acid) 1 Mg Tablet, 1 TAB PO DAILY, TAB 12/16/16 Warfarin Sodium (Warfarin Sodium) 1 Mg Tablet, 1 TAB PO DAILY, #90 TAB 12/16/16 Midodrine HCl (Midodrine HCl) 5 Mg Tablet, 1.5 TAB PO TID 12/16/16 Insulin Detemir (Levemir) 100 Unit/Ml Inj, 10 UNIT SQ HS, VIAL 12/16/16 Bupropion HCl (Bupropion Xl) 300 Mg Tab.er.24h, 1 TAB PO DAILY 12/16/16 Bumetanide (Bumetanide) 1 Mg Tablet, 1 TAB PO BID, TAB 12/16/16 Levothyroxine Sodium (Levothyroxine Sodium) 100 Mcg Tablet, 1 TAB PO ACB, TAB Once daily before breakfast 10/01/16 Insulin Lispro (Humalog) 100 Unit/1 Ml Insuln.pen, 3 UNIT SQ TID 05/28/14 Magnesium Oxide (Mag-Oxide) 400 Mg Tablet, 400 MG PO BID 10/12/12 Fluoxetine (Prozac) 20 Mg Tablet, 40 MG PO DAILY 10/12/12 Nitroglycerin (Nitrostat) 0.4 Mg Tab.subl, 0.4 MG SL Q5MIN 05/11/12 Discontinued Reported Medications Lactulose (Lactulose) 10 Gm/15 Ml Solution, 30 ML PO TID, #2700 ML 10 Refills 12/21/16 Face to Face Encounter I met with patient on the day of dismissal and discussed follow up appointments , medications, and safety plan. Discharge Disposition To assisted living. Copies To 1: MONALISA SINGH MD, CHARLES E MD Dec 30, 2016 16:13
[2016-12-30] MEDS ORDERED: WARF1TAB6 PO (16:15)
--- NOTE | 2016-12-30 16:25 | NUR ---
[facility] DC TIME OUT COMPLETE. ALL ORDERS SENT TO [facility].
== END 2016-12-30 16:25 | DRG 871 ==
LOC: MED 11:32 → OBSVTOIN 14:02
PROVIDERS: ADMIT Hospitalist; ATTEND Internal Medicine
DX: A41.9 Sepsis, unspecified organism (principal); K72.00 Acute and subacute hepatic failure without coma; R65.21 Severe sepsis with septic shock; I13.0 Hypertensive heart and chronic kidney disease with heart failure and stage 1 through stage 4 chronic kidney disease, or unspecified chronic kidney disease; I50.22 Chronic systolic (congestive) heart failure; K76.6 Portal hypertension; B37.0 Candidal stomatitis; N18.3 Chronic kidney disease, stage 3 (moderate); E11.22 Type 2 diabetes mellitus with diabetic chronic kidney disease; K74.60 Unspecified cirrhosis of liver; E87.6 Hypokalemia; I25.5 Ischemic cardiomyopathy; I25.10 Atherosclerotic heart disease of native coronary artery without angina pectoris; I73.9 Peripheral vascular disease, unspecified; R13.10 Dysphagia, unspecified; E78.5 Hyperlipidemia, unspecified; N40.0 Benign prostatic hyperplasia without lower urinary tract symptoms; N30.30 Trigonitis without hematuria; F32.9 Major depressive disorder, single episode, unspecified; M15.0 Primary generalized (osteo)arthritis; E03.9 Hypothyroidism, unspecified; K21.9 Gastro-esophageal reflux disease without esophagitis; E66.3 Overweight; Z79.01 Long term (current) use of anticoagulants; Z79.4 Long term (current) use of insulin; Z68.27 Body mass index [BMI] 27.0-27.9, adult; Z86.12 Personal history of poliomyelitis
CPT/HCPCS: 36415; 80048; 80053; 80069; 81001; 81003; 82042; 82140; 82945; 82948; 83605; 83615; 83735; 83880; 83986; 84134; 84145; 84157; 84443; 84484; 85007; 85025; 85027; 85610; 87040; 87070; 87493; 88112; 88305; 89051; 94640

== ENCOUNTER 2017-01-06 11:25 | Inpatient (IN) | payer MEDICARE, BC ==
[~2017-01-06] VITALS: Ht 170.2 cm; Wt 88.8 kg
[~2017-01-06 11:25] MED LIST changes: +ACET-2321 PO; +CIPR-212 PO; -LOVA20TA71 PO; +OMEP20CA10 PO; +SPIR25TA PO
--- OUTSIDE RECORDS SUMMARY | 2017-01-06 11:33 | XMS REPORT | Continuity of Care Document ---
Author Author [facility] Organization [facility] Address Unknown Phone Unavailable Support Name Relationship Address Phone CUAUHTEMOC FORRESTER MD Caregiver [address] [place] [address] [place] [address] Unavailable ARGELIA RODRIGES MD Caregiver [address] [place] [address] Unavailable MONALISA HARTMAN MD Caregiver [address] [place] [address] Unavailable KEARA CHENG Next Of Kin [address] [place] [address] Insurance Providers Guarantor Abran Cheng Address [address] [place] [id number] Email [facility] Policy Number [id number] Subscriber's Name Abran Cheng Relationship 18 Self Group Number [id number] Effective Date 11 Payer Medicare Policy Number [id number] Subscriber's Name Abran Cheng Relationship 18 Self Effective Date 10 Advance Directives Directive Response Recorded Date/Time Advanced Directives Type None 01/01/14 11:13pm Ordered Resuscitation Status Full Code 01/01/14 11:11pm Resuscitation Documents on File No 12/21/16 11:50am DPOA for Healthcare Only No 12/21/16 6:29pm Living Will No 12/21/16 11:50am Problems Active Problems Medical Problem Onset Date Status Adenoma of left adrenal gland Unknown Chronic Allergic rhinitis Unknown Chronic Anticoagulated on Coumadin Unknown Chronic Aortic valve sclerosis Unknown Chronic Atrial fibrillation Unknown Chronic BPH (benign prostatic hypertrophy) Unknown Chronic Bladder neck contracture Unknown Chronic CAD (coronary artery disease) Unknown CKD (chronic kidney disease) stage 3, GFR 30-59 ml/min Unknown Chronic Chronic kidney disease Unknown Chronic Chronic trigonitis Unknown Chronic Cirrhosis Unknown Chronic Coronary artery disease Unknown Chronic Depression Unknown Chronic Dyslipidemia Unknown Chronic Dysphagia Unknown Chronic Echocardiogram abnormal Unknown Elevated INR Unknown Acute Episodic atrial fibrillation Unknown Resolved Foreign body in esophagus Unknown Acute GERD (gastroesophageal reflux disease) Unknown Chronic Generalized osteoarthrosis, involving multiple sites Unknown Chronic HTN (hypertension) Unknown Chronic Headache Unknown Acute Hepatic encephalopathy Unknown Resolved History of recent hospitalization Unknown Hypokalemia Unknown Acute Hypothyroidism Unknown Chronic Intermittent claudication Unknown Chronic Ischemic cardiomyopathy Unknown Chronic LAE (left atrial enlargement) Unknown Laceration of lip Unknown Acute Microscopic hematuria Unknown Chronic Mitral regurgitation Unknown Obesity (BMI 30.0-34.9) Unknown Chronic Overweight (BMI 25.0-29.9) Unknown Chronic PAD (peripheral artery disease) Unknown Chronic Peripheral vascular disease Unknown Chronic Polio Unknown Chronic Protein-calorie malnutrition, mild Unknown Chronic Psoriasis Unknown Chronic Sepsis Unknown Acute Septic shock Unknown Resolved Systolic CHF Unknown Chronic Thrombocytopenia Unknown Resolved Thrush Unknown Acute Tricuspid regurgitation Unknown Type 2 diabetes mellitus Unknown Chronic UTI (lower urinary tract infection) Unknown Acute UTI (lower urinary tract infection) Unknown Acute Vomiting Unknown Acute Surgical Problem Onset Date Status AICD (automatic cardioverter/defibrillator) present Unknown Past Problems Medical Problem Onset Date Acute kidney injury superimposed on chronic kidney disease Unknown Closed head injury Unknown Closed head injury without loss of consciousness Unknown Contusion of arm, right Unknown Hypotension Unknown Laceration of scalp Unknown Medications Current Home Medications Medication Dose Units Route Directions Days Qty Instructions Start Date Acetaminophen (Tylenol) 325 Mg Tablet 2 Tab Oral Twice A Day as needed for Pain 12/21/16 Bumetanide 1 Mg Tablet 1 Tab Oral Twice A Day 12/16/16 Bupropion Hcl (Bupropion Xl) 300 Mg Tab.er.24h 1 Tab Oral Daily 12/16/16 Ciprofloxacin Hcl (Cipro) 500 Mg Tablet 500 Mg Oral Daily 30 Days 30 Tablet 12/30/16 Fluoxetine Hcl (Prozac) 20 Mg Tablet 40 Mg Oral Daily 10/12/12 Folic Acid 1 Mg Tablet 1 Tab Oral Daily 12/16/16 Insulin Detemir (Levemir) 100 Unit/Ml Inj 10 Unit Sub-Q Bedtime 12/16/16 Insulin Lispro (Humalog) 100 Unit/1 Ml Insuln.pen 3 Unit Sub-Q Three Times A Day 05/28/14 Levothyroxine Sodium 100 Mcg Tablet 1 Tab Oral Before Breakfast Once daily before breakfast 10/01/16 Magnesium Oxide (Mag-Oxide) 400 Mg Tablet 400 Mg Oral Twice A Day 10/12/12 Midodrine Hcl 5 Mg Tablet 1.5 Tab Oral Three Times A Day 12/16/16 Nitroglycerin (Nitrostat) 0.4 Mg Tab.subl 0.4 Mg Sublingual Every 5 Minutes X 3 05/11/12 Omeprazole 20 Mg Capsule.dr 20 Mg Oral Before Breakfast Take 1 capsule, by mouth, one time a day (before breakfast). 12/21/16 Spironolactone (Aldactone) 25 Mg Tablet 25 Mg Oral Twice A Day Take 1 tablet, by mouth, 2 times a day. 12/21/16 Warfarin Sodium 1 Mg Tablet 0.5 Tab Oral Every 48 Hours 30 Tablet 12/30/16 Past Home Medications Medication Directions Ordered Status [...] Oral Twice A Day 10/12/12 Discontinued Fish Oil/[place]-3 Fatty Acids (Fish Oil 1,000 Mg Capsule) 1 Cap Capsule, 1 Cap Oral Daily 01/18/12 Discontinued Fluoxetine Hcl (Prozac) 40 Mg Capsule, 40 Mg Oral Daily 07/14/09 Discontinued Fluticasone Propionate (Flonase) 16 Gm [place].susp, 16 Gm Nasal Daily Discontinued Glyburide 5 Mg Tablet, 5 Mg Oral Twice A Day 07/14/09 Discontinued Insulin Glargine (Lantus) 100 U/Ml Vial, 26 Unit Sub-Q Bedtime 01/18/12 Discontinued Lactulose 10 Gm/15 Ml Solution, 30 Ml Oral Three Times A Day 12/21/16 Discontinued Lortab , As Needed 05/16/12 Discontinued [...] Mg Oral Daily 01/18/12 Discontinued Warfarin Sodium 1 Mg Tablet, 1 Tab Oral Daily 12/16/16 Discontinued Warfarin Sodium 2 Mg Tablet, 2 Mg Oral 6 Times A Week 12/09/15 Discontinued Warfarin Sodium 2 Mg Tablet, 2 Tab Oral 1 Week 10/01/16 Discontinued Social History Social History Problem Response Recorded Date/Time Onset Date Status Recovering alcoholic 12/21/2016 12:28pm Unknown Active Reason for Hospitalization Septic shock, hepatic encephalopathy 12/30/2016 4: 17pm Not Applicable Not Applicable Chewing Tobacco Status No 01/01/2014 9:45pm Not Applicable Not Applicable Hx Substance Use N ALCOHOLIC REHAB 1994 12/16/2016 5:44am Not Applicable Not Applicable Hx Alcohol Use Y "I STOPPED IN '94" 12/16/2016 5:44am Not Applicable Not Applicable Has the pt used tobacco in the last 12 months No 12/21/2016 11:51am Not Applicable Not Applicable Tobacco Usage none 12/09/2015 8:40pm Not Applicable Not Applicable Query Response Start Date Stop Date Smoking Status Former smoker Hospital Discharge Instructions Instructions: Care Instructions: Reason for Hospitalization: Septic shock, hepatic encephalopathy I was in the hospital because (patient own words): "water around my liver" Discharge Diet: dysphagia diet, 2 grams sodium restriction Discharge Activity: Activity as tolerated Follow Up Appointments: Please schedule follow-up appointment with Dr. Hartman in one week Pending Lab / Results: No Pending Lab Patient Instructions: Marco will need labs on Wednesday 01/03- , INR, BMP. These need to be sent to primary care provider, Dr. aHrtman Decrease Coumadin was to 0.5 milligrams every other day Patient will be prophylactically on Cipro 500 milligrams daily long-term. Wound/Incision Care: N/A Pain Management/Treatment: Tylenol as needed for pain control Expected Signs/Symptoms: Continue improvement in length Notify Physician If: Fever, abdominal pain, shortness of breath, chest pain or concerning symptoms During Business Hours:: Please call the physician's office After Business Hours:: Please call [phone] and have the data processing operator page the physician. Condition at time of discharge: Good Plan of Care Discharge Date 12/30/16 4:25pm Disposition 03 TO U NOT [facility] (SNF) Instructions/Education Provided Encephalopathy (DC) Prescriptions See Medication Section Care Plan and Goals See Discharge Instructions Section Functional Status Query Response Date Recorded Mobility Status Ambulatory w/assist December 30, 2016 4:17pm Assistive Devices Standard Walker December 30, 2016 4:17pm Activity Limitations Weakness Dizziness Cough December 30, 2016 4:17pm Feeding Ability Independent December 30, 2016 4:17pm Toileting Ability Assist December 30, 2016 4:17pm Grooming Ability Assist December 30, 2016 4:17pm Dressing Ability Assist December 30, 2016 4:17pm Driving Ability Dependent December 30, 2016 4:17pm Housework Ability Dependent December 30, 2016 4:17pm Meal Preparation Ability Dependent December 30, 2016 4:17pm Stair Climbing Ability Dependent December 30, 2016 4:17pm Ability to complete ADL's impeded by Impaired Mobility Change in Cognition December 30, 2016 4:17pm Cognitive/Perceptual Impairments Impaired vision Acute confusion Imp. verbal communication December 30, 2016 4:17pm Visual Assistive Devices Glasses December 24, 2016 11:19am Preferred Method of Learning Demonstration Listening December 24, 2016 11:19am Allergies, Adverse Reactions, Alerts Allergen Type Severity Reaction Status Last Updated Angiotensin-converting enzyme inhibitor Allergy Unknown Active 12/16/16 [place] tar Allergy Mild rash Active 12/16/16 oxypur Allergy Mild rash Active 05/28/14 Immunizations Query Response on File Recorded Date/Time Hx Influenza Vaccination Y fall 201512/21/16 11:51am Hx Pneumococcal Vaccination No 12/21/16 11:51am Hx Tetanus, Diptheria, Pertussis Yes 05/30/14 11:30pm Hx Influenza Vaccination Y fall 201512/21/16 11:51am Hx Tetanus, Diptheria, Pertussis Yes 05/30/14 11:30pm Influenza Vaccine Hx 10/20/15 12/22/16 8:39am Tdap Vaccine Hx 08/29/2016 08/29/16 5:04am Vital Signs Acute Vital Signs Vital Response Date/Time Temperature (Fahrenheit) 95.1 deg F (96.8 - 99.1) 12/30/2016 3:19pm Temperature (Calculated Celsius) 35.78360 degrees C (36.0 - 37.3) 12/30/2016 3:19pm Pulse Rate (adult) 99 bpm (60 - 100) 12/30/2016 3:19pm Respiratory Rate 16 breaths/min (10 - 20) 12/30/2016 3:19pm O2 Sat by Pulse Oximetry 96 % (90 - 100) 12/30/2016 3:19pm Oxygen Delivery Method Room Air 12/30/2016 3:19pm Oxygen Flow Rate 1.00 L/min 12/23/2016 11:26pm Blood Pressure 90/52 mm Hg 12/30/2016 3:19pm Blood Pressure Source Automatic Cuff 12/30/2016 3:19pm Height (Feet) 5 feet 12/28/2016 8:51pm Height (Inches) 7.00 inches 12/28/2016 8:51pm Weight (Kilograms) 80.900 kg 12/30/2016 7:33am Body Mass Index (BMI) 25.9 12/21/2016 11:48am Results Laboratory Results Test Name Result Units Flags Reference Collection Date/Time Result Date/ Time Comments Hemoglobin A1c 5.7 % L 6.1-7.9 12/01/2016 6:28am 12/01/2016 7:23am < 6.0 NON-DIABETIC RANGE 6.1-7.9 [facility] TARGET RANGE >8.0 ACTION SUGGESTED White Blood Count 13.8 T/MM3 H 4.5-11.0 12/30/2016 4:1812/30/2016 5: 22am Red Blood Count 4.40 M/MM3 L 4.50-5.90 12/30/2016 4:12/30/2016 5: 22am Hemoglobin 13.1 GM/DL L 13.5-17.5 12/30/2016 4:12/30/2016 5:22am Hematocrit 39.1 % L 41-53 12/30/2016 4:12/30/2016 5:22am Mean Corpuscular Volume 88.9 UM3 80-100 12/30/2016 4:12/30/2016 5: 22am Mean Corpuscular Hemoglobin 29.8 UUG 26-34 12/30/2016 4:2016 5:22am Mean Corpuscular Hemoglobin Concent 33.5 GM/DL 31-37 12/30/2016 4:12/30/2016 5:22am RDW Standard Deviation 59.0 FL H 36.9-50.2 12/30/2016 4:12/30/2016 5:22am Platelet Count 168 T/MM3 D 130-400 12/30/2016 4:12/30/2016 5:22am Mean Platelet Volume 10.3 UM3 9.4-12.4 12/30/2016 4:12/30/2016 5: 22am Neutrophils (%) (Auto) 81.2 % H 33-66 12/23/2016 4:12/23/2016 4: 46am Lymphocytes (%) (Auto) 10.2 % L 23-45 12/23/2016 4:12/23/2016 4: 46am Monocytes (%) (Auto) 5.2 % 0-9.0 12/23/2016 4:12/23/2016 4:46am Eosinophils (%) (Auto) 2.5 % 0-4 12/23/2016 4:12/23/2016 4:46am Basophils (%) (Auto) 0.3 % 0-2 12/23/2016 4:12/23/2016 4:46am Immature Granulocyte % (Auto) 0.6 % H 0.0-0.5 12/23/2016 4:2016 4:46am Absolute Neutrophils (auto) 11.9 T/MM3 H 1.8-7.7 12/23/2016 4:12/23 4:46am Absolute Lymphocytes (auto) 1.5 T/MM3 1-4.8 12/23/2016 4:2016 4:46am Absolute Monocytes (auto) 0.8 T/MM3 0-0.8 12/23/2016 4:12/23/2016 4:46am Absolute Eosinophils (auto) 0.4 T/MM3 0-0.5 12/23/2016 4:2016 4:46am Absolute Basophils (auto) 0.0 T/MM3 0-0.2 12/23/2016 4:12/23/2016 4:46am Absolute Immature Granulocyte (auto 0.09 T/MM3 H 0.00-0.03 12/23/2016 4: 12/23/2016 4:46am Neutrophils % (Manual) 81.0 % H 33-66 12/30/2016 4:12/30/2016 6: 28am Band Neutrophils % 4.0 % 0-6 12/28/2016 5:12/28/2016 8:38am Lymphocytes % (Manual) 7.0 % L 23-45 12/30/2016 4:12/30/2016 6: 28am Monocytes % (Manual) 8.0 % 0-9.0 12/30/2016 4:12/30/2016 6:28am Eosinophils % (Manual) 4.0 % 0-4 12/30/2016 4:12/30/2016 6:28am Basophils % (Manual) 1.0 % 0-2 12/27/2016 4:29am 12/27/2016 6:53am Reactive Lymphocytes % 3.0 % H 0-0 12/28/2016 5:12/28/2016 8:38am Band Neutrophils # 0.6 T/MM3 12/28/2016 5:12/28/2016 8:38am Absolute Neutrophils (Manual) 11.2 T/MM3 H 1.8-7.7 12/30/2016 4: 6:28am Lymphocytes # (Manual) 1.0 T/MM3 1-4.8 12/30/2016 4:18am 12/30/2016 6: 28am Monocytes # (Manual) 1.1 T/MM3 H 0-0.8 12/30/2016 4:1812/30/2016 6: 28am Eosinophils # (Manual) 0.6 T/MM3 H 0-0.5 12/30/2016 4:1812/30/2016 6: 28am Basophils # (Manual) 0.2 T/MM3 0-0.2 12/27/2016 4:29am 12/27/2016 6: 53am Reactive Lymphocytes # 0.4 T/MM3 H 0-0 12/28/2016 5:13am 12/28/2016 8: 38am Red Cell Morphology Comment NORMAL 12/30/2016 4:1812/30/2016 6: 28am Anisocytosis 1+ 12/24/2016 4:48am 12/24/2016 6:19am Poikilocytosis 1+ 12/24/2016 4:48am 12/24/2016 6:19am Prothromb Time International Ratio 3.20 H 0.76-1.04 12/30/2016 4:1812/30/2016 5:21am THERAPUTIC RANGE=2.00-3.00 FOR ANTI-THROMBOSIS THERAPUTIC RANGE=2.50-3.50 FOR IMPLANTED VALVE Icterus Index < 2 0-7 12/30/2016 4:1812/30/2016 5:25am Chemistry Specimen Hemolysis < 15 0-25 12/30/2016 4:1812/30/2016 5 :25am 0-25: Specimen Exhibited No Hemolysis. Turbidity < 20 0-20 12/30/2016 4:1812/30/2016 5:25am Sodium Level 141 MEQ/L 134-144 12/30/2016 4:1812/30/2016 5:25am Potassium Level 3.8 MEQ/L 3.6-5 12/30/2016 4:1812/30/2016 5:25am Chloride Level 105 MEQ/L 98-107 12/30/2016 4:1812/30/2016 5:25am Carbon Dioxide Level 24 MEQ/L 22-30 12/30/2016 4:12/30/2016 5: 25am Anion Gap 12 MEQ/L 5-15 12/30/2016 4:1812/30/2016 5:25am Blood Urea Nitrogen 27.0 MG/DL H 9-20 12/30/2016 4:12/30/2016 5: 25am Creatinine 1.9 MG/DL D H 0.8-1.5 12/30/2016 4:1812/30/2016 5:33am BUN/Creatinine Ratio 14 RATIO 6-26 12/30/2016 4:12/30/2016 5:25am Glomerular Filtration Rate Calc 35 12/30/2016 4:1812/30/2016 5: 25am Glucose Level 111 MG/DL H 75-110 12/30/2016 4:12/30/2016 5:25am Calculated Osmolality 277 MOSM/KG 261-280 12/30/2016 4:12/30/2016 5:25am Calcium Level 8.8 MG/DL 8.4-10.2 12/30/2016 4:1812/30/2016 5:25am Phosphorus Level 3.0 MG/DL 2.5-4.5 12/25/2016 5:34am 12/25/2016 6:02am Total Bilirubin 2.40 MG/DL H 0.20-1.30 12/30/2016 4:12/30/2016 5: 25am Alkaline Phosphatase 154 U/L H 38-126 12/30/2016 4:12/30/2016 5: 25am Total Protein 5.7 G/DL L 6.3-8.2 12/30/2016 4:12/30/2016 5:25am Albumin 2.4 G/DL L 3.5-5.0 12/30/2016 4:12/30/2016 5:25am Globulin 3.3 G/DL 2.4-3.6 12/30/2016 4:12/30/2016 5:25am Albumin/Globulin Ratio 0.7 RATIO L 1.1-2.2 12/30/2016 4:12/30/2016 5:25am Aspartate Amino Transf (AST/SGOT) 86 U/L H 17-59 12/30/2016 4:1812/30 5:25am Alanine Aminotransferase (ALT/SGPT) 58 U/L 21-72 12/30/2016 4:18am 5:25am Troponin I 0.032 ng/ml 0-0.12 12/21/2016 12:10pm 12/21/2016 1:03pm Troponin values with a difference of 55% increase from orginal troponin value represent a true biological DELTA value. (%increase Calc=Orginal Troponin value, divided by subsequent Troponin value, multiplied by 100) WU-Atn-M-Type Natriuretic Peptide 5460 PG/ML H 0-175 12/21/2016 12:10pm 12/21/2016 3:24pm Rule in cut points: <50 years old=450; 50-75 years old=900; >75 years old=1800; When utilizing ProBNP rule-in cut points, adjustment for impaired renal function is typically not required. Magnesium Level 2.0 MG/DL 1.6-2.3 12/25/2016 5:34am 12/25/2016 6:02am Ammonia < 9 UMOL/L L 9-33 12/24/2016 4:48am 12/24/2016 5:43am Plasma Lactate 2.9 MMOL/L H 0.6-2.2 12/21/2016 4:22pm 12/21/2016 4:40pm Procalcitonin 0.67 NG/ML 12/22/2016 5:01am 12/22/2016 6:38am PCT </= 0.5 ng/mL - sepsis not likely; PCT >0.5 and </=2 ng/mL - sepsis possible; PCT >2 ng/mL - sepsis likely; PCT >/=10 ng/mL - systemic inflammatory response - sepsis or septic shock highly indicated. Thyroid Stimulating Hormone (TSH) 4.58 MIU/L 0.47-4.68 12/21/2016 12: 10pm 12/21/2016 3:46pm Prealbumin 8.3 MG/DL L 17.6-36.0 12/21/2016 12:10pm 12/21/2016 12:58pm Body Fluid Color YELLOW 12/27/2016 3:30pm 12/27/2016 4:34pm Body Fluid Turbidity SLIGHTLY CLOUDY 12/27/2016 3:30pm 12/27/2016 4 :34pm Body Fluid Total Nucleated Cells 138 /MM3 12/27/2016 3:30pm 2016 4:34pm Body Fluid RBC 360 /MM3 12/27/2016 3:30pm 12/27/2016 5:56pm Body Fluid Neutrophils 32 % 12/27/2016 3:30pm 12/27/2016 5:03pm Body Fluid Lymphocytes 37 % 12/27/2016 3:30pm 12/27/2016 5:03pm Body Fluid Monocytes 31 % 12/27/2016 3:30pm 12/27/2016 5:03pm Body Fluid Eosinophils 0 % 12/27/2016 3:30pm 12/27/2016 5:03pm Body Fluid Basophils 0 % 12/27/2016 3:30pm 12/27/2016 5:03pm Body Fluid Other Cells (%) 0 % 12/27/2016 3:30pm 12/27/2016 5:03pm Body Fluid pH 8.00 12/27/2016 3:30pm 12/27/2016 10:43pm Body Fluid Type PERITONEAL FLUID 12/27/2016 3:30pm 12/27/2016 4: 34pm Stool C. difficile Toxin B Gene PCR NEGATIVE NEGATIVE 12/26/2016 8: 43pm 12/26/2016 10:01pm If Toxin A is clinically indicated, treat accordingly. Urine Collection Type [place] INDWELLING 12/26/2016 6:25pm 2016 6:35pm Urine Color YELLOW YELLOW 12/26/2016 6:25pm 12/26/2016 6:35pm Urine Turbidity CLEAR CLEAR 12/26/2016 6:25pm 12/26/2016 6:35pm Urine Specific [place] 1.020 1.015-1.025 12/26/2016 6:25pm 2016 6:35pm Urine pH 5.5 5.0-8.0 12/26/2016 6:25pm 12/26/2016 6:35pm Urine Leukocyte Esterase NEGATIVE NEGATIVE 12/26/2016 6:25pm 2016 6:35pm Urine Nitrite NEGATIVE NEGATIVE 12/26/2016 6:25pm 12/26/2016 6:35pm Urine Protein NEGATIVE NEGATIVE 12/26/2016 6:25pm 12/26/2016 6:35pm Urine Glucose (UA) NEGATIVE NEGATIVE 12/26/2016 6:25pm 12/26/2016 6: 35pm Urine Ketones NEGATIVE NEGATIVE 12/26/2016 6:25pm 12/26/2016 6:35pm Urine Urobilinogen 0.2 EU/DL NORMAL 12/26/2016 6:25pm 12/26/2016 6: 35pm Urine Bilirubin NEGATIVE NEGATIVE 12/26/2016 6:25pm 12/26/2016 6: 35pm Urine Blood 3+ A NEGATIVE 12/26/2016 6:25pm 12/26/2016 6:35pm Urine WBC 1-3 /HPF 0-5 12/26/2016 6:25pm 12/26/2016 7:20pm Urine RBC 5-10 /HPF H 0-3 12/26/2016 6:25pm 12/26/2016 7:20pm Urine Squamous Epithelial Cells 5-10 12/26/2016 6:25pm 12/26/2016 7 :20pm Urine Bacteria TRACE H NEGATIVE 12/26/2016 6:25pm 12/26/2016 7:20pm Urine Culture Indicated CULT NOT INDICATED 12/26/2016 6:25pm 2016 7:20pm Urinalysis Comment MICROSCOPIC NOT IND. 12/21/2016 6:18pm 2016 6:26pm Miscellaneous Cytology SEND OUT 12/27/2016 3:30pm 12/27/2016 3: 53pm Body Fluid Albumin <1.5 g/dL 12/27/2016 3:30pm 12/27/2016 9:32pm Body Fluid Type Peritoneal 12/27/2016 3:30pm 12/27/2016 3:58pm Albumin, Fluid performed at [facility], [address] [place] [address] Appliance Mechanic Rere Baird, DO Body Fluid Glucose 166 mg/dL 12/27/2016 3:30pm 12/27/2016 9:32pm Glucose, Fluid performed at [facility], [address] [place] [address] Appliance Mechanic Rere Baird, DO Body Fluid Lactate Dehydrogenase 48 U/L 12/27/2016 3:30pm 12/27/2016 9:32pm LDH, Fluid performed at [facility], [address] [place] [address] Appliance Mechanic Rere Baird, DO Body Fluid Total Protein <3.0 g/dL 12/27/2016 3:30pm 12/27/2016 9: 33pm Protein, Fluid performed at [facility], [address] [place] [address] Appliance Mechanic Rere Baird DO Glucometer 157 mg/dL H 75-110 12/30/2016 12:00pm 12/30/2016 12:02pm Microbiology Results Procedure Source Organism/Result Collection Date/Time Result Date/Time Result Status Blood Culture Cath/Port/Line/Picc NO GROWTH AFTER 5 DAYS 12/21/2016 12: 08pm 12/26/2016 12:33pm Final Body Fluid Culture Peritoneal Fluid NO GROWTH AFTER 72 HOURS 12/27/2016 3: 30pm 12/30/2016 3:39pm Preliminary Name: ABRAN CHENG Unit #: [id number] : 1945 Sex: M DISCHARGE SUMMARY Admit Date: 12/21/16 Report #: [id number] [facility] General Date Date DATE: 12/30/16 TIME: 16:07 Attending Physician Argelia Rodriges MD Admitting Physician Argelia Rodriges MD Consulting Physician Maria Eugenia Conroy Admitting Diagnosis Leukocytosis, altered mental status. Discharge Diagnosis Leukocytosis, altered mental status, Dysuria, septic shock, cirrhosis,CHF,CKD, Type II DM, AFib Laboratory Laboratory Tests Test 12/29/16 06:00 12/29/16 11:04 12/29/16 17:13 12/29/16 20:42 Glucometer 121mg/dL (75-110) 139mg/dL (75-110) 192mg/dL (75-110) 159mg/dL (75-110) Test 12/30/16 04:18 12/30/16 12:00 White Blood Count 13.8T/MM3 (4.5-11.0) Red Blood Count 4.40M/MM3 (4.50-5.90) Hemoglobin 13.1GM/DL (13.5-17.5) Hematocrit 39.1% (41-53) Mean Corpuscular Volume 88.9UM3 (80-100) Mean Corpuscular Hemoglobin 29.8UUG (26-34) Mean Corpuscular Hemoglobin Concent 33.5GM/DL (31-37) RDW Standard Deviation 59.0FL (36.9-50.2) Platelet Count 168T/MM3 (130-400) Mean Platelet Volume 10.3UM3 (9.4-12.4) Neutrophils % (Manual) 81.0% (33-66) Lymphocytes % (Manual) 7.0% (23-45) Monocytes % (Manual) 8.0% (0-9.0) Eosinophils % (Manual) 4.0% (0-4) Absolute Neutrophils (Manual) 11.2T/MM3 (1.8-7.7) Lymphocytes # (Manual) 1.0T/MM3 (1-4.8) Monocytes # (Manual) 1.1T/MM3 (0-0.8) Eosinophils # (Manual) 0.6T/MM3 (0-0.5) Red Cell Morphology Comment Normal Prothromb Time International Ratio 3.20 (0.76-1.04) Turbidity < 20 (0-20) Sodium Level 141MEQ/L (134-144) Potassium Level 3.8MEQ/L (3.6-5) Chloride Level 105MEQ/L (98-107) Carbon Dioxide Level 24MEQ/L (22-30) Anion Gap 12MEQ/L (5-15) Blood Urea Nitrogen 27.0MG/DL (9-20) Creatinine 1.9MG/DL (0.8-1.5) Glomerular Filtration Rate Calc 35 BUN/Creatinine Ratio 14RATIO (6-26) Glucose Level 111MG/DL (75-110) Calculated Osmolality 277MOSM/KG (261-280) Calcium Level 8.8MG/DL (8.4-10.2) Total Bilirubin 2.40MG/DL (0.20-1.30) Icterus Index < 2 (0-7) Aspartate Amino Transf (AST/SGOT) 86U/L (17-59) Alanine Aminotransferase (ALT/SGPT) 58U/L (21-72) Alkaline Phosphatase 154U/L (38-126) Total Protein 5.7G/DL (6.3-8.2) Albumin 2.4G/DL (3.5-5.0) Globulin 3.3G/DL (2.4-3.6) Albumin/Globulin Ratio 0.7RATIO (1.1-2.2) Chemistry Specimen Hemolysis < 15 (0-25) Glucometer 157mg/dL (75-110) History of Present Illness Abran Cheng is 71 y/o male who was seen by Dr. Hartman on 12/21/16 for routine follow up after a 6-day hospitalization at [facility] for [place] and poss hepatorenal syndrome. He was discharged to SNF on 11/26/16. Labs were abnormal - WBC was 20.9 (21.8 on 12/20), platelets 122, BUN 33 , Cr1.79, K 3.4, ALT 74, AST 128, AP 176, bili 2.5, ammonia 78. TSH 3.91. Arrangements were made with Dr. Forrester for direct admission. The patient was sleeping on the medical floor. He awakened fairly easily, and stated that he went to the ED today b/c of abdominal pain. He had difficulty staying awake during conversation, and frequently stopped talking mid-sentence. He denies any SOA, chest pain, fever/ chills, URI, dizziness. He states he's having regular bowel movements. I asked about his recent stay at [facility], and the patient informed me that they fixed everything up but wasn't able to provide any details. Much of his history was obtained from medical records since he was not a reliable historian. Hospital Course 12/21 Admit, observation under the hospitalist service. Later changed to inpatient once the labs were resulted. LOS expected to exceed 2 overnights for correction of septic shock, encephalopathy, and management of significant cardiac disease. PCP - [place] 1. Possible septic shock with lactate of 4.1 - hx of abdominal pain and known cirrhosis, recent hospitalization and paracentesis - concerning for spont. bacterial peritonitis - peritoneal cx (resulted on 11/26/16) was neg - Zosyn 3.375 g QID - trend lactate - 30 ml/kg bolus (2250 mL NS) - GB u/s done today showed cholelithiasis and moderate GB wall thickening - Consult Dr. Stewart - Hep A, B, C negative at [facility] - Diet - clear liquids 2. Hepatic encephalopathy (possible, though ammonia was only 33 - encephalopathy could also be r/t sepsis) - lactulose - repeat NH3 in am - LFTs and T bili elevated above baseline (on 11/25/16, ALT was 76, AST 100, AP 96, and T bili 2.0) 3. Recent DAK[place] superimposed on CKD stage 3 - cr still above baseline at 1.9 (baseline 1.4-1.5) - ivf - hold spironolactone and bumex 4. Hx progressive dysphagia - consult speech therapy 5. CAD, A-fib, ischemic cardiomyopathy, on warfarin - tele - consult pharmacy for dosing - sees Dr. Flores 6. Anemia -w/u done at [facility] - iron 100, TIBC 109, sat 92, transferrin 73, ferritin 160 , b12 638 7. DM2 - hold Humalog but continue Levemir - A1c on 11/20/16 was 6.0% 4/5 Upset stomach and nausea this afternoon. Not feeling like eating. Minimal pain to abdomen. Breathing well-not with SOA, cough, congestion, or pain with breathing. No chest pain. Not feeling dizzy or unsteady when up. WBC treading down. Creatinine decreased to 1.5. LFT decreasing. Continue Zosyn for antimicrobial coverage - with his cirrhosis do worry about GI pathogens. Decreased 1/2NS to 50cc/hr for hydration - with cirrhosis and heart failure volume status is very difficult to control. Will continue to hold Bumex for now - likely need to reinstitute in near future. Zofran to help nausea. Blood sugars stable on home dose of Levemir - continue Levemir and monitor sugars. Consult with PT/OT tomorrow to start increasing functional status. Recheck CBC in am due to leukocytosis and thrombocytopenia Recheck CMP in am due to elevated liver enzymes and resolving DAKOTA. 4/6 Notes congestion - needs to cough to clear throat. Not short of air or having pain with breathing. No f/c. Appetite waxes and wanes. Nausea waxes and wanes. No ab pain, bloating, or discomfort. Bowel moving. Not feeling chest pressure or palpitations. Continue Zosyn for antimicrobial coverage - Leukocytosis trending down. Decreased 1/2NS to 40cc/hr for hydration. Start Bumex 1 mg po daily - home dose BID. Check CXR PA/Lat due to cough PT/OT consulted to help improve functional status. Bladder retraining - renal status stable. Blood sugars stable on home dose of Levemir - continue Levemir and monitor sugars. Meal time insulin had not been restarted - sugars stable currently. INR with elevation - likely interaction with Zosyn. Coumadin has been on hold during hospitalization. Continue to monitor. 12/24/2016-Dr. Rodriges Septic shock-resolved, white count still elevated, but down from admission. Cause of probable infection not known, but could be SBP. Doing okay on Zosyn but white count is mildly up today. Abdominal pain has resolved. Hepatic encephalopathy has improved with lactulose and treatment of infection. Cirrhosis Ascites Probable portal hypertension Acute kidney injury has improved and creatinine today is 1.6. Baseline is 1.3- 1.7. Weight is up 5 kg. DC IV fluids. Consider increase Bumex 2 twice a day tomorrow. Recheck basic metabolic profile tomorrow. Dysphagia-continue with speech therapy and on dysphagia diet Chronic throat clearing/cough-uncertain etiology, chest x-ray negative 2. Consider repeat chest x- ray tomorrow if not improving. Atrial fibrillation Chronic systolic heart failure secondary to ischemic cardiomyopathy Chronic anticoagulation with Coumadin-Coumadin is on hold because of elevated INR Diabetes mellitus-continue Levemir Greater than 35 minutes of time spent seeing and evaluating the patient, reviewing the chart, and determining care plan. Zosyn for now. DC IV fluids. Consider increase Bumex tomorrow. Recheck lab work tomorrow. Continue PT OT. Consider switch to oral antibiotics tomorrow. 12/26/16 Leukocytosis - WBC increased to 16.1. Continue Zosyn; consider ID consult. Hypokalemia - oral replacement ordered. Thrush - nystatin initiated. Renal function stable with BUN 30 and creatinine of 1.6. Weight is trending up and he's had a positive fluid status since admission. Continue Bumex and Aldactone INR therapeutic. 12/27/16 Leukocytosis - WBC decreased slightly to 15.7. Continue Zosyn. Paracentesis pending. C. diff, UA & CXR neg. Records obtained from [facility] - Paracentesis on 11/20/16 showed cloudy peritoneal fluid - RBC 341, nuc cell 77, neut 37, lymph 33, mesothelial 1, mononuclear 29; albumin <1, LDH 53, glu 86, protein <1. Hypokalemia - oral replacement ordered. Slightly increased creatinine of 1.7. Weight is trending up and he's had a positive fluid status since admission. Continue Bumex and Aldactone, will discuss in more detail with Dr. Rodriges. 12/27/2016-I reviewed this chart, the patient history, and the [employer]'s/PA's documented findings as above. We discussed and formulated the assessment and plan as above with the additions below.-Dr. Rodriges The patient was seen prior to paracentesis today. He stated he was feeling okay. He stated his cough was getting better. He denied any abdominal pain. He denied any chest pain or shortness of breath. He was eating and drinking okay but doesn't like the thickened liquids. On exam he is alert and in no acute distress. Oral exam reveals an mouth to be dry. Chest is clear to auscultation. Cardiovascular reveals a regular rate and rhythm. Abdomen is soft, moderately distended, nontender, with normal bowel sounds. Extremities are free of edema. Paracentesis was done this afternoon and a little more than 4 L was removed. I gave 25 g of albumin afterwards. I held his Bumex and spironolactone this afternoon but it will likely be restarted tomorrow. The patient was discussed with Dr. Pizano who saw the patient this morning. If cultures are negative will discontinue Zosyn. Will consider SBP prophylaxis. The patient is anticoagulated with Coumadin which could be difficult to manage if he is on antibiotics for prophylaxis. 12/28/2016 -Dr. Rodriges Septic shock-resolved, white count trending down. Still on Zosyn. Paracentesis done yesterday as workup for SBP. Dr. Pizano' consult appreciated. Hepatic encephalopathy has improved with lactulose and treatment of infection. Cirrhosis Ascites Probable portal hypertension Acute kidney injury resolved. Creatinine is at baseline of 1.3-1.7. Weight is down post paracentesis with over 4 L removed. Continue Bumex and spironolactone and monitor weight closely. Low-sodium diet is to continue. The patient is not drinking a large amount of fluids because he is not allowed much thin water. Dysphagia-continue with speech therapy and on dysphagia diet Chronic throat clearing/cough-uncertain etiology, chest x-ray negative 3. Most likely secondary to dysphagia. Atrial fibrillation Chronic systolic heart failure secondary to ischemic cardiomyopathy Chronic anticoagulation with Coumadin-pharmacy is managing. Diabetes mellitus-continue Levemir-blood sugars are fairly well controlled. Possibly home in the next 1-2 days if ascitic fluid shows no infection. 12/30/16 Pt seen and evaluated today. He feels he is much stronger, would like to be discharged. He did have multiple stools this morning. Patient be discharged with Coumadin to manage anticoagulation for atrial fibrillation, INR has been very responsive to dose, therefore patient will be discharged on 0.5 mg of Coumadin every other day with pharmacy management. Plan to recheck INR 01/03/2017. Lactulose will be discontinued as patient has had multiple stools. Dickerson catheter was withdrawn. Did discuss with patient need to return if he does not urinated within 6 hours. Bumex and spironolactone her continued. Patient will be discharged on Cipro for SBP prophylaxis. This is planned to be a permanent medication for him. Dr. Pizano recommended this to infectious disease. Patient is to follow-up with Dr. Hartman on the . Dr. Hartman was not available today and message was left. Slade Smith M.D. Problems: (1) Septic shock Status: Resolved Assessment & Plan: R/O - poss SBP Lactate 4.1, T bili 2.8 (higher than baseline) SIRS - leukocytosis, HR 91 (2) Hypokalemia Status: Acute (3) Hepatic encephalopathy Status: Resolved (4) Thrombocytopenia Status: Resolved (5) Cirrhosis Status: Chronic (6) History of recent hospitalization Assessment & Plan: 11/20/16-11/26/16 [place] He was admitted for acute kidney injury on top of chronic kidney disease, hypotension, and fluid overload, and ascites. PICC line was inserted. Blood pressure was supported with a Levophed drip. Nephrology was consulted, and they were concerned that his acute kidney injury was prerenal or possible hepatorenal pathophysiology. He received IV albumin, midodrine, and octreotide for possible hepatorenal syndrome. He underwent a paracentesis on 11/22/16, and 4800 mL's of fluid was removed. Later he was diuresed with IV Bumex. By day of discharge, he was able to void without the Dickerson catheter in place and was sent to [facility]. renal ultrasound on 11/20/16 IMPRESSION: 1. No hydronephrosis. 2. Bilateral cortical thinning likely relating to chronic medical renal disease. 3. Nonvisualization of the bladder. 4. At least moderate volume ascites. Diet: 1500 mL fl restriction and reduced sodium (7) Systolic CHF Status: Chronic Assessment & Plan: Echocardiogram 11/21/16 Decreased ejection fraction around 38%-40% with inferior wall and lateral wall hypokinesis more profound in the inferior wall, which suggests ischemic disease. Decreased ejection fraction of 38%. Mild pulmonary hypertension. Sclerosis of the aortic valve. Mildly enlarged left atrium. Mild tricuspid regurgitation, trace pulmonic insufficiency, and trace mitral regurgitation. (8) CKD (chronic kidney disease) stage 3, GFR 30-59 ml/min Status: Chronic Assessment & Plan: Baseline cr 1.4-1.5 (9) Type 2 diabetes mellitus Status: Chronic (10) CAD (coronary artery disease) (11) Atrial fibrillation Status: Chronic (12) Anticoagulated on Coumadin Status: Chronic (13) Ischemic cardiomyopathy Status: Chronic (14) Coronary artery disease Status: Chronic (15) PAD (peripheral artery disease) Status: Chronic (16) HTN (hypertension) Status: Chronic (17) Hypothyroidism Status: Chronic (18) Dysphagia Status: Chronic Assessment & Plan: hx progressive dysphagia (19) Dyslipidemia Status: Chronic (20) Thrush Status: Acute Assessment & Plan: Nystatin started on 12/26 DVT Prophylaxis: SCD'S Code Status Full Code Home Meds Active Scripts Ciprofloxacin HCl (Cipro) 500 Mg Tablet, 500 MG PO DAILY for 30 Days, #30 TAB Prov:SOLIS CRANE APRN 12/30/16 Reported Medications Omeprazole (Omeprazole) 20 Mg Capsule.dr, 20 MG PO ACB, CAP Take 1 capsule, by mouth, one time a day (before breakfast). 12/21/16 Spironolactone (Aldactone) 25 Mg Tablet, 25 MG PO BID, TAB Take 1 tablet, by mouth, 2 times a day. 12/21/16 Acetaminophen (Tylenol) 325 Mg Tablet, 2 TAB PO BID Y for PAIN, TAB 12/21/16 Folic Acid (Folic Acid) 1 Mg Tablet, 1 TAB PO DAILY, TAB 12/16/16 Warfarin Sodium (Warfarin Sodium) 1 Mg Tablet, 1 TAB PO DAILY, #90 TAB 12/16/16 Midodrine HCl (Midodrine HCl) 5 Mg Tablet, 1.5 TAB PO TID 12/16/16 Insulin Detemir (Levemir) 100 Unit/Ml Inj, 10 UNIT SQ HS, VIAL 12/16/16 Bupropion HCl (Bupropion Xl) 300 Mg Tab.er.24h, 1 TAB PO DAILY 12/16/16 Bumetanide (Bumetanide) 1 Mg Tablet, 1 TAB PO BID, TAB 12/16/16 Levothyroxine Sodium (Levothyroxine Sodium) 100 Mcg Tablet, 1 TAB PO ACB, TAB Once daily before breakfast 10/01/16 Insulin Lispro (Humalog) 100 Unit/1 Ml Insuln.pen, 3 UNIT SQ TID 05/28/14 Magnesium Oxide (Mag-Oxide) 400 Mg Tablet, 400 MG PO BID 10/12/12 Fluoxetine (Prozac) 20 Mg Tablet, 40 MG PO DAILY 10/12/12 Nitroglycerin (Nitrostat) 0.4 Mg Tab.subl, 0.4 MG SL Q5MIN 05/11/12 Discontinued Reported Medications Lactulose (Lactulose) 10 Gm/15 Ml Solution, 30 ML PO TID, #2700 ML 10 Refills 12/21/16 Face to Face Encounter I met with patient on the day of dismissal and discussed follow up appointments , medications, and safety plan. Discharge Disposition To assisted living. Copies To 1: MONALISA HARTMAN MD, CHARLES E MD Dec 30, 2016 16:13 Procedures Procedure Status Date Provider(s) Routine venipuncture Completed 10/01/16 Ct head/brain w/o dye Completed 10/01/16 Comprehen metabolic panel Completed 10/01/16 Reagent strip/blood glucose Completed 10/01/16 Complete cbc w/auto diff wbc Completed 10/01/16 Prothrombin time Completed 10/01/16 Electrocardiogram tracing Completed 10/01/16 [id number] ITEM OR SERVICE Completed 10/01/16 [id number]"HOSPITAL OBSERVATION SERVICE, PER HOUR" Completed 10/01/16 [id number]"HOSPITAL OBSERVATION SERVICE, PER HOUR" Completed 10/01/16 Routine [...] push Completed 11/20/16 Tx/pro/dx inj same drug internal audit consultant Completed 11/20/16 Emergency dept visit Completed 11/20/16 [id number]"INFUSION, NORMAL SALINE SOLUTION , 1000 CC" Completed 11/20/16 [id number]"INFUSION, NORMAL SALINE SOLUTION , 1000 CC" Completed 11/20/16 [id number]"INFUSION, NORMAL SALINE SOLUTION , 1000 CC" Completed 11/20/16 Ct head/brain w/o dye Completed 12/16/16 Ct neck spine w/o dye Completed 12/16/16 Emergency dept visit Completed 12/16/16 Encounters Encounter Location Arrival/Admit Date Discharge/Depart Date Attending Provider Discharged Inpatient [facility] 12/21/16 2:02pm 12/30/16 4:25pm ARGELIA RODRIGES MD Departed Emergency Room [facility] 12/16/16 5:25am 12/16/16 7: 30am KERRI DAVILA MD Registered Referred [facility] 12/15/16 12:55am MONALISA HARTMAN MD Registered Referred [facility] 12/08/16 12:36am MONALISA HARTMAN MD Registered Referred [facility] 12/01/16 2:31am MONALISA HARTMAN MD Departed Emergency Room [facility] 11/20/16 3:57am 11/20/16 8: 05am JE HAYS MD Discharged Recurring [facility] 11/09/16 11:33am 12/24/16 11: 59pm FLOR FLORES MD Discharged Inpatient (obs) [facility] 10/01/16 1:40pm 10/01/16 4: 30pm FLOR FLORES MD
--- OUTSIDE RECORDS SUMMARY | 2017-01-06 11:34 | XMS REPORT | Continuity of Care Document ---
Author Author [facility] Organization [facility] Address Unknown Phone Unavailable Support Name Relationship Address Phone KERRI DAVILA MD Caregiver [facility] [address] [place] [address] Unavailable MONALISA HARTMAN MD Caregiver [address] [place] [address] KEARA CHENG Next Of Kin [address] [place] [address] CP Insurance Providers Payer Name Policy Number Subscriber Name Relationship Medicare [id number] Zachary Cheng 18 Self [facility] [id number] Zachary Cheng 18 Self Advance Directives Directive [...] Mg PO DAILY 01/18/12 05/11/12 Discontinued Fish Oil/[place]-3 Fatty Acids 1 Cap PO DAILY 01/18/12 [...] Allergen Type Severity Reaction Status Last Updated [place] tar Allergy Mild rash Active 05/29/14 oxypur [...] F (96.8 - 99.1) Temperature (Calculated Celsius) 36.01627 degrees C (36.0 - 37.3) Pulse Rate [...] Y Urine Color May 29, 2014 10:20pm [place] - Has specimen been collected/obtained? Y Urine [...] Has specimen been collected/obtained? Y Urine Specific [place] May 29, 2014 10:20pm 1.021 - Has [...] 06, 2014 10:39am LAB TEST FORM REQUEST [id number] - Activated Clotting Time November 29, 2012 2:15pm 164 SEC H 84-139 Turbidity May 29, 2014 9:15pm < 20 0-20 Glomerular Filtration Rate Calc May 29, 2014 9:15pm 74 - Immature Granulocyte # (Auto) May 29, 2014 9:15pm 0.03 T/MM3 N 0.00-0.03 Immature Granulocyte % (Auto) May 29, 2014 9:15pm 0.3 % N 0.0-0.5 Icterus Index May 29, 2014 9:15pm < 2 0-7 UZ-Riv-N-Type Natriuretic Peptide May 19, 2012 3:10pm 05688 PG/ML H 0 -175 Rule in cut [...] Encounters Encounter Location Date/Time Departed Emergency Room [facility] 05/29/14 8:42pm Registered Recurring [facility] 05/06/14 8:41am Recent Diagnosis
[2017-01-06 11:35] VITALS: BP 123/65; PULSE 93; RESP 18; TEMP 97.8; O2SAT 97
--- OUTSIDE RECORDS SUMMARY | 2017-01-06 11:35 | XMS REPORT | Continuity of Care Document ---
Author Author [facility] Organization [facility] Address Unknown Phone Unavailable Support Name Relationship Address Phone TESSY JOHNSON DO Caregiver [address] [place] [address] [address] [place] [address] KERRI DAVILA MD Caregiver [facility] [address] [place] [address] Unavailable MONALISA HARTMAN MD Caregiver [address] [place], [place] [phone] KEARA CHENG Next Of Kin [address] [place], [place] [address] CP Insurance Providers Payer Name Policy Number Subscriber Name Relationship Medicare [id number] Zachary Cheng 18 Self [facility] [id number] Zachary Cheng 18 Self Advance Directives Directive [...] Mg PO DAILY 01/18/12 05/11/12 Discontinued Fish Oil/[place]-3 Fatty Acids 1 Cap PO DAILY 01/18/12 [...] Allergen Type Severity Reaction Status Last Updated [place] tar Allergy Mild rash Active 05/29/14 oxypur [...] F (96.8 - 99.1) Temperature (Calculated Celsius) 36.44653 degrees C (36.0 - 37.3) Temperature Source [...] 06, 2014 10:39am LAB TEST FORM REQUEST [id number] - Lipase May 29, 2014 9:15pm 47 [...] 19, 2012 3:10pm 1.0 % H 0-0 KM-Zxf-Y-Type Natriuretic Peptide May 19, 2012 3:10pm 19753 PG/ML H 0 -175 Rule in cut [...] Has specimen been collected/obtained? Y Urine Specific [place] May 31, 2014 1:37am >=1.030 H - [...] 2014 1:37am Name: ZACHARY CHENG Unit #: [id number] : 1945 Sex: M DISCHARGE SUMMARY Admit Date: 05/31/14 Report #: [id number] JADEN BUSH 06/02/14 1117: General Date Date [...] and later that evening went to the [facility] ER and saw Dr. Davila with cc: [...] PO MON/FRI 01/01/14 Levothyroxine Sodium 25 Mcg Nohxpq89 Mcg PO DAILY 11/13/12 Furosemide 40 Mg Pdgdwf03 Mg PO DAILY 10/12/12 Magnesium Oxide (Mag-Oxide)400 Mg Lmelfe418 Mg PO DAILY 10/12/12 Fluoxetine (Prozac)20 Mg Dtpwqr64 Mg PO DAILY 10/12/12 Fish Oil/Dha/Epa (Fish Oil 1,200 Mg Fish Oil)1 Each Capsule1 Each PO BID 10/12/12 Carvedilol (Coreg)12.5 Mg Tablet6.5 Tab PO BID 10/12/12 Amiodarone Hcl 200 Mg Vqibhp996 Mg PO DAILY 10/12/12 Nitroglycerin (Nitrostat)0.4 Mg Tab.subl0.4 Mg SL PRN 05/11/12 Insulin Glargine (Lantus)100 U/Ml Vial30 U Sq Hs 01/18/12 Tamsulosin Hcl (Flomax)0.4 Mg Cap.sr.24h0.4 Mg PO HS 07/14/09 Bupropion Hcl (Wellbutrin Xl)300 Mg Tab.sr.28d513 Mg PO DAILY 07/14/09 Lisinopril 10 Mg Tablet2.5 Mg PO DAILY 07/14/09 Lovastatin 20 Mg Xioake95 Mg PO HS 07/14/09 Discontinued Reported Medications [...] PO MON/FRI 01/01/14 Levothyroxine Sodium 25 Mcg Yqkubv23 Mcg PO DAILY 11/13/12 Furosemide 40 Mg Lvnncj27 Mg PO DAILY 10/12/12 Magnesium Oxide (Mag-Oxide)400 Mg Unwfuo723 Mg PO DAILY 10/12/12 Fluoxetine (Prozac)20 Mg Lajxxm36 Mg PO DAILY 10/12/12 Fish Oil/Dha/Epa (Fish Oil 1,200 Mg Fish Oil)1 Each Capsule1 Each PO BID 10/12/12 Carvedilol (Coreg)12.5 Mg Tablet6.5 Tab PO BID 10/12/12 Amiodarone Hcl 200 Mg Wyabvi868 Mg PO DAILY 10/12/12 Nitroglycerin (Nitrostat)0.4 Mg Tab.subl0.4 Mg SL PRN 05/11/12 Insulin Glargine (Lantus)100 U/Ml Vial30 U Sq Hs 01/18/12 Tamsulosin Hcl (Flomax)0.4 Mg Cap.sr.24h0.4 Mg PO HS 07/14/09 Bupropion Hcl (Wellbutrin Xl)300 Mg Tab.sr.11c505 Mg PO DAILY 07/14/09 Lisinopril 10 Mg Tablet2.5 Mg PO DAILY 07/14/09 Lovastatin 20 Mg Hklnba11 Mg PO HS 07/14/09 Discontinued Reported Medications [...] 05/29/14 Encounters Encounter Location Date/Time Discharged Inpatient [facility] 05/31/14 2:15am Departed Emergency Room [facility] 05/29/14 8:42pm Registered Recurring [facility] 05/06/14 8:41am Recent Diagnosis UTI (lower urinary tract infection) Sepsis Type 2 diabetes mellitus HTN (hypertension) Hypothyroidism Coronary artery disease Peripheral vascular disease GERD (gastroesophageal reflux disease) Obesity (BMI 30.0-34.9) Anticoagulated on Coumadin Dyslipidemia Chronic kidney disease Episodic atrial fibrillation UTI (lower urinary tract infection) Protein-calorie malnutrition, mild
--- OUTSIDE RECORDS SUMMARY | 2017-01-06 11:35 | XMS REPORT | Continuity of Care Document ---
Author Author [facility] Organization [facility] Address Unknown Phone Unavailable Support Name Relationship Address Phone FLOR FLORES MD Caregiver [facility] [address] [address] [facility] [address] [place] [address] MONALISA HARTMAN MD Caregiver [address] [place] [address] KEARA CHENG Next Of Kin [address] [place], [place] [address] Insurance Providers Payer Name Policy Number Subscriber Name Relationship Medicare [id number] Zachary Cheng 18 Self [facility] [id number] Zachary Cheng 18 Self Advance Directives Directive [...] Mg PO DAILY 01/18/12 05/11/12 Discontinued Fish Oil/[place]-3 Fatty Acids 1 Cap PO DAILY 01/18/12 [...] Allergen Type Severity Reaction Status Last Updated [place] tar Allergy Mild rash Active 05/29/14 oxypur [...] Has specimen been collected/obtained? Y Urine Specific [place] May 31, 2014 1:37am >=1.030 H - [...] 09, 2014 9:08pm LAB TEST FORM REQUEST [id number] - Activated Clotting Time November 29, 2012 [...] June 02, 2014 4:30am < 2 0-7 EV-Fgf-B-Type Natriuretic Peptide May 19, 2012 3:10pm 99436 PG/ML H 0 -175 Rule in cut [...] completed 08/19/14 Encounters Encounter Location Date/Time Discharged [facility] 09/09/14 3:41pm Registered Clinic [facility] 08/19/14 1:24pm
--- OUTSIDE RECORDS SUMMARY | 2017-01-06 11:35 | XMS REPORT | Continuity of Care Document ---
Author Author [facility] Organization [facility] Address Unknown Phone Unavailable Support Name Relationship Address Phone MONALISA HARTMAN MD Caregiver [address] [place] [address] [address] [place], [place] [phone] PILO ADKINS MD Caregiver [address] [place] [address] [place] [phone] KEARA CHENG Next Of Kin [address] [place], [place] [address] CP Insurance Providers Payer Name Policy Number Subscriber Name Relationship Medicare [id number] Zachary Cheng 18 Self [facility] [id number] Zachary Cheng 18 Self Advance Directives Directive [...] Mg PO DAILY 01/18/12 05/11/12 Discontinued Fish Oil/[place]-3 Fatty Acids 1 Cap PO DAILY 01/18/12 [...] Allergen Type Severity Reaction Status Last Updated [place] tar Allergy Mild rash Active 06/08/13 oxypur [...] F (96.8 - 99.1) Temperature (Calculated Celsius) 36.00988 degrees C (36.0 - 37.3) Temperature Source [...] 06, 2014 10:39am LAB TEST FORM REQUEST [id number] - Lipase May 19, 2012 3:10pm 168 [...] 19, 2012 3:10pm 1.0 % H 0-0 FV-Nfa-S-Type Natriuretic Peptide May 19, 2012 3:10pm 05485 PG/ML H 0 -175 Rule in cut [...] Has specimen been collected/obtained? Y Urine Specific [place] May 19, 2012 4:35pm 1.010 L - [...] MD Encounters Encounter Location Date/Time Registered Recurring [facility] 05/06/14 8:41am
--- OUTSIDE RECORDS SUMMARY | 2017-01-06 11:35 | XMS REPORT | Continuity of Care Document ---
Author Author [facility] Organization [facility] Address Unknown Phone Unavailable Support Name Relationship Address Phone CUAUHTEMOC KAPADIA MD Caregiver [address] [place] [address] [place] [address] Unavailable FRANCISCO ALEJO MD Caregiver [address] [place] [address] Unavailable MONALISA HARTMAN MD Caregiver [address] [place] [address] Unavailable KEARA CHENG Next Of Kin [address] [place] [address] Insurance Providers Guarantor Zachary Cheng Address [address] [place] [id number] Email [email or web address] [facility] Policy Number [id number] Subscriber's Name Zahcary Cheng Relationship 18 Self Group Number [id number] Effective Date 11 Payer Medicare Policy Number [id number] Subscriber's Name Zachary Cheng Relationship 18 Self [...] Unknown Resolved History of recent hospitalization Unknown Hypothyroidism Unknown Chronic Intermittent claudication Unknown Chronic [...] Systolic CHF Unknown Chronic Thrombocytopenia Unknown Resolved Tricuspid regurgitation Unknown Type 2 diabetes mellitus [...] Unit Sub-Q Three Times A Day 05/28/14 Lactulose 10 Gm/15 Ml Solution 30 Ml Oral Three Times A Day 2700 Milliliter 12/21/16 Levothyroxine Sodium 100 Mcg Tablet 1 Tab Oral Before Breakfast Once daily before breakfast 10/01/16 Magnesium Oxide (Mag-Oxide) 400 Mg Tablet 400 Mg Oral Twice A Day 10/12/12 Midodrine Hcl 5 Mg Tablet 1.5 Tab Oral Three Times A Day 12/16/16 Nitroglycerin (Nitrostat) 0.4 Mg Tab.subl 0.4 Mg Sublingual Every 5 Minutes X 3 05/11/12 Omeprazole 20 Mg Capsule. 20 Mg Oral Before Breakfast Take 1 capsule, by mouth, one time a day (before breakfast). 12/21/16 Spironolactone (Aldactone) 25 Mg Tablet 25 Mg Oral Twice A Day Take 1 tablet, by mouth, 2 times a day. 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 Plan of Care Disposition 30 STILL A PATIENT Prescriptions See Medication Section Functional Status Query Response Date Recorded Mobility Status Ambulatory w/assist December 24, 2016 11:19am Assistive Devices Wheelchair December 24, 2016 11:19am Activity Limitations Weakness Dizziness Cough December 24, 2016 11:19am Feeding Ability Independent December 24, 2016 11:19am Toileting Ability Assist December 24, 2016 11:19am Grooming Ability Assist December 24, 2016 11:19am Dressing Ability Assist December 24, 2016 11:19am Driving Ability Dependent December 24, 2016 11:19am Housework Ability Dependent December 24, 2016 11:19am Meal Preparation Ability Dependent December 24, 2016 11:19am Stair Climbing Ability Assist December 24, 2016 11:19am Ability to complete ADL's impeded by Change in Cognition December 24, 2016 11:19am Cognitive/Perceptual Impairments Impaired vision Acute confusion Imp. verbal communication December 24, 2016 11:19am Visual Assistive Devices Glasses December 24, 2016 11:19am Preferred Method of Learning Demonstration Listening December 24, 2016 11:19am Allergies, Adverse Reactions, Alerts Allergen Type Severity Reaction Status Last Updated Angiotensin-converting enzyme inhibitor Allergy Unknown Active 12/16/16 [place] tar Allergy Mild rash Active 12/16/16 oxypur [...] Vital Signs Vital Response Date/Time Temperature (Fahrenheit) 96.5 deg F (96.8 - 99.1) 12/24/2016 4:00pm Temperature (Calculated Celsius) 35.60090 degrees C (36.0 - 37.3) 12/24/2016 4:00pm Pulse Rate (adult) 80 bpm (60 - 100) 12/24/2016 4:00pm Respiratory Rate 20 breaths/min (10 - 20) 12/24/2016 9:18pm O2 Sat by Pulse Oximetry 96 % (90 - 100) 12/24/2016 4:00pm Oxygen Delivery Method Room Air 12/24/2016 4:00pm Oxygen Flow Rate 1.00 L/min 12/23/2016 11:26pm Blood Pressure 108/64 mm Hg 12/24/2016 4:00pm Blood Pressure Source Automatic Cuff 12/24/2016 4:00pm Height (Feet) 5 feet 12/24/2016 4:05pm Height (Inches) 7.00 inches 12/24/2016 4:05pm Weight (Kilograms) 80.500 kg 12/24/2016 7:39am Body Mass Index (BMI) 25.9 12/21/2016 11:48am Results Laboratory Results Test Name Result Units Flags Reference Collection Date/Time Result Date/ Time Comments Hemoglobin A1c 5.7 % L 6.1-7.9 12/01/2016 6:28am 12/01/2016 7:23am < 6.0 NON-DIABETIC RANGE 6.1-7.9 [facility] TARGET RANGE >8.0 ACTION SUGGESTED White Blood Count 16.2 T/MM3 H 4.5-11.0 12/24/2016 4:48am 12/24/2016 5: 38am Red Blood Count 4.35 M/MM3 L 4.50-5.90 12/24/2016 4:48am 12/24/2016 5: 38am Hemoglobin 13.0 GM/DL L 13.5-17.5 12/24/2016 4:48am 12/24/2016 5:38am Hematocrit 39.5 % L 41-53 12/24/2016 4:48am 12/24/2016 5:38am Mean Corpuscular Volume 90.8 UM3 80-100 12/24/2016 4:48am 12/24/2016 5: 38am Mean Corpuscular Hemoglobin 29.9 UUG 26-34 12/24/2016 4:48am 2016 5:38am Mean Corpuscular Hemoglobin Concent 32.9 GM/DL 31-37 12/24/2016 4:48am 12/24/2016 5:38am RDW Standard Deviation 58.1 FL H 36.9-50.2 12/24/2016 4:48am 12/24/2016 5:38am Platelet Count 130 T/MM3 130-400 12/24/2016 4:48am 12/24/2016 5:38am Mean Platelet Volume 10.7 UM3 9.4-12.4 12/24/2016 4:48am 12/24/2016 5: 38am Neutrophils (%) (Auto) 81.2 % H 33-66 [...] 12/23/2016 4: 12/23/2016 4:46am Neutrophils % (Manual) 79.0 % H 33-66 12/24/2016 4:48am 12/24/2016 6: 19am Band Neutrophils % 2.0 % 0-6 12/24/2016 4:48am 12/24/2016 6:19am Lymphocytes % (Manual) 13.0 % L 23-45 12/24/2016 4:48am 12/24/2016 6: 19am Monocytes % (Manual) 3.0 % 0-9.0 12/24/2016 4:48am 12/24/2016 6:19am Eosinophils % (Manual) 3.0 % 0-4 12/24/2016 4:48am 12/24/2016 6:19am Band Neutrophils # 0.3 T/MM3 12/24/2016 4:48am 12/24/2016 6:19am Absolute Neutrophils (Manual) 12.8 T/MM3 H 1.8-7.7 12/24/2016 4:48am 03/2017 6:19am Lymphocytes # (Manual) 2.1 T/MM3 1-4.8 12/24/2016 4:48am 12/24/2016 6: 19am Monocytes # (Manual) 0.5 T/MM3 0-0.8 12/24/2016 4:48am 12/24/2016 6: 19am Eosinophils # (Manual) 0.5 T/MM3 0-0.5 12/24/2016 4:48am 12/24/2016 6: 19am Red Cell Morphology Comment ABNORMAL 12/24/2016 4:48am 12/24/2016 6 :19am Anisocytosis 1+ 12/24/2016 4:48am 12/24/2016 6:19am Poikilocytosis 1+ 12/24/2016 4:48am 12/24/2016 6:19am Prothromb Time International Ratio 3.90 H 0.76-1.04 12/24/2016 4:48am 12/24/2016 5:39am THERAPUTIC RANGE=2.00-3.00 FOR ANTI-THROMBOSIS THERAPUTIC RANGE=2.50-3.50 FOR IMPLANTED VALVE Icterus Index < 2 0-7 12/24/2016 4:48am 12/24/2016 5:44am Chemistry Specimen Hemolysis < 15 0-25 12/24/2016 4:48am 12/24/2016 5 :44am 0-25: Specimen Exhibited No Hemolysis. Turbidity < 20 0-20 12/24/2016 4:48am 12/24/2016 5:44am Sodium Level 141 MEQ/L 134-144 12/24/2016 4:48am 12/24/2016 5:44am Potassium Level 3.5 MEQ/L L 3.6-5 12/24/2016 4:48am 12/24/2016 5:44am Chloride Level 103 MEQ/L 98-107 12/24/2016 4:48am 12/24/2016 5:44am Carbon Dioxide Level 27 MEQ/L 22-30 12/24/2016 4:48am 12/24/2016 5: 44am Anion Gap 11 MEQ/L 5-15 12/24/2016 4:48am 12/24/2016 5:44am Blood Urea Nitrogen 28.0 MG/DL H 9-20 12/24/2016 4:48am 12/24/2016 5: 44am Creatinine 1.6 MG/DL D H 0.8-1.5 12/24/2016 4:48am 12/24/2016 5:47am BUN/Creatinine Ratio 18 RATIO 6-26 12/24/2016 4:48am 12/24/2016 5:44am Glomerular Filtration Rate Calc 43 12/24/2016 4:48am 12/24/2016 5: 44am Glucose Level 159 MG/DL H 75-110 12/24/2016 4:48am 12/24/2016 5:44am Calculated Osmolality 280 MOSM/KG 261-280 12/24/2016 4:48am 12/24/2016 5:44am Calcium Level 8.3 MG/DL L 8.4-10.2 12/24/2016 4:48am 12/24/2016 5:44am Total Bilirubin 2.20 MG/DL H 0.20-1.30 12/24/2016 4:48am 12/24/2016 5: 44am Alkaline Phosphatase 175 U/L H 38-126 12/24/2016 4:48am 12/24/2016 5: 44am Total Protein 5.5 G/DL L 6.3-8.2 12/24/2016 4:48am 12/24/2016 5:44am Albumin 2.3 G/DL L 3.5-5.0 12/24/2016 4:48am 12/24/2016 5:44am Globulin 3.2 G/DL 2.4-3.6 12/24/2016 4:48am 12/24/2016 5:44am Albumin/Globulin Ratio 0.7 RATIO L 1.1-2.2 12/24/2016 4:48am 12/24/2016 5:44am Aspartate Amino Transf (AST/SGOT) 137 U/L H 17-59 12/24/2016 4:48am 03/2017 5:44am Alanine Aminotransferase (ALT/SGPT) 83 U/L H 21-72 12/24/2016 4:48am 03/2017 5:44am Troponin I 0.032 ng/ml 0-0.12 12/21/2016 12:10pm 12/21/2016 1:03pm Troponin values with a difference of 55% increase from orginal troponin value represent a true biological DELTA value. (%increase Calc=Orginal Troponin value, divided by subsequent Troponin value, multiplied by 100) ZD-Btt-R-Type Natriuretic Peptide 5460 PG/ML H 0-175 12/21/2016 12:10pm 12/21/2016 3:24pm Rule in cut points: <50 years old=450; 50-75 years old=900; >75 years old=1800; When utilizing ProBNP rule-in cut points, adjustment for impaired renal function is typically not required. Magnesium Level 2.1 MG/DL 1.6-2.3 12/24/2016 4:48am 12/24/2016 5:44am Ammonia < 9 UMOL/L L 9-33 12/24/2016 [...] MG/DL L 17.6-36.0 12/21/2016 12:10pm 12/21/2016 12:58pm Urine Color YELLOW YELLOW 12/21/2016 6:18pm 12/21/2016 6:26pm Urine Turbidity CLEAR CLEAR 12/21/2016 6:18pm 12/21/2016 6:26pm Urine Specific [place] 1.010 L 1.015-1.025 12/21/2016 6:18pm 2016 6:26pm Urine pH 5.5 5.0-8.0 12/21/2016 6:18pm 12/21/2016 6:26pm Urine Leukocyte Esterase NEGATIVE NEGATIVE 12/21/2016 6:18pm 2016 6:26pm Urine Nitrite NEGATIVE NEGATIVE 12/21/2016 6:18pm 12/21/2016 6:26pm Urine Protein NEGATIVE NEGATIVE 12/21/2016 6:18pm 12/21/2016 6:26pm Urine Glucose (UA) NEGATIVE NEGATIVE 12/21/2016 6:18pm 12/21/2016 6: 26pm Urine Ketones NEGATIVE NEGATIVE 12/21/2016 6:18pm 12/21/2016 6:26pm Urine Urobilinogen 1.0 EU/DL NORMAL 12/21/2016 6:18pm 12/21/2016 6: 26pm Urine Bilirubin NEGATIVE NEGATIVE 12/21/2016 6:18pm 12/21/2016 6: 26pm Urine Blood NEGATIVE NEGATIVE 12/21/2016 6:18pm 12/21/2016 6:26pm Urinalysis Comment MICROSCOPIC NOT IND. 12/21/2016 6:18pm 2016 6:26pm Glucometer 128 mg/dL H 75-110 12/24/2016 8:48pm 12/24/2016 8:55pm Microbiology Results Procedure Source Organism/Result Collection Date/Time Result Date/Time Result Status Blood Culture Cath/Port/Line/Picc NO GROWTH AFTER 72 HOURS 12/21/2016 12: 08pm 12/24/2016 12:33pm Preliminary Name: ZACHARY CHENG Unit #: [id number] : 1945 Sex: M Admit Date: 12/21/16 Loc / Svc: MED Discharge Date: DIAGNOSTIC IMAGING REPORT Report #: [id number] [facility] SHRUTI Holly INDICATION: ITS.REASON: Cough PROCEDURE: CHEST 2-VIEWS UPRIGHT (PA \\T\\ LAT) Encounter: Initial COMPARISON: December 21, 2016 FINDINGS: The lungs are clear without evidence of focal abnormal airspace opacity. There is no pleural effusion or pneumothorax. Left cardiac pacemaker defibrillator. The heart size, mediastinal contours and pulmonary vascularity are unchanged. IMPRESSION: No acute cardiopulmonary disease. . 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 Completed 11/20/16 Emergency dept visit Completed 11/20/16 [id number]"INFUSION, NORMAL SALINE SOLUTION , 1000 CC" Completed 11/20/16 [id number]"INFUSION, NORMAL SALINE SOLUTION , 1000 CC" Completed 11/20/16 [id number]"INFUSION, NORMAL SALINE SOLUTION , 1000 CC" Completed 11/20/16 Ct head/brain w/o dye Completed 12/16/16 Ct neck spine w/o dye Completed 12/16/16 Emergency dept visit Completed 12/16/16 Encounters Encounter Location Arrival/Admit Date Discharge/Depart Date Attending Provider Admitted Inpatient [facility] 12/21/16 2:02pm FRANCISCO ALEJO MD Departed Emergency Room [facility] 12/16/16 5:25am 12/16/16 7: 30am KERRI DAVILA MD Registered Referred [facility] 12/15/16 12:55am MONALISA HARTMAN MD Registered Referred [facility] 12/08/16 12:36am MONALISA HARTMAN MD Registered Referred [facility] 12/01/16 2:31am MONALISA HARTMAN MD Departed Emergency Room [facility] 11/20/16 3:57am 11/20/16 8: 05am JE HAYS MD Discharged Recurring [facility] 11/09/16 11:33am 12/24/16 11: 59pm FLOR FLORES MD Discharged Inpatient (obs) [facility] 10/01/16 1:40pm 10/01/16 4: 30pm FLOR FLORES MD
[2017-01-06] MEDS ORDERED: NORMAL SALINE 1,000 ML IV SCH (11:45)
[2017-01-06 12:06] VITALS: Ht 170.2 cm; Wt 88.8 kg
[2017-01-06 12:10] LABS: HCT - HEMATOCRIT 39.8 % (41-53); HGB - HEMOGLOBIN 13.8 GM/DL (13.5-17.5); MEAN CORPUSCULAR HGB 30.2 UUG (26-34); MEAN CORPUSCULAR HGB CONC(MCHC 34.7 GM/DL (31-37); MEAN CORPUSCULAR VOLUME 87.1 UM3 (80-100); MEAN PLATELET VOLUME 9.7 UM3 (9.4-12.4); RED BLOOD COUNT 4.57 M/MM3 (4.50-5.90); WBC - WHITE BLOOD COUNT 21.7 T/MM3 (4.5-11.0)
[2017-01-06 12:17] LABS: INR 2.26 (0.76-1.04); PROTHROMBIN TIME 24.6 SEC (9.31-12.49)
[2017-01-06 12:21] LABS: ALBUMIN 2.6 G/DL (3.5-5.0); ALBUMIN/GLOBULIN RATIO 0.7 RATIO (1.1-2.2); ALKALINE PHOSPHATASE 237 U/L (38-126); ALT (SGPT) 59 U/L (21-72); ANION GAP 16 MEQ/L (5-15); AST (SGOT) 132 U/L (17-59); BUN/CREATININE RATIO 14 RATIO (6-26); CALCIUM 8.8 MG/DL (8.4-10.2); CHLORIDE 102 MEQ/L (98-107); CO2 - CARBON DIOXIDE 20 MEQ/L (22-30); CREATININE 5.2 MG/DL (0.8-1.5); GLOMERULAR FILTRATION RATE 11; GLUCOSE 117 MG/DL (75-110); MAGNESIUM 2.4 MG/DL (1.6-2.3); POTASSIUM 4.9 MEQ/L (3.6-5); SODIUM 138 MEQ/L (134-144); TOTAL PROTEIN 6.2 G/DL (6.3-8.2)
[2017-01-06 12:22] LABS: AMMONIA < 9 UMOL/L (9-33)
[2017-01-06 12:54] LABS: EOSINOPHILS # (MANUAL) 0.4 T/MM3 (0-0.5); LYMPHOCYTES # (MANUAL) 1.5 T/MM3 (1-4.8); MONOCYTES # (MANUAL) 0.9 T/MM3 (0-0.8); NEUTROPHILS #(MANUAL)-ABSOLUTE 18.9 T/MM3 (1.8-7.7); TOTAL CELLS COUNTED 100 %
[2017-01-06 12:55] LABS: ANISOCYTOSIS 1+; POIKILOCYTOSIS 1+
[2017-01-06] MEDS: PANTOPRAZOLE 40mg INJECTION IV SCH ×2 (13:09→20:50)
[2017-01-06 13:24] LABS: BLOOD, URINE 1+ (NEGATIVE); COLOR,URINE YELLOW (YELLOW); LEUKOCYTE ESTERASE ,URINE NEGATIVE (NEGATIVE); NITRITE,URINE NEGATIVE (NEGATIVE); UROBILINOGEN,URINE 0.2 EU/DL (NORMAL)
--- NOTE | 2017-01-06 13:27 | HPPDOC ---
SOLIS CRANE V POSTAL CARRIER 01/06/17 1308: HPI - Adult Date DATE: 01/06/17 TIME: 12:46 General Chief Complaint: Acute kidney injury History of Present Illness Abran is a pleasant male who is well known to the hospitalist services as he was recently admitted on 12/21/16 for septic shock, altered mentation , likely hepatic encephalopathy with cirrhosis. He underwent a Paracentesis with in which 4400ml fluid was removed. He was discharged on Cipro for SBP prophylaxis. He had outpatient labs done yesterday 01/05, and his creatinine was found to be elevated at 4.3. Today labs were evaluated by primary care provider , Dr. Singh. With finding of this acute kidney injury. He contacted the hospitalist services directly and accepted patient for admission for further evaluation and treatment. Abran [place] [facility] [place] states that he has been having diarrhea since leaving the hospital. Reports he is not able to take much intake orally and is having little urinary output for the past 3 days. Upper studies were obtained on admission today. WBC count was found to be elevated 21.7, hemoglobin 13.8, hematocrit 39.8, platelet count 26, neutrophils 87. Sodium is 138, potassium 4.9, carbon dioxide 20, anion gap 16, BUN 73, creatinine 5.2, glucose 117. AST is elevated at 132, alkaline phosphatase 237. Ammonia is less than 9. INR 2.26. He is afebrile on arrival 97.8, pulse 93, respiratory 18, blood pressure 120/65, room air saturations 97% Past Medical History Past Medical History Systolic Heart failure Ischemic cardiomyopathy Atrial fibrillation Hypertension Dyslipidemia Peripheral artery disease Stage III chronic kidney disease Type II diabetes Cirrhosis BPH Adenoma of left adrenal gland Chronic Trigonitis Depression Osteoarthritis Polio Psoriasis History of alcohol use Hypothyroidism GERD Surgical History Patient's Surgical History: Paracentesis 12/27/16 with 4400 ml fluid removed -Paracentesis on 11/22/16, removing 4800 mL of fluid -Heart Cath with stent 2010, 2011, and 2012 -colonoscopy 2013 -EGD with removal FB 12-09-3015 -EGD with dilatation to 54 Fr. and removal FB 01-03-14 -Multiple cystos since 2007, urethral dilataion, circumcision Ejection fraction around 38%-40% with inferior wall and lateral wall hypokinesis more profound in the inferior wall, which suggests EGD with removal of foreign body, 12/09/15 Dr. Stewart He also had EGDs and 2000, 2010, and 2013 Colonoscopy 01/03/14 MEMORY CARE DIRECTOR 11/29/12 Stent 11/15/12 Angiogram October 16, 2012. Cardiac catheterization and 2010, 2011, and 2012 Cystoscopies 3 in 2008 Surgery for detached retina in 2000. Cataract extraction, 1995 Current Medications Home Meds Active Scripts Warfarin Sodium (Warfarin Sodium) 1 Mg Tablet, 0.5 TAB PO Q48H, #30 TAB Prov:SOLIS CRANE APRN 12/30/16 Ciprofloxacin HCl (Cipro) 500 Mg Tablet, 500 MG PO DAILY for 30 Days, #30 TAB Prov:SOLIS CRANE APRN 12/30/16 Reported Medications Omeprazole (Omeprazole) 20 Mg Capsule.dr, 20 MG PO ACB, CAP Take 1 capsule, by mouth, one time a day (before breakfast). 12/21/16 Spironolactone (Aldactone) 25 Mg Tablet, 25 MG PO BID, TAB Take 1 tablet, by mouth, 2 times a day. 12/21/16 Acetaminophen (Tylenol) 325 Mg Tablet, 2 TAB PO BID Y for PAIN, TAB 12/21/16 Folic Acid (Folic Acid) 1 Mg Tablet, 1 TAB PO DAILY, TAB 12/16/16 Midodrine HCl (Midodrine HCl) 5 Mg Tablet, 1.5 TAB PO TID 12/16/16 Insulin Detemir (Levemir) 100 Unit/Ml Inj, 10 UNIT SQ HS, VIAL 12/16/16 Bupropion HCl (Bupropion Xl) 300 Mg Tab.er.24h, 1 TAB PO DAILY 12/16/16 Bumetanide (Bumetanide) 1 Mg Tablet, 1 TAB PO BID, TAB 12/16/16 Levothyroxine Sodium (Levothyroxine Sodium) 100 Mcg Tablet, 1 TAB PO ACB, TAB Once daily before breakfast 10/01/16 Insulin Lispro (Humalog) 100 Unit/1 Ml Insuln.pen, 3 UNIT SQ TID 05/28/14 Magnesium Oxide (Mag-Oxide) 400 Mg Tablet, 400 MG PO BID 10/12/12 Fluoxetine (Prozac) 20 Mg Tablet, 40 MG PO DAILY 10/12/12 Nitroglycerin (Nitrostat) 0.4 Mg Tab.subl, 0.4 MG SL Q5MIN 05/11/12 Discontinued Reported Medications Lactulose (Lactulose) 10 Gm/15 Ml Solution, 30 ML PO TID, #2700 ML 10 Refills 12/21/16 Warfarin Sodium (Warfarin Sodium) 1 Mg Tablet, 1 TAB PO DAILY, #90 TAB 12/16/16 Allergies: Coded Allergies: BLUE Inhibitors (Verified Allergy, Unknown, 01/06/17) coal tar (Verified Adverse Reaction, Mild, RASH, 01/06/17) Uncoded Allergies: oxypur (Adverse Reaction, Mild, RASH, 01/06/17) has coal tar in it Family History Family History: hx for [place] Social History Does patient use chewing tobac: No Substance Use Type: does not use Alcohol Intake: none, former alcohol drinker Household Members: none Advance Directives: Yes DPOA for Healthcare Only (Sammy, brother) Social History Comments PCP Dr Singh Review of Systems Constitutional: REPORTS: appetite decrease, fatigue, weakness GI Lower Abdomen: diarrhea Male: retention All Other Systems All Other Systems: Reviewed (remainder of 10-point ROS Neg.) Physical Exam General General Nourishment: well nourished, well developed Vital Signs Vital Signs Date Time Temp Pulse Resp B/P Pulse Ox O2 Delivery O2 Flow Rate FiO2 01/06/17 11:35 97.8 93 18 123/65 97 Room Air Height (Feet): 5 Height (Inches): 7.00 ENMT Brief: FOUND: normal dentition, NOT FOUND: mucosa moist, pharnyx erythema Comments Dry mucous membranes Respiratory Brief: FOUND: clear all wallace, equal bilaterally, NOT FOUND: wheezes Cardiovascular (brief) Cardiac Brief: FOUND: regular rate, regular rhythm, NOT FOUND: murmur, pedal edema Abdomen (brief) Abdominal Brief: FOUND: BS normo active x4, soft Integumentary (brief) Integumentary Brief: FOUND: dry, pink, warm Neurologic (brief) Neurological Brief: FOUND: cranial 2-12 intact, motor (moves all ext equal) Neurologic RN Documented GCS Eye Opening: Verbal: Motor: Total: Psychiatric (brief) FOUND: alert, attentive, normal affect, oriented Laboratory Laboratory Tests Test 01/06/17 12:02 White Blood Count 21.7T/MM3 Red Blood Count 4.57M/MM3 Hemoglobin 13.8GM/DL Hematocrit 39.8% Mean Corpuscular Volume 87.1UM3 Mean Corpuscular Hemoglobin 30.2UUG Mean Corpuscular Hemoglobin Concent 34.7GM/DL RDW Standard Deviation 60.8FL Platelet Count 226T/MM3 Mean Platelet Volume 9.7UM3 Immature Granulocyte % (Auto) % Neutrophils (%) (Auto) % Lymphocytes (%) (Auto) % Monocytes (%) (Auto) % Eosinophils (%) (Auto) % Basophils (%) (Auto) % Absolute Immature Granulocyte (auto T/MM3 Absolute Neutrophils (auto) T/MM3 Absolute Lymphocytes (auto) T/MM3 Absolute Monocytes (auto) T/MM3 Absolute Eosinophils (auto) T/MM3 Absolute Basophils (auto) T/MM3 Prothromb Time International Ratio 2.26 Turbidity < 20 Sodium Level 138MEQ/L Potassium Level 4.9MEQ/L Chloride Level 102MEQ/L Carbon Dioxide Level 20MEQ/L Anion Gap 16MEQ/L Blood Urea Nitrogen 73.0MG/DL Creatinine 5.2MG/DL Glomerular Filtration Rate Calc 11 BUN/Creatinine Ratio 14RATIO Glucose Level 117MG/DL Calculated Osmolality 289MOSM/KG Calcium Level 8.8MG/DL Phosphorus Level 6.0MG/DL Magnesium Level 2.4MG/DL Total Bilirubin 2.40MG/DL Icterus Index < 2 Aspartate Amino Transf (AST/SGOT) 132U/L Alanine Aminotransferase (ALT/SGPT) 59U/L Alkaline Phosphatase 237U/L Ammonia < 9UMOL/L Total Protein 6.2G/DL Albumin 2.6G/DL Globulin 3.6G/DL Albumin/Globulin Ratio 0.7RATIO Chemistry Specimen Hemolysis 19 Assessment & Plan Problems: (1) Acute kidney injury Status: Acute (2) Leukocytosis Status: Acute (3) HTN (hypertension) Status: Chronic Qualifiers: Hypertension type: essential hypertension Qualified Codes: I10 - Essential (primary) hypertension (4) Type 2 diabetes mellitus Status: Chronic Qualifiers: Diabetes mellitus complication status: with unspecified complications Diabetes mellitus extermination supervisor insulin use: with extermination supervisor use Qualified Codes: E11.8 - Type 2 diabetes mellitus with unspecified complications; Z79.4 - watermaster (current) use of insulin (5) Chronic kidney disease Status: Chronic Qualifiers: Chronic kidney disease stage: stage 3 (moderate) Qualified Codes: N18.3 - Chronic kidney disease, stage 3 (moderate) (6) CAD (coronary artery disease) Status: Chronic Qualifiers: [place] vs. transplanted heart: [place] heart Associated angina: without angina (7) Episodic atrial fibrillation Status: Resolved (8) Dyslipidemia Status: Chronic (9) Ischemic cardiomyopathy Status: Chronic (10) Intermittent claudication Status: Chronic (11) AICD (automatic cardioverter/defibrillator) present Status: Chronic (12) Aortic valve sclerosis Status: Chronic (13) Recovering alcoholic Status: Chronic (14) PAD (peripheral artery disease) Status: Chronic (15) Bladder neck contracture Status: Chronic (16) 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 (17) Polio Status: Chronic (18) Allergic rhinitis Status: Chronic (19) Psoriasis Status: Chronic (20) Cirrhosis Status: Chronic (21) Chronic trigonitis Status: Chronic (22) Depression Status: Chronic Qualifiers: Depression Type: unspecified Qualified Codes: F32.9 - Major depressive disorder, single episode, unspecified (23) BPH (benign prostatic hypertrophy) Status: Chronic Plan/Intensity of Service Admit patient as a outpatient under the care of Dr Forrester for acute kidney injury Obtain the following laboratory studies on admission, CBC, CMP, urinalysis, INR , ammonia, magnesium, phosphorus Given acute kidney injury. Will place Medeiros catheter to dependent drainage. The patient does report some urinary retention. Obtain a renal sonogram for further evaluation In light of recent diarrhea will obtain a GI Panel to rule out infectious etiology. Concern for C-diff given he has been on antibiotics. Start normal saline at 250 ML per hour for hydration. Will need to discuss antimicrobial coverage with attending, as patient was on Cipro for intermediate prophylaxis for spontaneous bacterial peritonitis. C/S from was negative. Protonix 40 milligrams twice a day for GI protection. SCDs to bilateral lower extremity for DVT prophylaxis. Will monitor Accu-Cheks closely. Will need to review home once reconciled. Mack discuss further plan of care with attending Dr. Forrester. At time of discharge medical care will return to primary care provider, Code Status Full Code, unverified Hospital Course Summary Disclaimer The hospital course summary below is not to be considered part of the above Progress Note. Hospital Course Summary Admit patient as a outpatient under the care of Dr Forrester for acute kidney injury Obtain the following laboratory studies on admission, CBC, CMP, urinalysis, INR , ammonia, magnesium, phosphorus Given acute kidney injury. Will place Medeiros catheter to dependent drainage. The patient does report some urinary retention. Obtain a renal sonogram for further evaluation In light of recent diarrhea will obtain a GI Panel to rule out infectious etiology. Concern for C-diff given he has been on antibiotics. Start normal saline at 250 ML per hour for hydration. Will need to discuss antimicrobial coverage with attending, as patient was on Cipro for intermediate prophylaxis for spontaneous bacterial peritonitis. C/S from was negative. Protonix 40 milligrams twice a day for GI protection. SCDs to bilateral lower extremity for DVT prophylaxis. Will monitor Accu-Cheks closely. Will need to review home once reconciled. Woll discuss further plan of care with attending Dr. Forrester. At time of discharge medical care will return to primary care provider, CUAUHTEMOC Fitch MD 01/06/17 0315: Past Medical History Current Medications Home Meds Active Scripts Warfarin Sodium (Warfarin Sodium) 1 Mg Tablet, 0.5 TAB PO Q48H, #30 TAB Prov:SOLIS CRANE APRN 12/30/16 Ciprofloxacin HCl (Cipro) 500 Mg Tablet, 500 MG PO DAILY for 30 Days, #30 TAB Prov:SOLIS CRANE APRN 12/30/16 Reported Medications Omeprazole (Omeprazole) 20 Mg Capsule.dr, 20 MG PO ACB, CAP Take 1 capsule, by mouth, one time a day (before breakfast). 12/21/16 Spironolactone (Aldactone) 25 Mg Tablet, 25 MG PO BID, TAB Take 1 tablet, by mouth, 2 times a day. 12/21/16 Acetaminophen (Tylenol) 325 Mg Tablet, 2 TAB PO BID Y for PAIN, TAB 12/21/16 Folic Acid (Folic Acid) 1 Mg Tablet, 1 TAB PO DAILY, TAB 12/16/16 Midodrine HCl (Midodrine HCl) 5 Mg Tablet, 1.5 TAB PO TID 12/16/16 Insulin Detemir (Levemir) 100 Unit/Ml Inj, 10 UNIT SQ HS, VIAL 12/16/16 Bupropion HCl (Bupropion Xl) 300 Mg Tab.er.24h, 1 TAB PO DAILY 12/16/16 Bumetanide (Bumetanide) 1 Mg Tablet, 1 TAB PO BID, TAB 12/16/16 Levothyroxine Sodium (Levothyroxine Sodium) 100 Mcg Tablet, 1 TAB PO ACB, TAB Once daily before breakfast 10/01/16 Insulin Lispro (Humalog) 100 Unit/1 Ml Insuln.pen, 3 UNIT SQ TID 05/28/14 Magnesium Oxide (Mag-Oxide) 400 Mg Tablet, 400 MG PO BID 10/12/12 Fluoxetine (Prozac) 20 Mg Tablet, 40 MG PO DAILY 10/12/12 Nitroglycerin (Nitrostat) 0.4 Mg Tab.subl, 0.4 MG SL Q5MIN 05/11/12 Discontinued Reported Medications Lactulose (Lactulose) 10 Gm/15 Ml Solution, 30 ML PO TID, #2700 ML 10 Refills 12/21/16 Warfarin Sodium (Warfarin Sodium) 1 Mg Tablet, 1 TAB PO DAILY, #90 TAB 12/16/16 Allergies: Coded Allergies: BLUE Inhibitors (Verified Allergy, Unknown, 01/06/17) coal tar (Verified Adverse Reaction, Mild, RASH, 01/06/17) Uncoded Allergies: oxypur (Adverse Reaction, Mild, RASH, 01/06/17) has coal tar in it Assessment & Plan Problems: (1) Acute kidney injury Status: Acute Assessment & Plan: POA (2) Leukocytosis Status: Acute (3) Hyperphosphatemia Status: Acute Assessment & Plan: POA (4) Hypermagnesemia Status: Acute Assessment & Plan: POA (5) Cirrhosis Status: Chronic (6) Type 2 diabetes mellitus Status: Chronic Qualifiers: Diabetes mellitus complication status: with unspecified complications Diabetes mellitus extermination supervisor insulin use: with long-term use Qualified Codes: E11.8 - Type 2 diabetes mellitus with unspecified complications; Z79.4 - watermaster (current) use of insulin (7) CAD (coronary artery disease) Status: Chronic Qualifiers: [place] vs. transplanted heart: [place] heart Associated angina: without angina (8) PAD (peripheral artery disease) Status: Chronic (9) HTN (hypertension) Status: Chronic Qualifiers: Hypertension type: essential hypertension Qualified Codes: I10 - Essential (primary) hypertension (10) Episodic atrial fibrillation Status: Resolved (11) Anticoagulated on Coumadin Status: Chronic (12) Dyslipidemia Status: Chronic (13) Ischemic cardiomyopathy Status: Chronic (14) Intermittent claudication Status: Chronic (15) AICD (automatic cardioverter/defibrillator) present Status: Chronic (16) Aortic valve sclerosis Status: Chronic (17) Chronic kidney disease Status: Chronic Qualifiers: Chronic kidney disease stage: stage 3 (moderate) Qualified Codes: N18.3 - Chronic kidney disease, stage 3 (moderate) (18) Recovering alcoholic Status: Chronic (19) Bladder neck contracture Status: Chronic (20) 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 (21) Polio Status: Chronic (22) Allergic rhinitis Status: Chronic (23) Psoriasis Status: Chronic (24) Chronic trigonitis Status: Chronic (25) Depression Status: Chronic Qualifiers: Depression Type: unspecified Qualified Codes: F32.9 - Major depressive disorder, single episode, unspecified (26) BPH (benign prostatic hypertrophy) Status: Chronic (27) Hypothyroidism Status: Chronic Qualifiers: Hypothyroidism type: acquired Qualified Codes: E03.9 - Hypothyroidism, unspecified (28) Dysphagia Status: Chronic (29) GERD (gastroesophageal reflux disease) Status: Chronic (30) Overweight (BMI 25.0-29.9) Status: Chronic Plan/Intensity of Service Have independently interviewed and examined pt. Chart reviewed. Cased discussed with Dr Singh any my POSTAL CARRIER. Care plan developed with my supervision; agree with above. 71 y/o made direct admit to [facility] due to increased creatinine. Has Cirrhosis, CHF , and CKD. Recently hospitalized due to Leukocytosis with elevated Lactate - no definitive source of infection found. Creatinine 1.9 at discharge. Diuretics started several days prior to discharge. Since left hospital, notes did okay for about 2-3 days, then declined in function (more weak). Appetite decreased- more nausea and little oral drive. Notes stools loose and frequent. Some increased girth to abdomen. Not having increasing SOA or cough. Not having chest pressure or pain. Urine output decreased. Denies pain with swallowing or problems with food/meds catching in throat. Lungs: decreased CV: regular AB: soft distended but not tight, BS decreased. No tenderness or rebound, EXT: +2 to 3 Edema of ankles and distal leg. HEENT: MM dry MSE: awake alert Plan: OBS. IVF for hydration. Renal US due to [place]. Medeiros placement due to [place]. Hold diuretics. Speech eval due to dysphagia. Start Phoslo due to hyperphosphatemia. Hold Magnesium. Check GI panel due to loose stools (was on Lactulose). monitor lab. SCD to help decrease LE edema. DVT Prophylaxis: SCD'S, Coumadin SOLIS CRANE APRN Jan 06, 2017 13:08 CUAUHTEMOC FORRESTER MD Jan 06, 2017 14:35
[2017-01-06 13:34] LABS: WBC,URINE 0-1 /HPF (0-5)
[2017-01-06 13:35] LABS: BACTERIA,URINE 1+ (NEGATIVE); RBC,URINE 0-1 /HPF (0-3); SQUAMOUS EPITHELIAL CELL,UR 0-5
--- NOTE | 2017-01-06 13:53 | DI ---
Indication: ITS.REASON: Acute kidney injury PROCEDURE: CHEST 1 VIEW: Encounter: Initial Comparison: December 27, 2016 Findings: New small bilateral pleural effusions with hypoinflation and lower lobe airspace opacities. No pneumothorax. Heart size is stable. Left cardiac pacemaker defibrillator. Multiple overlying monitoring leads. Pulmonary vascularity appears mildly congested. Impression: Hypoinflation with new small pleural effusions could relate to mild pulmonary edema or volume overload. .
--- NOTE | 2017-01-06 15:03 | DI ---
Indication: ITS.REASON: [place] PROCEDURE: US RENAL: Encounter: Initial Comparison: CT abdomen and pelvis dated November 20, 2016 Technique: Grayscale and color Doppler sonographic imaging of both kidneys was performed. FINDINGS: Both kidneys are present with moderate cortical thinning and normal echogenicity. No evidence for collecting system dilatation, contour deforming mass, nephrolithiasis, or abnormal perinephric fluid collection. The right kidney measures 8.6 cm in length, and the left kidney measures 9.4 cm in length. Moderate volume ascites. IMPRESSION: No hydronephrosis. Renal cortical loss suggesting medical renal disease. .
[2017-01-06] MEDS: MIDODRINE 5 MG TABLET PO SCH ×2 (15:19→20:50)
--- NOTE | 2017-01-06 15:28 | STEVAL ---
Eval Subjective and History Date/Time of Eval DATE: 01/06/17 TIME: 15:10 Medical Diagnosis chronic kidney disease, leukocytosis dysphagia (R13.12) Treatment Order: Assessment Orientations: Person, Place Primary Complaint: chronic cough, dysphagia Pain: No Date of Onset of Primary Com: 01/06/17 Prior History of This Problem: Yes (hx of dysphagia and chronic cough) Patient's Goals: Pt would like to get voice stronger and go home by himself. Significant Past Medical Hx: Pt was recently hospitalizized for severe sepsis, and UTI. PMH: systomlic heart failure, ischemic cardiomyopathy, a-fib, HTN, dylsipidemia, PAD, stage iii chronic kidney disease, type II diabetes, cirrhosi, BPH, adenoma of left adrenal gland, chronic trigonitis, deperssion , OA, psoriasis, hx of alcohol use, hypothyroidism and GERD. Medical History Form Reviewed: Yes Residence Type: Custodial, Hospice ([place]) Lives With: Prior Functional Status: Pt was on dysphagia soft diet with chopped meat and nectar thick liquids. Current Functional Status: Continued aspiration risk, need soft diet/chopped meat and nectar thick liquids. Education Subject: Diet, Disease/diagnosis process Person(s) Educated: Patient Instruction Understanding Demo: Pt. verbalizes understand (reported that he did not like thickened liquids but would comply with recommendation) Education Comment HUMAN RESOURCES COMPENSATION ANALYST educated patient on reasoning for evaluation. Patient was agreeable to evaluation. Subjective and History Comment: Pt was alert and cooperative during eval. Dysphagia Evaluation Evaluation Location: Bed Evaluation Angle: 90 Tongue Elevation: No Impairment (WFL) Tongue Lateralization: No Impairment (WFL) Tongue Protrusion: No Impairment (WFL) Tongue Retraction: No Impairment (WFL) Tongue Extension Midline: No Impairment (WFL) Labial Approximation: No Impairment (WFL) Intraoral Air Pressure: No Impairment (WFL) Volitional Cough: Mild Impairment (hoarse) Palatal Elevation: Minimal Impairment Larynx Elevation During Swallo: Mild Impairment Saliva Control: No Impairment (WFL) Dentition: Dentures Oral Peripheral Exam Comment: Mild to minimal reduction in coughing, palatal and laryngeal elevation. Voice was hoarse and cough weak. Labial and lingual range was within normal limits. Lip Seal: Adequate-liquid, Adequate-pudding, Adequate-solid Lingual Manipulation: Adequate-liquid, Adequate-pudding, Adequate-solid Chewing: Adequate-solid Oral cavity clear post swallow: Adequate-liquid, Adequate-pudding, Adequate- solid Swallow initiated w/o delay: Adequate-liquid, Adequate-pudding, Adequate-solid Multiple swallows not needed: Inadequate-liquid (secondary swallow needed after thin water), Adequate-pudding, Adequate-solid Voice clear&dry post swallow: Inadequate-liquid (ok on nectar thick), Adequate- pudding, Adequate-solid No cough/throat clear: Inadequate-liquid (thin, nectar ok), Adequate-pudding, Adequate-solid Assessment/Plan of Care Speech Therapy Impressions: Pt demonstrated hoarse, weak voicing and reduced palatal and laryngeal elevation. Cough noted following thin water sips. No s/s of aspiration was seen on nectar, pudding and soft solids. Square Shear Operator Goal: Pt will maintain nutrition and hydration of the least restrictive diet while demonstrating no s/s of aspiration for 3 consecutive trials. Short Term Goal: Pt will consume a dysphagia diet with chopped meat and nectar thick liquids without outward signs of aspiration at bedside in 3/3 trials. Pt may have sips of thin water with supervision. Pt will demonstrate 3/3 components necessary for a safe swallow as listed from the following small sips, slow rate and alternating solids/liquids. Pt will implement compensatory feeding strategies in 3.3 of feeding trials/ meals with minimal cues to aid recall. ST Treatment Plan: Swallow Retraining, Swallow Precautions, Modified Diet ST Treatment Plan Frequency: three times per week Treatment Plan Duration: one week Plan of Care Comment swallow retraining Recommended Diet: Dysphagia diet/chopped meat and nectar thick liquids May have sips of thin water with supervision Date of Visit 01/06/17 Time Visit Began: 15:00 Time Visit Ended: 15:30 ST Assess/Plan of Care: ST Treatment Charge: Swallow Eval Minutes of Individual Therapy: 30 GCODE Swallowing: G8996 - current Severity Modifier: CJ - 20-39% Swallowing: G8997 - goal Severity Modifier: CI - 1-19% DONNIE WOLFE MS CCC-HUMAN RESOURCES COMPENSATION ANALYST Jan 06, 2017 15:13
[2017-01-06 15:44] VITALS: BP 118/58; PULSE 87; RESP 18; TEMP 97.7; O2SAT 96
[2017-01-06] MEDS: CALCIUM ACETATE 667 MG CAPSULE PO SCH (17:21)
[2017-01-06] MEDS: NORMAL SALINE 1,000 ML IV SCH (17:21)
[2017-01-06] MEDS: ONDANSETRON 4mg/2ml INJECTION IV PRN (18:01)
--- NOTE | 2017-01-06 18:31 | NUR ---
admit Pt to room at 1130 via WC. Ambulated with 1-2x assist, he has hard time getting up from bed. V/S taken and stable on RA. HX taken, IV site started with fluids. N.O. for londono to started, UA taken and now DD with low output. Pt having diarrhea, stated has been for couple days. Pt denies pain at this time. After trying dinner, pt having N/V, PRN zofran given.
[2017-01-06] MEDS: INSULIN DETEMIR 100 UNIT/ML SQ SCH (21:10)
[2017-01-06 23:51] VITALS: BP 135/69; PULSE 84; RESP 18; TEMP 97.6; O2SAT 94
[2017-01-07] MEDS: NORMAL SALINE 1,000 ML IV SCH ×4 (02:16→22:38)
[2017-01-07 05:18] LABS: HCT - HEMATOCRIT 37.3 % (41-53); HGB - HEMOGLOBIN 12.9 GM/DL (13.5-17.5); MEAN CORPUSCULAR HGB 30.1 UUG (26-34); MEAN CORPUSCULAR HGB CONC(MCHC 34.6 GM/DL (31-37); MEAN CORPUSCULAR VOLUME 87.1 UM3 (80-100); MEAN PLATELET VOLUME 9.7 UM3 (9.4-12.4); RED BLOOD COUNT 4.28 M/MM3 (4.50-5.90); WBC - WHITE BLOOD COUNT 16.8 T/MM3 (4.5-11.0)
[2017-01-07 05:22] LABS: ALBUMIN 2.3 G/DL (3.5-5.0); ALBUMIN/GLOBULIN RATIO 0.7 RATIO (1.1-2.2); ALKALINE PHOSPHATASE 213 U/L (38-126); ALT (SGPT) 57 U/L (21-72); ANION GAP 13 MEQ/L (5-15); AST (SGOT) 108 U/L (17-59); BUN/CREATININE RATIO 14 RATIO (6-26); CALCIUM 8.4 MG/DL (8.4-10.2); CHLORIDE 106 MEQ/L (98-107); CO2 - CARBON DIOXIDE 20 MEQ/L (22-30); GLOMERULAR FILTRATION RATE 11; GLUCOSE 83 MG/DL (75-110); MAGNESIUM 2.3 MG/DL (1.6-2.3); PHOSPHORUS 6.1 MG/DL (2.5-4.5); POTASSIUM 4.3 MEQ/L (3.6-5); SODIUM 139 MEQ/L (134-144); TOTAL PROTEIN 5.7 G/DL (6.3-8.2)
[2017-01-07 05:37] LABS: INR 2.18 (0.76-1.04); PROTHROMBIN TIME 23.8 SEC (9.31-12.49)
[2017-01-07] MEDS: CIPROFLOXACIN 500 MG TABLET PO SCH (06:11)
[2017-01-07] MEDS: LEVOTHYROXINE 100 MCG TABLET PO SCH (06:11)
[2017-01-07 06:12] LABS: BAND NEUTROPHILS # 0.2 T/MM3; BASOPHILS # (MANUAL) 0.2 T/MM3 (0-0.2); EOSINOPHILS # (MANUAL) 0.2 T/MM3 (0-0.5); LYMPHOCYTES # (MANUAL) 1.2 T/MM3 (1-4.8); NEUTROPHILS #(MANUAL)-ABSOLUTE 15.1 T/MM3 (1.8-7.7); TOTAL CELLS COUNTED 100 %
[2017-01-07] MEDS ORDERED: PNEUMOCOCCAL VAC. ADMIN. CHARGE INJ ONE (06:37)
--- NOTE | 2017-01-07 06:40 | NUR ---
SUMMARY PT SLEPT WELL THIS SHIFT. PT IS ALERT AND ORIENTED BUT NEED REINFORCEMENT AT TIMES. DENIED ANY PAIN THIS SHIFT. SCD'S IN PLACE. PT HAS BEEN DRINKING THICK LIQUIDS WITH NO DISCOMFORT. CONTINUES HAVING HACKING DRY COUGH. PT WAS EDUCATED DOUGHNUT BATTER MIXER LIGHT USE AND PT SAFETY.
[2017-01-07 07:17] VITALS: BP 117/63; PULSE 85; RESP 16; TEMP 97.6; O2SAT 94
[2017-01-07 07:21] VITALS: PULSE 85; RESP 16
[2017-01-07 07:50] VITALS: PULSE 85; RESP 16
[2017-01-07] MEDS: CALCIUM ACETATE 667 MG CAPSULE PO SCH ×3 (08:59→18:54)
[2017-01-07] MEDS: FLUOXETINE 20 MG CAPSULE PO SCH (09:01)
[2017-01-07] MEDS: FOLIC ACID 1 MG TABLET PO SCH (09:01)
[2017-01-07] MEDS: MIDODRINE 5 MG TABLET PO SCH ×3 (09:02→20:31)
[2017-01-07] MEDS: BuPROPion XL (24 HR) 300 MG TABLET PO SCH (09:02)
[2017-01-07] MEDS: PANTOPRAZOLE 40mg INJECTION IV SCH ×2 (09:03→20:31)
--- NOTE | 2017-01-07 10:23 | NUR ---
CM LACE SCORE IS 7. MONITOR FOR CHANGES, I.E. CHANGE IN STATUS. Addendum: 01/07/17 at 1023 by LUI HAUSER Amended: Links added.
--- NOTE | 2017-01-07 11:09 | NUR ---
CM SPOKE WITH PT. INTRODUCED SELF, EXPLAINED ROLE, PROVIDED CONTACT INFO. PT SAID HE IS TEMPORARILY STAYING AT [facility] UNTIL HE CAN RETURN HOME ALONE. HE WAS AGREEABLE TO RETURNING BACK TO [facility]. HE GAVE PERMISSION TO OPEN THE PORTAL AND TO CONTACT FOR DC PLANNING. LEFT MESSAGE WITH AMMY AT . OPENED PORTAL. Addendum: 01/07/17 at 1117 by LUI HAUSER Amended: Links added. Addendum: 01/07/17 at 1128 by LUI HAUSER ALSO LEFT MESSAGE WITH KEARA PUGA.
--- NOTE | 2017-01-07 11:18 | STDAILYN ---
ST Daily Note Date/Time DATE: 01/07/17 TIME: 11:11 Subjective Comment The patient was sleeping, but easily awakened when alerted. He was positioned upright in bed and he was agreeable to tx. Pt's dentures were in place during this tx session. Orientations: Person, Alert, Cooperative, Motivated Chief Complaint: acute kidney injury Pain: No (none reported and no s/s pain) Was Patient Education Provided: Yes Person(s) Educated: Patient Education Subject: Diet, Treatment Plan Instruction Understanding Demo: Pt. verbalizes understand *Speech Therapy Impressions Pt was on a dysphagia diet with chopped meat and nectar-thick liquids prior to this tx session. After upright positioning, the pt was given teaspoon trials of water. Hyolaryngeal elevation was noted and there were no clinical s/s aspiration. Next, the pt took single swallows of thin liquids by straw. There was an immediate reactive cough after the swallow. Next, the patient took several trials of nectar-thick juice by cup, followed by bites of pudding and bites of soft solid. Hyolaryngeal elevation was present with every trial. There were no clinical s/s aspiration with any of these consistencies. Finally , additional trials of single sips of thin liquid were presented by cup. With limited bolus size and cup presentation, there were no clinical s/s aspiration with thin. Based on this tx session, the following recommendations are made: 1. continue dysphagia diet with chopped meat and nectar-thick liquids. 2. pt may continue to sips of thin water by cup with supervision 3. no straws with thin liquids 4. pt should by upright to 90 degrees for all eating and drinking. ST Treatment Plan Frequency: three times per week Treatment Plan Duration: one week Plan of Care Comment: ST will continue to follow per plan of care. Start Treatment 1: 10:35 Stop Treatment 1: 10:50 Treatment Duration : ST Treatment Charge: Swallow Treatment Minutes of Individual Therapy: 15 NAZ RUBIO MS CCC-SOLUTION DEVELOPER Jan 07, 2017 11:17
[2017-01-07] MEDS ORDERED: PNEUMOCOCCAL 13 VACCINE 0.5 ML SYRINGE IM ONE (12:30)
[2017-01-07] MEDS ORDERED: ALBUMIN HUMAN 25% 12.5gm 50ml IV ONE (13:45)
--- NOTE | 2017-01-07 14:01 | PNPDOC ---
Subjective Date DATE: 01/07/17 TIME: 13:48 Subjective F/U: DAK[place], Cirrhosis, CHF Doing about the same. Breathing feels stable-not having increased SOA. Notes ab feels more distended and full. No nausea. Mouth feels dry. No chest pressure or pain. Not having f/c. Tolerating londono. Objective Vital Signs Vital signs Vital Signs Date Time Temp Pulse Resp B/P Pulse Ox O2 Delivery O2 Flow Rate FiO2 01/07/17 07:50 85 16 01/07/17 07:17 97.6 117/63 94 Room Air Height (Feet): 5 Height (Inches): 7.00 Weight (Kilograms): 86.100 General General Appearance: Alert, Overweight, Well Nourished, Well Developed, Looks Stated Age Eyes (Brief) Eyes: FOUND: EOMI, PERRL, NOT FOUND: scleral icterus ENMT (Brief) ENMT: FOUND: hearing intact, NOT FOUND: mucosa moist (Dry ) Neck (Brief) Neck: FOUND: midline, NOT FOUND: nuchal rigidity, spasm Respiratory (Brief) Respiratory: FOUND: clear all wallace (Upper airway noises ), equal bilaterally , NOT FOUND: rales, wheezes Cardiovascular (Brief) Cardiac: FOUND: pedal edema (+1 ), regular rate, regular rhythm Abdomen (Brief) Abdominal: FOUND: BS normo active x4, distended (Ascites ), soft, NOT FOUND: tender (Brief) Male: FOUND: other (Londono ) Extremities (Brief) Extremity : Side: Bilateral Extremity: leg Extremity Finding: FOUND: edema (+1 ), other (SCD ) Musculoskeletal (Brief) Musculoskeletal: FOUND: extremities move equally, NOT FOUND: deformity, spasm Integumentary (Brief) Integumentary: FOUND: dry, warm Neurologic (Brief) Neurological: FOUND: cranial 2-12 intact, motor (Intact ) Psychiatric (Brief) Psychiatric: FOUND: alert, attentive, normal affect Laboratory Laboratory Laboratory Tests 01/06/17 12:02 01/07/17 04:41 Laboratory Tests 01/06/17 12:02 01/07/17 04:41 Assessment & Plan Problems: (1) Acute kidney injury Status: Acute Assessment & Plan: POA (2) Leukocytosis Status: Acute (3) Hyperphosphatemia Status: Acute Assessment & Plan: POA (4) Hypermagnesemia Status: Acute Assessment & Plan: POA (5) Cirrhosis Status: Chronic (6) Type 2 diabetes mellitus Status: Chronic Qualifiers: Diabetes mellitus complication status: with unspecified complications Diabetes mellitus director long term care insulin use: with alf use Qualified Codes: E11.8 - Type 2 diabetes mellitus with unspecified complications; Z79.4 - skilled nursing (current) use of insulin (7) CAD (coronary artery disease) Status: Chronic Qualifiers: [place] vs. transplanted heart: [place] heart Associated angina: without angina (8) PAD (peripheral artery disease) Status: Chronic (9) HTN (hypertension) Status: Chronic Qualifiers: Hypertension type: essential hypertension Qualified Codes: I10 - Essential (primary) hypertension (10) Episodic atrial fibrillation Status: Resolved (11) Anticoagulated on Coumadin Status: Chronic (12) Dyslipidemia Status: Chronic (13) Ischemic cardiomyopathy Status: Chronic (14) Intermittent claudication Status: Chronic (15) AICD (automatic cardioverter/defibrillator) present Status: Chronic (16) Aortic valve sclerosis Status: Chronic (17) Chronic kidney disease Status: Chronic Qualifiers: Chronic kidney disease stage: stage 3 (moderate) Qualified Codes: N18.3 - Chronic kidney disease, stage 3 (moderate) (18) Recovering alcoholic Status: Chronic (19) Bladder neck contracture Status: Chronic (20) 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 (21) Polio Status: Chronic (22) Allergic rhinitis Status: Chronic (23) Psoriasis Status: Chronic (24) Chronic trigonitis Status: Chronic (25) Depression Status: Chronic Qualifiers: Depression Type: unspecified Qualified Codes: F32.9 - Major depressive disorder, single episode, unspecified (26) BPH (benign prostatic hypertrophy) Status: Chronic (27) Hypothyroidism Status: Chronic Qualifiers: Hypothyroidism type: acquired Qualified Codes: E03.9 - Hypothyroidism, unspecified (28) Dysphagia Status: Chronic (29) GERD (gastroesophageal reflux disease) Status: Chronic (30) Overweight (BMI 25.0-29.9) Status: Chronic Plan/Intensity of Service Will decrease IVF to 100cc/hr. Albumen 25g IV x1 - Bumex 1mg IV 1 hours after to try to help increase urine output. Continue Londono - need to monitor urine output. Monitor weight and volume status. Encourage ambulation and activities. Discussed his multisystem failure (Heart/Liver/Kidney) - very difficult to make improvements. Prognosis not favorable. Recheck CMP, Mg, and Phos in am due to D[place]. Recheck CBC in am due to leukocytosis. Case discussed with CM. Time spent with patient care 35 minutes. DVT Prophylaxis: SCD'S, Coumadin Code Status Full Code, unverified Hospital Course Summary Disclaimer The hospital course summary below is not to be considered part of the above Progress Note. Hospital Course Summary 01/06 Admit patient as a outpatient under the care of Dr Forrester for acute kidney injury Obtain the following laboratory studies on admission, CBC, CMP, urinalysis, INR , ammonia, magnesium, phosphorus Given acute kidney injury. Will place Londono catheter to dependent drainage. The patient does report some urinary retention. Obtain a renal sonogram for further evaluation In light of recent diarrhea will obtain a GI Panel to rule out infectious etiology. Concern for C-diff given he has been on antibiotics. Start normal saline at 250 ML per hour for hydration. Will need to discuss antimicrobial coverage with attending, as patient was on Cipro for residential prophylaxis for spontaneous bacterial peritonitis. C/S from was negative. Protonix 40 milligrams twice a day for GI protection. SCDs to bilateral lower extremity for DVT prophylaxis. Will monitor Accu-Cheks closely. Will need to review home once reconciled. Woll discuss further plan of care with attending Dr. Forrester. At time of discharge medical care will return to primary care provider, . 01/07 Doing about the same. Breathing feels stable-not having increased SOA. Notes ab feels more distended and full. No nausea. Mouth feels dry. No chest pressure or pain. Not having f/c. Tolerating londono. Creatinine 5.0. Will decrease IVF to 100cc/hr. Albumen 25g IV x1 - Bumex 1mg IV 1 hours after to try to help increase urine output. Continue Londono - need to monitor urine output. Monitor weight and volume status. Encourage ambulation and activities. Discussed his multisystem failure (Heart/Liver/Kidney) - very difficult to make improvements. Prognosis not favorable. Recheck CMP, Mg, and Phos in am due to D[place]. Recheck CBC in am due to leukocytosis. CUAUHTEMOC FORRESTER MD Jan 07, 2017 13:51
[2017-01-07] MEDS ORDERED: BUMETANIDE 1 MG/4 ML INJECTION IV ONE (14:45)
[2017-01-07 15:09] VITALS: BP 100/55; PULSE 82; RESP 18; TEMP 96.1; O2SAT 94
--- NOTE | 2017-01-07 15:41 | NUR ---
DM screen Diet: Dysphagia, chopped meat; NT liquid; Insulin: Levemir 10 units HS; Humalog 3 units with meals. Pt will return to [place], where his DM cares are provided for him. DM screen is deferred at this time.
--- NOTE | 2017-01-07 15:54 | NUR ---
JEIMY VOICEMAIL FROM [facility] WITH ALVARO JIMÉNEZ; SHE SAID PT WAS THERE SKILLED AND CAN RETURN.
[2017-01-07 16:02] VITALS: BP 105/61
--- NOTE | 2017-01-07 19:18 | NUR ---
SHIFT SUMMARY VSS. RA. ORIENTED TO PERSON ONLY. DENIES PAIN. VERY LOW URINE OUTPUT IN DICKERSON CATHETER. NS INFUSING AT 100CC/HR. BM TODAY. AMBULATED IN HALLWAY ONCE TODAY. UP TO CHAIR FOR BREAKFAST AND DINNER. BED AND CHAIR ALARMS IN USE. REQUIRES X2 ASSIST TO TRANSFER AND AMBULATE.
[2017-01-07] MEDS: INSULIN DETEMIR 100 UNIT/ML SQ SCH (21:34)
[2017-01-07 23:14] VITALS: BP 105/56; PULSE 84; RESP 16; TEMP 97.8; O2SAT 94
[2017-01-07] MEDS: ONDANSETRON 4mg/2ml INJECTION IV PRN (23:19)
--- NOTE | 2017-01-07 23:20 | NUR ---
PRN PT WAS GIVEN ZOFRAN FOR NAUSEA WITH NO VOMITING. WILL CONTINUE TO MONITOR.
[2017-01-08 05:28] LABS: HCT - HEMATOCRIT 38.3 % (41-53); HGB - HEMOGLOBIN 13.2 GM/DL (13.5-17.5); MEAN CORPUSCULAR HGB 30.3 UUG (26-34); MEAN CORPUSCULAR HGB CONC(MCHC 34.5 GM/DL (31-37); MEAN PLATELET VOLUME 10.4 UM3 (9.4-12.4); RED BLOOD COUNT 4.35 M/MM3 (4.50-5.90); WBC - WHITE BLOOD COUNT 17.6 T/MM3 (4.5-11.0)
[2017-01-08 05:33] LABS: INR 2.26 (0.76-1.04); PROTHROMBIN TIME 24.6 SEC (9.31-12.49)
[2017-01-08 05:35] LABS: ALBUMIN 2.8 G/DL (3.5-5.0); ALBUMIN/GLOBULIN RATIO 0.8 RATIO (1.1-2.2); ALKALINE PHOSPHATASE 203 U/L (38-126); ALT (SGPT) 59 U/L (21-72); ANION GAP 16 MEQ/L (5-15); AST (SGOT) 115 U/L (17-59); BUN/CREATININE RATIO 14 RATIO (6-26); CHLORIDE 107 MEQ/L (98-107); CO2 - CARBON DIOXIDE 19 MEQ/L (22-30); CREATININE 5.1 MG/DL (0.8-1.5); GLOMERULAR FILTRATION RATE 11; GLUCOSE 88 MG/DL (75-110); MAGNESIUM 2.3 MG/DL (1.6-2.3); PHOSPHORUS 5.7 MG/DL (2.5-4.5); POTASSIUM 4.6 MEQ/L (3.6-5); SODIUM 142 MEQ/L (134-144); TOTAL PROTEIN 6.3 G/DL (6.3-8.2)
[2017-01-08] MEDS: LEVOTHYROXINE 100 MCG TABLET PO SCH (05:56)
[2017-01-08] MEDS: CIPROFLOXACIN 500 MG TABLET PO SCH (05:56)
[2017-01-08 06:17] LABS: BAND NEUTROPHILS # 0.4 T/MM3; EOSINOPHILS # (MANUAL) 0.9 T/MM3 (0-0.5); LYMPHOCYTES # (MANUAL) 1.1 T/MM3 (1-4.8); MONOCYTES # (MANUAL) 0.7 T/MM3 (0-0.8); NEUTROPHILS #(MANUAL)-ABSOLUTE 14.6 T/MM3 (1.8-7.7); TOTAL CELLS COUNTED 100 %
--- NOTE | 2017-01-08 07:11 | NUR ---
SUMMARY PT SLEPT WELL THIS SHIFT. ALERT WITH CONFUSION. DENIED ANY PAIN. CONTINUE HAVING HACKING COUGH. ZOFRAN WAS GIVEN ONE TIME THIS SHIFT. DICKERSON INTACT ON DEPENDENT DRAINAGE. PT ABDOMEN DISTENDED. DENIED ANY PAIN.
[2017-01-08 08:08] VITALS: BP 100/64; PULSE 86; RESP 18; TEMP 97.7; O2SAT 96
[2017-01-08] MEDS: FLUOXETINE 20 MG CAPSULE PO SCH (08:40)
[2017-01-08] MEDS: BuPROPion XL (24 HR) 300 MG TABLET PO SCH (08:40)
[2017-01-08] MEDS: MIDODRINE 5 MG TABLET PO SCH ×3 (08:40→20:41)
[2017-01-08] MEDS: CALCIUM ACETATE 667 MG CAPSULE PO SCH ×3 (08:40→17:11)
[2017-01-08] MEDS: FOLIC ACID 1 MG TABLET PO SCH (08:40)
[2017-01-08] MEDS: PANTOPRAZOLE 40mg INJECTION IV SCH ×2 (08:40→20:49)
[2017-01-08] MEDS: NORMAL SALINE 1,000 ML IV SCH ×3 (10:00→20:42)
[2017-01-08] MEDS ORDERED: OCTREOTIDE 200 MCG/ML IV SCH (10:15)
--- NOTE | 2017-01-08 11:00 | NUR ---
EMESIS PT REPORTS HE VOMITED UP THE PARTIAL JELLO AND YOGURT FROM BREAKFAST IN THE TRASH. DENIES NAUSEA NOW.
--- NOTE | 2017-01-08 14:55 | PNPDOC ---
Subjective Date DATE: 01/08/17 TIME: 14:41 Subjective F/U: [place], Cirrhosis, CHF More weak and tired. Harder to be active. Nausea with emesis this am. Appetite decreased. Ab feel more full and bloated. Increased ab girth. Not passing flatus. Some SOA. No chest pain. Feels itchy. Objective Vital Signs Vital signs Vital Signs Date Time Temp Pulse Resp B/P Pulse Ox O2 Delivery O2 Flow Rate FiO2 01/08/17 08:08 97.7 86 18 100/64 96 Room Air Height (Feet): 5 Height (Inches): 7.00 Weight (Kilograms): 87.700 General General Appearance: Alert, Obese, Well Nourished, Well Developed, Looks Stated Age Eyes (Brief) Eyes: FOUND: EOMI, PERRL, NOT FOUND: scleral icterus ENMT (Brief) ENMT: FOUND: hearing intact, mucosa moist Neck (Brief) Neck: FOUND: midline, NOT FOUND: nuchal rigidity, spasm Respiratory (Brief) Respiratory: NOT FOUND: clear all wallace (Faint right crackles. ) Cardiovascular (Brief) Cardiac: FOUND: pedal edema (+2), regular rate, regular rhythm Abdomen (Brief) Abdominal: FOUND: BS normo active x4, distended (Acities), soft, NOT FOUND: tender (Brief) Male: FOUND: other (Londono ) Extremities (Brief) Extremity : Side: Bilateral Extremity: leg Extremity Finding: FOUND: edema (+2) Musculoskeletal (Brief) Musculoskeletal: FOUND: extremities move equally, NOT FOUND: deformity, spasm Integumentary (Brief) Integumentary: FOUND: dry, warm Neurologic (Brief) Neurological: FOUND: cranial 2-12 intact, motor (intact ) Psychiatric (Brief) Psychiatric: FOUND: alert, normal affect Laboratory Laboratory Laboratory Tests 01/07/17 04:41 01/08/17 04:34 Laboratory Tests 01/07/17 04:41 01/08/17 04:34 Assessment & Plan Problems: (1) Acute kidney injury Status: Acute Assessment & Plan: POA (2) Leukocytosis Status: Acute (3) Hyperphosphatemia Status: Acute Assessment & Plan: POA (4) Hypermagnesemia Status: Acute Assessment & Plan: POA (5) Cirrhosis Status: Chronic (6) Type 2 diabetes mellitus Status: Chronic Qualifiers: Diabetes mellitus complication status: with unspecified complications Diabetes mellitus detention insulin use: with terminal gauger supervisor use Qualified Codes: E11.8 - Type 2 diabetes mellitus with unspecified complications; Z79.4 - watermaster (current) use of insulin (7) CAD (coronary artery disease) Status: Chronic Qualifiers: [place] vs. transplanted heart: [place] heart Associated angina: without angina (8) PAD (peripheral artery disease) Status: Chronic (9) HTN (hypertension) Status: Chronic Qualifiers: Hypertension type: essential hypertension Qualified Codes: I10 - Essential (primary) hypertension (10) Episodic atrial fibrillation Status: Resolved (11) Anticoagulated on Coumadin Status: Chronic (12) Dyslipidemia Status: Chronic (13) Ischemic cardiomyopathy Status: Chronic (14) Intermittent claudication Status: Chronic (15) AICD (automatic cardioverter/defibrillator) present Status: Chronic (16) Aortic valve sclerosis Status: Chronic (17) Chronic kidney disease Status: Chronic Qualifiers: Chronic kidney disease stage: stage 3 (moderate) Qualified Codes: N18.3 - Chronic kidney disease, stage 3 (moderate) (18) Recovering alcoholic Status: Chronic (19) Bladder neck contracture Status: Chronic (20) 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 (21) Polio Status: Chronic (22) Allergic rhinitis Status: Chronic (23) Psoriasis Status: Chronic (24) Chronic trigonitis Status: Chronic (25) Depression Status: Chronic Qualifiers: Depression Type: unspecified Qualified Codes: F32.9 - Major depressive disorder, single episode, unspecified (26) BPH (benign prostatic hypertrophy) Status: Chronic (27) Hypothyroidism Status: Chronic Qualifiers: Hypothyroidism type: acquired Qualified Codes: E03.9 - Hypothyroidism, unspecified (28) Dysphagia Status: Chronic (29) GERD (gastroesophageal reflux disease) Status: Chronic (30) Overweight (BMI 25.0-29.9) Status: Chronic Plan/Intensity of Service Will decrease IVF to 50cc/hr. Start Octreotide 200mcg IV q8 hours. Start Lactulose TID - decreased bowel movements. Continue to hold Coumadin - INR 2.26. Continue Londono - need to monitor urine output. Monitor weight and volume status. Encourage ambulation and activities. Recheck CMP, Mg, and Phos in am due to DAK[place]. Check NH4 in am due to cirrhosis. Recheck CBC in am due to leukocytosis. Case discussed with CM. Time spent with patient care 35 minutes. DVT Prophylaxis: SCD'S, Coumadin Code Status Full Code, unverified Hospital Course Summary Disclaimer The hospital course summary below is not to be considered part of the above Progress Note. Hospital Course Summary 01/06 Admit patient as a outpatient under the care of Dr Forrester for acute kidney injury Obtain the following laboratory studies on admission, CBC, CMP, urinalysis, INR , ammonia, magnesium, phosphorus Given acute kidney injury. Will place Londono catheter to dependent drainage. The patient does report some urinary retention. Obtain a renal sonogram for further evaluation In light of recent diarrhea will obtain a GI Panel to rule out infectious etiology. Concern for C-diff given he has been on antibiotics. Start normal saline at 250 ML per hour for hydration. Will need to discuss antimicrobial coverage with attending, as patient was on Cipro for retirement prophylaxis for spontaneous bacterial peritonitis. C/S from was negative. Protonix 40 milligrams twice a day for GI protection. SCDs to bilateral lower extremity for DVT prophylaxis. Will monitor Accu-Cheks closely. Will need to review home once reconciled. Woll discuss further plan of care with attending Dr. Forrester. At time of discharge medical care will return to primary care provider, . 01/07 Doing about the same. Breathing feels stable-not having increased SOA. Notes ab feels more distended and full. No nausea. Mouth feels dry. No chest pressure or pain. Not having f/c. Tolerating londono. Creatinine 5.0. Will decrease IVF to 100cc/hr. Albumen 25g IV x1 - Bumex 1mg IV 1 hour after to try to help increase urine output. Continue Londono - need to monitor urine output. Monitor weight and volume status. Encourage ambulation and activities. Discussed his multisystem failure (Heart/Liver/Kidney) - very difficult to make improvements. Prognosis not favorable. Recheck CMP, Mg, and Phos in am due to [place]. Recheck CBC in am due to leukocytosis. 01/08 More weak and tired. Harder to be active. Nausea with emesis this am. Appetite decreased. Ab feel more full and bloated. Increased ab girth. Not passing flatus. Some SOA. No chest pain. Feels itchy. Creatinine 5.1. Will decrease IVF to 50cc/hr. Start Octreotide 200mcg IV q8 hours. Start Lactulose TID - decreased bowel movements. Continue to hold Coumadin - INR 2.26. Continue Londono - need to monitor urine output. Monitor weight and volume status. Encourage ambulation and activities. Recheck CMP, Mg, and Phos in am due to D[place]. Check NH4 in am due to cirrhosis. Recheck CBC in am due to leukocytosis. CUAUHTEMOC FORRESTER MD Jan 08, 2017 14:44
[2017-01-08 15:39] VITALS: BP 111/63; PULSE 82; RESP 18; TEMP 97.9; O2SAT 92
[2017-01-08] MEDS: LACTULOSE 20 GM/30 ML UD PO SCH ×2 (15:50→20:41)
--- NOTE | 2017-01-08 17:58 | NUR ---
STATUS PT IS A&OX3. SPEECH IS MUMBLED AND PATIENT HAS A HAD TIME GETTING WHAT HE WANTS TO SAY OUT. PT IS ON RA. CALLS FOR NEEDS. WAS IN THE CHAIR FOR MEALS. PT IS UNSTEADY, UP WITH 2 ASSISTS, WALKER AND GAIT BELT. PT REPORTS ABDOMINAL TENDERNESS BUT IS WITHOUT PAIN. BGM BEFORE SUPPER WAS LOWER CHARTED, OJ WAS GIVEN UNTIL SUPPER, PT IS NOW SITTING UP EATING HIS [place]ONI AND CHEESE AND HAVING ANOTHER OJ. PT HAS A COUGH. ALARMS IN USE.
[2017-01-08] MEDS: OCTREOTIDE 200 MCG/ML IV SCH (20:49)
[2017-01-08] MEDS: ONDANSETRON 4mg/2ml INJECTION IV PRN (21:07)
[2017-01-08] MEDS: INSULIN DETEMIR 100 UNIT/ML SQ SCH (21:51)
--- NOTE | 2017-01-08 23:34 | NUR ---
PRN PT WAS GIVEN ZOFRAN FOR NAUSEA WITH EMESIS. PT CONTINUES TO HAVE HACKING COUGH. WILL CONTINUE TO MONITOR.
[2017-01-09] VITALS (7 sets, daily range): BP systolic 105–110; BP diastolic 50–56; PULSE 81–95; RESP 18–24; TEMP 98–98.1; O2SAT 89–95
[2017-01-09] MEDS: NYSTATIN POWDER 15gm BOTTLE TOP PRN ×2 (04:43→12:04)
[2017-01-09] MEDS: OCTREOTIDE 200 MCG/ML IV SCH (04:44)
--- NOTE | 2017-01-09 05:34 | NUR ---
SUMMARY. PT SLEPT ON AND OFF THIS SHIFT. HE HAD X1 EMESIS AND WAS GIVEN ZOFRAN. ORAL SUCTIONING WAS DONE BY RT WHICH SEEMED TO HELP FOR SOMETIME. PT DENIED ANY PAIN. NYSTATIN ORDER WAS GOT FROM TELE DOC FOR GROIN AREA YEAST INFECTION. [place]ERSON INTACT. LOW URINE OUTPUT. PT CONTINUES ON IV FLUIDS. ABDOMEN STILL DISTENDED. BOWEL SOUNDS HYPO. HAD BM YESTERDAY.
[2017-01-09 05:43] LABS: INR 2.28 (0.76-1.04); PROTHROMBIN TIME 24.8 SEC (9.31-12.49)
[2017-01-09 05:50] LABS: HCT - HEMATOCRIT 41.4 % (41-53); HGB - HEMOGLOBIN 14.1 GM/DL (13.5-17.5); MEAN CORPUSCULAR HGB 30.1 UUG (26-34); MEAN CORPUSCULAR HGB CONC(MCHC 34.1 GM/DL (31-37); MEAN CORPUSCULAR VOLUME 88.3 UM3 (80-100); MEAN PLATELET VOLUME 10.6 UM3 (9.4-12.4); RED BLOOD COUNT 4.69 M/MM3 (4.50-5.90); WBC - WHITE BLOOD COUNT 16.7 T/MM3 (4.5-11.0)
[2017-01-09 05:52] LABS: ALBUMIN 2.8 G/DL (3.5-5.0); ALBUMIN/GLOBULIN RATIO 0.8 RATIO (1.1-2.2); ALKALINE PHOSPHATASE 202 U/L (38-126); ALT (SGPT) 63 U/L (21-72); ANION GAP 17 MEQ/L (5-15); AST (SGOT) 155 U/L (17-59); BUN/CREATININE RATIO 13 RATIO (6-26); CHLORIDE 110 MEQ/L (98-107); CO2 - CARBON DIOXIDE 17 MEQ/L (22-30); CREATININE 5.3 MG/DL (0.8-1.5); GLOMERULAR FILTRATION RATE 11; GLUCOSE 62 MG/DL (75-110); MAGNESIUM 2.3 MG/DL (1.6-2.3); PHOSPHORUS 6.3 MG/DL (2.5-4.5); POTASSIUM 5.5 MEQ/L (3.6-5); SODIUM 144 MEQ/L (134-144); TOTAL PROTEIN 6.5 G/DL (6.3-8.2)
[2017-01-09] MEDS ORDERED: D5-1/2 NS 1,000 ML IV SCH (06:00)
[2017-01-09] MEDS ORDERED: DEXTROSE 50% SYRINGE 50ml (Eq. 1 AMP) IV PRN (06:15)
[2017-01-09 06:18] LABS: BAND NEUTROPHILS # 0.7 T/MM3; BASOPHILS # (MANUAL) 0.2 T/MM3 (0-0.2); EOSINOPHILS # (MANUAL) 0.2 T/MM3 (0-0.5); LYMPHOCYTES # (MANUAL) 0.5 T/MM3 (1-4.8); MONOCYTES # (MANUAL) 0.5 T/MM3 (0-0.8); NEUTROPHILS #(MANUAL)-ABSOLUTE 14.7 T/MM3 (1.8-7.7); TOTAL CELLS COUNTED 100 %
[2017-01-09] MEDS: CIPROFLOXACIN 500 MG TABLET PO SCH (06:30)
[2017-01-09] MEDS: LEVOTHYROXINE 100 MCG TABLET PO SCH (06:30)
--- NOTE | 2017-01-09 06:56 | NUR ---
SUMMARY PT NPO PER THE TELE HOSPITALIST DUE TO POSSIBLE ASPIRATION LAST NIGHT. PT FASTING BG WAS 45. NEW ORDERS RECEIVED TO CHANGE THE IV FLUIDS AND GIVE DEXTROSE. BG WITHIN NORMAL RANGE AT THE MOMENT.
[2017-01-09] MEDS: CALCIUM ACETATE 667 MG CAPSULE PO SCH (08:00)
--- NOTE | 2017-01-09 08:24 | NUR ---
SPEECH THERAPY CALLED THIS RN CALLED WORKERS COMPENSATION COORDINATOR ST AND LEFT A MESSAGE ABOUT COMING TO RE-EVALUATE PT DUE TO APPARENT ASPIRATION AND CONTINUED COUGHING.
[2017-01-09] MEDS: FLUOXETINE 20 MG CAPSULE PO SCH (09:00)
[2017-01-09] MEDS: BuPROPion XL (24 HR) 300 MG TABLET PO SCH (09:00)
[2017-01-09] MEDS: FOLIC ACID 1 MG TABLET PO SCH (09:00)
[2017-01-09] MEDS: MIDODRINE 5 MG TABLET PO SCH (09:00)
[2017-01-09] MEDS: LACTULOSE 20 GM/30 ML UD PO SCH (09:00)
[2017-01-09] MEDS: PANTOPRAZOLE 40mg INJECTION IV SCH (09:17)
[2017-01-09] MEDS: ONDANSETRON 4mg/2ml INJECTION IV PRN (09:24)
[2017-01-09] MEDS ORDERED: AMPICILLIN/SULBACTAM 3 G in NORMAL SALINE 100 ML IV SCH (10:00)
[2017-01-09] MEDS ORDERED: ALBUMIN HUMAN 25% 12.5gm 50ml IV SCH (10:15)
[2017-01-09] MEDS ORDERED: ALBUTEROL INH.SOLN. 2.5mg/3ml (0.083%) Neb. AEROSOL PRN (10:15)
[2017-01-09 10:34] LABS: HCT - HEMATOCRIT 38.4 % (41-53); HGB - HEMOGLOBIN 13.3 GM/DL (13.5-17.5); MEAN CORPUSCULAR HGB 30.8 UUG (26-34); MEAN CORPUSCULAR HGB CONC(MCHC 34.6 GM/DL (31-37); MEAN CORPUSCULAR VOLUME 88.9 UM3 (80-100); MEAN PLATELET VOLUME 9.6 UM3 (9.4-12.4); RED BLOOD COUNT 4.32 M/MM3 (4.50-5.90); WBC - WHITE BLOOD COUNT 18.4 T/MM3 (4.5-11.0)
--- NOTE | 2017-01-09 10:35 | DI ---
Indication: ITS.REASON: Vomiting PROCEDURE: KUB: Encounter: Initial Comparison: None Findings: Nonobstructive nonspecific bowel gas pattern. Scattered small and large bowel gas seen without significant dilatation. No significant colonic stool burden. Degenerative changes in the spine and hips. Impression: Nonobstructive nonspecific bowel gas pattern. .
--- NOTE | 2017-01-09 10:36 | PNPDOC ---
AURELIA HENSLEY [employer] 01/09/17 1015: Subjective Date DATE: 01/09/17 TIME: 10:11 Subjective Abran is seen today in follow up. Nursing reports patient has been recurrently vomiting through the night with large particles of food. Concern for aspiration- coarse cough with difficulty clearing throat. He is not SOA and not febrile. He is alert, but I cannot understand him. He is continuing to have some vomiting - dark brown/red vomitus noted. I have reviewed his chart at length. He was recently dismissed after a complicated hospital stay on 12/30/16. Readmitted on 01/06/17. His SCr on dismissal was 1.6, now 5.2 on admission and remains at 5.3 today despite placement of Londono for urinary retention. He has known significant cirrhosis, and last echo in 2011 revealed an EF of 30% . Recent stay at [facility] is reported during last hospital stay. He has been at [facility] following his last dismissal. Objective Vital Signs Vital signs Vital Signs Date Time Temp Pulse Resp B/P Pulse Ox O2 Delivery O2 Flow Rate FiO2 01/09/17 09:36 Nasal Cannula 3.00 01/09/17 09:20 88 18 95 01/09/17 00:48 98.0 110/56 Height (Feet): 5 Height (Inches): 7.00 Weight (Kilograms): 88.800 General General Appearance: Alert, Cooperative Comments Difficult to understand, but he is alert. Seems confused. He is warm, a bit icteric/sallow. He is in no distress. He does not appear SOA despite coarse, moist cough. Small amount of dark brown/ red vomitus in bag at bedside. Eyes (Brief) Eyes: FOUND: PERRL, NOT FOUND: foreign body, scleral icterus ENMT (Brief) ENMT: FOUND: mucosa moist Comments Edentulous, vomitus around mouth. Neck (Brief) Neck: FOUND: midline, NOT FOUND: JVD, nuchal rigidity, spasm Respiratory (Brief) Respiratory: FOUND: equal bilaterally, rales (Coarse), symmetrical Comments Again, he does not appear SOA. Is now requiring O2 following possible aspiration event. Cardiovascular (Brief) Cardiac: FOUND: pedal edema (Trace), regular rate, regular rhythm Abdomen (Brief) Abdominal: FOUND: distended, soft Comments Abdomen is distended. Not acutely tender. Tympanic. Hypoactive BS x 4 quadrants on exam. (Brief) Comments Londono cath is in place. Extremities (Brief) Extremity : Side: Bilateral Extremity Finding: FOUND: edema (Trace edema. ) Musculoskeletal (Brief) Musculoskeletal: NOT FOUND: deformity, loss of motion, tenderness Integumentary (Brief) Integumentary: FOUND: dry, warm Comments Skin is sallow. Psychiatric (Brief) Psychiatric: FOUND: alert, attentive, NOT FOUND: oriented Laboratory Laboratory Laboratory Tests 01/08/17 04:34 01/09/17 04:33 Laboratory Tests 01/08/17 04:34 01/09/17 04:32 Bands 4%. Radiology 01/06/17 Renal US IMPRESSION: No hydronephrosis. Renal cortical loss suggesting medical renal disease. CXR Impression: Hypoinflation with new small pleural effusions could relate to mild pulmonary edema or volume overload. Sepsis Diagnostic Criteria Sepsis Confirmed/Suspected Infection: Yes SIRS Criteria: Acute mental status chg, Temp<=96.8 or >=100.4, WBC >=12,000 or <=4,000, RR > or = to 20 Severe Sepsis SpO2 <90% or ventilated, INR>1.5, Creatinine >2.0mg/dL, Bilirubin>2mg/dL Assessment & Plan Problems: (1) Acute renal failure Status: Acute Qualifiers: Acute renal failure type: unspecified Qualified Codes: N17.9 - Acute kidney failure, unspecified (2) Cirrhosis Status: Chronic Qualifiers: Hepatic cirrhosis type: unspecified hepatic cirrhosis Ascites presence: with ascites Qualified Codes: K74.60 - Unspecified cirrhosis of liver (3) Aspiration into airway Status: Acute Qualifiers: Encounter type: initial encounter Qualified Codes: T17.908A - Unspecified foreign body in respiratory tract, part unspecified causing other injury, initial encounter (4) Leukocytosis Status: Acute Qualifiers: Leukocytosis type: bandemia Qualified Codes: D72.825 - Bandemia (5) Hyperphosphatemia Status: Acute Assessment & Plan: POA (6) Hypermagnesemia Status: Acute Assessment & Plan: POA (7) Type 2 diabetes mellitus Status: Chronic Qualifiers: Diabetes mellitus complication status: with unspecified complications Diabetes mellitus termite control technician insulin use: with termite control technician use Qualified Codes: E11.8 - Type 2 diabetes mellitus with unspecified complications; Z79.4 - alf (current) use of insulin (8) CAD (coronary artery disease) Status: Chronic Qualifiers: [place] vs. transplanted heart: [place] heart Associated angina: without angina (9) HTN (hypertension) Status: Chronic Qualifiers: Hypertension type: essential hypertension Qualified Codes: I10 - Essential (primary) hypertension (10) Episodic atrial fibrillation Status: Resolved (11) Anticoagulated on Coumadin Status: Chronic (12) Dyslipidemia Status: Chronic (13) Ischemic cardiomyopathy Status: Chronic Assessment & Plan: EF 30% 2011 (14) AICD (automatic cardioverter/defibrillator) present Status: Chronic (15) Chronic kidney disease Status: Chronic Qualifiers: Chronic kidney disease stage: stage 3 (moderate) Qualified Codes: N18.3 - Chronic kidney disease, stage 3 (moderate) Assessment & Plan: Baseline SCr 1.6 (16) Recovering alcoholic Status: Chronic (17) Bladder neck contracture Status: Chronic (18) Polio Status: Chronic (19) Chronic trigonitis Status: Chronic (20) Depression Status: Chronic Qualifiers: Depression Type: unspecified Qualified Codes: F32.9 - Major depressive disorder, single episode, unspecified (21) BPH (benign prostatic hypertrophy) Status: Chronic (22) Hypothyroidism Status: Chronic Qualifiers: Hypothyroidism type: acquired Qualified Codes: E03.9 - Hypothyroidism, unspecified (23) Dysphagia Status: Chronic (24) GERD (gastroesophageal reflux disease) Status: Chronic Assessment 01/09/17- *Severe Sepsis- Concern for aspiration- vomiting. Chronic prophylaxis for SBP Hold Cipro given severity of acute renal failure. Add Unasyn for coverage of possible aspiration. Consult pharmacy to help with renal adjustments. Assess KUB, CXR. NPO due to vomiting, concern for aspiration. Add NT sx; PRN nebs. O2 to maintain sats. *Hepatorenal syndrome/Acute renal failure/Chronic liver failure SCr is not improving. He appears intravascularly dry. (Baseline 1.6). Hepatorenal? Londono in place to prevent post renal causes. Continue IVF. Add albumin, Lasix to see if we can mobilize some fluid. Assess abdominal US- may need paracentesis today as well. Overall, status is guarded. We may need to consider transfer back to [facility] given severity of renal failure and concern for hematemesis. Hold non-essential PO meds. *Persistent vomiting- Concern for hematemesis. His HGB is stable, but he is intravascularly dry due to intra-abdominal third spacing. He is on Octreotide TID, PPI BID. May need to consider placement of NGT- unsure if dx of varices. Hesitant to place NGT without GI on staff here. Continue to monitor labs- recheck now. *Depression- Hold PO meds given vomiting. Monitor mentation. *AFib/Chronic anticoagulation- Would consider stopping Warfarin given severity of hepatic failure, frail status. Hold Warfarin now. INR remains elevated. *DM2- Continue BG monitoring. Hold Lantus given hypoglycemia. Continue dextrose containing IVF. *HFrEF, 30%- Continue telemetry. Again, appears dry. Will use Albumin, Lasix to try and mobilize some intraabdominal fluid. Unable to use Aldactone given severe renal failure. Overall- his prognosis is fairly grim given severity of symptoms, recurrent hospital stays. May need to consider end of life discussion vs transfer to higher level of care. Will need to discuss with Dr. Forrester. DVT Prophylaxis: SCD'S Code Status Full Code, unverified Hospital Course Summary Disclaimer The hospital course summary below is not to be considered part of the above Progress Note. Hospital Course Summary 01/06 Admit patient as a outpatient under the care of Dr Forrester for acute kidney injury Obtain the following laboratory studies on admission, CBC, CMP, urinalysis, INR , ammonia, magnesium, phosphorus Given acute kidney injury. Will place Londono catheter to dependent drainage. The patient does report some urinary retention. Obtain a renal sonogram for further evaluation In light of recent diarrhea will obtain a GI Panel to rule out infectious etiology. Concern for C-diff given he has been on antibiotics. Start normal saline at 250 ML per hour for hydration. Will need to discuss antimicrobial coverage with attending, as patient was on Cipro for fpc prophylaxis for spontaneous bacterial peritonitis. C/S from was negative. Protonix 40 milligrams twice a day for GI protection. SCDs to bilateral lower extremity for DVT prophylaxis. Will monitor Accu-Cheks closely. Will need to review home once reconciled. Woll discuss further plan of care with attending Dr. Forrester. At time of discharge medical care will return to primary care provider, . 01/07 Doing about the same. Breathing feels stable-not having increased SOA. Notes ab feels more distended and full. No nausea. Mouth feels dry. No chest pressure or pain. Not having f/c. Tolerating londono. Creatinine 5.0. Will decrease IVF to 100cc/hr. Albumen 25g IV x1 - Bumex 1mg IV 1 hour after to try to help increase urine output. Continue Londono - need to monitor urine output. Monitor weight and volume status. Encourage ambulation and activities. Discussed his multisystem failure (Heart/Liver/Kidney) - very difficult to make improvements. Prognosis not favorable. Recheck CMP, Mg, and Phos in am due to [place]. Recheck CBC in am due to leukocytosis. 01/08 More weak and tired. Harder to be active. Nausea with emesis this am. Appetite decreased. Ab feel more full and bloated. Increased ab girth. Not passing flatus. Some SOA. No chest pain. Feels itchy. Creatinine 5.1. Will decrease IVF to 50cc/hr. Start Octreotide 200mcg IV q8 hours. Start Lactulose TID - decreased bowel movements. Continue to hold Coumadin - INR 2.26. Continue Londono - need to monitor urine output. Monitor weight and volume status. Encourage ambulation and activities. Recheck CMP, Mg, and Phos in am due to [place]. Check NH4 in am due to cirrhosis. Recheck CBC in am due to leukocytosis. 01/09/17- *Severe Sepsis- Concern for aspiration- vomiting. Chronic prophylaxis for SBP Hold Cipro given severity of acute renal failure. Add Unasyn for coverage of possible aspiration. Consult pharmacy to help with renal adjustments. Assess KUB, CXR. NPO due to vomiting, concern for aspiration. Add NT sx; PRN nebs. O2 to maintain sats. *Hepatorenal syndrome/Acute renal failure/Chronic liver failure SCr is not improving. He appears intravascularly dry. (Baseline 1.6). Hepatorenal? Londono in place to prevent post renal causes. Continue IVF. Add albumin, Lasix to see if we can mobilize some fluid. Assess abdominal US- may need paracentesis today as well. Overall, status is guarded. We may need to consider transfer back to [facility] given severity of renal failure and concern for hematemesis. Hold non-essential PO meds. *Persistent vomiting- Concern for hematemesis. His HGB is stable, but he is intravascularly dry due to intra-abdominal third spacing. He is on Octreotide TID, PPI BID. May need to consider placement of NGT- unsure if dx of varices. Hesitant to place NGT without GI on staff here. Continue to monitor labs- recheck now. *Depression- Hold PO meds given vomiting. Monitor mentation. *AFib/Chronic anticoagulation- Would consider stopping Warfarin given severity of hepatic failure, frail status. Hold Warfarin now. INR remains elevated. *DM2- Continue BG monitoring. Hold Lantus given hypoglycemia. Continue dextrose containing IVF. *HFrEF, 30%- Continue telemetry. Again, appears dry. Will use Albumin, Lasix to try and mobilize some intraabdominal fluid. Unable to use Aldactone given severe renal failure. Overall- his prognosis is fairly grim given severity of symptoms, recurrent hospital stays. May need to consider end of life discussion vs transfer to higher level of care. Will need to discuss with Dr. Forrester. CUAUHTEMOC FORRESTER MD 01/09/17 1136: Assessment & Plan Plan/Intensity of Service Have independently interviewed and examined pt. Chart reviewed. Case discussed with nursing, Dr Jenkins at [facility], and my [employer]. Care plan developed with my supervision; agree with above. Rough night - increased nausea with episode of emesis (possible aspiration). Feels more weak. Breathing more shallow. Creatinine with gradual increase. Urine output decreased. Weight trending up. Lungs: decreased, congested CV: regular AB: soft increased ab girth MSE: awake alert Plan: With pt lack of interval improvement, increasing volume status, and decreasing respiratory performance due feel transfer to [facility] prudent. Case discussed at length with Dr Jenkins (hospitalist at [facility]). Hope for interval improvements to be made, but overall due feel prognosis not favorable. See orders for details. DVT Prophylaxis: Coumadin (On hold - INR above 2. ) AURELIA HENSLEY [employer] Jan 09, 2017 10:15 CUAUHTEMOC FORRESTER MD Jan 09, 2017 11:36
--- NOTE | 2017-01-09 10:36 | DI ---
Indication: ITS.REASON: POssible aspiration PROCEDURE: CHEST 1 VIEW: Encounter: Initial Comparison: January 06, 2017 Findings: Small bilateral pleural effusions are again seen with increasingly prominent lower lobe airspace disease. No pneumothorax. Heart size and without contours are stable. Left cardiac pacemaker defibrillator. Impression: Increasing lower lobe airspace opacities with small effusions could be due to atelectasis, aspiration or pneumonia. .
[2017-01-09 10:44] LABS: ANISOCYTOSIS 1+; BAND NEUTROPHILS # 1.3 T/MM3; EOSINOPHILS # (MANUAL) 0.2 T/MM3 (0-0.5); LYMPHOCYTES # (MANUAL) 0.4 T/MM3 (1-4.8); MONOCYTES # (MANUAL) 0.6 T/MM3 (0-0.8); POIKILOCYTOSIS 1+; TOTAL CELLS COUNTED 100 %
[2017-01-09 10:45] LABS: BURR CELLS 1+; OVALOCYTES 1+
[2017-01-09 10:46] LABS: TARGET CELLS 1+
[2017-01-09 10:51] LABS: ALBUMIN 2.5 G/DL (3.5-5.0); ALBUMIN/GLOBULIN RATIO 0.7 RATIO (1.1-2.2); ALKALINE PHOSPHATASE 193 U/L (38-126); ALT (SGPT) 49 U/L (21-72); ANION GAP 20 MEQ/L (5-15); AST (SGOT) 146 U/L (17-59); BUN/CREATININE RATIO 13 RATIO (6-26); CHLORIDE 115 MEQ/L (98-107); CO2 - CARBON DIOXIDE 11 MEQ/L (22-30); CREATININE 5.5 MG/DL (0.8-1.5); GLOMERULAR FILTRATION RATE 10; GLUCOSE 94 MG/DL (75-110); POTASSIUM 5.9 MEQ/L (3.6-5); SODIUM 146 MEQ/L (134-144)
[2017-01-09] MEDS ORDERED: FUROSEMIDE 40 MG/4 ML INJECTION IV SCH (11:00)
[2017-01-09] MEDS ORDERED: LACT10SO9 PO (11:24)
[2017-01-09] MEDS ORDERED: OCTR200V2 IV (11:24)
[2017-01-09] MEDS ORDERED: Calcium Acetate PO (11:24)
--- NOTE | 2017-01-09 11:33 | NUR ---
ALBUMIN NOT GIVEN ALBUMIN NOT GIVEN DUE TO SHORTAGE AT THIS HOSPITAL. PATIENT TRANSFERRING OUT OF FACILITY.
--- NOTE | 2017-01-09 11:48 | STDAILYN ---
ST Daily Note Date/Time DATE: 01/09/17 TIME: 11:38 Subjective Comment Pt was alert and willing to work with ST when ST entered his room. Orientations: Person, Alert, Cooperative Chief Complaint: chronic cough/dysphagia Pain: No (none reported) Was Patient Education Provided: Yes Person(s) Educated: Patient Education Subject: Diet, Treatment Plan Instruction Understanding Demo: Pt. verbalizes understand (comprehension uknown ) Education Comment Prior to this tx session, the pt was educated regarding reason for p.o. trials. Pt was agreeable to treatment. After the tx session, pt was educated regarding results and recommendations. He verbalized understanding and stated that he did not have any questions. *Speech Therapy Impressions Pt was on 4 liters o2 via NC during this evaluation. Prior to today, the pt was on a soft diet with chopped meat and nectar-thick liquids. Pt reportedly has a history of chronic cough and dysphagia. Per notes and RN, the pt vomited in the night and there was some concern for aspiration at that time. It was not clear if the concern was regarding the possibility that the pt aspirated vomit or what exactly occurred. ST was called to re-assess the pt today. Pt's breathing and vocal quality was wet when DEVELOPER AUTOMATIC entered the pt's room. This was a change from when the patient was seen by this DEVELOPER AUTOMATIC on Tuesday. The pt's cough was ineffective at clearing his own secretions. Trials of ice chips, nectar-thick liquids by spoon and applesauce were presented. Regardless of bolus consistency, hyolaryngeal elevation/excursion was palpated 5-8 seconds after bolus presentation. The pt exhibited a cough after each bolus presented, but the cough continued to be ineffective at clearing secretions. Based on this tx session, the following recommendations are made: 1. NPO 2. if the pt absolutely must have medications, give them crushed in puree; however, it should be noted that risk appears high 3. ST will continue to follow while pt remains inpatient and ST should continue upon transfer if the pt transfers to another facility. 4. Once pt is medically able, he would benefit from an instrumental swallow evaluation to further assess oropharyngeal swallow. ST Treatment Plan: Swallow Retraining, Swallow Precautions, Modified Diet ST Treatment Plan Frequency: five times per week Treatment Plan Duration: one week Plan of Care Comment: Based on this tx session, the following recommendations are made: 1. NPO 2. if the pt absolutely must have medications, give them crushed in puree; however, it should be noted that risk appears high 3. ST will continue to follow while pt remains inpatient and ST should continue upon transfer if the pt transfers to another facility. 4. Once pt is medically able, he would benefit from an instrumental swallow evaluation to further assess oropharyngeal swallow. Start Treatment 1: 11:00 Stop Treatment 1: 11:20 Treatment Duration : ST Treatment Charge: Swallow Treatment Minutes of Individual Therapy: 20 NAZ RUBIO MS CCC-DEVELOPER AUTOMATIC Jan 09, 2017 11:41
--- NOTE | 2017-01-09 12:20 | NUR ---
TRANSFERRED TO [facility] [facility] 5035 BED 2 VSS. A&O X3. 1L NC. [place] PATENT WITH MINIMAL OUTPUT. PERIPHERAL IV INTACT. BLOOD GLUCOSE STABLE. NO FURTHER BROWN/RED EMESIS SINCE ZOFRAN GIVEN THIS AM, BUT PT CONTINUES TO BE NAUSEATED. TRANSPORTED VIA NON-EMERGENT EMS CREW.
--- NOTE | 2017-01-09 19:27 | DSF ---
ADMITTING DIAGNOSIS Acute kidney injury. DISCHARGE DIAGNOSIS Acute kidney injury - worsening. ASSOCIATED CONDITIONS AND COMPLICATIONS 1. Cirrhosis of liver. 2. Ischemic cardiomyopathy with ejection fraction around 30%. 3. Leukocytosis (present on admission). 4. Hypermagnesemia (present on admission) - improved . 5. Hyperphosphatemia (present on admission). 6. Nausea, vomiting. 7. Possible aspiration pneumonia. 8. Type 2 diabetes mellitus. 9. Coronary artery disease. 10. Peripheral artery disease. 11. Hypertension. 12. Episodic atrial fibrillation. 13. Anticoagulation on Coumadin. 14. Dyslipidemia. 15. History of AICD placement. 16. Aortic valve sclerosis. 17. Stage III chronic kidney disease. 18. BPH. 19. GERD. 20. Hypothyroidism . 21. Dysphagia. 22. Allergic rhinitis. 23. History of polio. 24. Recovering alcoholic. 25. Overweight. PROCEDURES None. CONSULTATIONS Speech therapy. CLINICAL RESUME Mr. Ch is an 71-year-old gentleman who is well known to Hospice Service from recent admission. He was admitted 12/21/16 secondary to leukocytosis with altered mentation. Lactate was elevated. During the hospitalization he did undergo paracentesis with 4400 ml of fluid removed. Dr. Pizano did see the patient during the hospitalization he was started on Cipro for spontaneous bacterial peritonitis prophylaxis. During his hospital course lab was monitored and his creatinine remained stable, being 1.5 at time of discharge. He was discharged to detention. Lab was performed yesterday which shows elevation of creatinine to 4.3. In light of this finding his primary care provider did contact Dr. Forrester to arrange further treatment of his acute kidney injury. The patient does report he has been having loose stools since he left the left the hospital. He reports he has not been able to take much orally and is having little urinary output over for the past 3 days. His breathing has been stable and he has not been having chest pain or pressure. He does note some intermittent nausea and mild pruritus. He was subsequently placed in outpatient observation status at [facility] for further evaluation and treatment. For complete details of the H&P refer to that document. LABORATORY White blood count is 21.7 with 87% neutrophils. Hemoglobin is 13.8 with hematocrit 39.8, MCV 87.1 and platelets 226,000. Serum sodium is 138, potassium 4.9, chloride 102, CO2 20, BUN 73 with creatinine 5.2, GFR 11 and blood glucose 117. Calculated osmolality was elevated to 189. Calcium is normal at 8.8 with phosphorus elevated at 6.0. Magnesium elevated at 2.4. Total bilirubin was 2.40 with AST elevated 132 and ALT normal at 59. Venous ammonia is less than 9. INR is 2.26. UA reveals elevated specific gravity greater than 1.0301 with 1+ blood and 1+ bacteria. Stool PCR panel is completely negative. HOSPITAL COURSE The patient was initially placed in outpatient observation status at [facility] under the care of Dr. Forrester. We did start IV fluids for hydration. Normal saline was initiated and he did get one liter over four hours, after which time rate was decreased to 125 as we felt he was over diuresed. His home Bumex and spironolactone were held. We did also hold Coumadin during the hospitalization, monitoring INR on a daily basis. INR remained essentially stable in the 2.2 range. As his BUN was elevated and he was having loose stool we worried about potential for GI bleed. Protonix was initiated 40 mg IV b.i.d. to provide GI protection. SCDs were initiated for DVT prophylaxis (as well as help minimize lower extremity edema). As his oral drive was decreased we continued his home long-acting insulin but held mealtime insulin. Blood sugars were monitored. Medeiros catheter was placed due to his acute kidney injury, so we could monitor urine output. Will his underlying dysphagia we did consult speech therapy. Speech therapy did recommend continuation of chopped meat with nectar-thick liquids as a safe diet for him to consume. Lab was monitored. By 01/07 he was feeling about the same. He felt did feel his abdomen was more distended. Mouth was still feeling dry. Creatinine really had not changed significantly. Urine output was still low. We did decrease IV fluids to 100 cc an hour and also gave 25 mg of IV albumin followed by 1 mg IV Bumex one hour later to try to help increase urine output. . We encouraged the patient on ambulation activities. In light of his persistent symptoms he was made inpatient admission on the . By the next hospital day he was feeling more weak and tired. It is harder for him to be active. He was starting to have increased nausea with decreased appetite. IV fluids were decreased to 50 cc an hour as his weight was trending upward. We did start octreotide 200 mcg IV q.8h. Lactulose was initiated t.i.d. Coumadin was continued be held and INR was still therapeutic. By the next day his renal status really was not making any interval improvement. He had more nausea and an episode of emesis. There was worry that he may have aspirated. Invanz was started for coverage. Potassium was showing elevation. However, the specimen was hemolyzed so it is difficult to say just what his potassium was doing. Blood glucose had decreased to the 60s and so IV fluids were changed to dextrose containing fluids. He was feeling more short of breath and needing oxygen between one to three liters to maintain saturations. With the lack of interval improvement of his acute kidney injury as well as persistent elevation of creatinine and increasing weight coupled with more difficulty breathing, Dr. Forrester did discuss case with Dr. Jenkins at [facility]. I do worry that he needs a higher level of care than what can be provided at [facility]. With his underlying cirrhosis and increasing ascites there is concern that he could develop hepatorenal syndrome. Potentially may need dialysis. Case was discussed with and she did graciously agree to accept the patient in transfer. He was able to be transferred in fair condition. Narrative disclaimed: Above narrative is a brief the patient's hospitalization; for complete details of the hospital course, refer the medical record. DISCHARGE CONDITION Fair. DIET N.p.o. Baseline diet is chopped meats/nectar-thick liquids, low sodium diabetic. ACTIVITIES Up with assistance. MEDICATIONS 1. Home medications, Bumex one mg b.i.d. 2. Bupropion XL 300 mg daily. 3. Cipro 500 mg daily. 4. Prozac 40 mg daily. 5. Folic acid 1 mg daily 6. Levothyroxine 0.1 mg daily. 7. Midodrine 7.5 mg t.i.d. 8. NTG 0.4 mg sublingual p.r.n. 9. Omeprazole 20 mg a.c. breakfast. 10. Spironolactone 25 mg b.i.d. 11. Warfarin 0.5 mg every 48 hours. 12. Lactulose 20 t.i.d. 13. PhosLo 1334 mg t.i.d. with meals. 14. Octreotide will be continued. 15. Stop Tylenol 325 two p.o. b.i.d. p.r.n. pain. 16. Stop Levemir 10 units subcu q.h.s. 17. Stop NovoLog 3 units subcu t.i.d. 18. Stop magnesium oxide 400 mg b.i.d. FOLLOWUP 1. The patient will be followed by Dr. Jenkins during his stay at [facility] . 2. Definitive hospital followup with Dr. Singh will be made at time of discharge from [place]. INSTRUCTIONS TO PATIENT Patient was instructed on his diagnosis and treatments provided. We discussed rationale behind transfer. With his worsening renal status, worsening respiratory status I do feel he needs more care than what can be provided at [facility]. Nephrology consultation and potential need for dialysis exists. Additionally gastroenterological evaluation in light of cirrhosis could be entertained. He was encouraged to be adherent with medications and to be as active as he is able. Should problems or need occur he can be in contact with the care providers at [facility]. He voiced understanding of the above. Time spent with discharge greater than 35 minutes. CAT
--- NOTE | 2017-01-10 07:48 | STDAILYN ---
Discharge Note Date/Time DATE: 01/10/17 TIME: 07:47 Discharge From: Inpatient ST Reason for Discharge: Transf. to Diff. Facility ([facility]) Discharge Summary: PT TF TO [facility]- RECOMMEND CONTINUATION OF ST SERVICES IN D/C ENVIRONMENT Recommended Follow-up: Return to Physician, Cont. Therapy in [place] JOANN Jones MS CCC-MAINTENANCE SERVICE SUPERVISOR Jan 10, 2017 07:47
== END 2017-01-09 12:20 | disposition short-term general hospital (02) | DRG 684 ==
LOC: MED 11:25 → OBSVTOIN 01-07 13:47
PROVIDERS: ADMIT Hospitalist; ATTEND Hospitalist
DX: N17.9 Acute kidney failure, unspecified (principal); D72.829 Elevated white blood cell count, unspecified; K74.60 Unspecified cirrhosis of liver; I12.9 Hypertensive chronic kidney disease with stage 1 through stage 4 chronic kidney disease, or unspecified chronic kidney disease; E11.22 Type 2 diabetes mellitus with diabetic chronic kidney disease; N18.3 Chronic kidney disease, stage 3 (moderate); E83.41 Hypermagnesemia; E83.39 Other disorders of phosphorus metabolism; I25.10 Atherosclerotic heart disease of native coronary artery without angina pectoris; E78.5 Hyperlipidemia, unspecified; I25.5 Ischemic cardiomyopathy; I73.9 Peripheral vascular disease, unspecified; Z95.810 Presence of automatic (implantable) cardiac defibrillator; N30.30 Trigonitis without hematuria; R13.10 Dysphagia, unspecified; I35.8 Other nonrheumatic aortic valve disorders; F10.21 Alcohol dependence, in remission; D35.02 Benign neoplasm of left adrenal gland; Z86.12 Personal history of poliomyelitis; N32.0 Bladder-neck obstruction; L40.9 Psoriasis, unspecified; F32.9 Major depressive disorder, single episode, unspecified; N40.0 Benign prostatic hyperplasia without lower urinary tract symptoms; Z79.01 Long term (current) use of anticoagulants; Z79.4 Long term (current) use of insulin; E66.3 Overweight; Z68.30 Body mass index [BMI] 30.0-30.9, adult
CPT/HCPCS: 31720; 36415; 36416; 80053; 81001; 82140; 82948; 83735; 84100; 84300; 85025; 85610; 87507; 96361; 96372; 96374; 99218